=== PATIENT | female | born 1955 | race Two or more races ===

== ENCOUNTER → 2020-05-19 11:13 | Outpatient (BNVA) | payer MEDICARE, OTHER, SELFPAY | PROVIDERS: Visit Provider Physician Assistant | DX: S52.602D Unspecified fracture of lower end of left ulna, subsequent encounter for closed fracture with routine healing (principal); S52.502D Unspecified fracture of the lower end of left radius, subsequent encounter for closed fracture with routine healing | CPT/HCPCS: 29075; 29085; 99212 ==

== ENCOUNTER 2020-05-28 08:56 | Outpatient (REF) | payer MEDICARE, OTHER, SELFPAY ==
--- NOTE | 2020-05-28 08:59 | XR_ITS ---
EXAMINATION: XR WRIST, LEFT CLINICAL INFORMATION: Status post operative reduction internal fixation distal radial fracture. COMPARISON: Portable left wrist 05/05/2020, radiographs wrist 04/22/2020. TECHNIQUE: PA, lateral, and oblique views of the left wrist. FINDINGS: The distal radial fracture has been reduced with volar side plate and screws. The hardware is intact. There is near-anatomic alignment. There is no acute fracture or dislocation or destructive process. Again, there is fracture at base ulnar styloid with mild distraction/rotation of the fracture fragment, similar to prior portable study 05/05/2020. XR/XR wrist LT min 3V IMPRESSION: 1. Status post open reduction internal fixation distal radial fracture. Near-anatomic alignment. Hardware intact. 2. Styloid process fracture similar to recent study 05/05/2020.
== END 2020-05-28 08:57 | disposition home or self-care (01) ==
LOC: HO.XRAY 08:56
PROVIDERS: PCP Nurse Practitioner Family; Referring Provider Nurse Practitioner Family; Visit Provider Physician Assistant
DX: Z98.890 Other specified postprocedural states (principal); S52.502D Unspecified fracture of the lower end of left radius, subsequent encounter for closed fracture with routine healing; Z87.81 Personal history of (healed) traumatic fracture
CPT/HCPCS: 29125; 73110; 99212

== ENCOUNTER 2020-06-24 11:32 | Outpatient (REF) | payer MEDICARE, SELFPAY ==
--- NOTE | 2020-06-24 11:33 | XR_ITS ---
EXAMINATION: XR WRIST, LEFT CLINICAL INFORMATION: Fracture of the lower end of the left radius. Subsequent encounter closed fracture with routine healing COMPARISON: 05/28/2020 TECHNIQUE: PA, lateral, and oblique views of the left wrist. FINDINGS: Volar plate and screw fixation hardware is present at the distal radius. Hardware is intact. Alignment at the distal radial fracture is anatomic. Mild callus formation noted. Displaced ulnar styloid fracture again noted. Mild soft tissue swelling. Carpal rows are well aligned. XR/XR wrist LT min 3V IMPRESSION: Intact distal radial fixation hardware with appropriate alignment.
== END 2020-06-24 11:33 | disposition home or self-care (01) ==
LOC: HO.HOSX 11:32
PROVIDERS: Visit Provider Physician Assistant
DX: S52.502D Unspecified fracture of the lower end of left radius, subsequent encounter for closed fracture with routine healing (principal); X58.XXXD Exposure to other specified factors, subsequent encounter
CPT/HCPCS: 73110

== ENCOUNTER 2020-08-09 11:48 | Outpatient (REF) | payer MEDICARE, OTHER, SELFPAY ==
--- NOTE | 2020-08-09 13:22 | XR_ITS ---
EXAMINATION: XR WRIST, LEFT CLINICAL INFORMATION: Fracture COMPARISON: Previous x-ray most recent June 2020 TECHNIQUE: PA, lateral, and oblique views of the left wrist. FINDINGS: There is ORIF of left distal radius fracture with volar plate and screws. Orthopedic hardware appears unchanged. Fracture lines in the distal radius are no longer seen. There is an ununited fracture of the ulnar styloid that appears unchanged. Soft tissues are unremarkable. Carpal bones are unremarkable. XR/XR wrist LT 2V IMPRESSION: ORIF of left distal radius fracture. Ununited ulnar styloid fracture.
== END 2020-08-09 11:49 | disposition home or self-care (01) ==
LOC: HO.HOSX 11:48
PROVIDERS: Visit Provider Orthopaedic Surgery
DX: S52.502D Unspecified fracture of the lower end of left radius, subsequent encounter for closed fracture with routine healing (principal)
CPT/HCPCS: 73100; 99212

== ENCOUNTER 2020-09-08 13:00 | Outpatient (RCR) | payer MEDICARE, OTHER, SELFPAY ==
--- NOTE | 2020-06-24 15:12 | MHC.OT.OEV ---
[address] [phone] F: [phone] Occupational Therapy Evaluation Diagnosis: L DISTAL RADIUS FRACTURE S/P ORIF Date of Onset: 04/22/20 Date of Surgery: 05/05/20 Attending Provider: Deana Mora Prescribed Treatment: EVAL AND ROMAN HERNANDES Follow Up Appointment: 07/09/20 History of Current Condition: REPORTS FALLING ON R HAND WHILE REACHING O/H TO MEASURE CURTAIN REN WHILE STANDING ON A CHAIR. PLACED IN A CAST AFTER ORIF, TRANSITIONED TO REMOVABLE PREFAB SPLINT. SPLINT DISCONTINUED AT ORTHO VISIT 06/24/20. XRAY 06/24/20... Volar plate and screw fixation hardware is present at the distal radius. Hardware is intact. Alignment at the distal radial fracture is anatomic. Mild callus formation noted. Displaced ulnar styloid fracture again noted. Mild soft tissue swelling. Carpal rows are well aligned. Significant Medical History: ASTHMA, COPD Precautions/Contraindications: POST-OP PROTOCOL Patient Goals: TO GET HER STRENGTH BACK AND USE HAND SHE PREVIOUSLY DID Hand Dominance: Right QuickDASH Score: 43 Prior Level of Function and Occupation Self Care, Employment, Leisure: RETIRED. HOBBIES INCLUDE SWIMMING, CLEANING HOME. Living Situation, Family and/or Social Support: LIVES ALONE. HAS A DAUGHTER CLOSE BY. Current Level of Function and Occupation Self Care, Employment, Leisure: DIFFICULTIES WITH WASHING DISHES, TOILETING PERICARE, WASHING BACK. Sleep: HAVING DIFFICULTIES SLEEPING, UNABLE TO SPECIFY Driving: REPORTS SOME DIFFICULTIES IN LEFT HAND Vision: EYE GLASSES Pain Assessment Pain Score: 0-4 Pain Scale Used: Numeric (0 - 10) Pain Location and Description: L RADIAL WRIST PAINFREE AT REST, 4/10 WITH USE Aggravating Factors: MOVEMENT Alleviating Factors: WEARING SPLINT; HAS NOT TRIED HEAT OR ICE OR HAS NOT TAKEN PAIN MEDICATION Skin and Soft Tissue Assessment Skin and Soft Tissue: Swelling Scar Tissue Comments: VOLAR SCAR AT DISTAL WRIST; DRY SKIN, EDEMA NOTED BELOW Sensory Assessment Light Touch: WFL Edema Assessment Upper Extremity: Left Impaired Lower Extremity: Comments: CIRCUMFRENCE OF WRIST, DISTAL TO [place].S. LEFT: 17.0 CM; RIGHT: 15.7 CM Dexterity Assessment Dexterity: Left Impaired Comments: FUNCTIONAL DEXTERITY TEST: MOD FUNCTIONAL AT 35 SECONDS LEFT HAND AROM(PROM) Strength Shoulder Flexion: Extension: Abduction: Internal Rotation: External Rotation: Comments: WFL Flexion: Extension: Abduction: Internal Rotation: External Rotation: Comments: Elbow Flexion: Extension: Pronation: L 82, R 85 Supination: L 45, R 75 Comments: Flexion: Extension: Pronation: Supination: Comments: Wrist Flexion: L 28, R 48 Extension: L 45, R 60 Ulnar Deviation: L 42 Radial Deviation: L 15 Comments: Flexion: Extension: Ulnar Deviation: Radial Deviation: Comments: Digits Index MCP: PIP: DIP: Long MCP: PIP: DIP: Ring MCP: PIP: DIP: Small MCP: PIP: DIP: Comments: Gross Grasp: L 12, R 45 Lateral Pinch: L 5, R 12 Two-Point Pinch: Three-Jaw Lisandro: Comments: SUBMAX L GRASP Patient Education 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 Patient demonstrates Patient verbalizes Needs reinforcement Barriers to Learning: None Readiness for Learning: Accepting Who was educated? Patient Plan of Care Assessment: 64 Y/O F S/P ORIF 7 WEEKS AGO FOR DISTAL RADIUS FRACTURE SHE SUSTAINED AFTER FALLING OFF A CHAIR FROM THE STANDING POSITION. SHE REPORTS PAINFREE AT REST AND MODERATE PAIN WITH FUNCTIONAL USE. HER SPLINT WAS DISCONTINUED BY ORTHO TODAY. SHE REPORTS A 43% LIMITATION PER THE QUICK DASH ASSESSMENT. ONGOING OT WARRANTED TO ADDRESS THE AREAS MENTIONED BELOW AND MAXIMIZE HER FUNCTIONAL LEVEL. STG Duration: 3 WEEKS Short Term Goals: IND HEP IND USE OF HEAT/ICE IND SCAR MANAGEMENT AND EDEMA CONTROL WRIST FLEX 35 DEGREES, EXT 50 L SUPINATION 55 COORDINATION TO FUNCTIONAL LEVEL PER FUNCTIONAL DEXTERITY TEST LTG Duration: 6 WEEKS Sales And Business Development Manager Goals: WRIST FLEX/EXT >60 DEGREES L SUPINATION >70 DEGREES R FORM SETTER >30 POUNDS QUICK DASH <28 REPORT <2/10 PAIN WITH ADLs AND IADLs Frequency and Duration: The patient will be seen 2x/WEEK FOR 6 WEEKS Treatment Plan: Therapeutic Exercise Therapeutic Activity Home Exercise Program Splinting Neuro Re-ed Patient Education Desensitization/Sensory Re-ed Edema Control ADL Training NMES MHP Cold Packs Joint Mobilization Soft Tissue Mobilization Kinesiotaping Electronically Signed By: LEANNE RHOADES OTR/L Please sign and return to therapist, Thank you for your referral.
--- NOTE | 2020-09-30 15:28 | MHC.OT.DC ---
[address] [phone] F: [phone] Occupational Therapy Discharge Note Provider: Deana Mora PA-C Diagnosis: L DISTAL RADIUS FRACTURE S/P ORIF Date of Surgery: 05/05/20 Date of Evaluation: 06/24/20 Treatments to Date: 15 Discharge Status: Independent with HEP Discharge Summary: Progressing w/ range of motion, good inc after treatment. Pt demonstrates potential for con't improvement however reports she has little motivation to exercise at home or come to therapy. She is pain free at rest and has very low pain w/ activities, no significant functional limitations. Reporting new left thumb trigger, IPj flexion block fabricated for pt comfort. Electronically Signed By: Dana Bustos OTR/Toma Please Sign and return to therapist, thank you for your referral.
== END 2020-11-16 07:35 | disposition other institution (70) ==
LOC: HO.OT 13:00
PROVIDERS: Visit Provider Physician Assistant
DX: Z98.890 Other specified postprocedural states (principal); Z87.81 Personal history of (healed) traumatic fracture; S52.502D Unspecified fracture of the lower end of left radius, subsequent encounter for closed fracture with routine healing
CPT/HCPCS: 29125; 97035; 97110; 97140; 97166; 97760; 99212

== ENCOUNTER → 2020-09-09 09:44 | Outpatient (BNVA) | payer MEDICARE, OTHER, SELFPAY | PROVIDERS: PCP Internal Medicine Sports Medicine; Visit Provider Orthopaedic Surgery | DX: M65.312 Trigger thumb, left thumb (principal); S52.502D Unspecified fracture of the lower end of left radius, subsequent encounter for closed fracture with routine healing | CPT/HCPCS: 99202 ==

== ENCOUNTER 2020-09-27 13:38 | Emergency (ER) | payer MEDICARE, OTHER, SELFPAY ==
--- NOTE | ~2020-09-27 | CT_ITS ---
EXAMINATION: CT ABDOMEN AND PELVIS WITHOUT CONTRAST CLINICAL INFORMATION: Lower abdominal pain with guarding. Concern for diverticulitis COMPARISON: None. TECHNIQUE: Multidetector volumetric imaging was performed from the lung bases through the pubic symphysis. Sagittal and coronal reformatted images were obtained on the technologist workstation. This CT examination was performed using dose optimization techniques as appropriate, variously including the following: *Automated exposure control *Adjustment of mA and/or kV according to patient size (this includes techniques or standardized protocols for targeted exams where dose is matched to indication/reason for exam; i.e. extremities or head) *Use of iterative reconstruction technique Total exam DLP 954 FINDINGS: The lack of intravenous contrast limits evaluation of the solid visceral organs including the liver, spleen, pancreas, and kidneys. LUNG BASES: Mild bibasilar atelectasis. LIVER, GALLBLADDER, AND BILIARY TREE: Limited non-contrast evaluation is normal. No gross focal hepatic lesion. Normal liver size and contour. No gross biliary ductal dilation. Dependent gallstone. No gallbladder wall thickening or pericholecystic fluid. PANCREAS: Limited non-contrast evaluation is normal. No romaine-pancreatic fluid. SPLEEN: Limited non-contrast evaluation is normal. ADRENAL GLANDS: Normal; no adrenal mass. KIDNEYS AND URETERS: 2 mm left mid renal calculus, image [id number]. Punctate 1 mm left lower pole calculus. No hydronephrosis or hydroureter. GASTROINTESTINAL TRACT: Small bowel and colon are non-dilated. No bowel wall thickening. No pericolonic inflammatory changes to suggest colitis or diverticulitis. Appendix not seen but there are no right lower quadrant inflammatory changes to suggest appendicitis. ABDOMINAL WALL: Small fat-containing umbilical hernia. LYMPH NODES: No lymphadenopathy. VASCULAR: Normal caliber abdominal aorta. Moderate calcified atherosclerotic change. BLADDER: Unremarkable. PELVIC VISCERA: Normal noncontrast appearance of the uterus and ovaries. OSSEOUS STRUCTURES: No acute or suspicious osseous abnormalities. CT/CT abdomen pelvis wo con IMPRESSION: No acute CT findings. No evidence of colitis or diverticulitis. Tiny nonobstructing left renal calculi. Gallstones.
[2020-09-27 13:47] VITALS: BP 127/101; BP 127/56; PULSE 60; PULSE 66; RESP 22; TEMP 36.3; O2SAT 97; O2SAT 99; BMI 41.3
--- NOTE | 2020-09-27 13:49 | ED_ITS ---
HPI - Abdominal Pain General Chief Complaint: Abdominal Pain <Vikram Sexton MD - Last Filed: 09/27/20 16:58> Stated Complaint: ABDOMINAL PAIN / SOB <Vikram Sexton MD - Last Filed: 09/27/20 16:58> Time Seen by Provider: 09/27/20 13:49 <Vikram Sexton MD - Last Filed: 09/27/20 16:58> Source: patient <Vikram Sexton MD - Last Filed: 09/27/20 16:58> Mode of arrival: ambulatory <Vikram Sexton MD - Last Filed: 09/27/20 16:58> History of Present Illness HPI narrative: 45 minutes of sudden lower pain with chills, no dysuria, no NVD <Vikram Sexton MD - Last Filed: 09/27/20 16:58> MD elicited complaint: abdominal pain <Vikram Sexton MD - Last Filed: 09/27/20 16:58> Onset (ago): minute(s) (45) <Vikram Sexton MD - Last Filed: 09/27/20 16:58> Pain Consistency: constant <Vikram Sexton MD - Last Filed: 09/27/20 16:58> Location: other (lower) <Vikram Sexton MD - Last Filed: 09/27/20 16:58> Severity: moderate <Vikram Sexton MD - Last Filed: 09/27/20 16:58> Quality: cramping <Vikram Sexton MD - Last Filed: 09/27/20 16:58> Radiation: none <Vikram Sexton MD - Last Filed: 09/27/20 16:58> Exacerbating factors: nothing <Vikram Sexton MD - Last Filed: 09/27/20 16:58> Relieving factors: nothing <Vkiram Sexton MD - Last Filed: 09/27/20 16:58> Associated symptoms: chills <Vikram Sexton MD - Last Filed: 09/27/20 16:58> Related Data Home Medications: Home Medications Medication Instructions Recorded Confirmed acetaminophen 160 mg/5 mL oral 640 mg PO QID 05/19/20 elixir albuterol sulfate 2.5 mg INHALATION Q4-6H PRN 05/19/20 aspirin 81 mg tablet,delayed 81 mg PO DAILY 05/19/20 release atorvastatin 20 mg tablet 20 mg PO BEDTIME 05/19/20 calcium carbonate 500 mg-vitamin tab PO 05/19/20 D3 200 unit-vitamin K2 90 mcg tablet cholecalciferol (vitamin D3) 50 50 mcg PO DAILY 05/19/20 mcg (2,000 unit) capsule citalopram 20 mg tablet 20 mg PO DAILY 05/19/20 cyclosporine 0.05 % eye drops in a 1 drp OPHTHALMIC (EYE) Q12H 05/19/20 dropperette ferrous sulfate 325 mg (65 mg 325 mg PO DAILY 05/19/20 iron) tablet fluticasone propionate 50 1 spray INTRANASAL DAILY 05/19/20 mcg/actuation nasal spray,suspension hydroxyurea 500 mg capsule 500 mg PO DAILY 05/19/20 levothyroxine 75 mcg tablet 75 mcg PO DAILY 05/19/20 loratadine 10 mg capsule 10 mg PO DAILY 05/19/20 metoclopramide HCl 10 mg tablet 10 mg PO QIDACHS 05/19/20 multivitamin,[id number] 1 tab PO DAILY 05/19/20 omeprazole 20 mg capsule,delayed 20 mg PO DAILY 05/19/20 release ondansetron 4 mg disintegrating 4 mg PO Q8H 05/19/20 tablet polyethylene glycol 3350 17 gram 17 g PO DAILY 05/19/20 oral powder packet Previous Rx's Medication Instructions Recorded arm brace #1 ea 05/28/20 <Vikram Sexton MD - Last Filed: 09/27/20 16:58> Allergies/Adverse Reactions: Allergies Allergy/AdvReac Type Severity Reaction Status Date / Time acetaminophen [From VICODIN] Allergy Intermediate DIZZY Verified 08/09/20 13:29 hydrocodone [From VICODIN] Allergy Intermediate DIZZY Verified 08/09/20 13:29 zoster vaccine live Allergy Mild HIVES Verified 08/09/20 13:29 [SHINGLES VACCINE] BARIUM CONTRAST Allergy Unknown DIFFICULTY Uncoded 04/22/20 19:34 BREATHING/FLUSHING Vicodin Allergy Unknown anaphylaxis Uncoded 12/03/19 00:00 <Vikram Sexton MD - Last Filed: 09/27/20 16:58> Review of Systems Constitutional: Reports no additional constitutional complaints <Vikram Sexton MD - Last Filed: 09/27/20 16:58> Eyes: Reports no additional eye complaints <Vikram Sexton MD - Last Filed: 09/27/20 16:58> Denies dizziness <Vikram Sexton MD - Last Filed: 09/27/20 16:58> Cardiovascular: Reports no additional cardiovascular complaints <Vikram Sexton MD - Last Filed: 09/27/20 16:58> Respiratory: Reports as per HPI <Vikram Sexton MD - Last Filed: 09/27/20 16:58> Gastrointestinal: Reports no additional gastrointestinal complaints <Vikram Sexton MD - Last Filed: 09/27/20 16:58> Genitourinary: Reports no additional female genitourinary complaints <Vikram Sexton MD - Last Filed: 09/27/20 16:58> Musculoskeletal: Reports no additional musculoskeletal complaints <Vikram Sexton MD - Last Filed: 09/27/20 16:58> Skin/Breast: Denies rash <Vikram Sexton MD - Last Filed: 09/27/20 16:58> Reports system reviewed and no additional complaints, except as documented, Denies dizziness and Denies Sensory deficit (Neuro) <Vikram Sexton MD - Last Filed: 09/27/20 16:58> Psychiatric: Denies anxiety <Vikram Sexton MD - Last Filed: 09/27/20 16:58> Physical Exam Vital Signs: Vital Signs: Last Vital Signs Temp 97.4 F 09/27/20 13:47 Pulse 76 09/27/20 14:44 Resp 18 09/27/20 14:44 BP 153/78 H 09/27/20 14:44 Pulse Ox 95 09/27/20 14:44 Body Mass Index 41.3 <Vikram Sexton MD - Last Filed: 09/27/20 16:58> Vital Signs: Last Vital Signs Temp 97.4 F 09/27/20 13:47 Pulse 76 09/27/20 14:44 Resp 18 09/27/20 14:44 BP 153/78 H 09/27/20 14:44 Pulse Ox 95 09/27/20 14:44 Body Mass Index 41.3 <Chidi Vitale MD - Last Filed: 09/27/20 17:49> Const: Other: obese female in pain <Vikram Sexton MD - Last Filed: 09/27/20 16:58> Nutritional Appearance: obese <Vikram Sexton MD - Last Filed: 09/27/20 16:58> Orientation/consciousness: oriented to person and patient oriented x3 <Vikram Sexton MD - Last Filed: 09/27/20 16:58> Limitations: no limitations <Vikram Sexton MD - Last Filed: 09/27/20 16:58> HENMT: Head: Yes normal to inspection <Vikram Sexton MD - Last Filed: 09/27/20 16:58> Ears: external ears normal <Vikram Sexton MD - Last Filed: 09/27/20 16:58> General nose exam: Normal external nose present <Vikram Sexton MD - Last Filed: 09/27/20 16:58> Mouth: Normal oral and palatal mucosa present and oropharynx normal <Vikram Sexton MD - Last Filed: 09/27/20 16:58> Throat: Yes posterior oropharynx normal <Vikram Sexton MD - Last Filed: 09/27/20 16:58> Eyes: General: appearance normal, both eyes and all related structures <Vikram Sexton MD - Last Filed: 09/27/20 16:58> Neck: Other: supple <Vikram Sexton MD - Last Filed: 09/27/20 16:58> Neck: Yes normal visual inspection <Vikram Sexton MD - Last Filed: 09/27/20 16:58> Chest: Chest palpation & inspection: normal inspection of the chest <Vikram Sexton MD - Last Filed: 09/27/20 16:58> Resp: Auscultation: clear to auscultation bilaterally <Vikram Sexton MD - Last Filed: 09/27/20 16:58> Cardio: Jugular venous distension: no JVD <Vikram Sexton MD - Last Filed: 09/27/20 16:58> Rate: regular rate <Vikram Sexton MD - Last Filed: 09/27/20 16:58> Rhythm: regular rhythm <Vikram Sexton MD - Last Filed: 09/27/20 16:58> Heart sounds: S1 normal heart sound present and S2 normal heart sound present <Vikram Sexton MD - Last Filed: 09/27/20 16:58> GI: Other: obese abdomen, healed surgical wounds, diffuse guarding but more severe midline low with guarding and rebound <Vikram Sexton MD - Last Filed: 09/27/20 16:58> Auscultation: normal bowel sounds <Vikram Sexton MD - Last Filed: 09/27/20 16:58> : General: Yes no CVA tenderness <Vikram Sexton MD - Last Filed: 09/27/20 16:58> Back/Spine/Pelvis: Back: no CVA tenderness <Vikram Sexton MD - Last Filed: 09/27/20 16:58> Skin: General skin exam: no rashes or lesions noted <Vikram Sexton MD - Last Filed: 09/27/20 16:58> Neuro: General: oriented to person and patient oriented x3 <Vikram Sexton MD - Last Filed: 09/27/20 16:58> Cranial nerves: Yes CN's II-XII intact bilaterally <Vikram Sexton MD - Last Filed: 09/27/20 16:58> Motor exam (neuro): 5/5 motor strength present throughout <Vikram Sexton MD - Last Filed: 09/27/20 16:58> Sensory Exam: No Sensory deficit (Neuro) <Vikram Sexton MD - Last Filed: 09/27/20 16:58> Extrem: General: Yes normal to inspection <Vikram Sexton MD - Last Filed: 09/27/20 16:58> Psych: Appearance: grossly normal <Vikram Sexton MD - Last Filed: 09/07 09/26 16:58> Course Course Course Narrative: patient feeling much better no evidence of diverticulitis, appendicitis, awaiting UA will sign out to Dr. Vitale <Vikram Sexton MD - Last Filed: 09/27/20 16:58> Reevaluation(s) Reevaluation #1: Patient feeling much better came here for pain started in right upper quadrant with diffuse radiation of pain with bloatng and the nausea patient does state that she was told that she had gallstones in the past CT scan showed nonobstructive gallstones without cholecystitis otherwise workup is negative. Patient feeling much better now advised to follow up with surgeon for cholecystectomy <Chidi Vitale MD - Last Filed: 09/27/20 17:49> Time: 17:48 <Chidi Vitale MD - Last Filed: 09/27/20 17:49> MDM - Abdominal Pain Differential Diagnosis Differential diagnosis: Likely abdominal pain, diverticulitis and small bowel obstruction <Vikram Sexton MD - Last Filed: 09/27/20 16:58> Lab Data Result diagrams: : 09/27/20 14:51 09/27/20 14:51 <Vikram Sexton MD - Last Filed: 09/27/20 16:58> Labs: Lab Results 09/27/20 09/27/20 09/27/20 Range/Units 14:51 14:51 14:51 WBC 11.1 H (4.8-10.8) X10*3/uL RBC 4.30 (4.20-5.50) X10*6/uL Hgb 13.6 (12.0-16.0) g/dl Hct 41.6 (37-47) % MCV 96.7 (80-98) fL MCH 31.6 (27.0-33.0) pg MCHC 32.7 (31.0-35.0) g/dl RDW 14.2 (11.0-16.0) % Plt Count 260 (160-400) X10*3/uL MPV 9.1 L (9.4-12.3) fL Immature Gran % (Auto) 0.5 H (0.0-0.4) % Neut % (Auto) 85.1 H (45-73) % Lymph % (Auto) 8.5 L (20-40) % [place] % (Auto) 4.8 (2-11) % Eos % (Auto) 0.9 (0-4) % Baso % (Auto) 0.2 (0-2) % Lymph # (Auto) 0.9 L (1.2-4.9) X10*3/uL [place] # (Auto) 0.5 (0.1-1.2) X10*3/uL Eos # (Auto) 0.1 (0.0-0.4) X10*3/uL Baso # (Auto) 0.0 (0.0-0.2) X10*3/uL Abs Immat Gran (auto) 0.05 H (0.00-0.03) X10*3/uL Absolute Neuts (auto) 9.4 H (2.0-8.3) X10*3/uL Absolute Nucleated RBC 0.000 (0.0-0.012) X10*3/uL Nucleated RBC % (auto) 0.0 (0.0-0.2) /100WBC Sodium 142 (135-145) mmol/L Potassium 5.1 (3.3-5.1) mmol/L Chloride 103 (96-108) mmol/L Carbon Dioxide 30 H (22-29) mmol/L Anion Gap 14 (12-20) BUN 14 (9-16) mg/dL Creatinine 0.93 (0.5-1.4) mg/dL Estim Creat Clear Calc 63.3 Estimated GFR > 60 Random Glucose 118 H (60-115) mg/dL Calcium 9.8 (8.4-10.2) mg/dL Total Bilirubin 0.4 (0.0-1.0) mg/dL Direct Bilirubin 0.2 (0.0-0.5) mg/dL AST 39 H (5-31) U/L ALT 29 (0-31) U/L Alkaline Phosphatase 138 H (39-117) U/L Total Protein 7.2 (6.5-8.0) g/dL Albumin 4.3 (3.5-5.0) g/dL Lipase 21 (8-78) U/L Urine Color Urine Appearance Urine pH (5.0-8.0) Ur Specific [place] (1.005-1.025) Urine Protein (NEG-TRACE) MG/DL Urine Glucose (UA) (NEG) MG/DL Urine Ketones (NEG) MG/DL Urine Blood (NEG) Urine Nitrite (NEG) Ur Leukocyte Esterase (NEG) Urine RBC (0) /HPF Urine WBC (0-4) /HPF Ur Squamous Epith Cells /LPF Amorphous Sediment /LPF Urine Bacteria /LPF Urine Mucus /LPF 09/27/20 Range/Units 17:16 WBC (4.8-10.8) X10*3/uL RBC (4.20-5.50) X10*6/uL Hgb (12.0-16.0) g/dl Hct (37-47) % MCV (80-98) fL MCH (27.0-33.0) pg MCHC (31.0-35.0) g/dl RDW (11.0-16.0) % Plt Count (160-400) X10*3/uL MPV (9.4-12.3) fL Immature Gran % (Auto) (0.0-0.4) % Neut % (Auto) (45-73) % Lymph % (Auto) (20-40) % [place] % (Auto) (2-11) % Eos % (Auto) (0-4) % Baso % (Auto) (0-2) % Lymph # (Auto) (1.2-4.9) X10*3/uL [place] # (Auto) (0.1-1.2) X10*3/uL Eos # (Auto) (0.0-0.4) X10*3/uL Baso # (Auto) (0.0-0.2) X10*3/uL Abs Immat Gran (auto) (0.00-0.03) X10*3/uL Absolute Neuts (auto) (2.0-8.3) X10*3/uL Absolute Nucleated RBC (0.0-0.012) X10*3/uL Nucleated RBC % (auto) (0.0-0.2) /100WBC Sodium (135-145) mmol/L Potassium (3.3-5.1) mmol/L Chloride (96-108) mmol/L Carbon Dioxide (22-29) mmol/L Anion Gap (12-20) BUN (9-16) mg/dL Creatinine (0.5-1.4) mg/dL Estim Creat Clear Calc Estimated GFR Random Glucose (60-115) mg/dL Calcium (8.4-10.2) mg/dL Total Bilirubin (0.0-1.0) mg/dL Direct Bilirubin (0.0-0.5) mg/dL AST (5-31) U/L ALT (0-31) U/L Alkaline Phosphatase (39-117) U/L Total Protein (6.5-8.0) g/dL Albumin (3.5-5.0) g/dL Lipase (8-78) U/L Urine Color YELLOW Urine Appearance CLOUDY Urine pH 7.0 (5.0-8.0) Ur Specific [place] 1.015 (1.005-1.025) Urine Protein NEG (NEG-TRACE) MG/DL Urine Glucose (UA) NEG (NEG) MG/DL Urine Ketones NEG (NEG) MG/DL Urine Blood TRACE (NEG) Urine Nitrite NEG (NEG) Ur Leukocyte Esterase NEG (NEG) Urine RBC 0-2 (0) /HPF Urine WBC 0-2 (0-4) /HPF Ur Squamous Epith Cells TRACE /LPF Amorphous Sediment 2+ /LPF Urine Bacteria NONE /LPF Urine Mucus TRACE /LPF <Vikram Sexton MD - Last Filed: 09/27/20 16:58> Lab Results 09/27/20 09/27/20 09/27/20 Range/Units 14:51 14:51 14:51 WBC 11.1 H (4.8-10.8) X10*3/uL RBC 4.30 (4.20-5.50) X10*6/uL Hgb 13.6 (12.0-16.0) g/dl Hct 41.6 (37-47) % MCV 96.7 (80-98) fL MCH 31.6 (27.0-33.0) pg MCHC 32.7 (31.0-35.0) g/dl RDW 14.2 (11.0-16.0) % Plt Count 260 (160-400) X10*3/uL MPV 9.1 L (9.4-12.3) fL Immature Gran % (Auto) 0.5 H (0.0-0.4) % Neut % (Auto) 85.1 H (45-73) % Lymph % (Auto) 8.5 L (20-40) % [place] % (Auto) 4.8 (2-11) % Eos % (Auto) 0.9 (0-4) % Baso % (Auto) 0.2 (0-2) % Lymph # (Auto) 0.9 L (1.2-4.9) X10*3/uL [place] # (Auto) 0.5 (0.1-1.2) X10*3/uL Eos # (Auto) 0.1 (0.0-0.4) X10*3/uL Baso # (Auto) 0.0 (0.0-0.2) X10*3/uL Abs Immat Gran (auto) 0.05 H (0.00-0.03) X10*3/uL Absolute Neuts (auto) 9.4 H (2.0-8.3) X10*3/uL Absolute Nucleated RBC 0.000 (0.0-0.012) X10*3/uL Nucleated RBC % (auto) 0.0 (0.0-0.2) /100WBC Sodium 142 (135-145) mmol/L Potassium 5.1 (3.3-5.1) mmol/L Chloride 103 (96-108) mmol/L Carbon Dioxide 30 H (22-29) mmol/L Anion Gap 14 (12-20) BUN 14 (9-16) mg/dL Creatinine 0.93 (0.5-1.4) mg/dL Estim Creat Clear Calc 63.3 Estimated GFR > 60 Random Glucose 118 H (60-115) mg/dL Calcium 9.8 (8.4-10.2) mg/dL Total Bilirubin 0.4 (0.0-1.0) mg/dL Direct Bilirubin 0.2 (0.0-0.5) mg/dL AST 39 H (5-31) U/L ALT 29 (0-31) U/L Alkaline Phosphatase 138 H (39-117) U/L Total Protein 7.2 (6.5-8.0) g/dL Albumin 4.3 (3.5-5.0) g/dL Lipase 21 (8-78) U/L Urine Color Urine Appearance Urine pH (5.0-8.0) Ur Specific [place] (1.005-1.025) Urine Protein (NEG-TRACE) MG/DL Urine Glucose (UA) (NEG) MG/DL Urine Ketones (NEG) MG/DL Urine Blood (NEG) Urine Nitrite (NEG) Ur Leukocyte Esterase (NEG) Urine RBC (0) /HPF Urine WBC (0-4) /HPF Ur Squamous Epith Cells /LPF Amorphous Sediment /LPF Urine Bacteria /LPF Urine Mucus /LPF 09/27/20 Range/Units 17:16 WBC (4.8-10.8) X10*3/uL RBC (4.20-5.50) X10*6/uL Hgb (12.0-16.0) g/dl Hct (37-47) % MCV (80-98) fL MCH (27.0-33.0) pg MCHC (31.0-35.0) g/dl RDW (11.0-16.0) % Plt Count (160-400) X10*3/uL MPV (9.4-12.3) fL Immature Gran % (Auto) (0.0-0.4) % Neut % (Auto) (45-73) % Lymph % (Auto) (20-40) % [place] % (Auto) (2-11) % Eos % (Auto) (0-4) % Baso % (Auto) (0-2) % Lymph # (Auto) (1.2-4.9) X10*3/uL [place] # (Auto) (0.1-1.2) X10*3/uL Eos # (Auto) (0.0-0.4) X10*3/uL Baso # (Auto) (0.0-0.2) X10*3/uL Abs Immat Gran (auto) (0.00-0.03) X10*3/uL Absolute Neuts (auto) (2.0-8.3) X10*3/uL Absolute Nucleated RBC (0.0-0.012) X10*3/uL Nucleated RBC % (auto) (0.0-0.2) /100WBC Sodium (135-145) mmol/L Potassium (3.3-5.1) mmol/L Chloride (96-108) mmol/L Carbon Dioxide (22-29) mmol/L Anion Gap (12-20) BUN (9-16) mg/dL Creatinine (0.5-1.4) mg/dL Estim Creat Clear Calc Estimated GFR Random Glucose (60-115) mg/dL Calcium (8.4-10.2) mg/dL Total Bilirubin (0.0-1.0) mg/dL Direct Bilirubin (0.0-0.5) mg/dL AST (5-31) U/L ALT (0-31) U/L Alkaline Phosphatase (39-117) U/L Total Protein (6.5-8.0) g/dL Albumin (3.5-5.0) g/dL Lipase (8-78) U/L Urine Color YELLOW Urine Appearance CLOUDY Urine pH 7.0 (5.0-8.0) Ur Specific [place] 1.015 (1.005-1.025) Urine Protein NEG (NEG-TRACE) MG/DL Urine Glucose (UA) NEG (NEG) MG/DL Urine Ketones NEG (NEG) MG/DL Urine Blood TRACE (NEG) Urine Nitrite NEG (NEG) Ur Leukocyte Esterase NEG (NEG) Urine RBC 0-2 (0) /HPF Urine WBC 0-2 (0-4) /HPF Ur Squamous Epith Cells TRACE /LPF Amorphous Sediment 2+ /LPF Urine Bacteria NONE /LPF Urine Mucus TRACE /LPF <Chidi Vitale MD - Last Filed: 09/27/20 17:49> Imaging Data CT scan - abdomen: Radiologist's impression: No evidence of diverticulitis or SBO. <Vikram Sexton MD - Last Filed: 09/27/20 16:58> Discharge Plan Discharge Clinical Impression: Biliary colic Gallstones without obstruction of gallbladder Qualifiers: Cholelithiasis location: gallbladder Cholecystitis presence: without cholecystitis Qualified Code(s): K80.20 - Calculus of gallbladder without cholecystitis without obstruction <Vikram Sexton MD - Last Filed: 09/27/20 16:58> Patient Disposition: Home, Self-Care <Vikram Sexton MD - Last Filed: 09/27/20 16:58> Instructions: Gallstones (ED) <Vikram Sexton MD - Last Filed: 09/27/20 16:58> Additional Instructions: Avoid fried food. Drink plenty of fluids. Follow-up with surgeon for further care. Report to the ER if increased pain in right upper quadrant/nausea/vomiting/fever <Vikram Sexton MD - Last Filed: 09/27/20 16:58> Prescriptions: No Action (DME) Wrist Brace Misc See Rx Instructions .MEDSUPPLY Qty: 1 RF: 0 <Vikram Sexton MD - Last Filed: 09/27/20 16:58> Referrals: Cole Spears MD [Physician] - 1 week <Vikram Sexton MD - Last Filed: 09/27/20 16:58> [facility] Past Medical History Medical History: Medical History Hiatal hernia <Vikram Sexton MD - Last Filed: 09/27/20 16:58> Surgical History: Surgical History History of repair of hiatal hernia S/P wrist surgery <Vikram Sexton MD - Last Filed: 09/27/20 16:58> Family History Family History: Family History Father No problems noted. Mother No problems noted. <Vikram Sexton MD - Last Filed: 09/27/20 16:58> Social History Social History: Social History Alcohol intake: never Smoking Status: Never smoker Advance Directives: No Advance Directives Information Provided: No Current occupational status: retired Current occupation: right handed <Vikram Sexton MD - Last Filed: 09/27/20 16:58>
[2020-09-27] MEDS: Ketorolac Tromethamine 30 MG/ML VIAL IVPUSH (14:43)
[2020-09-27 14:44] VITALS: BP 153/78; PULSE 76; RESP 18; O2SAT 95
[2020-09-27 14:58] LABS: MANUAL DIFF FLAG NO
[2020-09-27 14:59] LABS: Basophils Percent Auto 0.2 % (0-2); Eosinophils Absolute Auto 0.1 X10*3/uL (0.0-0.4); Eosinophils Percent Auto 0.9 % (0-4); Hematocrit 41.6 % (37-47); Hemoglobin 13.6 g/dl (12.0-16.0); Imm Gran Abs Auto 0.05 X10*3/uL (0.00-0.03); Imm Gran Pct Auto 0.5 % (0.0-0.4); Lymphocytes Absolute Auto 0.9 X10*3/uL (1.2-4.9); Lymphocytes Percent Auto 8.5 % (20-40); Mean Corpuscular HGB Conc 32.7 g/dl (31.0-35.0); Mean Corpuscular Hemoglobin 31.6 pg (27.0-33.0); Mean Corpuscular Volume 96.7 fL (80-98); Mean Platelet Volume 9.1 fL (9.4-12.3); Monocytes Absolute Auto 0.5 X10*3/uL (0.1-1.2); Monocytes Percent Auto 4.8 % (2-11); Neutrophils Absolute Auto 9.4 X10*3/uL (2.0-8.3); Neutrophils Percent Auto 85.1 % (45-73); Platelet Count 260 X10*3/uL (160-400); Red Cell Distribution Width 14.2 % (11.0-16.0); White Blood Count 11.1 X10*3/uL (4.8-10.8)
[2020-09-27 15:35] LABS: Alanine Aminotransferase 29 U/L (0-31); Albumin Level 4.3 g/dL (3.5-5.0); Alkaline Phosphatase 138 U/L (39-117); Anion Gap 14 (12-20); Aspartate Amino Transferase 39 U/L (5-31); Bilirubin Direct 0.2 mg/dL (0.0-0.5); Bilirubin Total 0.4 mg/dL (0.0-1.0); Blood Urea Nitrogen 14 mg/dL (9-16); Calcium 9.8 mg/dL (8.4-10.2); Carbon Dioxide 30 mmol/L (22-29); Chloride 103 mmol/L (96-108); Creatinine Clr Calc Pharmacy 63.3; Estimated Glomerular Filt Rate > 60; Glucose Random 118 mg/dL (60-115); Lipase 21 U/L (8-78); Potassium 5.1 mmol/L (3.3-5.1); Sodium 142 mmol/L (135-145); Total Protein 7.2 g/dL (6.5-8.0)
[2020-09-27 17:27] LABS: Glucose Urine UA NEG (NEG); Leukocyte Esterase Urine NEG (NEG); Nitrite Urine NEG (NEG); Specific Gravity - Urine 1.015 (1.005-1.025); Urine Blood TRACE (NEG); Urine Ketones NEG (NEG); Urine Protein NEG (NEG-TRACE)
[2020-09-27 17:34] LABS: Appearance Urine CLOUDY; Color Urine YELLOW
[2020-09-27 17:38] LABS: Amorphous Sediment Urine 2+ /LPF; Mucus Urine TRACE /LPF; RBC Urine 0-2 /HPF (0); Squamous Epithelial Cell Urine TRACE /LPF; WBC Urine 0-2 /HPF (0-4)
== END 2020-09-27 17:50 | disposition home or self-care (01) ==
PROVIDERS: Emergency Provider Emergency Medicine
DX: K80.20 Calculus of gallbladder without cholecystitis without obstruction (principal)
CPT/HCPCS: 36415; 74176; 80048; 80076; 81001; 83690; 85025; 96374; 99283; 99284; J1885

== ENCOUNTER 2020-09-30 12:33 | Day surgery (SDC) | payer MEDICARE, OTHER, SELFPAY ==
[2020-09-30 13:17] VITALS: BMI 41.1
[2020-09-30] MEDS: Lidocaine HCl 2%/Epi 1:100,000 20 ML VIAL INFILTRATI (14:18)
[2020-09-30 14:55] VITALS: BP 126/65; PULSE 72; RESP 18; TEMP 36.4; O2SAT 98
--- NOTE | 2020-09-30 15:09 | W.PM.OPN ---
Operative Note Operative Note Date of Service: 09/30/20 Narrative: Operative Note Preop diagnosis: 1. Left thumb Trigger finger Postop diagnosis: 1. Left thumb Trigger finger Procedure: 1. Left thumb A1 juanito release Surgeon: Dasha Pimentel MD Anesthesia: local block using 1% lidocaine with epinephrine Findings: No locking or catching after A1 juanito release EBL: Less than 5 mL Tourniquet time: None Specimens: None Complications: None Disposition: Brought to recovery room in stable condition Plan: Follow-up for 7-10 days for wound check and suture removal Indications: The patient is 65 years old, with a left thumb trigger finger that has been unresponsive to nonoperative management. The risks and benefits of operative treatment including but not limited to risk of damage to blood vessels, nerves, tendons, infection, persistent pain, persistent symptoms, recurrence or possible need for additional surgery were discussed with the patient and the patient wishes to proceed with surgery. Procedure: Once consent was obtained a local block was performed in the preop area using a combination of 1% lidocaine with epinephrine. The patient was then brought back to the operating suite and placed on the operative table in supine position. A tourniquet was applied to the proximal aspect of the left upper extremity and the limb was prepped and draped in a standard surgical fashion. Once assured that we had a good block, a 1.5 cm oblique incision was made centered over the A1 juanito of the the left thumb . The incision was made through the skin to the subcutaneous tissues using a #15 blade. Careful dissection was made down to the level of the A1 juanito using tenotomy scissors, with care being taken to protect the nearby neurovascular structures. A longitudinal incision was made in the A1 juanito 1st using a #15 blade, then using tenotomy scissors under direct visualization. The A1 juanito was noted to be thickened. Following our A1 juanito release, we no longer saw any locking or catching of the digit with flexion and extension. Once satisfied with our A1 juanito release the wound was copiously irrigated with normal saline and hemostasis was obtained with a brief period of local pressure. The skin edges were reapproximated with some 5.0 nylon suture material and a sterile dressing was applied. The patient appears to have tolerated the procedure well and with no complications. All digits were well vascularized at the conclusion of the case.
--- NOTE | 2020-09-30 15:10 | MHC.SHP ---
Pre-Procedural Eval Section B Chief Complaint: trigger thumb Allergies: Allergies Allergy/AdvReac Type Severity Reaction Status Date / Time acetaminophen [From VICODIN] Allergy Intermediate DIZZY Verified 09/30/20 13:33 hydrocodone [From VICODIN] Allergy Intermediate DIZZY Verified 09/30/20 13:33 zoster vaccine live Allergy Mild HIVES Verified 09/30/20 13:33 [SHINGLES VACCINE] BARIUM CONTRAST Allergy Unknown DIFFICULTY Uncoded 09/30/20 13:33 BREATHING/FLUSHING Vicodin Allergy Unknown anaphylaxis Uncoded 09/30/20 13:33 Plan I have reviewed the history and physical and performed a pertinent physical examination on my patient. No changes have occurred unless specified.
== END 2020-09-30 15:08 | disposition home or self-care (01) ==
PROVIDERS: PCP Internal Medicine Sports Medicine; Visit Provider Orthopaedic Surgery
PROC: (CPT 26055; principal; 2020-09-30 13:50)
DX: M65.312 Trigger thumb, left thumb (principal); Z87.81 Personal history of (healed) traumatic fracture; Z79.82 Long term (current) use of aspirin; Z79.899 Other long term (current) drug therapy; Z91.041 Radiographic dye allergy status; Z88.7 Allergy status to serum and vaccine; Z88.8 Allergy status to other drugs, medicaments and biological substances
CPT/HCPCS: 26055

== ENCOUNTER → 2020-10-11 09:10 | Outpatient (BNVA) | payer MEDICARE, SELFPAY | PROVIDERS: PCP Internal Medicine Sports Medicine; Visit Provider Orthopaedic Surgery | DX: M65.312 Trigger thumb, left thumb (principal) | CPT/HCPCS: 99212 ==

== ENCOUNTER 2020-11-14 11:19 | Emergency (ER) | payer MEDICARE, SELFPAY ==
[2020-11-14 12:10] VITALS: BP 116/58; PULSE 79; RESP 17; TEMP 36.7; O2SAT 96; BMI 41.1
[2020-11-14] MEDS: Diphth,Pertus(ACell),Tet Adult 0.5 ML SYRINGE IM (14:40)
--- NOTE | 2020-11-14 15:00 | ED_ITS ---
HPI - Wound/Laceration General Chief Complaint: Wound/Laceration Stated Complaint: lac Time Seen by Provider: 11/14/20 14:13 Source: patient Mode of arrival: ambulatory Limitations: no limitations History of Present Illness HPI narrative: 65-year-old female who presents emergency department for evaluation of a laceration/skin avulsion to her left 5th finger. Patient states that she was holding a dog leash yesterday when the dog took off after another dog causing her to lose the skin over the palmar PIP crease. She states that she did clean the wound and applied a bandage however the wound continues to bleed therefore she came to the emergency department for evaluation. She denies any pain in the finger. She does not know in her last tetanus shot was given but believes it was greater than 5 years prior. Related Data Home Medications Medication Instructions Recorded Confirmed acetaminophen 160 mg/5 mL oral 640 mg PO QID 05/19/20 elixir albuterol sulfate 2.5 mg INHALATION Q4-6H PRN 05/19/20 aspirin 81 mg tablet,delayed 81 mg PO DAILY 05/19/20 release atorvastatin 20 mg tablet 20 mg PO BEDTIME 05/19/20 calcium carbonate 500 mg-vitamin tab PO 05/19/20 D3 200 unit-vitamin K2 90 mcg tablet cholecalciferol (vitamin D3) 50 50 mcg PO DAILY 05/19/20 mcg (2,000 unit) capsule citalopram 20 mg tablet 20 mg PO DAILY 05/19/20 cyclosporine 0.05 % eye drops in a 1 drp OPHTHALMIC (EYE) Q12H 05/19/20 dropperette ferrous sulfate 325 mg (65 mg 325 mg PO DAILY 05/19/20 iron) tablet fluticasone propionate 50 1 spray INTRANASAL DAILY 05/19/20 mcg/actuation nasal spray,suspension hydroxyurea 500 mg capsule 500 mg PO DAILY 05/19/20 levothyroxine 75 mcg tablet 75 mcg PO DAILY 05/19/20 loratadine 10 mg capsule 10 mg PO DAILY 05/19/20 metoclopramide HCl 10 mg tablet 10 mg PO QIDACHS 05/19/20 multivitamin,[id number] 1 tab PO DAILY 05/19/20 omeprazole 20 mg capsule,delayed 20 mg PO DAILY 05/19/20 release ondansetron 4 mg disintegrating 4 mg PO Q8H 10/14/20 tablet polyethylene glycol 3350 17 gram 17 g PO DAILY 05/19/20 oral powder packet Previous Rx's Medication Instructions Recorded arm brace #1 ea 05/28/20 Allergies Allergy/AdvReac Type Severity Reaction Status Date / Time acetaminophen [From VICODIN] Allergy Intermediate DIZZY Verified 10/11/20 09:17 hydrocodone [From VICODIN] Allergy Intermediate DIZZY Verified 10/11/20 09:17 zoster vaccine live Allergy Mild HIVES Verified 10/11/20 09:17 [SHINGLES VACCINE] BARIUM CONTRAST Allergy Unknown DIFFICULTY Uncoded 09/30/20 13:33 BREATHING/FLUSHING Vicodin Allergy Unknown anaphylaxis Uncoded 09/30/20 13:33 Review of Systems Review of Systems: Yes all other systems are reviewed and are negative PMFSH Past Medical History Medical History Anxiety Anxiety Asthma COPD (chronic obstructive pulmonary disease) Hiatal hernia JONATHAN on CPAP Surgical History History of repair of hiatal hernia S/P wrist surgery Family History Family History Father No problems noted. Mother No problems noted. Social History Social History Alcohol intake: never Smoking Status: Former smoker Smoked in Last 30 Days: No Use of substances other than those prescribed or required for medical reasons: No Advance Directives: No Current occupational status: retired Current occupation: right handed Physical Exam Vital Signs: Vital Signs: Last Vital Signs Temp 98.0 F 11/14/20 12:10 Pulse 79 11/14/20 12:10 Resp 17 11/14/20 12:10 BP 116/58 L 11/14/20 12:10 Pulse Ox 96 11/14/20 12:10 Body Mass Index 41.1 Const: General: cooperative and healthy appearing Orientation/consciousness: oriented to person and oriented to place Limitations: no limitations HENMT: Head: Yes normal to inspection Neuro: General: oriented to person and oriented to place Extrem: Other: The patient has a full skin thickness skin avulsion over the palmar PIP crease of the left 5th finger, there appeared to be some very small bleeding vessels exposed, they are not actively bleeding at this time she has full range of motion of her finger with no limitations and a normal sensory exam. Course Course Course Narrative: 65-year-old female who presents emergency department for evaluation of a full skin thickness avulsion of over the palmar PIP crease of the left 5th finger. The wound continues to bleed since there appears to be some very small vessels that are exposed secondary to the skin avulsion. The wound was cleaned by me. I then applied Dermabond over the wound. After the w ound was dried, the patient's 4th and 5th fingers were brennon-taped and the fingers were wrapped with a Kerlix gauze dressing. The patient was given a Tdap as well. She was given verbal and printed instructions and discharged home. Discharge Plan Discharge Clinical Impression: Finger laceration Qualifiers: Encounter type: initial encounter Finger: little finger Damage to nail status: without damage Foreign body presence: without foreign body Laterality: left Qualified Code(s): S61.217A - Laceration without foreign body of left little finger without damage to nail, initial encounter Patient Disposition: Home, Self-Care Instructions: Skin Adhesive Care (ED) Additional Instructions: Your wound was repaired with skin glue. Do not apply any ointments to the skin glue since this will cause the skin with a dissolved. Brennon-tape your pinky finger to the ring finger and to keep your finger is wrapped with gauze for 2-3 days. You can change the gauze and tape as needed. Prescriptions: No Action (DME) Wrist Brace Misc See Rx Instructions .MEDSUPPLY Qty: 1 RF: 0
== END 2020-11-14 15:16 | disposition home or self-care (01) ==
PROVIDERS: Emergency Provider Emergency Medicine Emergency Medical Services; PCP Internal Medicine
DX: S61.217A Laceration without foreign body of left little finger without damage to nail, initial encounter (principal); W45.8XXA Other foreign body or object entering through skin, initial encounter; Y93.K1 Activity, walking an animal; Y92.480 Sidewalk as the place of occurrence of the external cause; Y99.9 Unspecified external cause status
CPT/HCPCS: 12001; 90471; 90715; 99283; 99284

== ENCOUNTER 2021-03-15 09:03 | Emergency (ER) | payer MEDICARE, SELFPAY ==
--- NOTE | ~2021-03-15 | CT_ITS ---
EXAMINATION: CT ABDOMEN AND PELVIS WITH CONTRAST CLINICAL INFORMATION: Abdominal pain COMPARISON: Ultrasound of same day and CT scan of September 27, 2020 TECHNIQUE: Multidetector volumetric images were obtained from the superior aspect of the liver through the pubic symphysis following administration 85 mL of Omnipaque 350 intravenous contrast. Sagittal and coronal reformatted images were obtained on the technologist's workstation. Oral contrast: No This CT examination was performed using dose optimization techniques as appropriate, variously including the following: *Automated exposure control *Adjustment of mA and/or kV according to patient size (this includes techniques or standardized protocols for targeted exams where dose is matched to indication/reason for exam; i.e. extremities or head) *Use of iterative reconstruction technique DLP: 1150 mGy-cm FINDINGS: There is motion artifact present somewhat degrading study. LUNG BASES: There is some basilar atelectasis present as well as right lower lobe mild bronchiectasis. Heart normal size. No evidence of pleural or pericardial effusion. LIVER, GALLBLADDER, AND BILIARY TREE: The liver is normal in size, shape, and attenuation. No focal hepatic lesion or biliary ductal dilatation is present. There is cholelithiasis without evidence of acute cholecystitis. No gallbladder wall thickening is seen. No pericholecystic fluid or stranding. PANCREAS: Unremarkable. SPLEEN: Unremarkable. ADRENAL GLANDS: Unremarkable. KIDNEYS AND URETERS: The kidneys are normal in size, shape, and attenuation. No hydronephrosis, hydroureter, or calculi seen. No perinephric stranding. There are a few 1 mm left renal calculi present which are nonobstructive. BLADDER: Unremarkable. GASTROINTESTINAL TRACT: No dilated loops of large or small bowel are evident. No free air or free fluid. No pericolonic inflammatory change. The appendix appears unremarkable. ABDOMINAL WALL: There is a small fat-containing periumbilical hernia present. LYMPH NODES: No lymphadenopathy is appreciated. There are some prominent mesenteric lymph nodes seen however none are pathologically enlarged. VASCULAR: There are some prominent pelvic veins present. PELVIC VISCERA: No abnormal pelvic mass appreciated. No free fluid. OSSEOUS STRUCTURES: No suspicious destructive bony lesions identified. There is degenerative disc disease seen within the lower thoracic spine. CT/CT abdomen pelvis w con IMPRESSION: Cholelithiasis without evidence of acute cholecystitis. Left nephrolithiasis without evidence of obstructive uropathy. No evidence of ileus or obstruction.
--- NOTE | ~2021-03-15 | US_ITS ---
EXAMINATION: US ABDOMEN LIMITED CLINICAL INFORMATION: Right upper quadrant pain. COMPARISON: CT scan of September 27, 2020 TECHNIQUE: Real-time imaging of the right upper quadrant abdominal viscera. FINDINGS: PANCREAS: Normal. No peripancreatic inflammatory change. LIVER: Diffusely increased echogenicity consistent with fatty infiltration. The liver is normal in size. The liver contour is normal. No focal hepatic lesion. There is no intrahepatic biliary duct dilatation seen. GALLBLADDER: Cholelithiasis is present without evidence of acute cholecystitis. The gallbladder wall measures up to 3 mm in diameter. No fluid within the wall is identified. There is tenderness to palpation over the gallbladder. COMMON BILE DUCT: Normal in caliber measuring 0.7 cm in diameter. RIGHT KIDNEY: Normal. No hydronephrosis. No renal calculi or focal parenchymal lesions. The kidney measures 9.5 cm in maximum dimension. FREE FLUID: None. US/US abdomen limited IMPRESSION: Cholelithiasis with borderline thickened wall without fluid within the wall or pericholecystic fluid. Tenderness to palpation overlying the gallbladder suggestive of possible acute cholecystitis. Fatty infiltration of the liver.
[2021-03-15 10:32] VITALS: BP 104/57; PULSE 88; RESP 16; TEMP 37.4; O2SAT 98; BMI 41.1
[2021-03-15 10:52] LABS: MANUAL DIFF FLAG NO
[2021-03-15 10:54] LABS: Basophils Percent Auto 0.2 % (0-2); Eosinophils Percent Auto 0.2 % (0-4); Hematocrit 40.2 % (37-47); Hemoglobin 13.3 g/dl (12.0-16.0); Imm Gran Abs Auto 0.02 X10*3/uL (0.00-0.03); Imm Gran Pct Auto 0.4 % (0.0-0.4); Lymphocytes Absolute Auto 0.6 X10*3/uL (1.2-4.9); Lymphocytes Percent Auto 12.4 % (20-40); Mean Corpuscular HGB Conc 33.1 g/dl (31.0-35.0); Mean Corpuscular Hemoglobin 32.5 pg (27.0-33.0); Mean Corpuscular Volume 98.3 fL (80-98); Mean Platelet Volume 9.7 fL (9.4-12.3); Monocytes Absolute Auto 0.2 X10*3/uL (0.1-1.2); Monocytes Percent Auto 4.6 % (2-11); Neutrophils Absolute Auto 4.1 X10*3/uL (2.0-8.3); Neutrophils Percent Auto 82.2 % (45-73); Platelet Count 240 X10*3/uL (160-400); Red Blood Count 4.09 X10*6/uL (4.20-5.50); Red Cell Distribution Width 12.9 % (11.0-16.0)
[2021-03-15 11:18] LABS: Alanine Aminotransferase 20 U/L (0-31); Albumin Level 4.3 g/dL (3.5-5.0); Alkaline Phosphatase 135 U/L (39-117); Aspartate Amino Transferase 25 U/L (5-31); Bilirubin Direct 0.3 mg/dL (0.0-0.5); Bilirubin Total 0.7 mg/dL (0.0-1.0); Total Protein 7.3 g/dL (6.5-8.0)
[2021-03-15 11:21] LABS: Alanine Aminotransferase 19 U/L (0-31); Albumin Level 4.2 g/dL (3.5-5.0); Alkaline Phosphatase 135 U/L (39-117); Anion Gap 14 (12-20); Aspartate Amino Transferase 26 U/L (5-31); Bilirubin Total 0.7 mg/dL (0.0-1.0); Blood Urea Nitrogen 13 mg/dL (9-16); Calcium 9.2 mg/dL (8.4-10.2); Carbon Dioxide 22 mmol/L (22-29); Chloride 106 mmol/L (96-108); Creatinine Clr Calc Pharmacy 59.9; Estimated Glomerular Filt Rate 57; Glucose Random 103 mg/dL (60-115); Lipase 11 U/L (8-78); Sodium 138 mmol/L (135-145); Total Protein 7.3 g/dL (6.5-8.0)
[2021-03-15 11:27] VITALS: BP 110/53; PULSE 77; RESP 17; TEMP 36.8; O2SAT 98
[2021-03-15 11:50] LABS: Glucose Urine UA NEG (NEG); Leukocyte Esterase Urine TRACE (NEG); Nitrite Urine NEG (NEG); UACC Culture Trigger YES; Urine Blood TRACE (NEG); Urine Ketones 5 MG/DL (NEG); Urine Protein TRACE MG/DL (NEG-TRACE)
--- NOTE | 2021-03-15 11:52 | ED_ITS ---
HPI - Abdominal Pain General Chief Complaint: Abdominal Pain Stated Complaint: gall bladder issues Time Seen by Provider: 03/15/21 11:45 History of Present Illness HPI narrative: Patient is 65 years old ate some mashed potato about 24 hours ago presented today with having abdominal pain in the right upper quadrant. Patient has a history of having gallstone is planning to get gallbladder removal on March 24. She did know what caused the pain. Patient denies any fever chills. Had nausea. This symptom has subsequently subsided. Presented to the emergency department because the pain was excruciating last night. Patient from home. No coughing or congestion or upper respiratory symptoms. No diaphoresis. No chest pain. No change in color stool Related Data Home Medications Medication Instructions Recorded Confirmed acetaminophen 160 mg/5 mL oral 640 mg PO QID 05/19/20 elixir albuterol sulfate 2.5 mg INHALATION Q4-6H PRN 05/19/20 aspirin 81 mg tablet,delayed 81 mg PO DAILY 05/19/20 release atorvastatin 20 mg tablet 20 mg PO BEDTIME 05/19/20 calcium carbonate 500 mg-vitamin tab PO 05/19/20 D3 200 unit-vitamin K2 90 mcg tablet cholecalciferol (vitamin D3) 50 50 mcg PO DAILY 05/19/20 mcg (2,000 unit) capsule citalopram 20 mg tablet 20 mg PO DAILY 05/19/20 cyclosporine 0.05 % eye drops in a 1 drp OPHTHALMIC (EYE) Q12H 05/19/20 dropperette ferrous sulfate 325 mg (65 mg 325 mg PO DAILY 05/19/20 iron) tablet fluticasone propionate 50 1 spray INTRANASAL DAILY 05/19/20 mcg/actuation nasal spray,suspension hydroxyurea 500 mg capsule 500 mg PO DAILY 05/19/20 levothyroxine 75 mcg tablet 75 mcg PO DAILY 05/19/20 loratadine 10 mg capsule 10 mg PO DAILY 05/19/20 metoclopramide HCl 10 mg tablet 10 mg PO QIDACHS 05/19/20 multivitamin,[id number]-pulcnioq 1 tab PO DAILY 05/19/20 (Complete Multivitamin) omeprazole 20 mg capsule,delayed 20 mg PO DAILY 05/19/20 release ondansetron 4 mg disintegrating 4 mg PO Q8H 05/19/20 tablet polyethylene glycol 3350 17 gram 17 g PO DAILY 05/19/20 oral powder packet Previous Rx's Medication Instructions Recorded arm brace (Wrist Brace) #1 ea 05/28/20 Allergies Allergy/AdvReac Type Severity Reaction Status Date / Time acetaminophen [From VICODIN] Allergy Intermediate DIZZY Verified 10/11/20 09:17 hydrocodone [From VICODIN] Allergy Intermediate DIZZY Verified 10/11/20 09:17 zoster vaccine live Allergy Mild HIVES Verified 10/11/20 09:17 [SHINGLES VACCINE] BARIUM CONTRAST Allergy Unknown DIFFICULTY Uncoded 09/30/20 13:33 BREATHING/FLUSHING Vicodin Allergy Unknown anaphylaxis Uncoded 09/30/20 13:33 Review of Systems Review of Systems Positive nausea positive abdominal pain No coughing or congestion or upper respiratory symptoms All systems reviewed otherwise negative Yes all other systems are reviewed and are negative Physical Exam Vital Signs: Vital Signs: Last Vital Signs Temp 98.3 F 03/15/21 11:27 Pulse 90 03/15/21 15:05 Resp 18 03/15/21 15:05 BP 122/59 L 03/15/21 15:05 Pulse Ox 96 03/15/21 15:05 Body Mass Index 41.1 Appearance: Alert. Oriented X3. No acute distress. Eyes: Pupils equal, round and reactive to light. ENT: Pharynx normal. Neck: Normal inspection. Neck supple. No lymph nodes noted. No crepitus CVS: Normal heart rate and rhythm. Pulses normal. Normal S1 and S2 Respiratory: No respiratory distress. Breath sounds normal. No Wheezing. No rales Abdomen: Soft and nontender. No rigidity. No distention. good BS x4 Skin: Skin warm and dry. Normal skin color. Normal skin turgor. Extremities: No lower extremity edema. Neurovascular intact to all extremities. No Lacerations. No Rash Neuro: Oriented X 3. No motor deficit. No sensory deficit. Moving all extermities. No slurred speech MDM - Abdominal Pain MDM Narrative Medical decision making narrative: Patient's white count is 5. Had mashed potato then had abdominal pain worse in the right side. Patient's LFT is baseline. CT scan of the abdomen did not find any evidence for appendicitis. No evidence for acute cholecystitis. An ultrasound was done. It shows gallstones with very borderline gallbladder wall thickening. There is no pericholecystic fluid. Patient's pain has subsided. Case discussed with surgery. Patient will need follow-up on an outpatient basis. Surgery on an outpatient basis as pain is controlled. Currently in stable condition. Lab Data Result diagrams: 03/15/21 10:44 03/15/21 10:44 Labs: Lab Results 03/15/21 03/15/21 03/15/21 Range/Units 10:44 10:44 10:44 WBC 5.0 (4.8-10.8) X10*3/uL RBC 4.09 L (4.20-5.50) X10*6/uL Hgb 13.3 (12.0-16.0) g/dl Hct 40.2 (37-47) % MCV 98.3 H (80-98) fL MCH 32.5 (27.0-33.0) pg MCHC 33.1 (31.0-35.0) g/dl RDW 12.9 (11.0-16.0) % Plt Count 240 (160-400) X10*3/uL MPV 9.7 (9.4-12.3) fL Immature Gran % (Auto) 0.4 (0.0-0.4) % Neut % (Auto) 82.2 H (45-73) % Lymph % (Auto) 12.4 L (20-40) % [place] % (Auto) 4.6 (2-11) % Eos % (Auto) 0.2 (0-4) % Baso % (Auto) 0.2 (0-2) % Lymph # (Auto) 0.6 L (1.2-4.9) X10*3/uL [place] # (Auto) 0.2 (0.1-1.2) X10*3/uL Eos # (Auto) 0.0 (0.0-0.4) X10*3/uL Baso # (Auto) 0.0 (0.0-0.2) X10*3/uL Abs Immat Gran (auto) 0.02 (0.00-0.03) X10*3/uL Absolute Neuts (auto) 4.1 (2.0-8.3) X10*3/uL Absolute Nucleated RBC 0.000 (0.0-0.012) X10*3/uL Nucleated RBC % (auto) 0.0 (0.0-0.2) /100WBC Sodium 138 (135-145) mmol/L Potassium 4.0 D (3.3-5.1) mmol/L Chloride 106 (96-108) mmol/L Carbon Dioxide 22 (22-29) mmol/L Anion Gap 14 (12-20) BUN 13 (9-16) mg/dL Creatinine 0.98 (0.5-1.4) mg/dL Estim Creat Clear Calc 59.9 Estimated GFR 57 Random Glucose 103 (60-115) mg/dL Calcium 9.2 D (8.4-10.2) mg/dL Total Bilirubin 0.7 0.7 (0.0-1.0) mg/dL Direct Bilirubin 0.3 (0.0-0.5) mg/dL AST 26 25 (5-31) U/L ALT 19 20 (0-31) U/L Alkaline Phosphatase 135 H 135 H (39-117) U/L Total Protein 7.3 7.3 (6.5-8.0) g/dL Albumin 4.2 4.3 (3.5-5.0) g/dL Lipase 11 (8-78) U/L Urine Color Urine Appearance Urine pH (5.0-8.0) Ur Specific [place] (1.005-1.025) Urine Protein (NEG-TRACE) MG/DL Urine Glucose (UA) (NEG) MG/DL Urine Ketones (NEG) MG/DL Urine Blood (NEG) Urine Nitrite (NEG) Ur Leukocyte Esterase (NEG) Urine RBC (0) /HPF Urine WBC (0-4) /HPF Ur Squamous Epith Cells /LPF Urine Bacteria /LPF Urine Mucus /LPF 03/15/21 Range/Units 11:24 WBC (4.8-10.8) X10*3/uL RBC (4.20-5.50) X10*6/uL Hgb (12.0-16.0) g/dl Hct (37-47) % MCV (80-98) fL MCH (27.0-33.0) pg MCHC (31.0-35.0) g/dl RDW (11.0-16.0) % Plt Count (160-400) X10*3/uL MPV (9.4-12.3) fL Immature Gran % (Auto) (0.0-0.4) % Neut % (Auto) (45-73) % Lymph % (Auto) (20-40) % [place] % (Auto) (2-11) % Eos % (Auto) (0-4) % Baso % (Auto) (0-2) % Lymph # (Auto) (1.2-4.9) X10*3/uL [place] # (Auto) (0.1-1.2) X10*3/uL Eos # (Auto) (0.0-0.4) X10*3/uL Baso # (Auto) (0.0-0.2) X10*3/uL Abs Immat Gran (auto) (0.00-0.03) X10*3/uL Absolute Neuts (auto) (2.0-8.3) X10*3/uL Absolute Nucleated RBC (0.0-0.012) X10*3/uL Nucleated RBC % (auto) (0.0-0.2) /100WBC Sodium (135-145) mmol/L Potassium (3.3-5.1) mmol/L Chloride (96-108) mmol/L Carbon Dioxide (22-29) mmol/L Anion Gap (12-20) BUN (9-16) mg/dL Creatinine (0.5-1.4) mg/dL Estim Creat Clear Calc Estimated GFR Random Glucose (60-115) mg/dL Calcium (8.4-10.2) mg/dL Total Bilirubin (0.0-1.0) mg/dL Direct Bilirubin (0.0-0.5) mg/dL AST (5-31) U/L ALT (0-31) U/L Alkaline Phosphatase (39-117) U/L Total Protein (6.5-8.0) g/dL Albumin (3.5-5.0) g/dL Lipase (8-78) U/L Urine Color YELLOW Urine Appearance HAZY Urine pH 6.0 (5.0-8.0) Ur Specific [place] 1.020 (1.005-1.025) Urine Protein TRACE (NEG-TRACE) MG/DL Urine Glucose (UA) NEG (NEG) MG/DL Urine Ketones 5 (NEG) MG/DL Urine Blood TRACE (NEG) Urine Nitrite NEG (NEG) Ur Leukocyte Esterase TRACE H (NEG) Urine RBC 1-4 (0) /HPF Urine WBC 1-4 (0-4) /HPF Ur Squamous Epith Cells 1+ /LPF Urine Bacteria NONE /LPF Urine Mucus 2+ /LPF Discharge Plan Discharge Clinical Impression: Biliary colic Patient Disposition: Home, Self-Care Instructions: Biliary Colic (ED) Additional Instructions: No fatty food. No mash potatoes. Prescriptions: No Action (DME) Wrist Brace Misc See Rx Instructions .MEDSUPPLY Qty: 1 RF: 0 Referrals: Cole Spears MD [Physician] - 2 days Physician,None [Physician] - 2 days (Please follow-up with your surgeon for possible cholecystectomy as soon as possible.) [facility] Past Medical History Attestation statement: The following information was validated with the patient. Medical History Acute cholecystitis Anxiety Anxiety Asthma COPD (chronic obstructive pulmonary disease) Hiatal hernia JONATHAN on CPAP Surgical History History of repair of hiatal hernia S/P wrist surgery Family History Family History Father No problems noted. Mother No problems noted. Social History Social History Alcohol intake: never Patient Tobacco Use Status: Never used Tobacco Use of substances other than those prescribed or required for medical reasons: No Advance Directives: Yes Advance Directives Information Provided: Yes Advance Directives on File: No Current occupational status: retired Current occupation: right handed
[2021-03-15 11:54] LABS: Appearance Urine HAZY; Color Urine YELLOW
[2021-03-15 12:17] LABS: Mucus Urine 2+ /LPF; Squamous Epithelial Cell Urine 1+ /LPF
[2021-03-15] MEDS: iohexoL 350 MG/ML 100 ML INFUS..BTL IV (13:07)
[2021-03-15 15:05] VITALS: BP 122/59; PULSE 90; RESP 18; O2SAT 96
--- NOTE | 2021-03-15 15:11 | PC.NURSE ---
Patient is up walking around the room and talking on the phone after going to ultrasound. Pt denies any pain currently.
== END 2021-03-15 16:13 | disposition home or self-care (01) ==
PROVIDERS: Emergency Provider Emergency Medicine Emergency Medical Services; PCP Internal Medicine
DX: K80.20 Calculus of gallbladder without cholecystitis without obstruction (principal); R10.11 Right upper quadrant pain
CPT/HCPCS: 36415; 74177; 76705; 80053; 80076; 81001; 82248; 83690; 85025; 87086; 99284; 99285; Q9967

== ENCOUNTER 2021-03-16 11:21 | Outpatient (REF) | payer MEDICARE, SELFPAY | END 2021-03-16 11:22 | disposition home or self-care (01) | LOC: HO.LAB 11:21 | PROVIDERS: PCP Internal Medicine; Visit Provider Internal Medicine | DX: Z20.822 Contact with and (suspected) exposure to COVID-19 (principal) | CPT/HCPCS: C9803; U0003; U0005 ==

== ENCOUNTER 2021-03-30 13:58 | Emergency (ER) | payer MEDICARE, SELFPAY ==
[2021-03-30 14:05] VITALS: BP 116/62; PULSE 80; RESP 16; TEMP 36.6; O2SAT 97; BMI 41.1
--- NOTE | 2021-03-30 14:28 | ED_ITS ---
HPI - General Adult General Chief complaint: General Medical Stated complaint: chest wall pain Time Seen by Provider: 03/30/21 14:17 Source: patient Mode of arrival: ambulatory Limitations: no limitations History of Present Illness HPI narrative: 65-year-old female who had cholecystectomy March 24, has had pain in her chest wall radiating to her right shoulder blade since the surgery. No shortness of breath, no sweating, no nausea, no vomiting, no abdominal pain, no fevers. No pleuritic pain. The pain is worse with movement. MD complaint: Diaphragmatic irritation Onset (ago): week(s) (1) Location: abdomen Radiation: back Severity: moderate Quality: stabbing Pain Consistency: constant Relieving factors: none Exacerbating factors: movement Associated symptoms: denies other symptoms Related Data Home Medications Medication Instructions Recorded Confirmed acetaminophen 160 mg/5 mL oral 640 mg PO QID 05/19/20 elixir albuterol sulfate 2.5 mg INHALATION Q4-6H PRN 05/19/20 aspirin 81 mg tablet,delayed 81 mg PO DAILY 05/19/20 release atorvastatin 20 mg tablet 20 mg PO BEDTIME 05/19/20 calcium carbonate 500 mg-vitamin tab PO 05/19/20 D3 200 unit-vitamin K2 90 mcg tablet cholecalciferol (vitamin D3) 50 50 mcg PO DAILY 05/19/20 mcg (2,000 unit) capsule citalopram 20 mg tablet 20 mg PO DAILY 05/19/20 cyclosporine 0.05 % eye drops in a 1 drp OPHTHALMIC (EYE) Q12H 05/19/20 dropperette ferrous sulfate 325 mg (65 mg 325 mg PO DAILY 05/19/20 iron) tablet fluticasone propionate 50 1 spray INTRANASAL DAILY 05/19/20 mcg/actuation nasal spray,suspension hydroxyurea 500 mg capsule 500 mg PO DAILY 05/19/20 levothyroxine 75 mcg tablet 75 mcg PO DAILY 05/19/20 loratadine 10 mg capsule 10 mg PO DAILY 05/19/20 metoclopramide HCl 10 mg tablet 10 mg PO QIDACHS 05/19/20 multivitamin,[id number] 1 tab PO DAILY 05/19/20 (Complete Multivitamin) omeprazole 20 mg capsule,delayed 20 mg PO DAILY 05/19/20 release ondansetron 4 mg disintegrating 4 mg PO Q8H 05/19/20 tablet polyethylene glycol 3350 17 gram 17 g PO DAILY 05/19/20 oral powder packet Previous Rx's Medication Instructions Recorded arm brace (Wrist Brace) #1 ea 05/28/20 oxycodone 5 mg tablet 5 mg PO Q6H PRN #14 tab 03/30/21 Allergies Allergy/AdvReac Type Severity Reaction Status Date / Time acetaminophen [From VICODIN] Allergy Intermediate DIZZY Verified 10/11/20 09:17 hydrocodone [From VICODIN] Allergy Intermediate DIZZY Verified 10/11/20 09:17 zoster vaccine live Allergy Mild HIVES Verified 10/11/20 09:17 [SHINGLES VACCINE] BARIUM CONTRAST Allergy Unknown DIFFICULTY Uncoded 09/30/20 13:33 BREATHING/FLUSHING Vicodin Allergy Unknown anaphylaxis Uncoded 09/30/20 13:33 Review of Systems 2 Review of Systems: Constitutional : No Weight loss, No Fever, No Chills, No Night Sweats,No Fatigue, No Malaise ENT/Mouth : No Hearing loss, No Ear Pain, No Nasal Congestion, NoSinus Pain, No Hoarseness, No sore throat, No Rhinorrhea, NoSwallowing Difficulty Eyes: No Eye Pain, No Swelling, No Redness, No Foreign Body, NoDischarge, No Vision Changes Cardiovascular : No Chest Pain, No SOB, No Dyspnea on Exertion, NoOrthopnea, No Edema, No Palpitations Respiratory : No Cough, No Sputum, No Wheezing, No Smoke Exposure, No Dyspnea Gastrointestinal : Abdominal pain, No Nausea, No Vomiting, No Diarrhea, NoConstipation, , No Hematochezia, No Melena Genitourinary : no irregular bleeding, No Dysuria, No UrinaryFrequency, No Hematuria, No Urinary Incontinence, No Urgency, No FlankPain, No Urinary Flow Changes, No Hesitancy Musculoskeletal : Back pain, right shoulder blade pain No joint pain, No Myalgias, No Joint Swelling Skin : Healing cholecystectomy site, bruising PMFSH Past Medical History Medical History Acute cholecystitis Anxiety Anxiety Asthma COPD (chronic obstructive pulmonary disease) Hiatal hernia JONATHAN on CPAP Surgical History History of repair of hiatal hernia S/P wrist surgery Family History Family History Father No problems noted. Mother No problems noted. Social History Social History Alcohol intake: never Patient Tobacco Use Status: Never used Tobacco Advance Directives: Yes Advance Directives Information Provided: Yes Advance Directives on File: No Current occupational status: retired Current occupation: right handed Physical Exam Vital Signs: Vital Signs: Last Vital Signs Temp 97.9 F 03/30/21 14:05 Pulse 80 03/30/21 14:05 Resp 16 03/30/21 14:05 BP 116/62 03/30/21 14:05 Pulse Ox 97 03/30/21 14:05 Body Mass Index 41.1 Const: General: well developed, alert and awake Nutritional Appearance: overweight Orientation/consciousness: patient oriented x3 Limitations: no limitations Chest: Other: Tender to palpation of right side of chest Chest palpation & inspection: normal inspection of the chest Resp: Effort & Inspection: normal respiratory effort Auscultation: clear to auscultation bilaterally, no crackles, no rales, no rhonchi and no wheezes Cardio: Rate: regular rate Rhythm: regular rhythm Heart sounds: S1 normal heart sound present and S2 normal heart sound present GI: Inspection: Yes distended, Yes incision, Yes Abdominal panniculus present and Yes obesity Palpation (GI): Soft to palpation, nontender and no guarding Percussion: Yes normal to percussion Auscultation: normal bowel sounds : General: Yes no CVA tenderness Back/Spine/Pelvis: Back: no CVA tenderness Cervical Spine: normal cervical lordosis and cervical ROM normal Thoracic/Lumbar Spine: No thoracic spinal tenderness and No lumbar spinal tenderness Skin: Other: Ecchymosis over healing incisions site for laparoscopic cholecystectomy Neuro: General: patient oriented x3 Extrem: General: Yes normal to inspection, Yes full ROM and Yes capillary refill normal Course Course Course Narrative: 65-year-old female presents with chest wall pain radiating to her right shoulder blade after cholecystectomy 1 week ago. EKG is unremarkable, troponin is negative. I went to discuss how toradol worked with patient, she became agitated and yelled at me that I was not treating her pain and that I was treating her like an addict seeking pain medication. I reassured her I did not think she was drug-seeking, and that I was trying to determine if Toradol was working. Patient was abusive and called me an asshole and that I was lying when I told her I did not think she was seeking drugs. I reassured patient we could treat her pain, sent oxycodone as outpatient prescription Patient stated ?you are the worst provider?. Medical Decision Making Lab Data Labs: Lab Results 03/30/21 Range/Units 14:54 Troponin I High Sens < 3.5 (<3.5-17.0) ng/L ECG Data Interpretation: EKG shows sinus rhythm at a rate of 66, DC interval 136, QRS 76, QTC 419, no ST elevations or depressions, no T-wave changes. Discharge Plan Discharge Clinical Impression: Chest wall pain Patient Disposition: Home, Self-Care Instructions: Chest Wall Pain (ED) Additional Instructions: Please follow-up with your appointment April 06 4 year follow-up from your cholecystectomy. Please return to the emergency room if you have worsening chest pain or shortness of breath. Take oxycodone for pain Please alternate Tylenol and ibuprofen for pain. Take 1 or the other every 4 hours. For example, at midnight take 1000 mg of Tylenol, then at 4:00 a.m. take 800 mg ibuprofen, at 8:00 a.m. take 1000 mg of Tylenol, at noon take 800 mg of ibuprofen, at 4:00 p.m. take 1000 mg of Tylenol, at 8:00 p.m. take 800 mg of ibuprofen. Do not exceed 3000 mg of Tylenol in 24 hours. This method is proven to be as effective as an opioid for pain control. Prescriptions: New oxycodone 5 mg tablet 5 mg PO Q6H PRN (Reason: pain) Qty: 14 RF: 0 No Action (DME) Wrist Brace Misc See Rx Instructions .MEDSUPPLY Qty: 1 RF: 0
--- NOTE | 2021-03-30 14:41 | ECG_ITS ---
Test Reason : CHEST WALL PAIN Blood Pressure : / mmHG Vent. Rate : 066 BPM Atrial Rate : 066 BPM P-R Int : 136 ms QRS Dur : 076 ms QT Int : 400 ms P-R-T Axes : 059 028 053 degrees QTc Int : 419 ms Normal sinus rhythm Normal ECG When compared with ECG of 22-DEC-2019 09:41, No significant change was found Referred By: Lilly Parnell Electronically Signed By:MARYELLEN MORTON
[2021-03-30] MEDS: Ketorolac Tromethamine 15 MG/ML VIAL IM (14:49)
[2021-03-30 15:27] LABS: Troponin-I High Sensitivity < 3.5 ng/L (<3.5-17.0)
== END 2021-03-30 16:00 | disposition home or self-care (01) ==
PROVIDERS: Physician Assistant; Emergency Provider Internal Medicine; PCP Internal Medicine
DX: R07.89 Other chest pain (principal); M25.511 Pain in right shoulder; Z79.899 Other long term (current) drug therapy
CPT/HCPCS: 36415; 84484; 93005; 96372; 99284; J1885

== ENCOUNTER 2021-09-09 15:14 | Emergency (ER) | payer MEDICARE, SELFPAY ==
--- NOTE | ~2021-09-09 | XR_ITS ---
EXAMINATION: XR CHEST CLINICAL INFORMATION: Chest pain COMPARISON: None TECHNIQUE: Frontal portable view of the chest was obtained. 9:49 PM FINDINGS: No significant abnormality is noted involving the heart, lungs, mediastinum, bony thorax or soft tissues. XR/XR chest 1V IMPRESSION: Unremarkable examination.
--- NOTE | 2021-09-09 15:18 | ECG_ITS ---
Test Reason : chest pain Blood Pressure : / mmHG Vent. Rate : 082 BPM Atrial Rate : 082 BPM P-R Int : 126 ms QRS Dur : 076 ms QT Int : 392 ms P-R-T Axes : 040 016 075 degrees QTc Int : 457 ms Normal sinus rhythm Normal ECG When compared with ECG of 30-MAR-2021 14:49, No significant change was found Referred By: Generic ED Physician Electronically Signed By:TIFFANY SHEEHAN
[2021-09-09 15:20] VITALS: BP 131/69; PULSE 88; RESP 20; TEMP 36.6; O2SAT 97; BMI 38.3
[2021-09-09 18:08] LABS: MANUAL DIFF FLAG NO
[2021-09-09 18:10] LABS: Basophils Percent Auto 0.3 % (0-2); Eosinophils Absolute Auto 0.3 X10*3/uL (0.0-0.4); Eosinophils Percent Auto 4.9 % (0-4); Hematocrit 37.8 % (37.0-47.0); Hemoglobin 12.3 g/dl (12.0-16.0); Imm Gran Abs Auto 0.01 X10*3/uL (0.00-0.03); Imm Gran Pct Auto 0.2 % (0.0-0.4); Lymphocytes Absolute Auto 2.2 X10*3/uL (1.2-4.9); Lymphocytes Percent Auto 34.6 % (20-40); Mean Corpuscular HGB Conc 32.5 g/dl (31.0-35.0); Mean Corpuscular Hemoglobin 31.5 pg (27.0-33.0); Mean Corpuscular Volume 96.7 fL (80.0-98.0); Mean Platelet Volume 9.4 fL (9.4-12.3); Monocytes Absolute Auto 0.5 X10*3/uL (0.1-1.2); Monocytes Percent Auto 7.9 % (2-11); Neutrophils Absolute Auto 3.3 x10*3/uL (2.0-8.3); Neutrophils Percent Auto 52.1 % (45-73); Platelet Count 280 X10*3/uL (160-400); Red Blood Count 3.91 X10*6/uL (4.20-5.50); White Blood Count 6.4 X10*3/uL (4.8-10.8)
[2021-09-09 18:25] LABS: COVID-19 Test Negative (Negative); IDNOW Serial# 9DD0AD1C
[2021-09-09 18:26] LABS: Alanine Aminotransferase 16 U/L (0-31); Alkaline Phosphatase 143 U/L (39-117); Anion Gap 10 (12-20); Aspartate Amino Transferase 23 U/L (5-31); Bilirubin Direct < 0.2 mg/dL (0.0-0.5); Bilirubin Total 0.4 mg/dL (0.0-1.0); Blood Urea Nitrogen 14 mg/dL (9-16); Calcium 9.6 mg/dL (8.4-10.2); Carbon Dioxide 29 mmol/L (22-29); Chloride 108 mmol/L (96-108); Creatinine Clr Calc Pharmacy 64.7; Estimated Glomerular Filt Rate > 60; Glucose Random 85 mg/dL (60-115); Lipase 17 U/L (8-78); Potassium 4.1 mmol/L (3.3-5.1); Sodium 143 mmol/L (135-145); Total Protein 7.1 g/dL (6.5-8.0)
[2021-09-09 18:30] LABS: Troponin-I High Sensitivity < 3.5 ng/L (<3.5-17.0)
--- NOTE | 2021-09-09 19:02 | ED_ITS ---
HPI - Chest Pain General Chief Complaint: Chest Pain Stated Complaint: chest pain Time Seen by Provider: 09/09/21 18:52 History of Present Illness HPI narrative: 66-year-old female with a history high cholesterol no history of CO in the past. Presents today with having chest pain that is left-sided sharp lasts for about a minute. Question shortness of breath. Since about 11:00. No specific trigger. No fever no chills no cough no congestion or upper respiratory symptoms. Had a stress test 2 years ago was grossly negative. No leg swelling. No history of blood clot. Never had a DVT. No coughing no congestion or upper respiratory symptoms. Related Data Home Medications Medication Instructions Recorded Confirmed acetaminophen 160 mg/5 mL 640 mg PO QID 05/19/20 oral elixir albuterol sulfate 2.5 mg INHALATION Q4-6H PRN 05/19/20 aspirin 81 mg tablet,delayed 81 mg PO DAILY 05/19/20 release atorvastatin 20 mg tablet 20 mg PO BEDTIME 05/19/20 calcium carbonate 500 tab PO 05/19/20 mg-vitamin D3 200 unit-vitamin K2 90 mcg tablet cholecalciferol (vitamin D3) 50 mcg PO DAILY 05/19/20 50 mcg (2,000 unit) capsule citalopram 20 mg tablet 20 mg PO DAILY 05/19/20 cyclosporine 0.05 % eye 1 drp OPHTHALMIC (EYE) Q12H 05/19/20 drops in a dropperette ferrous sulfate 325 mg (65 325 mg PO DAILY 05/19/20 mg iron) tablet fluticasone propionate 50 1 spray INTRANASAL DAILY 05/19/20 mcg/actuation nasal spray,suspension hydroxyurea 500 mg capsule 500 mg PO DAILY 05/19/20 levothyroxine 75 mcg tablet 75 mcg PO DAILY 05/19/20 loratadine 10 mg capsule 10 mg PO DAILY 05/19/20 metoclopramide HCl 10 mg 10 mg PO QIDACHS 05/19/20 tablet multivitamin,[id number] 1 tab PO DAILY 05/19/20 s (Complete Multivitamin) omeprazole 20 mg 20 mg PO DAILY 05/19/20 capsule,delayed release ondansetron 4 mg 4 mg PO Q8H 05/19/20 disintegrating tablet polyethylene glycol 3350 17 17 g PO DAILY 05/19/20 gram oral powder packet Previous Rx's Medication Instructions Recorded arm brace (Wrist Brace) #1 ea 05/28/20 oxycodone 5 mg tablet 5 mg PO Q6H PRN #14 tab 03/30/21 Allergies Allergy/AdvReac Type Severity Reaction Status Date / Time acetaminophen Allergy Intermediate DIZZY Verified 10/11/20 09:17 [From VICODIN] hydrocodone Allergy Intermediate DIZZY Verified 10/11/20 09:17 [From VICODIN] zoster vaccine Allergy Mild HIVES Verified 10/11/20 09:17 live [SHINGLES VACCINE] BARIUM CONTRAST Allergy Unknown DIFFICULTY Uncoded 09/30/20 13:33 BREATHING/FLUS DAMIAN Vicodin Allergy Unknown anaphylaxis Uncoded 09/30/20 13:33 [facility] Past Medical History Medical History Acute cholecystitis Anxiety Anxiety Asthma COPD (chronic obstructive pulmonary disease) Hiatal hernia JONATHAN on CPAP Surgical History History of repair of hiatal hernia S/P wrist surgery Family History Family History Father No problems noted. Mother No problems noted. Social History Social History Alcohol intake: never Patient Tobacco Use Status: Never used Tobacco Advance Directives: No Advance Directives Information Provided: No Current occupational status: retired Current occupation: right handed Physical Exam Verdana 4l Vital Signs: Verdana 4d Verdana 4d Vital Signs: Verdana 4d Verdana 4Bd Last Vital Signs Verdana 4d [employer] Work[employer] New 4d [employer] Worker New 4d Temp 98.4 F 09/09/21 21:37 [employer] Work[employer] New 4d Pulse 62 09/09/21 21:37 [employer] Work[employer] New 4d Resp 16 09/09/21 21:37 BP 141/63 H 09/09/21 21:37 Pulse Ox 96 09/09/21 21:37 BMI result Body Mass Index 38.3 MDM - Chest Pain MDM Narrative Medical decision making narrative: Patient's chest pain was atypical in nature. Cardiac enzymes x3 set was negative. Chest x-ray showed no evidence of pneumonia pneumothorax. Patient's D-dimer is negative. In the setting of low risk for PE patient unlikely to have pulmonary emboli. Patient's chest pain atypical negative troponin she is 66 ye ars old she does have 1 risk factor. Her heart score is 3. Will discharge patient home close follow-up on an outpatient basis. In stable condition. Medical Records Data Attestation: I reviewed the patient's medical records. Lab Data Attestation: I reviewed the patient's lab results. Result diagrams: 09/09/21 18:01 09/09/21 18:01 Labs: Lab Results 09/09/21 09/09/21 09/09/21 Range/Units 18:01 18:01 18:01 WBC 6.4 (4.8-10.8) X10*3/uL RBC 3.91 L (4.20-5.50) X10*6/uL Hgb 12.3 (12.0-16.0) g/dl Hct 37.8 (37.0-47.0) % MCV 96.7 (80.0-98.0) fL MCH 31.5 (27.0-33.0) pg MCHC 32.5 (31.0-35.0) g/dl RDW 14.0 (11.0-16.0) % Plt Count 280 (160-400) X10*3/uL MPV 9.4 (9.4-12.3) fL Immature Gran % (Auto) 0.2 (0.0-0.4) % Neut % (Auto) 52.1 (45-73) % Lymph % (Auto) 34.6 (20-40) % Elbert % (Auto) 7.9 (2-11) % Eos % (Auto) 4.9 H (0-4) % Baso % (Auto) 0.3 (0-2) % Lymph # (Auto) 2.2 (1.2-4.9) X10*3/uL Elbert # (Auto) 0.5 (0.1-1.2) X10*3/uL Eos # (Auto) 0.3 (0.0-0.4) X10*3/uL Baso # (Auto) 0.0 (0.0-0.2) X10*3/uL Abs Immat Gran (auto) 0.01 (0.00-0.03) X10*3/uL Absolute Neuts (auto) 3.3 (2.0-8.3) x10*3/uL Absolute Nucleated RBC 0.000 (0.0-0.012) X10*3/uL Nucleated RBC % (auto) 0.0 (0.0-0.2) /100WBC D-Dimer High Sensitivty NG/ML Sodium 143 (135-145) mmol/L Potassium 4.1 (3.3-5.1) mmol/L Chloride 108 (96-108) mmol/L Carbon Dioxide 29 (22-29) mmol/L Anion Gap 10 L (12-20) BUN 14 (9-16) mg/dL Creatinine 0.86 (0.5-1.4) mg/dL Estim Creat Clear Calc 64.7 Estimated GFR > 60 Random Glucose 85 (60-115) mg/dL Calcium 9.6 (8.4-10.2) mg/dL Total Bilirubin 0.4 (0.0-1.0) mg/dL Direct Bilirubin < 0.2 (0.0-0.5) mg/dL AST 23 (5-31) U/L ALT 16 (0-31) U/L Alkaline Phosphatase 143 H (39-117) U/L Troponin I High Sens < 3.5 (<3.5-17.0) ng/L Total Protein 7.1 (6.5-8.0) g/dL Albumin 4.0 (3.5-5.0) g/dL Lipase 17 (8-78) U/L COVID-19 (BRETT) (Negative) COVID-19 Clin Com 09/09/21 09/09/21 09/09/21 Range/Units 18:01 19:08 19:20 WBC (4.8-10.8) X10*3/uL RBC (4.20-5.50) X10*6/uL Hgb (12.0-16.0) g/dl Hct (37.0-47.0) % MCV (80.0-98.0) fL MCH (27.0-33.0) pg MCHC (31.0-35.0) g/dl RDW (11.0-16.0) % Plt Count (160-400) X10*3/uL MPV (9.4-12.3) fL Immature Gran % (Auto) (0.0-0.4) % Neut % (Auto) (45-73) % Lymph % (Auto) (20-40) % Elbert % (Auto) (2-11) % Eos % (Auto) (0-4) % Baso % (Auto) (0-2) % Lymph # (Auto) (1.2-4.9) X10*3/uL Elbert # (Auto) (0.1-1.2) X10*3/uL Eos # (Auto) (0.0-0.4) X10*3/uL Baso # (Auto) (0.0-0.2) X10*3/uL Abs Immat Gran (auto) (0.00-0.03) X10*3/uL Absolute Neuts (auto) (2.0-8.3) x10*3/uL Absolute Nucleated RBC (0.0-0.012) X10*3/uL Nucleated RBC % (auto) (0.0-0.2) /100WBC D-Dimer High Sensitivty < 150 NG/ML Sodium (135-145) mmol/L Potassium (3.3-5.1) mmol/L Chloride (96-108) mmol/L Carbon Dioxide (22-29) mmol/L Anion Gap (12-20) BUN (9-16) mg/dL Creatinine (0.5-1.4) mg/dL Estim Creat Clear Calc Estimated GFR Random Glucose (60-115) mg/dL Calcium (8.4-10.2) mg/dL Total Bilirubin (0.0-1.0) mg/dL Direct Bilirubin (0.0-0.5) mg/dL AST (5-31) U/L ALT (0-31) U/L Alkaline Phosphatase (39-117) U/L Troponin I High Sens < 3.5 (<3.5-17.0) ng/L Total Protein (6.5-8.0) g/dL Albumin (3.5-5.0) g/dL Lipase (8-78) U/L COVID-19 (BRETT) Negative (Negative) COVID-19 Clin Com See Note 09/09/21 Range/Units 21:40 WBC (4.8-10.8) X10*3/uL RBC (4.20-5.50) X10*6/uL Hgb (12.0-16.0) g/dl Hct (37.0-47.0) % MCV (80.0-98.0) fL MCH (27.0-33.0) pg MCHC (31.0-35.0) g/dl RDW (11.0-16.0) % Plt Count (160-400) X10*3/uL MPV (9.4-12.3) fL Immature Gran % (Auto) (0.0-0.4) % Neut % (Auto) (45-73) % Lymph % (Auto) (20-40) % Elbert % (Auto) (2-11) % Eos % (Auto) (0-4) % Baso % (Auto) (0-2) % Lymph # (Auto) (1.2-4.9) X10*3/uL Elbert # (Auto) (0.1-1.2) X10*3/uL Eos # (Auto) (0.0-0.4) X10*3/uL Baso # (Auto) (0.0-0.2) X10*3/uL Abs Immat Gran (auto) (0.00-0.03) X10*3/uL Absolute Neuts (auto) (2.0-8.3) x10*3/uL Absolute Nucleated RBC (0.0-0.012) X10*3/uL Nucleated RBC % (auto) (0.0-0.2) /100WBC D-Dimer High Sensitivty NG/ML Sodium (135-145) mmol/L Potassium (3.3-5.1) mmol/L Chloride (96-108) mmol/L Carbon Dioxide (22-29) mmol/L Anion Gap (12-20) BUN (9-16) mg/dL Creatinine (0.5-1.4) mg/dL Estim Creat Clear Calc Estimated GFR Random Glucose (60-115) mg/dL Calcium (8.4-10.2) mg/dL Total Bilirubin (0.0-1.0) mg/dL Direct Bilirubin (0.0-0.5) mg/dL AST (5-31) U/L ALT (0-31) U/L Alkaline Phosphatase (39-117) U/L Troponin I High Sens < 3.5 (<3.5-17.0) ng/L Total Protein (6.5-8.0) g/dL Albumin (3.5-5.0) g/dL Lipase (8-78) U/L COVID-19 (BRETT) (Negative) COVID-19 Clin Com Discharge Plan Discharge Clinical Impression: Chest pain Patient Disposition: Home, Self-Care Instructions: Chest Pain (ED) Prescriptions: No Action oxycodone 5 mg tablet 5 mg PO Q6H PRN (Reason: pain) Qty: 14 0RF (DME) Wrist Brace Misc See Rx Instructions .MEDSUPPLY Qty: 1 0RF Rx Instructions: comfort form wrist, LT, M Referrals: Rick Centeno MD [Primary Care Provider] - 2 days
[2021-09-09 19:36] LABS: D Dimer High Sensitivity < 150 NG/ML
[2021-09-09 19:48] LABS: Troponin-I High Sensitivity < 3.5 ng/L (<3.5-17.0)
[2021-09-09 20:00] VITALS: BP 95/60; PULSE 75; RESP 18; TEMP 37; O2SAT 96
[2021-09-09 21:37] VITALS: BP 141/63; PULSE 62; RESP 16; TEMP 36.9; O2SAT 96
[2021-09-09 22:05] LABS: Troponin-I High Sensitivity < 3.5 ng/L (<3.5-17.0)
== END 2021-09-09 23:04 | disposition home or self-care (01) ==
PROVIDERS: Emergency Provider Emergency Medicine Emergency Medical Services; PCP Internal Medicine
DX: R07.9 Chest pain, unspecified (principal); Z20.822 Contact with and (suspected) exposure to COVID-19
CPT/HCPCS: 36415; 71045; 80048; 80076; 83690; 84484; 85025; 85379; 87635; 93005; 99283; 99284

== ENCOUNTER → 2021-12-23 11:23 | Outpatient (BNVA) | payer MEDICARE, SELFPAY | PROVIDERS: PCP Internal Medicine; Visit Provider Internal Medicine Gastroenterology | DX: R19.4 Change in bowel habit (principal); R13.10 Dysphagia, unspecified | CPT/HCPCS: 99202 ==

== ENCOUNTER → 2021-12-29 14:55 | Outpatient (BNVA) | payer MEDICARE, SELFPAY | PROVIDERS: PCP Internal Medicine; Visit Provider Internal Medicine | DX: J44.9 Chronic obstructive pulmonary disease, unspecified (principal); G47.33 Obstructive sleep apnea (adult) (pediatric); E66.9 Obesity, unspecified; Z68.38 Body mass index [BMI] 38.0-38.9, adult; F41.9 Anxiety disorder, unspecified; D47.3 Essential (hemorrhagic) thrombocythemia; K52.9 Noninfective gastroenteritis and colitis, unspecified; Z79.899 Other long term (current) drug therapy; Z99.89 Dependence on other enabling machines and devices | CPT/HCPCS: 99202 ==

== ENCOUNTER 2022-01-11 06:30 | Day surgery (SDC) | payer MEDICARE, SELFPAY ==
[2022-01-05 19:14] VITALS: BMI 37.8
--- NOTE | 2022-01-10 13:39 | P.CONAN_ITS ---
Documented by User: Ambika Schwarz NP 01/10/22 13:42 HPI - Anesthesia Eval Consult details Narrative: 66yo F for Upper Endoscopy Laryngeal CA s/p radiation PMFSH Active Problems Active Problems: All Active Problems (Updated 01/05/22 @ 19:16 by Amelia Vazquez, RN) Pain of back and lower extremity (Acute) Altered bowel habits (Acute) Dysphagia (Acute) Chronic diarrhea (Acute) JONATHAN on CPAP (Acute) BMI 38.0-38.9,adult (Acute) Essential thrombocytosis (Chronic) Hypovitaminosis D (Acute) Eczema (Acute) Dyslipidemia (Acute) Hypothyroidism (Acute) Anxiety (Acute) COPD (chronic obstructive pulmonary disease) (Acute) Past Medical History Medical History (Updated 01/05/22 @ 19:16 by Amelia Vazquez RN) Acute cholecystitis Anxiety Asthma BMI 38.0-38.9,adult Chronic diarrhea COPD (chronic obstructive pulmonary disease) Depression Dyslipidemia Dysphagia Eczema Essential thrombocytosis Fracture of distal end of left radius with routine healing Hiatal hernia Hyperlipidemia Hypothyroidism Hypovitaminosis D Laryngeal cancer JONATHAN on CPAP Renal stones Trigger finger of left thumb Family History Family History Father Mental health disorder Mother No problems noted. Brother Substance use disorder Father Diabetes Maternal Grandmother Breast cancer Surgical History Surgical History (Updated 01/05/22 @ 19:01 by Amelia Vazquez RN) History of repair of hiatal hernia Hx of colonoscopy S/P ORIF (open reduction internal fixation) fracture S/P wrist surgery Social History Social History Household Members: None Housing: Apartment Are you a primary primary care pediatrician to a significant other at home: No Do you presently have visiting nurse or other home services: No Alcohol intake: never Patient Tobacco Use Status: Former Tobacco user Tobacco use type: Cigarette e-Cigarette/Vaping Use: Never Used Second Hand Smoke Exposure: No Use of substances other than those prescribed or required for medical reasons: No Are you DNR?: No Advance Directives: No Advance Directives Information Provided: Yes Advance Directives on File: No Recently lost weight without trying: No Nutrition Risks: No Nutritional Risk Patient : No service: No Current occupational status: retired Current occupation: right handed Meds Allergies Allergy/AdvReac Type Severity Reaction Status Date / Time grass pollen Allergy Mild unknown Verified 12/29/21 15:25 zoster vaccine live Allergy Mild HIVES Verified 12/29/21 15:25 [SHINGLES VACCINE] tree pollen Allergy Mild unknown Uncoded 12/29/21 15:25 BARIUM CONTRAST Allergy Unknown DIFFICULTY Uncoded 12/29/21 15:25 BREATHING/FLUSHING Home Medications Medication Instructions Recorded Confirmed Last Taken Type aspirin 81 mg tablet,delayed 81 mg PO DAILY 05/19/20 01/05/22 09/30/20 History release cholecalciferol (vitamin D3) 50 50 mcg PO DAILY 05/19/20 01/05/22 09/30/20 History mcg (2,000 unit) capsule cyclosporine 0.05 % eye drops in a 1 drp ophthalmic (eye) Q12H 05/19/20 01/05/22 Unknown History dropperette (Restasis) hydroxyurea 500 mg capsule 500 mg PO DAILY 05/19/20 01/05/22 09/30/20 History azelastine 137 mcg (0.1 %) nasal 1 spray intranasal BID 09/28/21 01/05/22 Unknown History spray aerosol buspirone 5 mg tablet 5 mg PO BID 09/28/21 01/05/22 Unknown History escitalopram oxalate 20 mg tablet 20 mg PO DAILY 09/28/21 01/05/22 Unknown History hydrocortisone 2.5 % topical 1 appl topical BID-TID PRN Dry Skin 09/28/21 01/05/22 Unknown History ointment levothyroxine 100 mcg tablet 100 mcg PO DAILY 09/28/21 01/05/22 Unknown History sodium chloride 0.65 % nasal spray 2 spray intranasal BID 10/05/21 01/05/22 Unknown History aerosol ([place] Saline) budesonide 160 mcg-glycopyr 9 1 inh inhalation DAILY 12/23/21 01/05/22 Unknown History mcg-formot 4.8 mcg/actuation HFA inhaler (Breztri Aerosphere) cholestyramine (with sugar) 4 gram 4 g PO BID PRN Electrolyte 12/29/21 01/05/22 Unknown History oral powder Replenishment albuterol sulfate 90 mcg/actuation 2 puff inhalation Q4-6H PRN 01/05/22 01/05/22 Unknown History aerosol inhaler Wheezing atorvastatin 20 mg tablet 1 tab PO QPM 01/05/22 01/05/22 Unknown History Exam Exam Date and Time: January 10, 2022 1339 Height,Weight and Vital Signs: Height 5 ft 1 in Weight 90.718 kg Pertinent Lab Results Pertinent Lab Results: Laboratory Tests 09/09/21 09/09/21 18:01 18:01 WBC 6.4 Hgb 12.3 Hct 37.8 Plt Count 280 Sodium 143 Potassium 4.1 Chloride 108 Carbon Dioxide 29 BUN 14 Creatinine 0.86 Narrative Narrative: EKG 11/2021 Vent. Rate : 082 BPM ? ? Atrial Rate : 082 BPM ?? P-R Int : 126 ms? QRS Dur : 076 ms ? ? QT Int : 392 ms ? ? ? P-R-T Axes : 040 016 075 degrees ?? QTc Int : 457 ms ? Normal sinus rhythm Normal ECG When compared with ECG of 30-MAR-2021 14:49, No significant change was found Assessment and Plan Assessment Anesthesia Assessment: Chart Reviewed Documented by User: Kalyn Hawthorne MD 01/11/22 08:35 [facility] Past Medical History Medical History (Updated 01/05/22 @ 19:16 by Amelia Vazquez, RN) Acute cholecystitis Anxiety Asthma BMI 38.0-38.9,adult Chronic diarrhea COPD (chronic obstructive pulmonary disease) Depression Dyslipidemia Dysphagia Eczema Essential thrombocytosis Fracture of distal end of left radius with routine healing Hiatal hernia Hyperlipidemia Hypothyroidism Hypovitaminosis D Laryngeal cancer JONATHAN on CPAP Renal stones Trigger finger of left thumb Family History Family History Father Mental health disorder Mother No problems noted. Brother Substance use disorder Father Diabetes Maternal Grandmother Breast cancer Family history of problems with anesthesia: No Surgical History Surgical History (Updated 01/05/22 @ 19:01 by Amelia Vazquez, RN) History of repair of hiatal hernia Hx of colonoscopy S/P ORIF (open reduction internal fixation) fracture S/P wrist surgery History of Problems with Anesthesia: No Social History Social History Household Members: None Housing: Apartment Are you a primary primary care pediatrician to a significant other at home: No Do you presently have visiting nurse or other home services: No Alcohol intake: never Patient Tobacco Use Status: Former Tobacco user Tobacco use type: Cigarette e-Cigarette/Vaping Use: Never Used Second Hand Smoke Exposure: No Use of substances other than those prescribed or required for medical reasons: No Are you DNR?: No Advance Directives: No Advance Directives Information Provided: Yes Advance Directives on File: No Recently lost weight without trying: No Nutrition Risks: No Nutritional Risk Patient : No service: No Current occupational status: retired Current occupation: right handed Meds Allergies Allergy/AdvReac Type Severity Reaction Status Date / Time grass pollen Allergy Mild unknown Verified 12/29/21 15:25 zoster vaccine live Allergy Mild HIVES Verified 12/29/21 15:25 [SHINGLES VACCINE] tree pollen Allergy Mild unknown Uncoded 12/29/21 15:25 BARIUM CONTRAST Allergy Unknown DIFFICULTY Uncoded 12/29/21 15:25 BREATHING/FLUSHING Home Medications Medication Instructions Recorded Confirmed Last Taken Type aspirin 81 mg tablet,delayed 81 mg PO DAILY 05/19/20 01/05/22 09/30/20 History release cholecalciferol (vitamin D3) 50 50 mcg PO DAILY 05/19/20 01/05/22 09/30/20 History mcg (2,000 unit) capsule cyclosporine 0.05 % eye drops in a 1 drp ophthalmic (eye) Q12H 05/19/20 01/05/22 Unknown History dropperette (Restasis) hydroxyurea 500 mg capsule 500 mg PO DAILY 05/19/20 01/05/22 09/30/20 History azelastine 137 mcg (0.1 %) nasal 1 spray intranasal BID 09/28/21 01/05/22 Unknown History spray aerosol buspirone 5 mg tablet 5 mg PO BID 09/28/21 01/05/22 Unknown History escitalopram oxalate 20 mg tablet 20 mg PO DAILY 09/28/21 01/05/22 Unknown History hydrocortisone 2.5 % topical 1 appl topical BID-TID PRN Dry Skin 09/28/21 01/05/22 Unknown History ointment levothyroxine 100 mcg tablet 100 mcg PO DAILY 09/28/21 01/05/22 Unknown History sodium chloride 0.65 % nasal spray 2 spray intranasal BID 10/05/21 01/05/22 Unknown History aerosol ([place] Saline) budesonide 160 mcg-glycopyr 9 1 inh inhalation DAILY 12/23/21 01/05/22 Unknown History mcg-formot 4.8 mcg/actuation HFA inhaler (Breztri Aerosphere) cholestyramine (with sugar) 4 gram 4 g PO BID PRN Electrolyte 12/29/21 01/05/22 Unknown History oral powder Replenishment albuterol sulfate 90 mcg/actuation 2 puff inhalation Q4-6H PRN 01/05/22 01/05/22 Unknown History aerosol inhaler Wheezing atorvastatin 20 mg tablet 1 tab PO QPM 01/05/22 01/05/22 Unknown History Exam Airway Mallampati Class: II TM Dist: >3cm Neck ROM: Full Denture: Upper and Lower Heart: rrr Lungs: cta Assessment and Plan Assessment Anesthesia Assessment: Anesthesia Plan Discussed and Chart Reviewed Final Anesthetic Review Family History of Problems with Anesthesia: No History of Problems with Anesthesia: No NPO: Yes ASA Class: III Final Preanesthetic Review: No Changes in Pt Med Stat, Meds/Allgs Chart Reviewed and Consent Obtained/Reviewed Patient Risk: Intermediate Procedure Risk: Intermediate Anesthetic Plan Anesthetic Plan: MAC: Disposition: Standard PACU
[2022-01-11 07:00] VITALS: BP 139/76; PULSE 64; RESP 19; TEMP 36.6; O2SAT 96
[2022-01-11] MEDS: Lactated Ringers 1,000 ML 100 ML IVCONT (07:16)
--- NOTE | 2022-01-11 08:38 | MHC.SHP ---
Pre-Procedural Eval Section A Date of Service: 01/11/22 The patient is an INPATIENT: No The History & Physical has been completed within 30 days and I have reviewed it.: Yes Section B Chief Complaint: Dysphagia, Allergies: Allergies Allergy/AdvReac Type Severity Reaction Status Date / Time grass pollen Allergy Mild unknown Verified 12/29/21 15:25 zoster vaccine live Allergy Mild HIVES Verified 12/29/21 15:25 [SHINGLES VACCINE] tree pollen Allergy Mild unknown Uncoded 12/29/21 15:25 BARIUM CONTRAST Allergy Unknown DIFFICULTY Uncoded 12/29/21 15:25 BREATHING/FLUSHING Plan Diagnosis/Plan: Unchanged I have reviewed the history and physical and performed a pertinent physical examination on my patient. No changes have occurred unless specified.
--- NOTE | 2022-01-11 08:54 | P.BOP_ITS ---
Brief Operative Note Date of Service: 01/11/22 Pre-op diagnosis: dysphagia Post-op diagnosis: same Procedure: see op note Surgeon: Daryl Chiang MD Anesthesia: MAC Was an [employer] used for this Procedure?: No Estimated blood loss (mL): 0 Condition: stable Disposition: PACU
--- NOTE | 2022-01-11 08:55 | P.OP_ITS ---
Operative Note Operative Note Date of Service: 01/11/22 Narrative: Procedure Description: EGD Indication: [] Anesthesia: MAC FLEXIBLE TRANSORAL UPPER GASTROINTESTINAL ENDOSCOPY UPPER ENDOSCOPY Consent: Indications for the procedure and potential complications of bleeding, perforation, reaction to medications and missed diagnosis were discussed with the patient and informed consent was obtained. Instrument: Olympus GIF H 190 J mid size upper endoscope Monitoring: Vital signs and clinical assessment, continuous EKG monitoring, Pulse oximetry, Carbon Dioxide monitoring and blood pressure monitoring were done throughout the procedure. Procedure: The patient was placed in the left lateral decubitis position and pre-procedure medications were administered and a bite block was placed. The endoscope was inserted into the mouth and advanced under direct vision to the third part of duodenum. A careful inspection was made as the upper endoscope was withdrawn including a retroflexed examination of the proximal stomach; Findings and interventions are described below. Findings: Larynx:normal Esophagus: GE junction at 35 cm, diaphragm hiatus at 37 cm, consistent with 2 cm sliding hiatal hernia. bogginess and edema at GEJ consistent with esophagitis LA grade A. UEs stretched to 18 mm and LEs stretched to 19 mm. Small tear seen at upper esophagus. Stomach: Patchy gastric erythema with few erosions. Biopsies were obtained. Grade 2 flap valve on retroflexed examination of the cardia. Duodenum: bulbar duodenitis, normal descending duodenum, bx taken Intervention: Biopsies as noted above, balloon dilation Impression/Findings: esophageal stricture, hiatal hernia esophagitis duodenitis gastritis PLAN: await bx if h pylori pos then treat check if taking PPI, if not then would place her on it as may help sx \
[2022-01-11 09:00] VITALS: BP 82/39; PULSE 65; RESP 16; TEMP 36.2; O2SAT 95
[2022-01-11 09:05] VITALS: BP 91/46; PULSE 61; RESP 16; O2SAT 95
[2022-01-11 09:15] VITALS: BP 96/44; PULSE 53; RESP 16; O2SAT 95
[2022-01-11 09:29] VITALS: BP 109/63; PULSE 63; RESP 16; TEMP 36.2; O2SAT 97
== END 2022-01-11 10:24 | disposition home or self-care (01) ==
PROVIDERS: PCP Internal Medicine; Visit Provider Internal Medicine Gastroenterology
PROC: 0DJ08ZZ Inspection of Upper Intestinal Tract, Via Natural or Artificial Opening Endoscopic (ICD-10-PCS; CPT 43235; principal; 2022-01-11 08:30)
DX: R13.10 Dysphagia, unspecified (principal); K22.2 Esophageal obstruction; K20.80 Other esophagitis without bleeding; K29.80 Duodenitis without bleeding; K29.70 Gastritis, unspecified, without bleeding; K44.9 Diaphragmatic hernia without obstruction or gangrene; J44.9 Chronic obstructive pulmonary disease, unspecified; G47.33 Obstructive sleep apnea (adult) (pediatric); E03.9 Hypothyroidism, unspecified; E78.5 Hyperlipidemia, unspecified; Z79.82 Long term (current) use of aspirin; Z79.899 Other long term (current) drug therapy; Z87.891 Personal history of nicotine dependence
CPT/HCPCS: 43249; 43239; 88305; 88342; C1726

== ENCOUNTER → 2022-03-02 15:25 | Outpatient (BNVA) | payer MEDICARE, SELFPAY | PROVIDERS: PCP Internal Medicine; Visit Provider Internal Medicine | DX: J44.9 Chronic obstructive pulmonary disease, unspecified (principal); G47.33 Obstructive sleep apnea (adult) (pediatric); K52.9 Noninfective gastroenteritis and colitis, unspecified; F41.9 Anxiety disorder, unspecified; Z99.89 Dependence on other enabling machines and devices | CPT/HCPCS: 99212 ==

== ENCOUNTER 2022-04-28 15:46 | Outpatient (REF) | payer MEDICARE, SELFPAY ==
--- NOTE | ~2022-04-28 | CT_ITS ---
EXAMINATION: CT CHEST SCREENING CLINICAL INFORMATION: Smoking history. Current smoker. 1.5 pack per day. COMPARISON: Previous chest x-ray September 2021 TECHNIQUE: Multidetector volumetric CT imaging of the chest is performed without contrast using low dose technique. Additional 2D coronal and sagittal reformatted images and axial 3D maximum intensity projection (MIP) images are generated on the CT workstation. This CT examination was performed using dose optimization techniques as appropriate, variously including the following: *Automated exposure control *Adjustment of mA and/or kV according to patient size (this includes techniques or standardized protocols for targeted exams where dose is matched to indication/reason for exam; i.e. extremities or head) *Use of iterative reconstruction technique DLP: 323 mGy-cm FINDINGS: LUNGS: There is evidence of mild paraseptal emphysema. There is mild biapical pleural and parenchymal scarring. Evaluation of the lungs is somewhat limited due to respiratory motion artifact. There is question of a small 2 mm peripheral or subpleural right upper lobe nodule adjacent to the minor fissure axial image 209 series 5. There is question of a 2 mm right lower lobe peripheral nodule axial image 244 series 5. There is a 3 mm right lower lobe nodule axial image 236 series 5. No endobronchial or endotracheal lesion. MEDIASTINUM: There may be a small esophageal hernia. Mediastinum is otherwise unremarkable. CORONARY ARTERY CALCIFICATION: Mild PLEURA: There is no pleural effusion. No pleural mass or thickening. AXILLA: No lymphadenopathy or chest wall mass.. UPPER ABDOMEN: The gallbladder has been removed. OSSEOUS STRUCTURES: Degenerative changes of the spine. CT/CT lung screening IMPRESSION: Limited exam due to respiratory motion artifact. Mild paraseptal emphysema. Mild biapical pleural parenchymal scarring and small pulmonary nodules or micronodules. Mild coronary artery calcification. Small esophageal hernia. ASSESSMENT: Lung-RADS category 2: Benign RECOMMENDATION: Annual low-dose chest CT follow-up recommended.
== END 2022-04-28 15:47 | disposition home or self-care (01) ==
LOC: HO.CT 15:46
PROVIDERS: PCP Internal Medicine; Visit Provider Physician Assistant Medical
DX: Z12.2 Encounter for screening for malignant neoplasm of respiratory organs (principal); Z87.891 Personal history of nicotine dependence
CPT/HCPCS: 71271; G0296

== ENCOUNTER → 2022-05-02 15:11 | Outpatient (BNVA) | payer MEDICARE, SELFPAY | PROVIDERS: PCP Internal Medicine; Visit Provider Internal Medicine | DX: J44.9 Chronic obstructive pulmonary disease, unspecified (principal); G47.33 Obstructive sleep apnea (adult) (pediatric); Z99.89 Dependence on other enabling machines and devices; E66.9 Obesity, unspecified; Z68.41 Body mass index [BMI] 40.0-44.9, adult | CPT/HCPCS: 99212 ==

== ENCOUNTER 2022-05-04 15:33 | Outpatient (REF) | payer MEDICARE, SELFPAY ==
--- NOTE | ~2022-05-04 | XR_ITS ---
EXAMINATION: XR HIP, RIGHT CLINICAL INFORMATION: Pain COMPARISON: None TECHNIQUE: Two views of the right hip. FINDINGS: Bones and soft tissues are normal. No fracture. Alignment is anatomic. Hip joint space is maintained. XR/XR hip RT min 2V IMPRESSION: Unremarkable right hip.
== END 2022-05-04 15:34 | disposition home or self-care (01) ==
LOC: HO.XRAY 15:33
PROVIDERS: Visit Provider Internal Medicine
DX: M25.551 Pain in right hip (principal)
CPT/HCPCS: 73502

== ENCOUNTER 2022-05-05 06:47 | Outpatient (REF) | payer MEDICARE, SELFPAY ==
[2022-05-05 08:17] LABS: Alanine Aminotransferase 19 U/L (0-31); Albumin Level 4.1 g/dL (3.5-5.0); Alkaline Phosphatase 135 U/L (39-117); Anion Gap 14 (12-20); Aspartate Amino Transferase 19 U/L (5-31); Bilirubin Total 0.2 mg/dL (0.0-1.0); Blood Urea Nitrogen 21 mg/dL (9-16); Calcium 9.2 mg/dL (8.4-10.2); Carbon Dioxide 26 mmol/L (22-29); Chloride 107 mmol/L (96-108); Cholesterol 190 mg/dL; Estimated Glomerular Filt Rate > 60; Glucose Fasting 100 mg/dL (60-99); HDL Cholesterol 54 mg/dL; LDL Cholesterol Calculated 122 mg/dl; Potassium 4.9 mmol/L (3.3-5.1); Sodium 142 mmol/L (135-145); Total Protein 6.7 g/dL (6.5-8.0); Triglycerides 73 mg/dL
[2022-05-05 08:21] LABS: Free T4 (Free Thyroxine) 0.93 ng/dL (0.71-1.85); Thyroid Stimulating Hormone 0.92 uIU/mL (0.32-4.0); Vitamin D 25-OH Total 47.2 ng/mL (>30)
[2022-05-08 23:12] LABS: Thyroglobulin Antibodies <1 IU/mL (< or = 1); Thyroid Peroxidase Antibodies 1 IU/mL (<9)
== END 2022-05-05 06:48 | disposition home or self-care (01) ==
LOC: HO.LAB 06:47
PROVIDERS: PCP Internal Medicine; Visit Provider Internal Medicine
DX: E78.5 Hyperlipidemia, unspecified (principal); E03.9 Hypothyroidism, unspecified; E55.9 Vitamin D deficiency, unspecified
CPT/HCPCS: 36415; 80053; 80061; 82306; 84439; 84443; 86376; 86800

== ENCOUNTER → 2022-05-11 13:56 | Outpatient (BNVA) | payer MEDICARE, SELFPAY | PROVIDERS: PCP Internal Medicine; Visit Provider Orthopaedic Surgery | DX: M16.11 Unilateral primary osteoarthritis, right hip (principal) | CPT/HCPCS: 99212 ==

== ENCOUNTER 2022-07-27 14:00 | Outpatient (RCR) | payer MEDICARE, SELFPAY ==
--- NOTE | 2022-07-10 15:14 | MHC.PT.EP ---
[facility] [place] Office [place] Office [place] Office [address] Demar Brown [address] [phone] F: [phone] F: [phone] F: [phone] F: [phone] Physical Therapy Plan of Care Date of Evaluation: Date of Surgery: Diagnosis: bilateral osteoarthritis of hips Assessment: Patient is referred to PT by Dr. Sana Randall MD with Dx of bilateral hip osteoarthritis. Her PT Dx includes acute hip pain from muscle imbalances of hips with pain and weakness in glutes and tightness in piriformis. Her impairments also include limited hip extension, antalgic gait, and limited AROM. Her functional limitations involve prolonged walking and standing, stair use, squatting, and performing housework such as cleaning tub, mopping and sweeping. She will benefit from course of skilled PT to improve aforementioned impairments and functional limitations and meet goals. Frequency and Duration: The patient will be seen 1x/week for 4 weeks Short Term Goals: 2 weeks Patient demonstrates independence and consistency with HEP to self manage symptoms. Patient presents with increased bilateral hip extension 10 degrees to restore gait pattern. Prison Goals: 4 weeks Patient presents with increased R hip glute med 4+/5 to be able to ambulate long distances without pain. Patient presents with increased bilateral hip flexion 110 degrees to be able to squat. Treatment Plan: Modalities to reduce pain, spasms and effusion. Manual therapy to restore motion and function. Therapeutic exercise to improve strength and flexibility. Neuromuscular re-education for posture and balance. Therapeutic activities to return to functional activities of daily living. Electronically signed by: Shawnee Wilhelm, PT, DPT Please sign and return to therapist. Thank you for your referral.
--- NOTE | 2022-09-28 10:26 | MHC.PT.DC ---
[facility] [place] Office [place] Office [place] Office [address] Demar Brown [address] [phone] F: [phone] F: [phone] F: [phone] F: [phone] Physical Therapy Discharge Report Diagnosis: bilateral osteoarthritis of hips Date of Surgery: Date of Evaluation: 07/10/22 Date of Discharge: 09/28/22 Treatments to Date: 3 Cancellations to Date: No Shows to Date: Discharge Status: Discharge Summary: Patient ceased attending PT because she had a change in insurance, plans to continue with PT in 10/2022 when she is able. Her chart is discharged at this time since it has been more than 1 month since her last visit, will do a new evaluation as appropriate from MD referral. Electronically signed by: Shawnee Wilhelm, PT, DPT Please sign and return to therapist. Thank you for your referral.
== END 2022-09-28 10:29 | disposition home or self-care (01) ==
LOC: HO.PT 14:00
PROVIDERS: PCP Internal Medicine; Visit Provider Internal Medicine
DX: M16.0 Bilateral primary osteoarthritis of hip (principal)
CPT/HCPCS: 97110; 97140; 97161

== ENCOUNTER → 2022-08-29 15:13 | Outpatient (BNVA) | payer OTHER, SELFPAY | PROVIDERS: PCP Internal Medicine; Visit Provider Internal Medicine | DX: J44.9 Chronic obstructive pulmonary disease, unspecified (principal); G47.33 Obstructive sleep apnea (adult) (pediatric); E66.9 Obesity, unspecified; Z99.89 Dependence on other enabling machines and devices; Z68.32 Body mass index [BMI] 32.0-32.9, adult | CPT/HCPCS: 99212 ==

== ENCOUNTER 2022-09-20 15:20 | Outpatient (REF) | payer OTHER, MEDICAID, SELFPAY ==
[2022-09-20 15:32] LABS: MANUAL DIFF FLAG NO
[2022-09-20 15:50] LABS: Basophils Percent Auto 0.5 % (0-2); Eosinophils Absolute Auto 0.2 X10*3/uL (0.0-0.4); Eosinophils Percent Auto 2.6 % (0-4); Hematocrit 39.6 % (37.0-47.0); Hemoglobin 12.7 g/dl (12.0-16.0); Imm Gran Abs Auto 0.01 X10*3/uL (0.00-0.03); Imm Gran Pct Auto 0.2 % (0.0-0.4); Lymphocytes Absolute Auto 1.4 X10*3/uL (1.2-4.9); Lymphocytes Percent Auto 23.8 % (20-40); Mean Corpuscular HGB Conc 32.1 g/dl (31.0-35.0); Mean Corpuscular Hemoglobin 30.2 pg (27.0-33.0); Mean Corpuscular Volume 94.1 fL (80.0-98.0); Mean Platelet Volume 9.4 fL (9.4-12.3); Monocytes Absolute Auto 0.4 X10*3/uL (0.1-1.2); Monocytes Percent Auto 6.6 % (2-11); Neutrophils Percent Auto 66.3 % (45-73); Platelet Count 294 X10*3/uL (160-400); Red Blood Count 4.21 X10*6/uL (4.20-5.50); Red Cell Distribution Width 13.8 % (11.0-16.0); White Blood Count 6.1 X10*3/uL (4.8-10.8)
[2022-09-20 16:23] LABS: Alanine Aminotransferase 22 U/L (0-31); Alkaline Phosphatase 125 U/L (39-117); Anion Gap 12 (12-20); Aspartate Amino Transferase 26 U/L (5-31); Bilirubin Total 0.4 mg/dL (0.0-1.0); Blood Urea Nitrogen 12 mg/dL (9-16); Calcium 9.1 mg/dL (8.4-10.2); Carbon Dioxide 25 mmol/L (22-29); Chloride 110 mmol/L (96-108); Cholesterol 180 mg/dL; Estimated Glomerular Filt Rate > 60; Glucose Random 86 mg/dL (60-115); HDL Cholesterol 61 mg/dL; LDL Cholesterol Calculated 102 mg/dl; Potassium 4.3 mmol/L (3.3-5.1); Sodium 143 mmol/L (135-145); Total Protein 6.5 g/dL (6.5-8.0); Triglycerides 86 mg/dL
[2022-09-20 16:54] LABS: Folate 6.9 ng/mL (> or = 4.0); Thyroid Stimulating Hormone 0.18 uIU/mL (0.32-4.0); Vitamin B12 918 pg/mL (200-900)
[2022-09-26 15:33] LABS: Vitamin D 25-OH, D2 <4 ng/mL; Vitamin D 25-OH, D3 47 ng/mL; Vitamin D 25-OH, Total 47 ng/mL (30-100)
== END 2022-09-20 15:21 | disposition home or self-care (01) ==
LOC: HO.LAB 15:20
PROVIDERS: PCP Internal Medicine; Visit Provider Internal Medicine
DX: E53.8 Deficiency of other specified B group vitamins (principal); E55.9 Vitamin D deficiency, unspecified; E03.9 Hypothyroidism, unspecified; D64.9 Anemia, unspecified; E78.5 Hyperlipidemia, unspecified
CPT/HCPCS: 36415; 80053; 80061; 82306; 82607; 82746; 84443; 85025

== ENCOUNTER → 2022-09-29 14:40 | Outpatient (BNVA) | payer OTHER, MEDICAID, SELFPAY | PROVIDERS: PCP Internal Medicine; Visit Provider Physician Assistant Surgical | DX: Z13.89 Encounter for screening for other disorder (principal) ==

== ENCOUNTER 2022-10-02 14:39 | Outpatient (REF) | payer OTHER, MEDICAID, SELFPAY ==
[2022-10-02 15:30] LABS: Influenza A PCR NEGATIVE (Negative); Influenza B PCR NEGATIVE (Negative); Resp Syncy Virus RNA Qual PCR NEGATIVE (Negative); SARS COV2 PCR INHOUSE POSITIVE (Negative)
== END 2022-10-02 14:40 | disposition home or self-care (01) ==
LOC: HO.LNP 14:39
PROVIDERS: Visit Provider Nurse Practitioner Family
DX: Z20.822 Contact with and (suspected) exposure to COVID-19 (principal); R09.89 Other specified symptoms and signs involving the circulatory and respiratory systems
CPT/HCPCS: 0241U

== ENCOUNTER → 2022-10-11 15:23 | Outpatient (BNVA) | payer OTHER, SELFPAY | PROVIDERS: PCP Internal Medicine; Visit Provider Physician Assistant Surgical | DX: E66.9 Obesity, unspecified (principal); E03.9 Hypothyroidism, unspecified; Z68.38 Body mass index [BMI] 38.0-38.9, adult | CPT/HCPCS: 99202 ==

== ENCOUNTER 2022-10-13 08:23 | Outpatient (REF) | payer OTHER, SELFPAY ==
--- NOTE | ~2022-10-13 | XR_ITS ---
EXAMINATION: XR CHEST CLINICAL INFORMATION: Bariatric service evaluation. E66.9. COMPARISON: Chest radiographs 09/09/2021, 12/22/2019 TECHNIQUE: 2 views of the chest were obtained. FINDINGS: There is no airspace consolidation or groundglass opacity or effusion. The costophrenic sulci are clear. Heart size normal. The hilar and mediastinal contours are unremarkable. No acute bony abnormality. XR/XR chest 2V IMPRESSION: Unremarkable examination.
--- NOTE | 2022-10-13 08:28 | ECG_ITS ---
Test Reason : e66.01 Blood Pressure : / mmHG Vent. Rate : 071 BPM Atrial Rate : 071 BPM P-R Int : 142 ms QRS Dur : 076 ms QT Int : 418 ms P-R-T Axes : 059 046 070 degrees QTc Int : 454 ms Normal sinus rhythm Normal ECG When compared with ECG of 09-SEP-2021 15:17, No significant change was found Referred By: Dao Montgomery Electronically Signed By:TIFFANY SHEEHAN
[2022-10-13 12:17] LABS: Iron 83 mcg/dL (30-160); Percent Iron Saturation 22 % (15-50); Total Iron Binding Capacity 371 mcg/dL (228-428); Unsaturated Iron Binding 288 ug/dL
[2022-10-13 12:56] LABS: Vitamin D 25-OH Total 51.8 ng/mL (>30)
[2022-10-18 00:19] LABS: Zinc 64 mcg/dL (60-130)
[2022-10-19 05:09] LABS: Vitamin A 52 mcg/dL (38-98)
[2022-10-19 16:03] LABS: Vitamin B1 12 nmol/L (8-30)
== END 2022-10-13 08:24 | disposition home or self-care (01) ==
LOC: HO.XRAY 08:23
PROVIDERS: PCP Internal Medicine; Visit Provider Physician Assistant Surgical
DX: E55.9 Vitamin D deficiency, unspecified (principal); E66.9 Obesity, unspecified; Z86.2 Personal history of diseases of the blood and blood-forming organs and certain disorders involving the immune mechanism
CPT/HCPCS: 36415; 71046; 82306; 83540; 84425; 84590; 84630; 93005

== ENCOUNTER → 2022-11-02 14:57 | Outpatient (BNVA) | payer OTHER, MEDICAID, SELFPAY | PROVIDERS: PCP Internal Medicine; Visit Provider Physician Assistant | DX: E66.9 Obesity, unspecified (principal); G47.33 Obstructive sleep apnea (adult) (pediatric); J44.9 Chronic obstructive pulmonary disease, unspecified; E03.9 Hypothyroidism, unspecified; E78.5 Hyperlipidemia, unspecified; F41.9 Anxiety disorder, unspecified; Z68.37 Body mass index [BMI] 37.0-37.9, adult; Z99.89 Dependence on other enabling machines and devices | CPT/HCPCS: 99212 ==

== ENCOUNTER 2022-11-14 12:55 | Outpatient (REF) | payer OTHER, MEDICAID, SELFPAY ==
[2022-11-14 14:11] LABS: Thyroid Stimulating Hormone 0.09 uIU/mL (0.32-4.0)
== END 2022-11-14 12:56 | disposition home or self-care (01) ==
LOC: HO.LAB 12:55
PROVIDERS: PCP Internal Medicine; Visit Provider Internal Medicine
DX: E03.9 Hypothyroidism, unspecified (principal)
CPT/HCPCS: 36415; 84443

== ENCOUNTER → 2022-11-15 15:31 | Outpatient (BNVA) | payer OTHER, MEDICAID, SELFPAY | PROVIDERS: PCP Internal Medicine; Referring Provider Physician Assistant Surgical; Visit Provider Dietitian, Registered | DX: E66.9 Obesity, unspecified (principal) | CPT/HCPCS: 97802 ==

== ENCOUNTER 2022-11-23 13:48 | Outpatient (REF) | payer OTHER, MEDICAID, SELFPAY ==
[2022-11-25 12:25] LABS: H Pylori Breath Test Negative (Negative)
== END 2022-11-23 13:49 | disposition home or self-care (01) ==
LOC: HO.LNP 13:48
PROVIDERS: PCP Internal Medicine; Visit Provider Physician Assistant Surgical
DX: E66.9 Obesity, unspecified (principal); J44.9 Chronic obstructive pulmonary disease, unspecified; G47.33 Obstructive sleep apnea (adult) (pediatric); E78.5 Hyperlipidemia, unspecified; D47.3 Essential (hemorrhagic) thrombocythemia; Z71.3 Dietary counseling and surveillance; Z79.899 Other long term (current) drug therapy; Z99.89 Dependence on other enabling machines and devices
CPT/HCPCS: 83013; 99211; 99212

== ENCOUNTER → 2022-11-24 13:25 | Outpatient (BNVA) | payer OTHER, MEDICAID, SELFPAY | PROVIDERS: PCP Internal Medicine; Visit Provider Counselor Mental Health ==

== ENCOUNTER 2022-11-28 09:03 | Outpatient (REF) | payer OTHER, SELFPAY ==
--- NOTE | ~2022-11-28 | FL_ITS ---
EXAMINATION: RF fluoroscopy upper GI with Gastrografin CLINICAL INFORMATION: Obesity. Patient is allergic to barium. COMPARISON: None. TECHNIQUE: Upper GI was performed using full strength Gastrografin. Fluoroscopy time 0.5 minutes. Total images 20. DAP 8 [place] per centimeter squared FINDINGS: Esophageal motility is normal. There is a small hiatal hernia. There is mild gastroesophageal reflux. The stomach and duodenum are normal-appearing. No fold thickening, mass, ulcer or stricture. FL/FL upper GI w gastrografin IMPRESSION: Small hiatal hernia and mild gastroesophageal reflux..
--- NOTE | ~2022-11-28 | US_ITS ---
EXAMINATION: US COMPLETE ABDOMEN WITH LIVER ELASTOGRAPHY CLINICAL INFORMATION: Obesity. COMPARISON: None available. TECHNIQUE: Real-time imaging of the abdominal viscera. Noninvasive ultrasound liver fibrosis assessment is performed using Edith ElastPQ point quantification shear wave elastography (2D-SWE) with a C5-2 MHz transducer. Multiple elastography samples are obtained. FINDINGS: PANCREAS: Normal. The visualized pancreatic head and body are normal in appearance. The remainder of the pancreas is obscured from visualization by the overlying bowel gas. ABDOMINAL AORTA: The proximal, middle, and distal aortic segments are normal in caliber. INFERIOR VENA CAVA: Visualized portions are normal. LIVER: The liver demonstrates normal size, contour and increased echogenicity. No focal lesion or intrahepatic biliary duct dilatation. The right lobe measures 14.5 cm in length. The left lobe measures 12.2 cm in length. Portal flow is hepatopedal Shear wave liver elastography median stiffness is 1.58 m/s (reference: normal median stiffness is 1.3 m/s or less). IQR/median stiffness to assess sampling precision is 0.22 (reference: good quality data set is IQR/median stiffness of 0.15 or less). GALLBLADDER: Normal. The gallbladder is physiologically distended without evidence of stones, sludge, polyps, wall thickening or pericholecystic fluid. COMMON BILE DUCT: Normal in caliber measuring 0.7 cm in diameter. RIGHT KIDNEY: Normal. No hydronephrosis. No renal calculi or focal parenchymal lesions. The kidney measures 10.4 cm in maximum dimension. LEFT KIDNEY: Normal. No hydronephrosis. No renal calculi or focal parenchymal lesions. The kidney measures 10.5 cm in maximum dimension. SPLEEN: Normal. The spleen measures 8.4 cm in maximum dimension. FREE FLUID: None. US/US abdomen comp w elastography IMPRESSION: 1. Slightly increased liver echogenicity. No focal lesion seen. Rest of the abdominal ultrasound is unremarkable. 2. Liver elastography: Median liver stiffness 1.58 m/s corresponds to cACLD (ruled out). REFERENCE: Society of Radiologists in Ultrasound Liver Stiffness Thresholds (2019): LIVER STIFFNESS THRESHOLDS: *Liver Stiffness equal or less than 1.3 m/s: High probability of being normal. *Liver Stiffness less than 1.7 m/s: In the absence of other known clinical signs, rules out compensated advanced chronic liver disease. *Liver Stiffness 1.7-2.1 m/s: Suggestive of compensated advanced chronic liver disease but need further test for confirmation. *Liver Stiffness over 2.1 m/s: Rules in compensated advanced chronic liver disease. *Liver Stiffness over 2.4 m/s: Suggestive of clinically significant portal hypertension. QUALITY OF DATA SET: *IQR/Median value equal or less than 0.15 implies a quality data set. *IQR/Median value over 0.15 implies a poor quality data set. SIGNIFICANT CHANGE FROM PRIOR EXAM: Significant change if liver stiffness measurement is 10% or greater from prior exam. OTHER CONSIDERATIONS: The stage of liver fibrosis may be overestimated in the setting of acute hepatitis, liver inflammation, elevated liver function tests, hepatic vascular congestion, obstructive cholestasis, non-fasting state, and infiltrative diseases such as amyloidosis and lymphoma. In some patients with NAFLD, the liver stiffness thresholds for compensated advanced chronic liver disease may be lower. In causes other than viral hepatitis and NAFLD, liver stiffness thresholds are not well established.
== END 2022-11-28 09:04 | disposition home or self-care (01) ==
LOC: HO.US 09:03
PROVIDERS: PCP Internal Medicine; Visit Provider Physician Assistant Surgical
DX: Z01.818 Encounter for other preprocedural examination (principal); E66.9 Obesity, unspecified; K21.9 Gastro-esophageal reflux disease without esophagitis
CPT/HCPCS: 74240; 76705; 76981

== ENCOUNTER 2022-12-08 12:46 | Outpatient (REF) | payer OTHER, MEDICAID, SELFPAY ==
[2022-12-08 15:52] LABS: Thyroid Stimulating Hormone 0.55 uIU/mL (0.32-4.0)
== END 2022-12-08 12:47 | disposition home or self-care (01) ==
LOC: HO.LAB 12:46
PROVIDERS: PCP Internal Medicine; Visit Provider Internal Medicine
DX: E03.9 Hypothyroidism, unspecified (principal)
CPT/HCPCS: 36415; 84443

== ENCOUNTER → 2022-12-13 13:55 | Outpatient (BNVA) | payer OTHER, MEDICAID, SELFPAY | PROVIDERS: PCP Internal Medicine; Visit Provider Physician Assistant | DX: E66.9 Obesity, unspecified (principal); E03.9 Hypothyroidism, unspecified; E78.5 Hyperlipidemia, unspecified; G47.33 Obstructive sleep apnea (adult) (pediatric); Z99.89 Dependence on other enabling machines and devices; Z68.35 Body mass index [BMI] 35.0-35.9, adult | CPT/HCPCS: 99212 ==

== ENCOUNTER → 2022-12-29 14:54 | Outpatient (BNVA) | payer OTHER, MEDICAID, SELFPAY | PROVIDERS: PCP Internal Medicine; Referring Provider Internal Medicine; Visit Provider Counselor Mental Health ==

== ENCOUNTER → 2023-01-10 15:00 | Outpatient (BNVA) | payer OTHER, MEDICAID, SELFPAY | PROVIDERS: PCP Internal Medicine; Visit Provider Physician Assistant | DX: E66.9 Obesity, unspecified (principal); E03.9 Hypothyroidism, unspecified; G47.33 Obstructive sleep apnea (adult) (pediatric); J44.9 Chronic obstructive pulmonary disease, unspecified; Z99.89 Dependence on other enabling machines and devices; Z68.34 Body mass index [BMI] 34.0-34.9, adult | CPT/HCPCS: 99212 ==

== ENCOUNTER → 2023-01-18 13:55 | Outpatient (BNVA) | payer OTHER, MEDICAID, SELFPAY | PROVIDERS: PCP Internal Medicine; Visit Provider Dietitian, Registered | DX: E66.9 Obesity, unspecified (principal) | CPT/HCPCS: 97803 ==

== ENCOUNTER 2023-01-24 10:28 | Outpatient (REF) | payer OTHER, MEDICAID, SELFPAY ==
--- NOTE | ~2023-01-24 | XR_ITS ---
EXAMINATION: XR LUMBOSACRAL SPINE WITH OBLIQUES CLINICAL INFORMATION: Lower back pain. COMPARISON: None available. TECHNIQUE: AP, both oblique, and lateral views of the lumbar spine. Lateral view of the lumbosacral junction. FINDINGS: There is bony demineralization. Vertebral body heights and alignment are normal. At T10-T11 and T11-T12, there is moderately severe disc space narrowing, with vacuum disc phenomenon and anterior spondylosis. The lumbar disc spaces are well-maintained. No acute fracture or spondylolisthesis is seen. There is multi-level mild lumbar spondylosis. The posterior elements are intact. There are aortoiliac atherosclerotic calcifications. A right pelvic phlebolith is noted. XR/XR lumbar spine 4V min IMPRESSION: 1. There is moderately severe degenerative disc disease at T10-T11 and T11-T12. 2. There is multi-level thoracolumbar spondylosis. 3. No acute fracture or spondylolisthesis is seen.
== END 2023-01-24 10:29 | disposition home or self-care (01) ==
LOC: HO.XRAY 10:28
PROVIDERS: PCP Internal Medicine; Visit Provider Nurse Practitioner Family
DX: M54.50 Low back pain, unspecified (principal)
CPT/HCPCS: 72110

== ENCOUNTER → 2023-02-07 12:39 | Outpatient (BNVA) | payer OTHER, MEDICAID, SELFPAY | PROVIDERS: PCP Internal Medicine; Visit Provider Physician Assistant | DX: E66.9 Obesity, unspecified (principal); G47.22 Circadian rhythm sleep disorder, advanced sleep phase type; J44.9 Chronic obstructive pulmonary disease, unspecified; Z99.89 Dependence on other enabling machines and devices | CPT/HCPCS: 99212 ==

== ENCOUNTER → 2023-02-16 13:30 | Outpatient (BNVA) | payer OTHER, MEDICAID, SELFPAY | PROVIDERS: PCP Internal Medicine; Visit Provider Dietitian, Registered | DX: E66.9 Obesity, unspecified (principal) | CPT/HCPCS: 97803 ==

== ENCOUNTER → 2023-02-19 12:04 | Outpatient (BNVA) | payer OTHER, MEDICAID, SELFPAY | PROVIDERS: PCP Internal Medicine; Visit Provider Counselor Mental Health ==

== ENCOUNTER → 2023-02-19 12:04 | Outpatient (AMB) | payer OTHER, MEDICAID, SELFPAY ==
--- NOTE | 2023-02-19 12:19 | MHC.WMTHER ---
Intake Intake Visit Reasons: VIDEO F/U Allergies grass pollen Allergy (Mild, Verified 03/12/23 17:44) unknown zoster vaccine live [SHINGLES VACCINE] Allergy (Mild, Verified 03/12/23 17:44) HIVES BARIUM CONTRAST Allergy (Unknown, Uncoded 03/12/23 17:44) DIFFICULTY BREATHING/FLUSHING [facility] Medical History Anxiety Asthma BMI 38.0-38.9,adult Chronic diarrhea COPD (chronic obstructive pulmonary disease) Depression Dyslipidemia Dysphagia Eczema Essential thrombocytosis Hiatal hernia History of laryngeal cancer Hyperlipidemia Hypothyroidism Hypovitaminosis D Obesity (BMI 30-39.9) JONATHAN on CPAP Personal history of nicotine dependence Renal stones Surgical History History of colonoscopy History of endoscopy History of hand surgery History of repair of hiatal hernia History of surgery on left wrist Family History Father Mental health disorder CAD (coronary artery disease) Mother S/P CABG x 3 Asthma Brother Substance use disorder Father Diabetes Maternal Grandmother Breast cancer Social History Household Members: None Housing: Apartment Are you a primary customer care consultant to a significant other at home: No Do you presently have visiting nurse or other home services: No Alcohol intake: never Patient Tobacco Use Status: Former Tobacco user Quit Date: 5 yrs ago Tobacco use type: Cigarette Years Smoked: 45 e-Cigarette/Vaping Use: Never Used Second Hand Smoke Exposure: No service: No Current occupational status: retired Current occupation: right handed Sexual orientation: Straight/Heterosexual Cognitive needs: No Hearing needs: No Vision needs: No Behavioral Health Assessment Weight Management Therapy Therapy Notes Details PT presents upset and overwhelmed about the amount of appointments she has. She reports not feeling ready for surgery due to her caffeine intake. INTERVENTIONS: Active listening, validated feelings, processed sources of stress. Cognitive processing therapy. Proposed a plan to support her with caffeine cessation. RESPONSE: PT was able to have the session and reported feeling better by end of session. However, she was not clear about starting caffeine cessation plan for her. She was also uncertain about her surgical weight-loss journey since she's very stressed and is dealing with other medical issues. Presenting Concerns Referral Source Indira DECKER Reason for referral Completion of behavioral health assessment as part of process for weight-loss surgery. Precipitating Event Health issues: obesity. Assessment & Plan Assessment & Plan (1) Anxiety: Code(s): F41.9 - Anxiety disorder, unspecified Plan Continue working on habit building, stress management and caffeine cessation plan. Medications: Discontinued aspirin 81 mg PO DAILY 90 days 90 tabs 1RF melatonin 20 mg (2 x 10 mg) PO BEDTIME 90 days PRN 180 tabs 1RF sleep Telehealth Telehealth Location of provider rendering services: other (Home office. [place], [place]) Location of patient: address on file Patient Identification confirmed using: Name, : Yes Telehealth method: voice only Patient verbally consented to treatment: Yes Patient verbally consented to billing insurance company: Yes Patient informed of any privacy concerns related to visit: Yes Minutes spent on Phone/Video with Pt.: 45 Coding Level of Care Code Established Pt Tele Psytx 45 mins (49963) Patient Type Established Diagnoses Anxiety F41.9 Time Spent (min) 45 Comment 12:00-12:45pm
== END ==
PROVIDERS: PCP Internal Medicine; Visit Provider Counselor Mental Health
DX: F41.9 Anxiety disorder, unspecified (principal)
CPT/HCPCS: 90834

== ENCOUNTER 2023-02-22 07:51 | Outpatient (REF) | payer OTHER, MEDICAID, SELFPAY | END 2023-02-22 07:52 | disposition home or self-care (01) | LOC: HO.LAB 07:51 | PROVIDERS: PCP Internal Medicine; Visit Provider Internal Medicine | DX: Z13.89 Encounter for screening for other disorder (principal) ==

== ENCOUNTER 2023-02-23 09:34 | Outpatient (REF) | payer OTHER, MEDICAID, SELFPAY ==
[2023-02-23 10:44] LABS: Leukocytes Stool Qualitative NEGATIVE (NEGATIVE)
[2023-02-23 11:02] LABS: CDiff Gene PCR NEGATIVE (Negative)
== END 2023-02-23 09:35 | disposition home or self-care (01) ==
LOC: HO.LNP 09:34
PROVIDERS: Visit Provider Internal Medicine
DX: R19.7 Diarrhea, unspecified (principal)
CPT/HCPCS: 87338; 87493; 89055

== ENCOUNTER 2023-02-26 14:53 | Outpatient (REF) | payer OTHER, MEDICAID, SELFPAY ==
--- NOTE | ~2023-02-26 | XR_ITS ---
EXAMINATION: XR HIP, LEFT CLINICAL INFORMATION: Left hip pain COMPARISON: Right hip 05/04/2022 TECHNIQUE: AP view of the pelvis and 2 views of the left hip. FINDINGS: Bones are diffusely demineralized. Moderate degenerative changes left hip with joint space narrowing and hypertrophic change. Left hip joint alignment preserved. Moderate degenerative changes on limited images of the left sacroiliac joint. Mild degenerative changes on single AP view of the right. Degenerative changes in the imaged lower lumbar spine. XR/XR hip LT w PEL1V IMPRESSION: Moderate degenerative changes left hip. Bones are diffusely demineralized. Additional imaging with CT scan or MRI should be considered for better visualization as these modalities are much more sensitive for detection of fracture or other underlying pathology.
== END 2023-02-26 14:54 | disposition home or self-care (01) ==
LOC: HO.XRAY 14:53
PROVIDERS: PCP Internal Medicine; Visit Provider Nurse Practitioner Family
DX: M25.552 Pain in left hip (principal); M25.551 Pain in right hip; M47.26 Other spondylosis with radiculopathy, lumbar region; M53.3 Sacrococcygeal disorders, not elsewhere classified; M62.838 Other muscle spasm
CPT/HCPCS: 73502; 99202

== ENCOUNTER 2023-02-26 14:53 | Outpatient (AMB) | payer OTHER, MEDICAID, SELFPAY ==
--- NOTE | 2023-02-26 14:54 | MHC.OFFVIS ---
Intake Vital Signs 02/26/23 15:01 Height 5 ft 1 in Weight 175 lb 6 oz BMI 33.1 BP 104/59 L Blood Pressure Location Rt brachial Position Sitting Pulse 76 Pulse Source Pulse Oximeter Pulse Oximetry (%) 99 Oxygen Delivery Method Room Air Intake Visit Reasons: Low Back Pain, Unspecified Plastic Machine Operator Required: No Accompanied by: Self / Same As Patient Allergies grass pollen Allergy (Mild, Verified 02/26/23 15:00) unknown zoster vaccine live [SHINGLES VACCINE] Allergy (Mild, Verified 02/26/23 15:00) HIVES BARIUM CONTRAST Allergy (Unknown, Uncoded 01/24/23 10:03) DIFFICULTY BREATHING/FLUSHING HPI Low Back Pain, Unspecified HPI Details Patient is pleasant 67 years old female presents today with chronic low back pain, bilateral hip pain with radicular symptoms. Denies any past or a recent trauma, injury, or falls. Patient attributes her pain generator worse to arthritis and recent history of moving heavy furniture in 2021. Her back pain is mostly axial but also radiates into lateral and posterial thighs and hips, worse in the left hip with intermittent groin pain. Pain is easily reproduced with bending, turning in bed and prolonged walking and partially relieved with sleep, sitting or resting. Pain affects her daily activities, functioning, sleep, social activities, mood and quality of life. Reports severe muscle spasms and painful cramping sensations in upper anterior and posterior thigh with bending or seated SLR testing on the left. Given significant pain, she is no longer can enjoy going for a walks and has been more sedentary. Patient denies previous spine or hip surgery or injections. She is starting formal physical [place] on 03/07/[address] [facility] She is also interested in obtaining her own TENS unit to alleviate pain and muscle spasms. Denies any fever, weight changes, abdominal pain, mid back pain, bladder or bowel incontinence, or saddle anesthesia. Location Low back pain radiates into left posterior thigh Duration Chronic pain progressively getting worse over one year Characteristics of symptom or complaint Tugging, radiating, jumping, shooting, pinching, sickening Aggravating or associated factors Prolonged walking, movements, bending, changing positions Relieving factors Rest, sitting, cyclobenzaprine, meloxicam, diclofenac gel Treatment PT starts on 03/07/23, aqua therapy [facility] Medical History Anxiety Asthma BMI 38.0-38.9,adult Chronic diarrhea COPD (chronic obstructive pulmonary disease) Depression Dyslipidemia Dysphagia Eczema Essential thrombocytosis Hiatal hernia History of laryngeal cancer Hyperlipidemia Hypothyroidism Hypovitaminosis D Obesity (BMI 30-39.9) JONATHAN on CPAP Personal history of nicotine dependence Renal stones Surgical History History of colonoscopy History of endoscopy History of hand surgery History of repair of hiatal hernia History of surgery on left wrist Family History Father Mental health disorder Mother No problems noted. Brother Substance use disorder Father Diabetes Maternal Grandmother Breast cancer Social History Household Members: None Housing: Apartment Are you a primary care companion to a significant other at home: No Do you presently have visiting nurse or other home services: No Alcohol intake: never Patient Tobacco Use Status: Former Tobacco user Quit Date: 2017 Tobacco use type: Cigarette Years Smoked: former smoker - onset 11yo, 1ppd x 51yrs, 50pyh - quit 2017 e-Cigarette/Vaping Use: Never Used Second Hand Smoke Exposure: No service: No Current occupational status: retired Current occupation: right handed Cognitive needs: No Hearing needs: No Vision needs: No Review of Systems Const All systems reviewed & are unremarkable except as noted in HPI and below Physical Exam Vital Signs: Last Vital Signs Pulse 76 02/26/23 15:01 BP 104/59 L 02/26/23 15:01 Pulse Ox 99 02/26/23 15:01 Oxygen Delivery Method Room Air 02/26/23 15:01 BMI result Body Mass Index 33.1 General: Appears afebrile. Alert and oriented. Mood and affect appropriate. Follows and participates in conversation appropriately. Respiratory effort is unlabored. No cough. Able to transition from sit to stand unassisted. Ambulates with bilaterally normal heel strike and toe off. Back/Spine/Pelvis Other: Patient is able to walk and stand on heels and tip toes with no difficulties demonstrating good motor tone. Slightly antalgic gait but no limping. Can flex forward to 65-75 degrees and extend to 5-10 degrees before experiencing lumbar pain, worse pain with bending down. Demonstrates 5/5 strength of quadriceps bilaterally as well as flexion/dorsiflexion of bilateral feet against resistance. 2+ pedal pulses bilaterally. Seated straight leg rise with dorsiflexion positive on the left. +1 patellar and achilles reflexes bilaterally. Facet loading test positive bilaterally. Tyree sign, Jose?s, Pelvic compression and Stinchfield tests are positive on the left. Jose's test reproduces left posterior and lateral hip pain. No groin pain with I/E hip rotations. Valsalva maneuver negative. Back: back tenderness Cervical Spine: cervical ROM normal and No Cervical spine tenderness Thoracic/Lumbar Spine: thoracic and lumbar spine normal to inspection, No Thoracic/lumbar spine scar(s), Lasegue's sign positive on the left and localized, pain with thoraco-lumbar ROM, paraspinal muscle tenderness, No thoracic spinal tenderness and lumbar spinal tenderness (L5-S1) Pelvis: buttock tenderness on the left Sacroiliac joints: on the right nontender and on the left tender to palpation Results Reviewed Results Reviewed: XR LUMBOSACRAL SPINE WITH OBLIQUES 01/24/23 CLINICAL INFORMATION: Lower back pain. FINDINGS: There is bony demineralization. Vertebral body heights and alignment are normal. At T10-T11 and T11-T12, there is moderately severe disc space narrowing, with vacuum disc phenomenon and anterior spondylosis. The lumbar disc spaces are well-maintained. No acute fracture or spondylolisthesis is seen. There is multi-level mild lumbar spondylosis. The posterior elements are intact. There are aortoiliac atherosclerotic calcifications. A right pelvic phlebolith is noted. IMPRESSION: 1. There is moderately severe degenerative disc disease at T10-T11 and T11-T12. 2. There is multi-level thoracolumbar spondylosis. 3. No acute fracture or spondylolisthesis is seen. Assessment & Plan Assessment & Plan (1) Bilateral hip pain: Code(s): M25.551 - Pain in right hip; M25.552 - Pain in left hip (2) Lumbosacral radiculitis: Code(s): M54.17 - Radiculopathy, lumbosacral region (3) Sacroiliac joint pain: Code(s): M53.3 - Sacrococcygeal disorders, not elsewhere classified (4) Muscle spasm: Code(s): M62.838 - Other muscle spasm (5) Lumbar spondylosis: Code(s): M47.816 - Spondylosis without myelopathy or radiculopathy, lumbar region Plan MRI of the lumbar spine to assess for neural integrity and compression to rule out hip vs lumbar radiculopathy pathology. Will also obtain left hip with pelvic view imaging to assess degree of arthritis. Will consider interventions targeted towards these pain generators based on the LS MRI and hip xray results. Script provided for TENS unit via [employer]. Patient is aware TENS unit device will be shipped directly to her home. Start formal PT and establish HEP as scheduled. All questions and concerns have been answered and patient agreed with the plan. Patient will return to the clinic to discuss results of the MRI/xray findings when it is done and consider interventional therapy as indicated. Orders: Orders XR hip LT w PEL1V Today M25.551 - Pain in right hip, M25.552 - Pain in left hip MR lumbar spine wo con Today M25.551 - Pain in right hip, M25.552 - Pain in left hip, M53.3 - Sacrococcygeal disorders, not elsewhere classified, M54.17 - Radiculopathy, lumbosacral region Coding Level of Care Code New Pt Level 4 (70101) Diagnoses Bilateral hip pain M25.551; M25.552 Lumbosacral radiculitis M54.17 Sacroiliac joint pain M53.3 Muscle spasm M62.838 Lumbar spondylosis M47.816
[2023-02-26 15:01] VITALS: BP 104/59; PULSE 76; O2SAT 99; BMI 33.1
== END 2023-02-26 15:31 | disposition home or self-care (01) ==
PROVIDERS: PCP Internal Medicine; Visit Provider Nurse Practitioner Family
DX: M25.551 Pain in right hip (principal); M25.552 Pain in left hip; M54.17 Radiculopathy, lumbosacral region; M53.3 Sacrococcygeal disorders, not elsewhere classified; M62.838 Other muscle spasm; M47.816 Spondylosis without myelopathy or radiculopathy, lumbar region
CPT/HCPCS: 99204; 99214

== ENCOUNTER 2023-02-27 07:22 | Outpatient (AMB) | payer OTHER, MEDICAID, SELFPAY ==
--- NOTE | 2023-02-27 07:34 | MHC.PC.OV ---
Vital Signs 02/27/23 07:35 Height 5 ft 1 in Weight 175 lb BMI 33.1 BP 126/80 Blood Pressure Location Lt brachial Position Sitting Intake Visit Reasons: pe Intake Note: Patient here for a physical exam Seismic Survey Assistant Required: No Accompanied by: Self / Same As Patient Allergies grass pollen Allergy (Mild, Verified 02/27/23 07:46) unknown zoster vaccine live [SHINGLES VACCINE] Allergy (Mild, Verified 02/27/23 07:46) HIVES BARIUM CONTRAST Allergy (Unknown, Uncoded 02/27/23 07:46) DIFFICULTY BREATHING/FLUSHING Medication List - Last Reconciled 02/27/23 by Sana Randall MD albuterol sulfate 90 mcg/actuation 2 puffs inhalation Q4-6H PRN aspirin 81 mg PO DAILY 90 days atorvastatin 20 mg PO QPM 90 days Breztri Aerosphere 160-9-4.8 mcg/actuation (kttzmbywue-yewbfxew-xtiqkvdthr) 2 inhalations inhalation BID 90 days NS buspirone 5 mg PO BID 90 days cholecalciferol (vitamin D3) 50 mcg PO DAILY 90 days cholestyramine (with sugar) 4 gram 4 grams PO TID PRN 90 days cyanocobalamin (vitamin B-12) 1,000 mcg PO DAILY cyclosporine 0.05% (Restasis) 1 drp ophthalmic (eye) Q12H diclofenac sodium 1% (Arthritis Pain (diclofenac)) 2 grams topical QID PRN diphenhydramine HCl (Benadryl) 25 mg PO BID escitalopram oxalate 20 mg PO DAILY 90 days hydrocortisone 2.5% 1 appl topical BID-TID PRN hydroxyurea 500 mg PO DAILY 90 days hydroxyzine HCl 20 mg (2 x 10 mg) PO BID PRN 90 days lactulose 10 grams PO BEDTIME PRN levothyroxine (Synthroid) 88 mcg PO DAILY lidocaine 4% (Aspercreme (lidocaine)) 1 patch topical BEDTIME PRN melatonin 20 mg (2 x 10 mg) PO BEDTIME PRN 90 days omeprazole 40 mg PO DAILY 90 days polyethylene glycol 3350 (Miralax) 17 grams PO DAILY propylene glycol 0.6% (Systane Balance) 1 drp ophthalmic (eye) DAILY PRN psyllium husk (Metamucil) 1 tbsp PO DAILY Tobacco use date assessed: 01/24/23 Fall risk assessment: No Falls in past year Last assessed Fall Risk: 02/27/23 Dental Screening Dental Screen Date: 02/27/23 Did you have a dental visit in the last 12 months?: Yes Did you have a dental problem in the last 6 months where you did not have access to dental care?: No Was dental information given to patient?: Patient has dentist HPI HPI Comments History of Present Illness Details This is a 67-year-old female with COPD and mild major depression that comes for her physical exam. Last mammogram was done July 2022 and was normal. Last colonoscopy was 2021 and she said he will be repeated in April 2023. Bone density was ordered. Depression stable with medications. COPD also stable with longstanding inhaler and use rescue inhaler once or twice a month. COPD is follow by pulmonology. [facility] Medical History (Updated 02/27/23 @ 08:00 by Sana Randall MD) Anxiety Asthma BMI 38.0-38.9,adult Chronic diarrhea COPD (chronic obstructive pulmonary disease) Depression Dyslipidemia Dysphagia Eczema Essential thrombocytosis Hiatal hernia History of laryngeal cancer Hyperlipidemia Hypothyroidism Hypovitaminosis D Obesity (BMI 30-39.9) JONATHAN on CPAP Personal history of nicotine dependence Renal stones Surgical History History of colonoscopy History of endoscopy History of hand surgery History of repair of hiatal hernia History of surgery on left wrist Family History Father Mental health disorder CAD (coronary artery disease) Mother S/P CABG x 3 Asthma Brother Substance use disorder Father Diabetes Maternal Grandmother Breast cancer Social History Household Members: None Housing: Apartment Are you a primary healthcare representative to a significant other at home: No Do you presently have visiting nurse or other home services: No Alcohol intake: never Patient Tobacco Use Status: Former Tobacco user Quit Date: 2017 Tobacco use type: Cigarette Years Smoked: former smoker - onset 11yo, 1ppd x 51yrs, 50pyh - quit 2018 e-Cigarette/Vaping Use: Never Used Second Hand Smoke Exposure: No service: No Current occupational status: retired Current occupation: right handed Cognitive needs: No Hearing needs: No Vision needs: No Questionnaire Thrive Questionnaire Date Thrive assessed: 08/10/22 HENRY-7 AMB Questionnaire HENRY-7 Date HENYR - 7 assessed: 08/10/22 Source: Developed by Drs. Christopher Bryan, Alondra Torres, Janusz Orozco and colleagues, with an educational sara from [employer]. Review of Systems Const All systems reviewed & are unremarkable except as noted in HPI and below Eyes Reports no additional complaints, Denies change in vision and Denies other visual disturbances Card Denies chest pain at rest, Denies chest pain with activity, Denies edema, Denies irregular heart rhythm, Denies claudication, Denies dyspnea, Denies dyspnea on exertion, Denies orthopnea, Denies paroxysmal nocturnal dyspnea and Denies slow heart rate Resp Denies cough, Denies dyspnea and Denies dyspnea on exertion GI Denies abdominal pain, Denies change in bowel habits, Denies excessive flatus, Denies nausea and Denies vomiting Denies urinary incontinence, Denies urinary hesitancy and Denies urinary urgency Musc Denies abnormal gait, Denies atrophy, Denies deformity and Denies limited range of motion Skin/Breast Denies bleeding lesions, Denies changing lesions and Denies rash Neuro Denies abnormal gait and Denies lack of coordination Physical exam (Primary Care) Vital Signs: Last Vital Signs BP 126/80 02/27/23 07:35 BMI result Body Mass Index 33.1 Tobacco/Smoking Status: Tobacco use Status Tobacco use date assessed 01/24/23 02/27/23 07:40 Patient Tobacco Use Status Former Tobacco user 02/27/23 07:40 Tobacco use type Cigarette 02/27/23 07:40 e-Cigarette/Vaping Use Never Used 02/27/23 07:40 Thrive Assessment: Date of Thrive Assessment Date Thrive assessed 08/10/22 02/27/23 07:40 Const Orientation/consciousness: patient oriented x3 HENMT Head: Yes normal to inspection, Yes normocephalic and Yes atraumatic Ears: external ears normal Eyes General: appearance normal, both eyes and all related structures Eyelids: Yes eyelids normal Conjunctivae: conjunctivae normal Neck Neck: Yes normal visual inspection and Yes supple Resp Effort & Inspection: normal respiratory effort Auscultation: clear to auscultation bilaterally Cardio Jugular venous distension: no JVD Rate: regular rate Rhythm: regular rhythm Heart sounds: S1 normal heart sound present and S2 normal heart sound present GI Inspection: Yes normal to inspection Palpation (GI): Soft to palpation and nontender Auscultation: normal bowel sounds Skin General skin exam: no rashes or lesions noted Neuro General: patient oriented x3 and no focal motor deficits Extrem General: Yes full ROM Psych Appearance: grossly normal Assessment and Plan Assessment & Plan (1) Physical exam: Code(s): Z00.00 - Encounter for general adult medical examination without abnormal findings Plan: Repeat in a year (2) Mild major depression: Code(s): F32.0 - Major depressive disorder, single episode, mild Plan: Continue escitalopram (3) COPD (chronic obstructive pulmonary disease): Code(s): J44.9 - Chronic obstructive pulmonary disease, unspecified Plan: Continue budesonide. Use rescue inhaler as needed. Follow-up with pulmonology. Orders: Orders Vitamin B12 and Folate Today E53.8 - Deficiency of other specified B group vitamins Comprehensive [place]. Panel Fast Today E78.5 - Hyperlipidemia, unspecified Lipid Panel Today E78.5 - Hyperlipidemia, unspecified Thyroid Stimulating Hormone Today E03.9 - Hypothyroidism, unspecified Vitamin D 25-OH Total Today E55.9 - Vitamin D deficiency, unspecified XR DEXA axial skeleton Today N95.9 - Unspecified menopausal and perimenopausal disorder US renal BI Today N20.0 - Calculus of kidney Coding Level of Care Code Est Pt Prev Care >65y(43053) Diagnoses Physical exam Z00.00 Mild major depression F32.0 COPD (chronic obstructive pulmonary disease) J44.9 Time Spent (min) 33
[2023-02-27 07:35] VITALS: BP 126/80; BMI 33.1
== END 2023-02-27 10:48 | disposition home or self-care (01) ==
PROVIDERS: PCP Internal Medicine; Visit Provider Internal Medicine
DX: Z00.00 Encounter for general adult medical examination without abnormal findings (principal); F32.0 Major depressive disorder, single episode, mild; J44.9 Chronic obstructive pulmonary disease, unspecified
CPT/HCPCS: 99397

== ENCOUNTER 2023-03-09 13:00 | Outpatient (AMB) | payer OTHER, MEDICAID, SELFPAY ==
--- NOTE | 2023-03-09 16:50 | MHC.WMTHER ---
Intake Intake Visit Reasons: VIDEO F/U Allergies grass pollen Allergy (Mild, Verified 03/12/23 17:44) unknown zoster vaccine live [SHINGLES VACCINE] Allergy (Mild, Verified 03/12/23 17:44) HIVES BARIUM CONTRAST Allergy (Unknown, Uncoded 03/12/23 17:44) DIFFICULTY BREATHING/FLUSHING [facility] Medical History Anxiety Asthma BMI 38.0-38.9,adult Chronic diarrhea COPD (chronic obstructive pulmonary disease) Depression Dyslipidemia Dysphagia Eczema Essential thrombocytosis Hiatal hernia History of laryngeal cancer Hyperlipidemia Hypothyroidism Hypovitaminosis D Obesity (BMI 30-39.9) JONATHAN on CPAP Personal history of nicotine dependence Renal stones Surgical History History of colonoscopy History of endoscopy History of hand surgery History of repair of hiatal hernia History of surgery on left wrist Family History Father Mental health disorder CAD (coronary artery disease) Mother S/P CABG x 3 Asthma Brother Substance use disorder Father Diabetes Maternal Grandmother Breast cancer Social History Household Members: None Housing: Apartment Are you a primary primary care sales representative to a significant other at home: No Do you presently have visiting nurse or other home services: No Alcohol intake: never Patient Tobacco Use Status: Former Tobacco user Quit Date: 5 yrs ago Tobacco use type: Cigarette Years Smoked: 45 e-Cigarette/Vaping Use: Never Used Second Hand Smoke Exposure: No service: No Current occupational status: retired Current occupation: right handed Sexual orientation: Straight/Heterosexual Cognitive needs: No Hearing needs: No Vision needs: No Behavioral Health Assessment Weight Management Therapy Therapy Notes Details PT presents for a follow up. Reports feeling in a better place today and very happy with progress made. However Pt states that since she's struggling with health issues and pain she's not sure if will move forward with bariatric surgery. INTERVENTIONS: Active listening, validated feelings, processed sources of stress. Cognitive processing therapy. Problem solving exercise. Provided with guidelines to continue with efforts to decrease cafeine intake. Encourage PT to discuss with provider her doubts about bariatric surgery. RESPONSE: PT was cooperative and agreed to suggestions about taling with provider. PLAN: Continue meeting for support. Presenting Concerns Referral Source P Provider Indira DECKER Reason for referral Behavioral health assessment as part of process for weight-loss surgery. Precipitating Event Health issues: obesity. Assessment & Plan Assessment & Plan (1) Anxiety: Code(s): F41.9 - Anxiety disorder, unspecified Plan Continue working on habit building, stress/anxiety management and caffeine cessation plan. Medications: Discontinued aspirin 81 mg PO DAILY 90 days 90 tabs 1RF melatonin 20 mg (2 x 10 mg) PO BEDTIME 90 days PRN 180 tabs 1RF sleep Telehealth Telehealth Location of provider rendering services: practice address Location of patient: address on file Patient Identification confirmed using: Name, : Yes Telehealth method: video Patient verbally consented to treatment: Yes Patient verbally consented to billing insurance company: Yes Patient informed of any privacy concerns related to visit: Yes Minutes spent on Phone/Video with Pt.: 60 Coding Level of Care Code Established Pt Tele Psytx >53 mins (27813) Patient Type Established Diagnoses Anxiety F41.9 Time Spent (min) 60
== END 2023-03-09 16:56 | disposition home or self-care (01) ==
LOC: HO.HBST 13:46
PROVIDERS: PCP Internal Medicine; Visit Provider Counselor Mental Health
DX: F41.9 Anxiety disorder, unspecified (principal)
CPT/HCPCS: 90837

== ENCOUNTER → 2023-03-09 13:00 | Outpatient (BNVA) | payer OTHER, MEDICAID, SELFPAY | PROVIDERS: PCP Internal Medicine; Visit Provider Counselor Mental Health ==

== ENCOUNTER 2023-03-12 17:32 | Inpatient (IN) | payer OTHER, SELFPAY ==
--- NOTE | ~2023-03-12 | CT_ITS ---
EXAMINATION: CT HEAD WITHOUT CONTRAST CLINICAL INFORMATION: Change in mental status. Recent onset of mood lability. COMPARISON: None. TECHNIQUE: Contiguous axial imaging was performed from the skull base to vertex without intravenous administration of contrast. This CT examination was performed using dose optimization techniques as appropriate, variously including the following: *Automated exposure control *Adjustment of mA and/or kV according to patient size (this includes techniques or standardized protocols for targeted exams where dose is matched to indication/reason for exam; i.e. extremities or head) *Use of iterative reconstruction technique DLP: 651 mGy-cm. FINDINGS: There is no intracranial hemorrhage, large infarction, or mass lesion. There is no extra-axial collection. The ventricles are normal in size and configuration without evidence of hydrocephalus. There is mild degree of brain parenchymal volume loss. Hypoattenuation is seen within the cerebral white matter, typical of chronic microangiopathy. The visualized paranasal sinuses and mastoid air cells are clear. CT/CT head/brain wo IV con IMPRESSION: No acute intracranial abnormality. Background changes of chronic microangiopathy.
--- NOTE | 2023-03-12 17:38 | ED.GENADULT ---
HPI - General Adult General Chief complaint: Overdose Stated complaint: personal reason Time Seen by Provider: 03/12/23 17:44 Source: patient Mode of arrival: ambulatory Limitations: no limitations History of Present Illness HPI narrative: Patient comes in the emergency room complaining of a suicidal attempt. Patient drove herself to the emergency room. Patient states that she took oxycodone and Tylenol, unclear how much she took off each, states she took approximately 24 tablets, in. Patient states that she is done with life. Patient states she does not want to talk about the details. Patient complains of lightheaded. Related Data Home Medications Medication Instructions Recorded Confirmed atorvastatin 20 mg tablet 20 mg PO DAILY 03/12/23 03/13/23 buspirone 5 mg tablet 5 mg PO BID 03/12/23 03/13/23 escitalopram oxalate 20 mg tablet 20 mg PO DAILY 03/12/23 03/13/23 hydroxyurea 500 mg capsule 500 mg PO DAILY 03/12/23 03/13/23 hydroxyzine HCl 10 mg tablet 10 mg PO BID 03/12/23 03/13/23 levothyroxine 75 mcg tablet 75 mcg PO DAILY@0600 03/12/23 03/13/23 omeprazole 40 mg capsule,delayed 40 mg PO DAILY@0630 03/12/23 03/13/23 release budesonide 160 mcg-glycopyr 9 2 inh inhalation BID 03/13/23 03/13/23 mcg-formot 4.8 mcg/actuation HFA inhaler (Breztri Aerosphere) cholecalciferol (vitamin D3) 50 50 mcg PO DAILY 03/13/23 03/13/23 mcg (2,000 unit) tablet (Vitamin D3) cyanocobalamin (vitamin B-12) 1,000 mcg PO DAILY 03/13/23 03/13/23 1,000 mcg tablet Previous Rx's Medication Instructions Recorded aspirin 81 mg tablet,delayed 81 mg PO DAILY 90 days #90 tabs 02/17/22 release melatonin 10 mg tablet 20 mg PO BEDTIME PRN sleep 90 days 08/07/22 #180 tabs albuterol sulfate 90 mcg/actuation 2 puff inhalation Q4-6H PRN for 12/25/22 aerosol inhaler wheezing #54 ea Allergies Allergy/AdvReac Type Severity Reaction Status Date / Time grass pollen Allergy Mild unknown Verified 03/12/23 17:44 zoster vaccine live Allergy Mild HIVES Verified 03/12/23 17:44 [SHINGLES VACCINE] BARIUM CONTRAST Allergy Unknown DIFFICULTY Uncoded 03/12/23 17:44 BREATHING/FLUSHING Review of Systems Review of Systems: Constitutional : No Weight loss, No Fever, No Chills, No Night Sweats, No Fatigue, No Malaise ENT/Mouth : No Hearing loss, No Ear Pain, No Nasal Congestion, No Sinus Pain, No Hoarseness, No sore throat, No Rhinorrhea, No Swallowing Difficulty Eyes: No Eye Pain, No Swelling, No Redness, No Foreign Body, No Discharge, No Vision Changes Cardiovascular : No Chest Pain, No SOB, No Dyspnea on Exertion, No Orthopnea, No Edema, No Palpitations Respiratory : No Cough, No Sputum, No Wheezing, No Smoke Exposure, No Dyspnea Gastrointestinal : No Nausea, No Vomiting, No Diarrhea, No Constipation, No abdominal Pain, No Hematochezia, No Melena Genitourinary : no irregular bleeding, No Dysuria, No Urinary Frequency, No Hematuria, No Urinary Incontinence, No Urgency, No Flank Pain, No Urinary Flow Changes, No Hesitancy Musculoskeletal : No joint pain, No Myalgias, No Joint Swelling Skin : No Skin Lesions, No rash Neuro : No Weakness, No Numbness, No Paresthesias, No Loss of Consciousness, No Dizziness, No Headache Psych : Complaining of suicidal ideation, suicide attempt, depression Heme/Lymph: No Bruising, No Bleeding,No Lymphadenopathy Endocrine : No Polyuria, No Polydipsia, No Temperature Intolerance PMFSH Past Medical History Medical History Anxiety Asthma BMI 38.0-38.9,adult Chronic diarrhea COPD (chronic obstructive pulmonary disease) Depression Dyslipidemia Dysphagia Eczema Essential thrombocytosis Hiatal hernia History of laryngeal cancer Hyperlipidemia Hypothyroidism Hypovitaminosis D Obesity (BMI 30-39.9) JONATHAN on CPAP Personal history of nicotine dependence Renal stones Surgical History History of colonoscopy History of endoscopy History of hand surgery History of repair of hiatal hernia History of surgery on left wrist Family History Family History Father Mental health disorder CAD (coronary artery disease) Mother S/P CABG x 3 Asthma Brother Substance use disorder Father Diabetes Maternal Grandmother Breast cancer Social History Social History Household Members: None Housing: Apartment Are you a primary patient care coordinator to a significant other at home: No Do you presently have visiting nurse or other home services: No Alcohol intake: never Patient Tobacco Use Status: Former Tobacco user Quit Date: 2017 Tobacco use type: Cigarette Years Smoked: former smoker - onset 11yo, 1ppd x 51yrs, 50pyh - quit 2018 Smoked in Last 30 Days: No e-Cigarette/Vaping Use: Never Used Second Hand Smoke Exposure: No Use of substances other than those prescribed or required for medical reasons: No Advance Directives: No Advance Directives Information Provided: No service: No Current occupational status: retired Current occupation: right handed Cognitive needs: No Hearing needs: No Vision needs: No Physical Exam ED Vital Signs: Vital Signs - 24 hr 03/12/23 17:39 03/12/23 18:20 03/12/23 18:25 Temperature 98 F 98.1 F Pulse Rate 88 62 61 Respiratory Rate 16 16 16 Blood Pressure 154/74 H 148/72 H 148/72 H Pulse Oximetry 96 93 98 Oxygen Delivery Method Room Air Room Air Room Air 03/12/23 20:53 03/13/23 01:03 03/13/23 08:17 Temperature 97.6 F 97.4 F 98.7 F Pulse Rate 64 78 78 Respiratory Rate 16 18 16 Blood Pressure 121/61 159/59 H 132/74 Pulse Oximetry 94 91 L 93 Oxygen Delivery Method Room Air Room Air Room Air BMI result Body Mass Index 32.5 Const Other: Appearance: Alert. Oriented X3. No acute distress. Eyes: Pupils equal, round and reactive to light. ENT: Pharynx normal. Neck: Normal inspection. Neck supple. No lymph nodes noted. No crepitus CVS: Normal heart rate and rhythm. Pulses normal. Normal S1 and S2 Respiratory: No respiratory distress. Breath sounds normal. No Wheezing. No rales Abdomen: Soft and nontender. No rigidity. No distention. Skin: Skin warm and dry. Normal skin color. Normal skin turgor. Extremities: No lower extremity edema. No Lacerations. No Rash Neuro: Oriented X 3. No motor deficit. No sensory deficit. Moving all extremities. No slurred speech. CN 2 through 12 grossly intact Psych: calm, cooperative, tearful Course Course Course Narrative: RME performed by Rochelle Da Silva PA-C. Patient is a 67 year old assigned female at presenting to the emergency department after an overdose on 5-325 oxycodone / acetaminophen. Patient states that she took approximately 24 tablets a little bit after 1700 . Patient states that she took them with the intent of killing herself. Labs ordered. Reevaluation(s) Reevaluation #1: 67-year-old female history of depression, bipolar, came in after attempt suicide by overdose on Percocet (25 pills), patient was evaluated by care team, patient's presentation granted inpatient psych admission, bed search is underway. Vital sign stable, no events reported by the nurse overnight, continue with physician observation. Time: 13:15 Medications Administered Generic Name Dose Route Start Last Admin Trade Name Freq PRN Reason Stop Dose Admin Albuterol Sulfate 2 puff 03/13/23 00:20 03/13/23 00:46 Albuterol Sulfate 90 Mcg 8 Gm Inhaler INHALE 2 puff Q4H PRN Administration for wheezing Aspirin 81 mg 03/13/23 09:00 03/13/23 08:20 Aspirin Enteric Coated 81 Mg Tablet. PO 81 mg DAILY SOLO Administration Atorvastatin Calcium 20 mg 03/13/23 09:00 03/13/23 08:20 Atorvastatin Calcium 20 Mg Tablet PO 20 mg DAILY SOLO Administration Buspirone HCl 5 mg 03/13/23 09:00 03/13/23 08:20 Buspirone Hcl 5 Mg Tablet PO 5 mg BID SOLO Administration Escitalopram Oxalate 20 mg 03/13/23 09:00 03/13/23 08:20 Escitalopram Oxalate 20 Mg Tablet PO 20 mg DAILY SOLO Administration Hydroxyurea 500 mg 03/13/23 09:00 03/13/23 09:32 Hydroxyurea 500 Mg Capsule PO Not Given DAILY SOLO Hydroxyzine HCl 10 mg 03/13/23 09:00 03/13/23 08:20 Hydroxyzine Hcl 10 Mg Tablet PO 10 mg BID SOLO Administration Levothyroxine Sodium 75 mcg 03/13/23 06:30 03/13/23 06:26 Levothyroxine Sodium 75 Mcg Tablet PO 75 mcg DAILY@0630 SOLO Administration Omeprazole 40 mg 03/13/23 06:30 03/13/23 06:26 Omeprazole 40 Mg Capsule. PO 40 mg DAILY@0630 SOLO Administration Discontinued Medications Generic Name Dose Route Start Last Admin Trade Name Osmani PRN Reason Stop Dose Admin Charcoal 50 gm 03/12/23 18:00 03/12/23 18:28 Activated Charcoal 50 Gm/240 Ml Oral.Susp PO 03/12/23 18:01 50 gm ONCE ONE Administration Ibuprofen 400 mg 03/13/23 08:05 03/13/23 08:20 Ibuprofen 400 Mg Tablet PO 03/13/23 08:06 400 mg ONCE ONE Administration Medical Decision Making Medical Decision Making [facility] Narrative: -all of patient's labs are pending -interpretation of EKG: Normal sinus rhythm, heart rate 83, no ST segment depression in relation, no T-wave inversion, QTC 448 -patient is on a Section 12 -care team consult pending - My interpretation of labs: White blood cell count is normal, PTT INR normal, LFTs normal, initial acetaminophen level 3, 4 hours abdomen in 24, well below the toxicity level, NAC not indicated Differential Diagnosis Differential Diagnoses: The differential diagnosis associated with the presentation includes (Suicidal ideation, depression, anxiety) Admission/Observation Consideration of admission/observation: Escalation of care including admission/observation considered (Patient overdose with Tylenol, labs pending, admission being considered.) Lab Data [facility] Lab Attestation statement: I reviewed the patient's lab results. 03/12/23 21:57 03/12/23 18:33 Labs: Lab Results 03/12/23 03/12/23 03/12/23 Range/Units 18:33 18:33 18:33 WBC (4.8-10.8) X10*3/uL RBC (4.20-5.50) X10*6/uL Hgb (12.0-16.0) g/dl Hct (37.0-47.0) % MCV (80.0-98.0) fL MCH (27.0-33.0) pg MCHC (31.0-35.0) g/dl RDW (11.0-16.0) % Plt Count (160-400) X10*3/uL MPV (9.4-12.3) fL Immature Gran % (Auto) (0.0-0.4) % Neut % (Auto) (45-73) % Lymph % (Auto) (20-40) % [place] % (Auto) (2-11) % Eos % (Auto) (0-4) % Baso % (Auto) (0-2) % Lymph # (Auto) (1.2-4.9) X10*3/uL [place] # (Auto) (0.1-1.2) X10*3/uL Eos # (Auto) (0.0-0.4) X10*3/uL Baso # (Auto) (0.0-0.2) X10*3/uL Abs Immat Gran (auto) (0.00-0.03) X10*3/uL Absolute Neuts (auto) (2.0-8.3) x10*3/uL Absolute Nucleated RBC (0.0-0.012) X10*3/uL Nucleated RBC % (auto) (0.0-0.2) /100WBC PT 11.9 (11.1-13.3) SEC INR 1.0 (0.9-1.1) Sodium 141 (135-145) mmol/L Potassium 4.4 (3.3-5.1) mmol/L Chloride 107 (96-108) mmol/L Carbon Dioxide 27 (22-29) mmol/L Anion Gap 11 L (12-20) BUN 14 (9-16) mg/dL Creatinine 0.83 (0.5-1.4) mg/dL Estim Creat Clear Calc 60.4 Estimated GFR > 60 Random Glucose 94 (60-115) mg/dL Calcium 9.1 (8.4-10.2) mg/dL Magnesium 2.4 (1.6-2.6) mg/dL Total Bilirubin 0.3 (0.0-1.0) mg/dL Direct Bilirubin (0.0-0.5) mg/dL AST 22 (5-31) U/L ALT 22 (0-31) U/L Alkaline Phosphatase 116 (39-117) U/L Ammonia (13-55) umol/L Total Protein 7.2 (6.5-8.0) g/dL Albumin 4.1 (3.5-5.0) g/dL Urine Color Urine Appearance Urine pH (5.0-9.0) Ur Specific [place] (1.005-1.025) Urine Protein (Neg-Trace) mg/dL Urine Glucose (UA) (Negative) mg/dL Urine Ketones (Negative) mg/dL Urine Blood (Negative) Urine Nitrite (Negative) Ur Leukocyte Esterase (Negative) Urine RBC (0-2) /HPF Urine WBC (0-5) /HPF Ur Squamous Epith Cells (0-2) /HPF Urine Bacteria (None Seen) Hyaline Casts (0-2) /LPF Salicylates < 5.0 L (15-30) mg/dL Urine Opiates Screen (Not Detect) Urine Fentanyl Screen (Not Detect) Acetaminophen 23 (<30) mcg/mL Ur Barbiturates Screen (Not Detect) Ur Phencyclidine Scrn (Not Detect) Ur Amphetamines Screen (Not Detect) U Benzodiazepines Scrn (Not Detect) Urine Cocaine Screen (Not Detect) U Marijuana (THC) Screen (Not Detect) Ethyl Alcohol < 10 mg/dL COVID-19 (BRETT) (Negative) COVID-19 Clin Com 03/12/23 03/12/23 03/12/23 Range/Units 18:33 18:33 18:34 WBC (4.8-10.8) X10*3/uL RBC (4.20-5.50) X10*6/uL Hgb (12.0-16.0) g/dl Hct (37.0-47.0) % MCV (80.0-98.0) fL MCH (27.0-33.0) pg MCHC (31.0-35.0) g/dl RDW (11.0-16.0) % Plt Count (160-400) X10*3/uL MPV (9.4-12.3) fL Immature Gran % (Auto) (0.0-0.4) % Neut % (Auto) (45-73) % Lymph % (Auto) (20-40) % [place] % (Auto) (2-11) % Eos % (Auto) (0-4) % Baso % (Auto) (0-2) % Lymph # (Auto) (1.2-4.9) X10*3/uL [place] # (Auto) (0.1-1.2) X10*3/uL Eos # (Auto) (0.0-0.4) X10*3/uL Baso # (Auto) (0.0-0.2) X10*3/uL Abs Immat Gran (auto) (0.00-0.03) X10*3/uL Absolute Neuts (auto) (2.0-8.3) x10*3/uL Absolute Nucleated RBC (0.0-0.012) X10*3/uL Nucleated RBC % (auto) (0.0-0.2) /100WBC PT (11.1-13.3) SEC INR (0.9-1.1) Sodium 141 (135-145) mmol/L Potassium 4.4 (3.3-5.1) mmol/L Chloride 107 (96-108) mmol/L Carbon Dioxide 28 (22-29) mmol/L Anion Gap 10 L (12-20) BUN 14 (9-16) mg/dL Creatinine 0.83 (0.5-1.4) mg/dL Estim Creat Clear Calc 60.4 Estimated GFR > 60 Random Glucose 94 (60-115) mg/dL Calcium 9.2 (8.4-10.2) mg/dL Magnesium (1.6-2.6) mg/dL Total Bilirubin 0.3 (0.0-1.0) mg/dL Direct Bilirubin 0.1 (0.0-0.5) mg/dL AST 22 (5-31) U/L ALT 23 (0-31) U/L Alkaline Phosphatase 116 (39-117) U/L Ammonia 26 (13-55) umol/L Total Protein 7.2 (6.5-8.0) g/dL Albumin 4.0 (3.5-5.0) g/dL Urine Color Urine Appearance Urine pH (5.0-9.0) Ur Specific [place] (1.005-1.025) Urine Protein (Neg-Trace) mg/dL Urine Glucose (UA) (Negative) mg/dL Urine Ketones (Negative) mg/dL Urine Blood (Negative) Urine Nitrite (Negative) Ur Leukocyte Esterase (Negative) Urine RBC (0-2) /HPF Urine WBC (0-5) /HPF Ur Squamous Epith Cells (0-2) /HPF Urine Bacteria (None Seen) Hyaline Casts (0-2) /LPF Salicylates (15-30) mg/dL Urine Opiates Screen (Not Detect) Urine Fentanyl Screen (Not Detect) Acetaminophen Cancelled (<30) mcg/mL Ur Barbiturates Screen (Not Detect) Ur Phencyclidine Scrn (Not Detect) Ur Amphetamines Screen (Not Detect) U Benzodiazepines Scrn (Not Detect) Urine Cocaine Screen (Not Detect) U Marijuana (THC) Screen (Not Detect) Ethyl Alcohol mg/dL COVID-19 (BRETT) (Negative) COVID-19 Clin Com 03/12/23 03/12/23 03/12/23 Range/Units 21:56 21:56 21:57 WBC 8.0 (4.8-10.8) X10*3/uL RBC 4.11 L (4.20-5.50) X10*6/uL Hgb 13.0 (12.0-16.0) g/dl Hct 40.6 (37.0-47.0) % MCV 98.8 H (80.0-98.0) fL MCH 31.6 (27.0-33.0) pg MCHC 32.0 (31.0-35.0) g/dl RDW 15.1 (11.0-16.0) % Plt Count 325 (160-400) X10*3/uL MPV 9.2 L (9.4-12.3) fL Immature Gran % (Auto) 0.5 H (0.0-0.4) % Neut % (Auto) 59.2 (45-73) % Lymph % (Auto) 29.6 (20-40) % [place] % (Auto) 6.8 (2-11) % Eos % (Auto) 3.5 (0-4) % Baso % (Auto) 0.4 (0-2) % Lymph # (Auto) 2.4 (1.2-4.9) X10*3/uL [place] # (Auto) 0.5 (0.1-1.2) X10*3/uL Eos # (Auto) 0.3 (0.0-0.4) X10*3/uL Baso # (Auto) 0.0 (0.0-0.2) X10*3/uL Abs Immat Gran (auto) 0.04 H (0.00-0.03) X10*3/uL Absolute Neuts (auto) 4.7 (2.0-8.3) x10*3/uL Absolute Nucleated RBC 0.000 (0.0-0.012) X10*3/uL Nucleated RBC % (auto) 0.0 (0.0-0.2) /100WBC PT (11.1-13.3) SEC INR (0.9-1.1) Sodium (135-145) mmol/L Potassium (3.3-5.1) mmol/L Chloride (96-108) mmol/L Carbon Dioxide (22-29) mmol/L Anion Gap (12-20) BUN (9-16) mg/dL Creatinine (0.5-1.4) mg/dL Estim Creat Clear Calc Estimated GFR Random Glucose (60-115) mg/dL Calcium (8.4-10.2) mg/dL Magnesium (1.6-2.6) mg/dL Total Bilirubin (0.0-1.0) mg/dL Direct Bilirubin (0.0-0.5) mg/dL AST (5-31) U/L ALT (0-31) U/L Alkaline Phosphatase (39-117) U/L Ammonia (13-55) umol/L Total Protein (6.5-8.0) g/dL Albumin (3.5-5.0) g/dL Urine Color Yellow Urine Appearance Clear Urine pH 5.5 (5.0-9.0) Ur Specific [place] 1.015 (1.005-1.025) Urine Protein Negative (Neg-Trace) mg/dL Urine Glucose (UA) Negative (Negative) mg/dL Urine Ketones Negative (Negative) mg/dL Urine Blood Trace H (Negative) Urine Nitrite Negative (Negative) Ur Leukocyte Esterase Small (1+) H (Negative) Urine RBC 0-2 (0-2) /HPF Urine WBC 6-10 H (0-5) /HPF Ur Squamous Epith Cells 0-2 (0-2) /HPF Urine Bacteria None Seen (None Seen) Hyaline Casts 0-2 (0-2) /LPF Salicylates (15-30) mg/dL Urine Opiates Screen POSITIVE H (Not Detect) Urine Fentanyl Screen Not Detected (Not Detect) Acetaminophen (<30) mcg/mL Ur Barbiturates Screen Not Detected (Not Detect) Ur Phencyclidine Scrn Not Detected (Not Detect) Ur Amphetamines Screen Not Detected (Not Detect) U Benzodiazepines Scrn Not Detected (Not Detect) Urine Cocaine Screen Not Detected (Not Detect) U Marijuana (THC) Screen Not Detected (Not Detect) Ethyl Alcohol mg/dL COVID-19 (BRETT) (Negative) COVID-19 Clin Com 03/12/23 03/13/23 Range/Units 21:57 01:10 WBC (4.8-10.8) X10*3/uL RBC (4.20-5.50) X10*6/uL Hgb (12.0-16.0) g/dl Hct (37.0-47.0) % MCV (80.0-98.0) fL MCH (27.0-33.0) pg MCHC (31.0-35.0) g/dl RDW (11.0-16.0) % Plt Count (160-400) X10*3/uL MPV (9.4-12.3) fL Immature Gran % (Auto) (0.0-0.4) % Neut % (Auto) (45-73) % Lymph % (Auto) (20-40) % [place] % (Auto) (2-11) % Eos % (Auto) (0-4) % Baso % (Auto) (0-2) % Lymph # (Auto) (1.2-4.9) X10*3/uL [place] # (Auto) (0.1-1.2) X10*3/uL Eos # (Auto) (0.0-0.4) X10*3/uL Baso # (Auto) (0.0-0.2) X10*3/uL Abs Immat Gran (auto) (0.00-0.03) X10*3/uL Absolute Neuts (auto) (2.0-8.3) x10*3/uL Absolute Nucleated RBC (0.0-0.012) X10*3/uL Nucleated RBC % (auto) (0.0-0.2) /100WBC PT (11.1-13.3) SEC INR (0.9-1.1) Sodium (135-145) mmol/L Potassium (3.3-5.1) mmol/L Chloride (96-108) mmol/L Carbon Dioxide (22-29) mmol/L Anion Gap (12-20) BUN (9-16) mg/dL Creatinine (0.5-1.4) mg/dL Estim Creat Clear Calc Estimated GFR Random Glucose (60-115) mg/dL Calcium (8.4-10.2) mg/dL Magnesium (1.6-2.6) mg/dL Total Bilirubin (0.0-1.0) mg/dL Direct Bilirubin (0.0-0.5) mg/dL AST (5-31) U/L ALT (0-31) U/L Alkaline Phosphatase (39-117) U/L Ammonia (13-55) umol/L Total Protein (6.5-8.0) g/dL Albumin (3.5-5.0) g/dL Urine Color Urine Appearance Urine pH (5.0-9.0) Ur Specific [place] (1.005-1.025) Urine Protein (Neg-Trace) mg/dL Urine Glucose (UA) (Negative) mg/dL Urine Ketones (Negative) mg/dL Urine Blood (Negative) Urine Nitrite (Negative) Ur Leukocyte Esterase (Negative) Urine RBC (0-2) /HPF Urine WBC (0-5) /HPF Ur Squamous Epith Cells (0-2) /HPF Urine Bacteria (None Seen) Hyaline Casts (0-2) /LPF Salicylates (15-30) mg/dL Urine Opiates Screen (Not Detect) Urine Fentanyl Screen (Not Detect) Acetaminophen 24 (<30) mcg/mL Ur Barbiturates Screen (Not Detect) Ur Phencyclidine Scrn (Not Detect) Ur Amphetamines Screen (Not Detect) U Benzodiazepines Scrn (Not Detect) Urine Cocaine Screen (Not Detect) U Marijuana (THC) Screen (Not Detect) Ethyl Alcohol mg/dL COVID-19 (BRETT) Negative (Negative) COVID-19 Clin Com See Note Independent Interpretation I performed an independent interpretation of an: EKG Critical Care Time Critical Care Time Critical Care Time: Yes Total Critical Care Time: 75 Attestation: I have personally provided critical care time. Time includes review of lab data, radiology results, discussion with consultants, and monitoring for potential decompensation. Intervention performed as documented. Discharge Plan Discharge Clinical Impression: Suicide attempt Patient Disposition: Still a Patient Prescriptions: No Action aspirin 81 mg tablet,delayed release (DR/EC) 81 mg PO DAILY 90 Days Qty: 90 1RF melatonin 10 mg tablet 20 mg PO BEDTIME PRN (Reason: sleep) 90 Days Qty: 180 1RF albuterol sulfate 90 mcg/actuation HFA aerosol inhaler 2 puff inhalation Q4-6H PRN (Reason: for wheezing) Qty: 54 1RF buspirone 5 mg tablet 5 mg PO BID hydroxyurea 500 mg capsule 500 mg PO DAILY atorvastatin 20 mg tablet 20 mg PO DAILY omeprazole 40 mg capsule,delayed release(DR/EC) 40 mg PO DAILY@0630 levothyroxine 75 mcg tablet 75 mcg PO DAILY@0600 hydroxyzine HCl 10 mg tablet 10 mg PO BID escitalopram oxalate 20 mg tablet 20 mg PO DAILY Breztri Aerosphere 160-9-4.8 mcg/actuation HFA aerosol inhaler 2 inh inhalation BID cyanocobalamin (vitamin B-12) 1,000 mcg Tablet 1,000 mcg PO DAILY cholecalciferol (vitamin D3) [Vitamin D3] 50 mcg (2,000 unit) Tablet 50 mcg PO DAILY
[2023-03-12 17:39] VITALS: BP 154/74; PULSE 88; RESP 16; TEMP 36.6; O2SAT 96; BMI 32.5
--- NOTE | 2023-03-12 17:41 | ECG_ITS ---
Test Reason : CRISIS Blood Pressure : / mmHG Vent. Rate : 083 BPM Atrial Rate : 083 BPM P-R Int : 132 ms QRS Dur : 078 ms QT Int : 382 ms P-R-T Axes : 026 046 000 degrees QTc Int : 448 ms Normal sinus rhythm Inferior Q waves and T wave changes - consider ischemia Normal ECG When compared with ECG of 13-OCT-2022 08:37, T wave inversion now evident in Inferior leads Referred By: Rochelle Da Silva Electronically Signed By:Shaquille Cardozo
--- NOTE | 2023-03-12 17:44 | PC.NURSE ---
States do not contact my contacts, only the home where I've made my arrangements . Doesn't recall name of home at this time.
--- NOTE | 2023-03-12 17:55 | PC.NURSE ---
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
--- NOTE | 2023-03-12 17:57 | MHC.EDTECH ---
EKG completed and signed by
[2023-03-12 18:20] VITALS: BP 148/72; PULSE 62; RESP 16; O2SAT 93
[2023-03-12 18:25] VITALS: BP 148/72; PULSE 61; RESP 16; TEMP 36.7; O2SAT 98
--- NOTE | 2023-03-12 18:26 | MHC.EDTECH ---
this pct just assumed care of patient ,patient was change into (green gown ) ,patient belongings are secured and locked up in locker # 12 in pod ,patient was hooked up to site monitor ,vitals sign taken ,patient observer at bedside .
[2023-03-12] MEDS: Activated charcoaL 50 GM/240 ML ORAL.SUSP PO (18:28)
--- NOTE | 2023-03-12 18:30 | PC.NURSE ---
pt axox4, respirations even and unlabored, nsr on monitor 62 bpm, sats 93% RA, skin wpd, vss. pt reports taking multiple doses of oxycontin and tylenol u/k amount. pt states this was an intention OD; reports d/t feeling tired and done. pt reports having called her home she had arrangement with. pt denies HI. pt denies n/v. md to bedside. pt medicated per oct. changeover with security to bedside. sitter at bedside. all needs met at this time; call connor within reach.
[2023-03-12 18:46] LABS: Prothrombin Time 11.9 SEC (11.1-13.3)
[2023-03-12 18:59] LABS: Ammonia 26 umol/L (13-55)
[2023-03-12 19:05] LABS: Alanine Aminotransferase 23 U/L (0-31); Alkaline Phosphatase 116 U/L (39-117); Anion Gap 10 (12-20); Aspartate Amino Transferase 22 U/L (5-31); Bilirubin Direct 0.1 mg/dL (0.0-0.5); Bilirubin Total 0.3 mg/dL (0.0-1.0); Blood Urea Nitrogen 14 mg/dL (9-16); Calcium 9.2 mg/dL (8.4-10.2); Carbon Dioxide 28 mmol/L (22-29); Chloride 107 mmol/L (96-108); Creatinine Clr Calc Pharmacy 60.4; Estimated Glomerular Filt Rate > 60; Glucose Random 94 mg/dL (60-115); Potassium 4.4 mmol/L (3.3-5.1); Sodium 141 mmol/L (135-145); Total Protein 7.2 g/dL (6.5-8.0)
[2023-03-12 19:12] LABS: Alanine Aminotransferase 22 U/L (0-31); Albumin Level 4.1 g/dL (3.5-5.0); Alkaline Phosphatase 116 U/L (39-117); Anion Gap 11 (12-20); Aspartate Amino Transferase 22 U/L (5-31); Bilirubin Total 0.3 mg/dL (0.0-1.0); Blood Urea Nitrogen 14 mg/dL (9-16); Calcium 9.1 mg/dL (8.4-10.2); Carbon Dioxide 27 mmol/L (22-29); Chloride 107 mmol/L (96-108); Creatinine Clr Calc Pharmacy 60.4; Estimated Glomerular Filt Rate > 60; Ethanol < 10 mg/dL; Glucose Random 94 mg/dL (60-115); Magnesium 2.4 mg/dL (1.6-2.6); Potassium 4.4 mmol/L (3.3-5.1); Salicylate < 5.0 mg/dL (15-30); Sodium 141 mmol/L (135-145); Total Protein 7.2 g/dL (6.5-8.0)
[2023-03-12 19:18] LABS: Acetaminophen LAB 23 mcg/mL (<30)
--- NOTE | 2023-03-12 20:41 | PC.NURSE ---
Patient reports itching. Also requesting a coffee & crackers. Sitter remains at bedside. Dr. Sagastume aware.
[2023-03-12 20:53] VITALS: BP 121/61; PULSE 64; RESP 16; TEMP 36.4; O2SAT 94
[2023-03-12 22:10] LABS: MANUAL DIFF FLAG NO
--- NOTE | 2023-03-12 22:11 | PC.NURSE ---
Update given to Poison control
[2023-03-12 22:12] LABS: Basophils Percent Auto 0.4 % (0-2); Eosinophils Absolute Auto 0.3 X10*3/uL (0.0-0.4); Eosinophils Percent Auto 3.5 % (0-4); Hematocrit 40.6 % (37.0-47.0); Imm Gran Abs Auto 0.04 X10*3/uL (0.00-0.03); Imm Gran Pct Auto 0.5 % (0.0-0.4); Lymphocytes Absolute Auto 2.4 X10*3/uL (1.2-4.9); Lymphocytes Percent Auto 29.6 % (20-40); Mean Corpuscular Hemoglobin 31.6 pg (27.0-33.0); Mean Corpuscular Volume 98.8 fL (80.0-98.0); Mean Platelet Volume 9.2 fL (9.4-12.3); Monocytes Absolute Auto 0.5 X10*3/uL (0.1-1.2); Monocytes Percent Auto 6.8 % (2-11); Neutrophils Absolute Auto 4.7 x10*3/uL (2.0-8.3); Neutrophils Percent Auto 59.2 % (45-73); Platelet Count 325 X10*3/uL (160-400); Red Blood Count 4.11 X10*6/uL (4.20-5.50); Red Cell Distribution Width 15.1 % (11.0-16.0)
[2023-03-12 22:13] LABS: Appearance Urine Clear; Color Urine Yellow; Glucose Urine UA Negative (Negative); Leukocyte Esterase Urine Small (1+) (Negative); Nitrite Urine Negative (Negative); PH 5.5 (5.0-9.0); Specific Gravity - Urine 1.015 (1.005-1.025); UMIC TRIGGER UACC YES; Urine Blood Trace (Negative); Urine Ketones Negative (Negative); Urine Protein Negative (Neg-Trace)
[2023-03-12 22:18] LABS: Bacteria Urine None Seen (None Seen); Hyaline Casts Urine 0-2 /LPF (0-2); RBC Urine 0-2 /HPF (0-2); Squamous Epithelial Cell Urine 0-2 /HPF (0-2); UACC Culture Trigger YES
[2023-03-12 22:21] LABS: Amphetamine Screen Urine Not Detected (Not Detect); Barbiturates, Urine Not Detected (Not Detect); Benzodiazepines Screen Urine Not Detected (Not Detect); Cannabinoid Screen Urine Not Detected (Not Detect); Cocaine Screen Urine Not Detected (Not Detect); Fentanyl, urine Not Detected (Not Detect); Opiate Screen Urine POSITIVE (Not Detect); Phencyclidine Screen Urine Not Detected (Not Detect)
[2023-03-12 22:27] LABS: Acetaminophen LAB 24 mcg/mL (<30)
[2023-03-13] MEDS: Albuterol Sulfate 90 MCG 8 GM INHALER 2 PUFF INHALE (00:46)
[2023-03-13 01:03] VITALS: BP 159/59; PULSE 78; RESP 18; TEMP 36.3; O2SAT 91
[2023-03-13 01:28] LABS: COVID-19 Test Negative (Negative); IDNOW Serial# 6674DD1D
--- NOTE | 2023-03-13 05:26 | PC.NURSE ---
Patient currently in bed appears sleeping, patient slept intermittently, no distress observed/reported, medication compliant, PRN Ventolin administered at 0046 for wheezing with + effect, patient had three episodes of vomiting due to charcoal treatment patient had in the main ED, gait independence, labs completed/resulted, care consult ordered for suicidal attempt, pending evaluation, VSS. will continue to monitor.
[2023-03-13] MEDS: Omeprazole 40 MG CAPSULE.DR PO (06:26)
[2023-03-13] MEDS: Levothyroxine Sodium 75 MCG TABLET PO (06:26)
[2023-03-13 08:17] VITALS: BP 132/74; PULSE 78; RESP 16; TEMP 37.1; O2SAT 93
[2023-03-13] MEDS: Escitalopram Oxalate 20 MG TABLET PO (08:20)
[2023-03-13] MEDS: Atorvastatin Calcium 20 MG TABLET PO (08:20)
[2023-03-13] MEDS: busPIRone HCl 5 MG TABLET PO ×2 (08:20→20:55)
[2023-03-13] MEDS: Ibuprofen 400 MG TABLET PO (08:20)
[2023-03-13] MEDS: hydrOXYzine HCL 10 MG TABLET PO ×2 (08:20→20:54)
[2023-03-13] MEDS: Aspirin Enteric Coated 81 MG TABLET.DR PO (08:20)
--- NOTE | 2023-03-13 11:02 | PHA.MEDREC ---
Pharmacy Consult ? Medication Reconciliation Pharmacy has completed the medication reconciliation. Spoke to patient to confirm meds.
[2023-03-13 19:59] VITALS: BP 143/69; PULSE 86; RESP 20; TEMP 36.8; O2SAT 97
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
[2023-03-14] MEDS: Omeprazole 40 MG CAPSULE.DR PO (06:17)
[2023-03-14] MEDS: Levothyroxine Sodium 75 MCG TABLET PO (06:17)
--- NOTE | 2023-03-14 08:00 | ECG_ITS ---
Test Reason : S/P OD Blood Pressure : / mmHG Vent. Rate : 066 BPM Atrial Rate : 066 BPM P-R Int : 132 ms QRS Dur : 076 ms QT Int : 402 ms P-R-T Axes : 046 023 053 degrees QTc Int : 421 ms Normal sinus rhythm Normal ECG When compared with ECG of 12-MAR-2023 17:49, T wave inversion no longer evident in Inferior leads Referred By: Cesar Garcia Electronically Signed By:Shaquille Cardozo
[2023-03-14] MEDS: busPIRone HCl 5 MG TABLET PO ×2 (08:10→21:26)
[2023-03-14] MEDS: Escitalopram Oxalate 20 MG TABLET PO (08:10)
[2023-03-14] MEDS: Cyanocobalamin (Vitamin B-12) 1,000 MCG TABLET 1000 MCG PO (08:10)
[2023-03-14] MEDS: Aspirin Enteric Coated 81 MG TABLET.DR PO (08:10)
[2023-03-14] MEDS: Atorvastatin Calcium 20 MG TABLET PO (08:10)
[2023-03-14] MEDS: Hydroxyurea 500 MG CAPSULE PO (08:11)
[2023-03-14] MEDS: Acetaminophen 325 MG TABLET 650 MG PO (08:14)
[2023-03-14] MEDS: Milk of Magnesia 30 ML ORAL.SUSP PO (08:14)
[2023-03-14 09:00] LABS: Alanine Aminotransferase 20 U/L (0-31); Albumin Level 4.1 g/dL (3.5-5.0); Alkaline Phosphatase 114 U/L (39-117); Anion Gap 13 (12-20); Aspartate Amino Transferase 19 U/L (5-31); Bilirubin Total 0.4 mg/dL (0.0-1.0); Blood Urea Nitrogen 14 mg/dL (9-16); Carbon Dioxide 25 mmol/L (22-29); Chloride 109 mmol/L (96-108); Cholesterol 178 mg/dL; Creatinine Clr Calc Pharmacy 49.1; Estimated Glomerular Filt Rate 54; Glucose Fasting 96 mg/dL (60-99); HDL Cholesterol 62 mg/dL; LDL Cholesterol Calculated 101 mg/dl; Potassium 4.3 mmol/L (3.3-5.1); Sodium 143 mmol/L (135-145); Total Protein 7.5 g/dL (6.5-8.0); Triglycerides 76 mg/dL
[2023-03-14 09:16] LABS: Free T4 (Free Thyroxine) 0.82 ng/dL (0.71-1.85); Thyroid Stimulating Hormone 4.51 uIU/mL (0.32-4.0)
[2023-03-14 09:31] LABS: Vitamin B12 831 pg/mL (200-900)
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
[2023-03-14] MEDS: hydrOXYzine HCL 10 MG TABLET PO (13:58)
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
[2023-03-14] MEDS: OLANZapine 10 MG VIAL 5 MG IM (17:48)
[2023-03-14] MEDS: LORazepam 2 MG/ML VIAL IM (17:48)
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
[2023-03-14 21:25] VITALS: BP 120/50; PULSE 64; RESP 16; TEMP 36.3; O2SAT 94
[2023-03-14] MEDS: Topiramate 25 MG TABLET PO (21:26)
[2023-03-15] MEDS: Levothyroxine Sodium 75 MCG TABLET PO (06:17)
[2023-03-15] MEDS: Omeprazole 40 MG CAPSULE.DR PO (06:17)
[2023-03-15 08:15] VITALS: BP 155/73; PULSE 92; RESP 16; TEMP 36.5; O2SAT 97
[2023-03-15] MEDS: Escitalopram Oxalate 20 MG TABLET PO (08:18)
[2023-03-15] MEDS: Cyanocobalamin (Vitamin B-12) 1,000 MCG TABLET 1000 MCG PO (08:18)
[2023-03-15] MEDS: Aspirin Enteric Coated 81 MG TABLET.DR PO (08:18)
[2023-03-15] MEDS: busPIRone HCl 5 MG TABLET PO ×2 (08:18→20:52)
[2023-03-15] MEDS: Atorvastatin Calcium 20 MG TABLET PO (08:18)
[2023-03-15] MEDS: Topiramate 25 MG TABLET PO ×2 (08:19→20:52)
[2023-03-15] MEDS: Hydroxyurea 500 MG CAPSULE PO (08:20)
[2023-03-15] MEDS: Escitalopram Oxalate 10 MG TABLET PO (09:12)
--- NOTE | 2023-03-15 12:59 | PC.NURSE ---
PT RECEIVED AN IM ON 03/14/23 DUE TO BEHAVIOR THAT WAS THREATENING AND VIOLENT TOWARDS STAFF. SHE IS CURRENTLY UNWILLING TO PARTICIPATE IN AN UPDATE TO HER TREATMENT PLAN. SPOKE WITH TREATMENT TEAM TODAY. WILL CONTINUE TO MONITOR FOR TRIGGERING BEHAVIORS.
--- NOTE | 2023-03-15 13:03 | P.PNPSI_ITS ---
Subjective Subjective Date of Service: 03/15/23 Reason For Visit: suicide attempt Subjective Notes: Conditional Voluntary Interim History: The nursing staff reported the patient had to be chemically restrain yesterday at 19:00 with Zyprexa 5 and Ativan 2 since she was threatening the nurse very labile and angry. On interview, we discussed her changes in her mental status. She agreed to start Topamax as a mood stabilizer but since she had been very paranoid we decided to add Haldol 1 mg p.o. t.i.d. to target paranoia and restlessness. Mental Status Exam Mental Status Exam Patient Appearance: Well Grooomed and Appropriate Patient Orientation: Person and Situation Level of Consciousness: Awake and Appropriate Patient Behavior: Guarded, Suspicious and Belligerent Mood Description: Calm Affect Description: Withdrawn Patient Cognition Impaired: Yes Ability to Follow Directions: Good Speech Pattern: Clear Hallucinations: None Delusions: Paranoid Ideation Thought Process: Racing and Distracted Thought Content: positive for [place] and positive for Perseveration Judgement: Fair Diagnostics Vital Signs (24Hr): Vital Signs - 24 hr 03/14/23 21:25 03/15/23 08:15 Temperature 97.4 F 97.7 F Pulse Rate 64 92 Respiratory Rate 16 16 Blood Pressure 120/50 L 155/73 H Pulse Oximetry 94 97 Oxygen Delivery Method Room Air Room Air BMI result Body Mass Index 32.5 Labs 03/12/23 21:57 03/14/23 07:57 Labs: Laboratory Results - last 48 hr 03/14/23 03/14/23 07:57 07:57 Sodium 143 Potassium 4.3 Chloride 109 H Carbon Dioxide 25 Anion Gap 13 BUN 14 Creatinine 1.02 Estim Creat Clear Calc 49.1 Estimated GFR 54 Fasting Glucose 96 Calcium 10.0 D Total Bilirubin 0.4 AST 19 ALT 20 Alkaline Phosphatase 114 Total Protein 7.5 Albumin 4.1 Triglycerides 76 Cholesterol 178 LDL Cholesterol, Calc 101 HDL Cholesterol 62 Vitamin B12 831 Folate 4.0 TSH 4.51 H Free T4 0.82 Medications Medications Current Medications Acetaminophen (Acetaminophen 325 Mg Tablet) 650 mg PO Q6H PRN PRN Reason: Headache/Pain Mild Scale (1-3) Last Admin: 03/14/23 08:14 Dose: 650 mg Al Hydroxide/Mg Hydroxide (Magnesium Hydrox/Alum Hydrox 30 Ml Oral.Susp) 30 ml PO Q6H PRN PRN Reason: Heartburn/Nausea Albuterol Sulfate (Albuterol Sulfate 90 Mcg 8 Gm Inhaler) 2 puff INHALE Q4H PRN PRN Reason: for wheezing Last Admin: 03/13/23 00:46 Dose: 2 puff Aspirin (Aspirin Enteric Coated 81 Mg Tablet.) 81 mg PO DAILY [facility] Last Admin: 03/15/23 08:18 Dose: 81 mg Atorvastatin Calcium (Atorvastatin Calcium 20 Mg Tablet) 20 mg PO DAILY [facility] Last Admin: 03/15/23 08:18 Dose: 20 mg Buspirone HCl (Buspirone Hcl 5 Mg Tablet) 5 mg PO BID [facility] Last Admin: 03/15/23 08:18 Dose: 5 mg Cyanocobalamin (Cyanocobalamin (Vitamin B-12) 1,000 Mcg Tablet) 1,000 mcg PO DAILY [facility] Last Admin: 03/15/23 08:18 Dose: 1,000 mcg Escitalopram Oxalate (Escitalopram Oxalate 10 Mg Tablet) 10 mg PO DAILY [facility] Last Admin: 03/15/23 09:12 Dose: 10 mg Haloperidol (Haloperidol 1 Mg Tablet) 1 mg PO TID [facility] Hydroxyurea (Hydroxyurea 500 Mg Capsule) 500 mg PO DAILY [facility] Last Admin: 03/15/23 08:20 Dose: 500 mg Hydroxyzine HCl (Hydroxyzine Hcl 10 Mg Tablet) 10 mg PO Q6H PRN PRN Reason: Anxiety Last Admin: 03/14/23 13:58 Dose: 10 mg Levothyroxine Sodium (Levothyroxine Sodium 75 Mcg Tablet) 75 mcg PO DAILY@0630 [facility] Last Admin: 03/15/23 06:17 Dose: 75 mcg Magnesium Hydroxide (Milk Of Magnesia 30 Ml Oral.Susp) 30 ml PO DAILY PRN PRN Reason: Constipation Last Admin: 03/14/23 08:14 Dose: 30 ml Melatonin (Melatonin 3 Mg Tablet) 18 mg PO BEDTIME PRN PRN Reason: sleep Omeprazole (Omeprazole 40 Mg Capsule.) 40 mg PO DAILY@30 [facility] Last Admin: 03/15/23 06:17 Dose: 40 mg Pharmacy Consult (Consult Rx Perform Med Rec) 1 each MISCELLANE ONCE PRN PRN Reason: Consult order Topiramate (Topiramate 25 Mg Tablet) 25 mg PO BID [facility] Last Admin: 03/15/23 08:19 Dose: 25 mg Allergies Allergies Allergy/AdvReac Type Severity Reaction Status Date / Time grass pollen Allergy Mild unknown Verified 03/12/23 17:44 zoster vaccine live Allergy Mild HIVES Verified 03/12/23 17:44 [SHINGLES VACCINE] BARIUM CONTRAST Allergy Unknown DIFFICULTY Uncoded 03/12/23 17:44 BREATHING/FLUSHING Assessment & Plan Assessment & Plan (1) Suicide attempt: Status: Acute Code(s): T14.91XA - Suicide attempt, initial encounter (2) Mood disorder: Status: Acute Code(s): F39 - Unspecified mood [affective] disorder Plan The patient is an elderly black [place] female with a prior history of anxiety depression and irritability who drove herself to the emergency room after she took an intentional overdose of Tylenol and opioids in a suicidal attempt. The patient had been struggling with mood symptoms elicited mostly by depressive symptoms with neurovegetative and irritability. The patient was medically cleared and transferring to this facility for psychiatric stabilization. Plan 1. Gather collateral information. 2. The patient sinus CV and she is fully aware of Li warning. 3. We will continue with her antidepressants and anxyolitics. 4. Since the patient has mild paranoia, irritability and flight of ideas we will start a mood stabilizer. The patient has strong family history of mental illness, her father was bipolar. Topamax 25 mg po bid 5. Reassessment with results.. 6. Start Haldol 1 mg p.o. t.i.d. to target paranoia Reason for continued inpatient stay Substantial Risk for: harm to others, inability to function, rapid decompensation and med/psych decompensation Time Spent With Patient Time: Total time managing care of this patient today __20__ minutes.
[2023-03-15] MEDS: Albuterol Sulfate 90 MCG 8 GM INHALER 2 PUFF INHALE (14:47)
[2023-03-15 14:56] VITALS: BMI 33.2
[2023-03-15] MEDS: HaloperidoL 1 MG TABLET PO ×2 (15:37→20:52)
[2023-03-15 18:00] VITALS: BP 130/67; PULSE 83; RESP 18; TEMP 36.2; O2SAT 96
[2023-03-16] MEDS: Omeprazole 40 MG CAPSULE.DR PO (06:37)
[2023-03-16] MEDS: Levothyroxine Sodium 75 MCG TABLET PO (06:37)
[2023-03-16 08:15] VITALS: BP 146/64; PULSE 91; RESP 20; TEMP 36.4; O2SAT 95
[2023-03-16] MEDS: HaloperidoL 1 MG TABLET PO ×3 (08:18→20:45)
[2023-03-16] MEDS: busPIRone HCl 5 MG TABLET PO ×2 (08:19→20:45)
[2023-03-16] MEDS: Escitalopram Oxalate 10 MG TABLET PO (08:19)
[2023-03-16] MEDS: Cyanocobalamin (Vitamin B-12) 1,000 MCG TABLET 1000 MCG PO (08:19)
[2023-03-16] MEDS: Topiramate 25 MG TABLET PO (08:19)
[2023-03-16] MEDS: Aspirin Enteric Coated 81 MG TABLET.DR PO (08:19)
[2023-03-16] MEDS: Atorvastatin Calcium 20 MG TABLET PO (08:20)
[2023-03-16] MEDS: Hydroxyurea 500 MG CAPSULE PO (08:21)
[2023-03-16] MEDS: guaiFENesin 100 MG/5 ML LIQUID PO (08:35)
[2023-03-16] MEDS: Albuterol Sulfate 90 MCG 8 GM INHALER 2 PUFF INHALE (08:35)
[2023-03-16] MEDS: hydrOXYzine HCL 10 MG TABLET 20 MG PO ×2 (09:38→20:45)
[2023-03-16] MEDS: Topiramate 25 MG TABLET 50 MG PO ×2 (09:38→20:45)
--- NOTE | 2023-03-16 12:59 | P.PNPSI_ITS ---
Subjective Subjective Date of Service: 03/16/23 Reason For Visit: suicide attempt Subjective Notes: Conditional Voluntary Interim History: The nursing staff reported the patient has been irritable at times but most of the time pleasant and cooperative. She was sad and tearful in the evening yesterday. She had been socializing and she slept well last night. On interview the patient denies side effects with increase of Topamax up to 50 mg p.o. b.i.d. to target mood lability. She requested in hydroxyzine 10 mg p.o. b.i.d. standing and not p.r.n.. Mental Status Exam Mental Status Exam Patient Appearance: Well Grooomed Patient Orientation: Person and Situation Level of Consciousness: Awake and Appropriate Patient Behavior: Guarded and Passive Mood Description: Withdrawn Affect Description: Constricted Patient Cognition Impaired: Yes Ability to Follow Directions: Good Speech Pattern: Clear Hallucinations: None Delusions: Not Present Thought Process: Distracted and Linear Thought Content: positive for [place] and positive for Circumstantial Judgement: Fair Diagnostics Vital Signs (24Hr): Vital Signs - 24 hr 03/15/23 18:00 03/16/23 08:15 Temperature 97.2 F 97.5 F Pulse Rate 83 91 Respiratory Rate 18 20 Blood Pressure 130/67 146/64 H Pulse Oximetry 96 95 Oxygen Delivery Method Room Air Room Air BMI result Body Mass Index 33.2 Labs 03/12/23 21:57 03/14/23 07:57 Medications Medications Current Medications Acetaminophen (Acetaminophen 325 Mg Tablet) 650 mg PO Q6H PRN PRN Reason: Headache/Pain Mild Scale (1-3) Last Admin: 03/14/23 08:14 Dose: 650 mg Al Hydroxide/Mg Hydroxide (Magnesium Hydrox/Alum Hydrox 30 Ml Oral.Susp) 30 ml PO Q6H PRN PRN Reason: Heartburn/Nausea Albuterol Sulfate (Albuterol Sulfate 90 Mcg 8 Gm Inhaler) 2 puff INHALE Q4H PRN PRN Reason: for wheezing Last Admin: 03/16/23 08:35 Dose: 2 puff Aspirin (Aspirin Enteric Coated 81 Mg Tablet.) 81 mg PO DAILY [facility] Last Admin: 03/16/23 08:19 Dose: 81 mg Atorvastatin Calcium (Atorvastatin Calcium 20 Mg Tablet) 20 mg PO DAILY [facility] Last Admin: 03/16/23 08:20 Dose: 20 mg Buspirone HCl (Buspirone Hcl 5 Mg Tablet) 5 mg PO BID [facility] Last Admin: 03/16/23 08:19 Dose: 5 mg Cyanocobalamin (Cyanocobalamin (Vitamin B-12) 1,000 Mcg Tablet) 1,000 mcg PO DAILY [facility] Last Admin: 03/16/23 08:19 Dose: 1,000 mcg Escitalopram Oxalate (Escitalopram Oxalate 10 Mg Tablet) 10 mg PO DAILY [facility] Last Admin: 03/16/23 08:19 Dose: 10 mg Guaifenesin (Guaifenesin 100 Mg/5 Ml Liquid) 5 ml PO Q4H PRN PRN Reason: Cough Last Admin: 03/16/23 08:35 Dose: 5 ml Haloperidol (Haloperidol 1 Mg Tablet) 1 mg PO TID [facility] Last Admin: 03/16/23 08:18 Dose: 1 mg Hydroxyurea (Hydroxyurea 500 Mg Capsule) 500 mg PO DAILY [facility] Last Admin: 03/16/23 08:21 Dose: 500 mg Hydroxyzine HCl (Hydroxyzine Hcl 10 Mg Tablet) 20 mg PO BID [facility] Last Admin: 03/16/23 09:38 Dose: 20 mg Levothyroxine Sodium (Levothyroxine Sodium 75 Mcg Tablet) 75 mcg PO DAILY@0630 [facility] Last Admin: 03/16/23 06:37 Dose: 75 mcg Magnesium Hydroxide (Milk Of Magnesia 30 Ml Oral.Susp) 30 ml PO DAILY PRN PRN Reason: Constipation Last Admin: 03/14/23 08:14 Dose: 30 ml Melatonin (Melatonin 3 Mg Tablet) 18 mg PO BEDTIME PRN PRN Reason: sleep Omeprazole (Omeprazole 40 Mg Capsule.) 40 mg PO DAILY@0630 [facility] Last Admin: 03/16/23 06:37 Dose: 40 mg Pharmacy Consult (Consult Rx Perform Med Rec) 1 each MISCELLANE ONCE PRN PRN Reason: Consult order Topiramate (Topiramate 25 Mg Tablet) 50 mg PO BID [facility] Last Admin: 03/16/23 09:38 Dose: 50 mg Allergies Allergies Allergy/AdvReac Type Severity Reaction Status Date / Time grass pollen Allergy Mild unknown Verified 03/12/23 17:44 zoster vaccine live Allergy Mild HIVES Verified 03/12/23 17:44 [SHINGLES VACCINE] BARIUM CONTRAST Allergy Unknown DIFFICULTY Uncoded 03/12/23 17:44 BREATHING/FLUSHING Assessment & Plan Assessment & Plan (1) Suicide attempt: Status: Acute Code(s): T14.91XA - Suicide attempt, initial encounter (2) Mood disorder: Status: Acute Code(s): F39 - Unspecified mood [affective] disorder Plan The patient is an elderly black Syriac female with a prior history of anxiety depression and irritability who drove herself to the emergency room after she took an intentional overdose of Tylenol and opioids in a suicidal attempt. The patient had been struggling with mood symptoms elicited mostly by depressive symptoms with neurovegetative and irritability. The patient was medically cleared and transferring to this facility for psychiatric stabilization. Plan 1. Gather collateral information. 2. The patient sinus CV and she is fully aware of Li warning. 3. We will continue with her antidepressants and anxyolitics. 4. Since the patient has mild paranoia, irritability and flight of ideas we will start a mood stabilizer. The patient has strong family history of mental illness, her father was bipolar. Topamax 25 mg po bid. Almost we are increasing up to 50 mg p.o. b.i.d. to target mood lability. 5. Reassessment with results.. 6. Start Haldol 1 mg p.o. t.i.d. to target paranoia on March 15. Reason for continued inpatient stay Substantial Risk for: inability to function, rapid decompensation and med/psych decompensation Time Spent With Patient Time: Total time managing care of this patient today __20__ minutes.
[2023-03-16] MEDS: Acetaminophen 325 MG TABLET 650 MG PO (15:31)
[2023-03-16 20:05] VITALS: BP 172/76; PULSE 71; RESP 18; TEMP 36.2; O2SAT 94
[2023-03-17] MEDS: Omeprazole 40 MG CAPSULE.DR PO (06:22)
[2023-03-17] MEDS: Levothyroxine Sodium 75 MCG TABLET PO (06:22)
[2023-03-17 08:00] VITALS: BP 117/60; PULSE 84; RESP 18; TEMP 36; O2SAT 97
--- NOTE | 2023-03-17 08:05 | P.PNPSI_ITS ---
Subjective Subjective Date of Service: 03/17/23 Reason For Visit: suicide attempt Subjective Notes: Conditional Voluntary Interim History: The nursing staff reported the patient had been visible in the unit, social with peers intrusive at times. She accepted the feedback about focusing on her treatment. She complained of depression anxiety 01/13 but denies suicidal ideation. On interview the patient denies new symptoms denies over-sedation with increased of Topamax. Mental Status Exam Mental Status Exam Patient Appearance: Well Grooomed and Appropriate Patient Orientation: Person, Place and Situation Level of Consciousness: Awake and Appropriate Patient Behavior: Appropriate Mood Description: Calm and Appropriate Affect Description: Constricted Patient Cognition Impaired: No Ability to Follow Directions: Good Speech Pattern: Clear Hallucinations: None Delusions: Paranoid Ideation Thought Process: Distracted and Linear Thought Content: positive for [place] and positive for Circumstantial Judgement: Fair Diagnostics Vital Signs (24Hr): Vital Signs - 24 hr 03/16/23 08:15 03/16/23 20:05 Temperature 97.5 F 97.1 F Pulse Rate 91 71 Respiratory Rate 20 18 Blood Pressure 146/64 H 172/76 H Pulse Oximetry 95 94 Oxygen Delivery Method Room Air Room Air BMI result Body Mass Index 33.2 Labs 03/12/23 21:57 03/14/23 07:57 Medications Medications Current Medications Acetaminophen (Acetaminophen 325 Mg Tablet) 650 mg PO Q6H PRN PRN Reason: Headache/Pain Mild Scale (1-3) Last Admin: 03/16/23 15:31 Dose: 650 mg Al Hydroxide/Mg Hydroxide (Magnesium Hydrox/Alum Hydrox 30 Ml Oral.Susp) 30 ml PO Q6H PRN PRN Reason: Heartburn/Nausea Albuterol Sulfate (Albuterol Sulfate 90 Mcg 8 Gm Inhaler) 2 puff INHALE Q4H PRN PRN Reason: for wheezing Last Admin: 03/16/23 08:35 Dose: 2 puff Aspirin (Aspirin Enteric Coated 81 Mg Tablet.Dr) 81 mg PO DAILY [facility] Last Admin: 03/16/23 08:19 Dose: 81 mg Atorvastatin Calcium (Atorvastatin Calcium 20 Mg Tablet) 20 mg PO DAILY [facility] Last Admin: 03/16/23 08:20 Dose: 20 mg Buspirone HCl (Buspirone Hcl 5 Mg Tablet) 5 mg PO BID [facility] Last Admin: 03/16/23 20:45 Dose: 5 mg Cyanocobalamin (Cyanocobalamin (Vitamin B-12) 1,000 Mcg Tablet) 1,000 mcg PO DAILY [facility] Last Admin: 03/16/23 08:19 Dose: 1,000 mcg Escitalopram Oxalate (Escitalopram Oxalate 10 Mg Tablet) 10 mg PO DAILY [facility] Last Admin: 03/16/23 08:19 Dose: 10 mg Guaifenesin (Guaifenesin 100 Mg/5 Ml Liquid) 5 ml PO Q4H PRN PRN Reason: Cough Last Admin: 03/16/23 08:35 Dose: 5 ml Haloperidol (Haloperidol 1 Mg Tablet) 1 mg PO TID [facility] Last Admin: 03/16/23 20:45 Dose: 1 mg Hydroxyurea (Hydroxyurea 500 Mg Capsule) 500 mg PO DAILY [facility] Last Admin: 03/16/23 08:21 Dose: 500 mg Hydroxyzine HCl (Hydroxyzine Hcl 10 Mg Tablet) 20 mg PO BID [facility] Last Admin: 03/16/23 20:45 Dose: 20 mg Levothyroxine Sodium (Levothyroxine Sodium 75 Mcg Tablet) 75 mcg PO DAILY@0630 [facility] Last Admin: 03/17/23 06:22 Dose: 75 mcg Magnesium Hydroxide (Milk Of Magnesia 30 Ml Oral.Susp) 30 ml PO DAILY PRN PRN Reason: Constipation Last Admin: 03/14/23 08:14 Dose: 30 ml Melatonin (Melatonin 3 Mg Tablet) 18 mg PO BEDTIME PRN PRN Reason: sleep Omeprazole (Omeprazole 40 Mg Capsule.Dr) 40 mg PO DAILY@0630 [facility] Last Admin: 03/17/23 06:22 Dose: 40 mg Pharmacy Consult (Consult Rx Perform Med Rec) 1 each MISCELLANE ONCE PRN PRN Reason: Consult order Topiramate (Topiramate 25 Mg Tablet) 50 mg PO BID [facility] Last Admin: 03/16/23 20:45 Dose: 50 mg Allergies Allergies Allergy/AdvReac Type Severity Reaction Status Date / Time grass pollen Allergy Mild unknown Verified 03/12/23 17:44 zoster vaccine live Allergy Mild HIVES Verified 03/12/23 17:44 [SHINGLES VACCINE] BARIUM CONTRAST Allergy Unknown DIFFICULTY Uncoded 03/12/23 17:44 BREATHING/FLUSHING Assessment & Plan Assessment & Plan (1) Suicide attempt: Status: Acute Code(s): T14.91XA - Suicide attempt, initial encounter (2) Mood disorder: Status: Acute Code(s): F39 - Unspecified mood [affective] disorder Plan The patient is an elderly black German female with a prior history of anxiety depression and irritability who drove herself to the emergency room after she took an intentional overdose of Tylenol and opioids in a suicidal attempt. The patient had been struggling with mood symptoms elicited mostly by depressive symptoms with neurovegetative and irritability. The patient was medically yesica red and transferring to this facility for psychiatric stabilization. Plan 1. Gather collateral information. 2. The patient sinus CV and she is fully aware of Li warning. 3. We will continue with her antidepressants and anxyolitics. 4. Since the patient has mild paranoia, irritability and flight of ideas we will start a mood stabilizer. The patient has strong family history of mental il lness, her father was bipolar. Topamax 25 mg po bid. Almost we are increasing up to 50 mg p.o. b.i.d. to target mood lability. 5. Reassessment with results.. 6. Start Haldol 1 mg p.o. t.i.d. to target paranoia on March 15. Reason for continued inpatient stay Substantial Risk for: inability to function, rapid decompensation and med/psych decompensation Time Spent With Patient Time: Total time managing care of this patient today __20__ minutes.
[2023-03-17] MEDS: hydrOXYzine HCL 10 MG TABLET 20 MG PO ×2 (08:36→20:18)
[2023-03-17] MEDS: Escitalopram Oxalate 10 MG TABLET PO (08:45)
[2023-03-17] MEDS: Aspirin Enteric Coated 81 MG TABLET.DR PO (08:45)
[2023-03-17] MEDS: HaloperidoL 1 MG TABLET PO ×3 (08:45→20:18)
[2023-03-17] MEDS: Atorvastatin Calcium 20 MG TABLET PO (08:46)
[2023-03-17] MEDS: Cyanocobalamin (Vitamin B-12) 1,000 MCG TABLET 1000 MCG PO (08:46)
[2023-03-17] MEDS: Topiramate 25 MG TABLET 50 MG PO ×2 (08:46→20:18)
[2023-03-17] MEDS: busPIRone HCl 5 MG TABLET PO ×2 (08:46→20:18)
[2023-03-17] MEDS: Hydroxyurea 500 MG CAPSULE PO (08:47)
[2023-03-17 18:00] VITALS: BP 116/63; PULSE 78; RESP 18; TEMP 36.4; O2SAT 97
[2023-03-18] MEDS: Levothyroxine Sodium 75 MCG TABLET PO (06:48)
[2023-03-18] MEDS: Omeprazole 40 MG CAPSULE.DR PO (06:48)
[2023-03-18 08:00] VITALS: BP 146/75; PULSE 80; RESP 18; TEMP 36.2; O2SAT 98
[2023-03-18] MEDS: hydrOXYzine HCL 10 MG TABLET 20 MG PO ×2 (08:18→22:16)
[2023-03-18] MEDS: Atorvastatin Calcium 20 MG TABLET PO (08:18)
[2023-03-18] MEDS: Aspirin Enteric Coated 81 MG TABLET.DR PO (08:18)
[2023-03-18] MEDS: Hydroxyurea 500 MG CAPSULE PO (08:18)
[2023-03-18] MEDS: HaloperidoL 1 MG TABLET PO ×3 (08:18→22:16)
[2023-03-18] MEDS: Escitalopram Oxalate 10 MG TABLET PO (08:19)
[2023-03-18] MEDS: Cyanocobalamin (Vitamin B-12) 1,000 MCG TABLET 1000 MCG PO (08:19)
[2023-03-18] MEDS: busPIRone HCl 5 MG TABLET PO ×2 (08:19→20:52)
[2023-03-18] MEDS: Topiramate 25 MG TABLET 50 MG PO (08:19)
--- NOTE | 2023-03-18 09:47 | P.PNPSI_ITS ---
Subjective Subjective Date of Service: 03/18/23 Reason For Visit: suicide attempt Subjective Notes: Conditional Voluntary Interim History: The nursing staff reported the patient was pleasant and engaged with labile mood but social. He had been anxious and paranoid and she had a 1 out worse in the afternoon even though, she slept well last night. On interview the patient reported that she had a conflict today in the morning with 1 of the staff members and she was very emotional. I put a p.r.n. order of Zyprexa yes as needed but later she refused to take it. It is clear that the patient still has mood lability so we are going to increase the Topamax up to 100 mg p.o. b.i.d.. Mental Status Exam Mental Status Exam Patient Appearance: Well Grooomed and Appropriate Patient Orientation: Person, Place and Situation Level of Consciousness: Awake and Appropriate Patient Behavior: Guarded and Passive Mood Description: Constricted Affect Description: Labile Patient Cognition Impaired: No Ability to Follow Directions: Good Speech Pattern: Clear Hallucinations: None Delusions: Paranoid Ideation and Grandiose Thought Process: Racing and Distracted Thought Content: positive for [place] and positive for [place] of Content Judgement: Fair Diagnostics Vital Signs (24Hr): Vital Signs - 24 hr 03/17/23 18:00 03/18/23 08:00 Temperature 97.5 F 97.1 F Pulse Rate 78 80 Respiratory Rate 18 18 Blood Pressure 116/63 146/75 H Pulse Oximetry 97 98 Oxygen Delivery Method Room Air Room Air BMI result Body Mass Index 33.2 Labs 03/12/23 21:57 03/14/23 07:57 Medications Medications Current Medications Acetaminophen (Acetaminophen 325 Mg Tablet) 650 mg PO Q6H PRN PRN Reason: Headache/Pain Mild Scale (1-3) Last Admin: 03/16/23 15:31 Dose: 650 mg Al Hydroxide/Mg Hydroxide (Magnesium Hydrox/Alum Hydrox 30 Ml Oral.Susp) 30 ml PO Q6H PRN PRN Reason: Heartburn/Nausea Albuterol Sulfate (Albuterol Sulfate 90 Mcg 8 Gm Inhaler) 2 puff INHALE Q4H PRN PRN Reason: for wheezing Last Admin: 03/16/23 08:35 Dose: 2 puff Aspirin (Aspirin Enteric Coated 81 Mg Tablet.) 81 mg PO DAILY [facility] Last Admin: 03/18/23 08:18 Dose: 81 mg Atorvastatin Calcium (Atorvastatin Calcium 20 Mg Tablet) 20 mg PO DAILY [facility] Last Admin: 03/18/23 08:18 Dose: 20 mg Buspirone HCl (Buspirone Hcl 5 Mg Tablet) 5 mg PO BID [facility] Last Admin: 03/18/23 08:19 Dose: 5 mg Cyanocobalamin (Cyanocobalamin (Vitamin B-12) 1,000 Mcg Tablet) 1,000 mcg PO DAILY [facility] Last Admin: 03/18/23 08:19 Dose: 1,000 mcg Escitalopram Oxalate (Escitalopram Oxalate 10 Mg Tablet) 10 mg PO DAILY [facility] Last Admin: 03/18/23 08:19 Dose: 10 mg Guaifenesin (Guaifenesin 100 Mg/5 Ml Liquid) 5 ml PO Q4H PRN PRN Reason: Cough Last Admin: 03/16/23 08:35 Dose: 5 ml Haloperidol (Haloperidol 1 Mg Tablet) 1 mg PO TID [facility] Last Admin: 03/18/23 08:18 Dose: 1 mg Hydroxyurea (Hydroxyurea 500 Mg Capsule) 500 mg PO DAILY [facility] Last Admin: 03/18/23 08:18 Dose: 500 mg Hydroxyzine HCl (Hydroxyzine Hcl 10 Mg Tablet) 20 mg PO BID [facility] Last Admin: 03/18/23 08:18 Dose: 20 mg Levothyroxine Sodium (Levothyroxine Sodium 75 Mcg Tablet) 75 mcg PO DAILY@0630 [facility] Last Admin: 03/18/23 06:48 Dose: 75 mcg Magnesium Hydroxide (Milk Of Magnesia 30 Ml Oral.Susp) 30 ml PO DAILY PRN PRN Reason: Constipation Last Admin: 03/14/23 08:14 Dose: 30 ml Melatonin (Melatonin 3 Mg Tablet) 18 mg PO BEDTIME PRN PRN Reason: sleep Olanzapine (Olanzapine 5 Mg Tablet) 5 mg PO Q4H PRN PRN Reason: agitation Omeprazole (Omeprazole 40 Mg Capsule.Dr) 40 mg PO DAILY@0630 [facility] Last Admin: 03/18/23 06:48 Dose: 40 mg Pharmacy Consult (Consult Rx Perform Med Rec) 1 each MISCELLANE ONCE PRN PRN Reason: Consult order Topiramate (Topiramate 25 Mg Tablet) 50 mg PO BID [facility] Last Admin: 03/18/23 08:19 Dose: 50 mg Allergies Allergies Allergy/AdvReac Type Severity Reaction Status Date / Time grass pollen Allergy Mild unknown Verified 03/12/23 17:44 zoster vaccine live Allergy Mild HIVES Verified 03/12/23 17:44 [SHINGLES VACCINE] BARIUM CONTRAST Allergy Unknown DIFFICULTY Uncoded 03/12/23 17:44 BREATHING/FLUSHING Assessment & Plan Assessment & Plan (1) Suicide attempt: Status: Acute Code(s): T14.91XA - Suicide attempt, initial encounter (2) Mood disorder: Status: Acute Code(s): F39 - Unspecified mood [affective] disorder Plan The patient is an elderly black [place] African female with a prior history of anxiety depression and irritability who drove herself to the emergency room after she took an intentional overdose of Tylenol and opioids in a suicidal attempt. The patient had been struggling with mood symptoms elicited mostly by depressive symptoms with neurovegetative and irritability. The patient was medically cleared and transferring to this facility for psychiatric stabilization. Plan 1. Gather collateral information. 2. The patient sinus CV and she is fully aware of Li warning. 3. We will continue with her antidepressants and anxyolitics. 4. Since the patient has mild paranoia, irritability and flight of ideas we will start a mood stabilizer. The patient has strong family history of mental illness, her father was bipolar. Topamax 25 mg po bid. March 16 we are increasing up to 50 mg p.o. b.i.d. to target mood lability. On we increase it up to 100 p.o. b.i.d. 5. Reassessment with results.. 6. Start Haldol 1 mg p.o. t.i.d. to target paranoia on March 15. 7. Zyprexa 5 mg p.o. b.i.d. p.r.n. psychotic agitation. Reason for continued inpatient stay Substantial Risk for: inability to function, rapid decompensation and med/psych decompensation Time Spent With Patient Time: Total time managing care of this patient today __20__ minutes.
--- NOTE | 2023-03-18 17:56 | PC.NURSE ---
Patient with labile mood this shift. At AM pleasant, cheerful, cooperative, compliant with meds. About 9:00 patient's mood noted to be elevated. Pt didn't like the answer given to her by the staff member. Pt became impulsive, verbally abusive, aggressive, spitting and threatening staff members. notified. New order for Zyprexa 5mg every 4 hrs PRN ordered [address] Saini. Pt calmed down shorlty after, walked down with the nurse to her room. Refused to take the PRN med. notified. No further increased behaviors noted. Pt appears to be pleasant, relaxed and cooperative. Socializing with peers in a common area playing cards and dominos. Good po intake, consumed 100% for each meal. Pt showered today. Ambulates with steady gait. Denies pain. Will continue to monitor.
[2023-03-18 18:30] VITALS: BP 123/66; PULSE 74; RESP 18; TEMP 36.6; O2SAT 98
[2023-03-18] MEDS: Topiramate 25 MG TABLET 100 MG PO (20:49)
[2023-03-18] MEDS: Melatonin 3 MG TABLET 18 MG PO (20:52)
[2023-03-18] MEDS: Acetaminophen 325 MG TABLET 650 MG PO (20:58)
[2023-03-18] MEDS: Albuterol Sulfate 90 MCG 8 GM INHALER 2 PUFF INHALE (21:00)
[2023-03-18] MEDS: guaiFENesin 100 MG/5 ML LIQUID PO (21:01)
[2023-03-19] MEDS: Omeprazole 40 MG CAPSULE.DR PO (06:27)
[2023-03-19] MEDS: Levothyroxine Sodium 75 MCG TABLET PO (06:27)
[2023-03-19 09:00] VITALS: BP 123/61; PULSE 77; RESP 20; TEMP 36.4; O2SAT 93
[2023-03-19] MEDS: Aspirin Enteric Coated 81 MG TABLET.DR PO (09:00)
[2023-03-19] MEDS: HaloperidoL 1 MG TABLET PO (09:00)
[2023-03-19] MEDS: Escitalopram Oxalate 10 MG TABLET PO (09:00)
[2023-03-19] MEDS: hydrOXYzine HCL 10 MG TABLET 20 MG PO ×2 (09:01→19:57)
[2023-03-19] MEDS: Atorvastatin Calcium 20 MG TABLET PO (09:01)
[2023-03-19] MEDS: Topiramate 25 MG TABLET 100 MG PO ×2 (09:02→19:55)
[2023-03-19] MEDS: busPIRone HCl 5 MG TABLET PO ×2 (09:02→19:55)
[2023-03-19] MEDS: Cyanocobalamin (Vitamin B-12) 1,000 MCG TABLET 1000 MCG PO (09:02)
[2023-03-19] MEDS: Hydroxyurea 500 MG CAPSULE PO (09:04)
[2023-03-19] MEDS: Albuterol Sulfate 90 MCG 8 GM INHALER 2 PUFF INHALE (09:15)
[2023-03-19] MEDS: Ibuprofen 400 MG TABLET PO (10:49)
--- NOTE | 2023-03-19 13:01 | HO.PSYCHPN ---
Subjective Subjective Date of Service: 03/19/23 Reason For Visit: suicide attempt Subjective Notes: Conditional Voluntary Interim History: The nursing staff reported the patient had been cooperative and pleasant but later she was agitated. Apparently her daughter called last Sunday and she does not have a good relation with the patient. The social media specialist will contact the family for a family meeting. On interview the patient denies over-sedation with increase of Topamax. Still labile at times. It was noticeable that the patient had EPS with a very low dose of Haldol. Mental Status Exam Mental Status Exam Patient Appearance: Well Grooomed and Appropriate Patient Orientation: Person and Situation Level of Consciousness: Awake and Appropriate Patient Behavior: Guarded and Passive Mood Description: Withdrawn Affect Description: Constricted Patient Cognition Impaired: Yes Ability to Follow Directions: Good Speech Pattern: Clear Hallucinations: None Delusions: Not Present Thought Process: Linear Thought Content: positive for Circumstantial Judgement: Fair Diagnostics Vital Signs (24Hr): Vital Signs - 24 hr 03/18/23 18:30 03/19/23 09:00 Temperature 97.8 F 97.6 F Pulse Rate 74 77 Respiratory Rate 18 20 Blood Pressure 123/66 123/61 Pulse Oximetry 98 93 Oxygen Delivery Method Room Air Room Air BMI result Body Mass Index 33.2 Labs 03/12/23 21:57 03/14/23 07:57 Medications Medications Current Medications Al Hydroxide/Mg Hydroxide (Magnesium Hydrox/Alum Hydrox 30 Ml Oral.Susp) 30 ml PO Q6H PRN PRN Reason: Heartburn/Nausea Albuterol Sulfate (Albuterol Sulfate 90 Mcg 8 Gm Inhaler) 2 puff INHALE Q4H PRN PRN Reason: for wheezing Last Admin: 03/19/23 09:15 Dose: 2 puff Albuterol Sulfate (Albuterol Sulfate 90 Mcg 8 Gm Inhaler) 2 puff INHALE RQ4H PRN PRN Reason: Bronchospasm Aspirin (Aspirin Enteric Coated 81 Mg Tablet.Dr) 81 mg PO DAILY [facility] Last Admin: 03/19/23 09:00 Dose: 81 mg Atorvastatin Calcium (Atorvastatin Calcium 20 Mg Tablet) 20 mg PO DAILY [facility] Last Admin: 03/19/23 09:01 Dose: 20 mg Buspirone HCl (Buspirone Hcl 5 Mg Tablet) 5 mg PO BID [facility] Last Admin: 03/19/23 09:02 Dose: 5 mg Cyanocobalamin (Cyanocobalamin (Vitamin B-12) 1,000 Mcg Tablet) 1,000 mcg PO DAILY [facility] Last Admin: 03/19/23 09:02 Dose: 1,000 mcg Escitalopram Oxalate (Escitalopram Oxalate 10 Mg Tablet) 10 mg PO DAILY [facility] Last Admin: 03/19/23 09:00 Dose: 10 mg Guaifenesin (Guaifenesin 100 Mg/5 Ml Liquid) 5 ml PO Q4H PRN PRN Reason: Cough Last Admin: 03/18/23 21:01 Dose: 5 ml Haloperidol (Haloperidol 1 Mg Tablet) 1 mg PO TID [facility] Last Admin: 03/19/23 09:00 Dose: 1 mg Hydroxyurea (Hydroxyurea 500 Mg Capsule) 500 mg PO DAILY [facility] Last Admin: 03/19/23 09:04 Dose: 500 mg Hydroxyzine HCl (Hydroxyzine Hcl 10 Mg Tablet) 20 mg PO BID [facility] Last Admin: 03/19/23 09:01 Dose: 20 mg Ibuprofen (Ibuprofen 400 Mg Tablet) 400 mg PO Q6H PRN PRN Reason: Pain, Moderate(Pain Scale 4-6) Last Admin: 03/19/23 10:49 Dose: 400 mg Levothyroxine Sodium (Levothyroxine Sodium 75 Mcg Tablet) 75 mcg PO DAILY@0630 [facility] Last Admin: 03/19/23 06:27 Dose: 75 mcg Magnesium Hydroxide (Milk Of Magnesia 30 Ml Oral.Susp) 30 ml PO DAILY PRN PRN Reason: Constipation Last Admin: 03/14/23 08:14 Dose: 30 ml Melatonin (Melatonin 3 Mg Tablet) 18 mg PO BEDTIME PRN PRN Reason: sleep Last Admin: 03/18/23 20:52 Dose: 18 mg Olanzapine (Olanzapine 5 Mg Tablet) 5 mg PO Q4H PRN PRN Reason: agitation Omeprazole (Omeprazole 40 Mg Capsule.Dr) 40 mg PO DAILY@0630 [facility] Last Admin: 03/19/23 06:27 Dose: 40 mg Pharmacy Consult (Consult Rx Perform Med Rec) 1 each MISCELLANE ONCE PRN PRN Reason: Consult order Topiramate (Topiramate 25 Mg Tablet) 100 mg PO BID [facility] Last Admin: 03/19/23 09:02 Dose: 100 mg Allergies Allergies Allergy/AdvReac Type Severity Reaction Status Date / Time grass pollen Allergy Mild unknown Verified 03/12/23 17:44 zoster vaccine live Allergy Mild HIVES Verified 03/12/23 17:44 [SHINGLES VACCINE] BARIUM CONTRAST Allergy Unknown DIFFICULTY Uncoded 03/12/23 17:44 BREATHING/FLUSHING Assessment & Plan Assessment & Plan (1) Suicide attempt: Status: Acute Code(s): T14.91XA - Suicide attempt, initial encounter (2) Mood disorder: Status: Acute Code(s): F39 - Unspecified mood [affective] disorder Plan The patient is an elderly black [place] female with a prior history of anxiety depression and irritability who drove herself to the emergency room after she took an intentional overdose of Tylenol and opioids in a suicidal attempt. The patient had been struggling with mood symptoms elicited mostly by depressive symptoms with neurovegetative and irritability. The patient was medically cleared and transferring to this facility for psychiatric stabilization. Plan 1. Gather collateral information. 2. The patient sinus CV and she is fully aware of Li warning. 3. We will continue with her antidepressants and anxyolitics. 4. Since the patient has mild paranoia, irritability and flight of ideas we will start a mood stabilizer. The patient has strong family history of mental illness, her father was bipolar. Topamax 25 mg po bid. March 16 we are increasing up to 50 mg p.o. b.i.d. to target mood lability. On we increase it up to 100 p.o. b.i.d. 5. Reassessment with results.. 6. Start Haldol 1 mg p.o. t.i.d. to target paranoia on March 15. 7. Zyprexa 5 mg p.o. b.i.d. p.r.n. psychotic agitation. Reason for continued inpatient stay Substantial Risk for: inability to function, rapid decompensation and med/psych decompensation Time Spent With Patient Time: Total time managing care of this patient today ___20_ minutes.
[2023-03-19 18:00] VITALS: BP 118/56; PULSE 86; RESP 17; TEMP 36.7; O2SAT 97
[2023-03-19] MEDS: Melatonin 3 MG TABLET 18 MG PO (19:56)
[2023-03-20] MEDS: Levothyroxine Sodium 75 MCG TABLET PO (06:30)
[2023-03-20] MEDS: Omeprazole 40 MG CAPSULE.DR PO (06:30)
[2023-03-20] MEDS: busPIRone HCl 5 MG TABLET PO ×2 (08:14→20:47)
[2023-03-20] MEDS: Hydroxyurea 500 MG CAPSULE PO (08:14)
[2023-03-20] MEDS: Atorvastatin Calcium 20 MG TABLET PO (08:14)
[2023-03-20] MEDS: Cyanocobalamin (Vitamin B-12) 1,000 MCG TABLET 1000 MCG PO (08:14)
[2023-03-20] MEDS: hydrOXYzine HCL 10 MG TABLET 20 MG PO ×2 (08:15→20:47)
[2023-03-20] MEDS: Aspirin Enteric Coated 81 MG TABLET.DR PO (08:15)
[2023-03-20] MEDS: Topiramate 25 MG TABLET 100 MG PO ×2 (08:15→20:45)
[2023-03-20] MEDS: Escitalopram Oxalate 10 MG TABLET PO (08:15)
[2023-03-20 08:19] VITALS: BP 121/59; PULSE 75; RESP 14; TEMP 36.8; O2SAT 96
[2023-03-20] MEDS: Albuterol Sulfate 90 MCG 8 GM INHALER 2 PUFF INHALE ×2 (08:27→22:53)
--- NOTE | 2023-03-20 12:32 | P.PNPSI_ITS ---
Subjective Subjective Date of Service: 03/20/23 Reason For Visit: suicide attempt Subjective Notes: Conditional Voluntary Interim History: The nursing staff reported that the patient was more engagable yesterday, she attended to some groups but she was labile with 1 episode of agitation with staff. The social media coordinator reported that she is going to call financial to help her with her copayments. On interview, she reported mild sedation but no more tremors since we stopped Haldol. Mental Status Exam Mental Status Exam Patient Appearance: Well Grooomed and Appropriate Patient Orientation: Person, Place, Time and Situation Level of Consciousness: Awake and Appropriate Patient Behavior: Cooperative Mood Description: Calm Affect Description: Labile Ability to Follow Directions: Good Speech Pattern: Clear Hallucinations: None Delusions: Not Present Thought Process: Linear Thought Content: positive for Circumstantial Judgement: Fair Diagnostics Vital Signs (24Hr): Vital Signs - 24 hr 03/19/23 18:00 03/20/23 08:19 Temperature 98.0 F 98.2 F Pulse Rate 86 75 Respiratory Rate 17 14 Blood Pressure 118/56 L 121/59 L Pulse Oximetry 97 96 Oxygen Delivery Method Room Air Room Air BMI result Body Mass Index 33.2 Labs 03/12/23 21:57 03/14/23 07:57 Medications Medications Current Medications Al Hydroxide/Mg Hydroxide (Magnesium Hydrox/Alum Hydrox 30 Ml Oral.Susp) 30 ml PO Q6H PRN PRN Reason: Heartburn/Nausea Albuterol Sulfate (Albuterol Sulfate 90 Mcg 8 Gm Inhaler) 2 puff INHALE Q4H PRN PRN Reason: for wheezing Last Admin: 03/20/23 08:27 Dose: 2 puff Albuterol Sulfate (Albuterol Sulfate 90 Mcg 8 Gm Inhaler) 2 puff INHALE RQ4H PRN PRN Reason: Bronchospasm Aspirin (Aspirin Enteric Coated 81 Mg Tablet.) 81 mg PO DAILY [facility] Last Admin: 03/20/23 08:15 Dose: 81 mg Atorvastatin Calcium (Atorvastatin Calcium 20 Mg Tablet) 20 mg PO DAILY [facility] Last Admin: 03/20/23 08:14 Dose: 20 mg Buspirone HCl (Buspirone Hcl 5 Mg Tablet) 5 mg PO BID [facility] Last Admin: 03/20/23 08:14 Dose: 5 mg Cyanocobalamin (Cyanocobalamin (Vitamin B-12) 1,000 Mcg Tablet) 1,000 mcg PO DAILY [facility] Last Admin: 03/20/23 08:14 Dose: 1,000 mcg Escitalopram Oxalate (Escitalopram Oxalate 10 Mg Tablet) 10 mg PO DAILY [facility] Last Admin: 03/20/23 08:15 Dose: 10 mg Guaifenesin (Guaifenesin 100 Mg/5 Ml Liquid) 5 ml PO Q4H PRN PRN Reason: Cough Last Admin: 03/18/23 21:01 Dose: 5 ml Hydroxyurea (Hydroxyurea 500 Mg Capsule) 500 mg PO DAILY [facility] Last Admin: 03/20/23 08:14 Dose: 500 mg Hydroxyzine HCl (Hydroxyzine Hcl 10 Mg Tablet) 20 mg PO BID [facility] Last Admin: 03/20/23 08:15 Dose: 20 mg Ibuprofen (Ibuprofen 400 Mg Tablet) 400 mg PO Q6H PRN PRN Reason: Pain, Moderate(Pain Scale 4-6) Last Admin: 03/19/23 10:49 Dose: 400 mg Levothyroxine Sodium (Levothyroxine Sodium 75 Mcg Tablet) 75 mcg PO DAILY@0630 [facility] Last Admin: 03/20/23 06:30 Dose: 75 mcg Magnesium Hydroxide (Milk Of Magnesia 30 Ml Oral.Susp) 30 ml PO DAILY PRN PRN Reason: Constipation Last Admin: 03/14/23 08:14 Dose: 30 ml Melatonin (Melatonin 3 Mg Tablet) 18 mg PO BEDTIME PRN PRN Reason: sleep Last Admin: 03/19/23 19:56 Dose: 18 mg Olanzapine (Olanzapine 5 Mg Tablet) 5 mg PO Q4H PRN PRN Reason: agitation Omeprazole (Omeprazole 40 Mg Capsule.) 40 mg PO DAILY@0630 [facility] Last Admin: 03/20/23 06:30 Dose: 40 mg Pharmacy Consult (Consult Rx Perform Med Rec) 1 each MISCELLANE ONCE PRN PRN Reason: Consult order Topiramate (Topiramate 25 Mg Tablet) 100 mg PO BID [facility] Last Admin: 03/20/23 08:15 Dose: 100 mg Allergies Allergies Allergy/AdvReac Type Severity Reaction Status Date / Time grass pollen Allergy Mild unknown Verified 03/12/23 17:44 zoster vaccine live Allergy Mild HIVES Verified 03/12/23 17:44 [SHINGLES VACCINE] BARIUM CONTRAST Allergy Unknown DIFFICULTY Uncoded 03/12/23 17:44 BREATHING/FLUSHING Assessment & Plan Assessment & Plan (1) Suicide attempt: Status: Acute Code(s): T14.91XA - Suicide attempt, initial encounter (2) Mood disorder: Status: Acute Code(s): F39 - Unspecified mood [affective] disorder Plan The patient is an elderly black Polish female with a prior history of anxiety depression and irritability who drove herself to the emergency room after she took an intentional overdose of Tylenol and opioids in a suicidal attempt. The patient had been struggling with mood symptoms elicited mostly by depressive symptoms with neurovegetative and irritability. The patient was medically cleared and transferring to this facility for psychiatric stabilization. Plan 1. Gather collateral information. 2. The patient sinus CV and she is fully aware of Li warning. 3. We will continue with her antidepressants and anxyolitics. 4. Since the patient has mild paranoia, irritability and flight of ideas we will start a mood stabilizer. The patient has strong family history of mental illness, her father was bipolar. Topamax 25 mg po bid. March 16 we are in creasing up to 50 mg p.o. b.i.d. to target mood lability. On we increase it up to 100 p.o. b.i.d. 5. Reassessment with results.. 6. Start Haldol 1 mg p.o. t.i.d. to target paranoia on March 15. Stopped due to EPS 7. Zyprexa 5 mg p.o. b.i.d. p.r.n. psychotic agitation. 8. CT scan without contrast head Reason for continued inpatient stay Substantial Risk for: inability to function, rapid decompensation and med/psych decompensation Time Spent With Patient Time: Total time managing care of this patient today __20__ minutes.
[2023-03-20 18:00] VITALS: BP 134/67; PULSE 83; RESP 17; TEMP 36.6; O2SAT 98
[2023-03-20] MEDS: Melatonin 3 MG TABLET 18 MG PO (20:46)
[2023-03-20] MEDS: Ibuprofen 400 MG TABLET PO (20:47)
[2023-03-20] MEDS: guaiFENesin 100 MG/5 ML LIQUID PO (22:53)
[2023-03-21] MEDS: Omeprazole 40 MG CAPSULE.DR PO (06:19)
[2023-03-21] MEDS: Levothyroxine Sodium 75 MCG TABLET PO (06:19)
[2023-03-21 08:12] VITALS: BP 121/66; PULSE 84; RESP 19; TEMP 36.2; O2SAT 96
[2023-03-21] MEDS: Cyanocobalamin (Vitamin B-12) 1,000 MCG TABLET 1000 MCG PO (08:13)
[2023-03-21] MEDS: hydrOXYzine HCL 10 MG TABLET 20 MG PO ×2 (08:13→20:14)
[2023-03-21] MEDS: Topiramate 25 MG TABLET 100 MG PO ×2 (08:14→20:13)
[2023-03-21] MEDS: Escitalopram Oxalate 10 MG TABLET PO (08:14)
[2023-03-21] MEDS: Aspirin Enteric Coated 81 MG TABLET.DR PO (08:14)
[2023-03-21] MEDS: busPIRone HCl 5 MG TABLET PO ×2 (08:14→20:14)
[2023-03-21] MEDS: Atorvastatin Calcium 20 MG TABLET PO (08:14)
[2023-03-21] MEDS: Hydroxyurea 500 MG CAPSULE PO (08:15)
[2023-03-21] MEDS: Albuterol Sulfate 90 MCG 8 GM INHALER 2 PUFF INHALE ×2 (08:18→20:15)
[2023-03-21] MEDS: Milk of Magnesia 30 ML ORAL.SUSP PO (08:27)
--- NOTE | 2023-03-21 12:28 | P.PNPSI_ITS ---
Subjective Subjective Date of Service: 03/21/23 Reason For Visit: suicide attempt Subjective Notes: Conditional Voluntary Interim History: The nursing staff reported the patient has been alert oriented x3, she has been less labile but still with fast speech. No evidence of new tremors. The social science research assistant met with her daughter yesterday and apparently the patient had always been very aggressive but the level of aggressivity that he was shown in the last months had being more than usual. On interview, the patient denies new symptoms, we discussed the possibility of adding a 2nd mood stabilizer such as olanzapine 2.5 p.o. q.h.s. to target mood lability insomnia. She agreed to do a [place] test with me later the week. Mental Status Exam Mental Status Exam Patient Appearance: Well Grooomed and Appropriate Patient Orientation: Person and Situation Level of Consciousness: Awake and Appropriate Patient Behavior: Guarded and Passive Mood Description: Withdrawn Affect Description: Constricted Patient Cognition Impaired: Yes Ability to Follow Directions: Good Speech Pattern: Clear Hallucinations: None Delusions: Paranoid Ideation Thought Process: Distracted and Slowed Thinking Thought Content: positive for [place] and positive for Circumstantial Judgement: Fair Diagnostics Vital Signs (24Hr): Vital Signs - 24 hr 03/20/23 18:00 03/21/23 08:12 Temperature 97.8 F 97.1 F Pulse Rate 83 84 Respiratory Rate 17 19 Blood Pressure 134/67 121/66 Pulse Oximetry 98 96 Oxygen Delivery Method Room Air Room Air BMI result Body Mass Index 33.2 Labs 03/12/23 21:57 03/14/23 07:57 Imaging Radiology Impressions: ITS Impressions Head CT 03/20/23 14:30 IMPRESSION: No acute intracranial abnormality. Background changes of chronic microangiopathy. Medications Medications Current Medications Al Hydroxide/Mg Hydroxide (Magnesium Hydrox/Alum Hydrox 30 Ml Oral.Susp) 30 ml PO Q6H PRN PRN Reason: Heartburn/Nausea Albuterol Sulfate (Albuterol Sulfate 90 Mcg 8 Gm Inhaler) 2 puff INHALE Q4H PRN PRN Reason: for wheezing Last Admin: 03/21/23 08:18 Dose: 2 puff Albuterol Sulfate (Albuterol Sulfate 90 Mcg 8 Gm Inhaler) 2 puff INHALE RQ4H PRN PRN Reason: Bronchospasm Aspirin (Aspirin Enteric Coated 81 Mg Tablet.) 81 mg PO DAILY [facility] Last Admin: 03/21/23 08:14 Dose: 81 mg Atorvastatin Calcium (Atorvastatin Calcium 20 Mg Tablet) 20 mg PO DAILY [facility] Last Admin: 03/21/23 08:14 Dose: 20 mg Buspirone HCl (Buspirone Hcl 5 Mg Tablet) 5 mg PO BID [facility] Last Admin: 03/21/23 08:14 Dose: 5 mg Cyanocobalamin (Cyanocobalamin (Vitamin B-12) 1,000 Mcg Tablet) 1,000 mcg PO DAILY [facility] Last Admin: 03/21/23 08:13 Dose: 1,000 mcg Escitalopram Oxalate (Escitalopram Oxalate 10 Mg Tablet) 10 mg PO DAILY [facility] Last Admin: 03/21/23 08:14 Dose: 10 mg Guaifenesin (Guaifenesin 100 Mg/5 Ml Liquid) 5 ml PO Q4H PRN PRN Reason: Cough Last Admin: 03/20/23 22:53 Dose: 5 ml Hydroxyurea (Hydroxyurea 500 Mg Capsule) 500 mg PO DAILY [facility] Last Admin: 03/21/23 08:15 Dose: 500 mg Hydroxyzine HCl (Hydroxyzine Hcl 10 Mg Tablet) 20 mg PO BID [facility] Last Admin: 03/21/23 08:13 Dose: 20 mg Ibuprofen (Ibuprofen 400 Mg Tablet) 400 mg PO Q6H PRN PRN Reason: Pain, Moderate(Pain Scale 4-6) Last Admin: 03/20/23 20:47 Dose: 400 mg Levothyroxine Sodium (Levothyroxine Sodium 75 Mcg Tablet) 75 mcg PO DAILY@0630 [facility] Last Admin: 03/21/23 06:19 Dose: 75 mcg Magnesium Hydroxide (Milk Of Magnesia 30 Ml Oral.Susp) 30 ml PO DAILY PRN PRN Reason: Constipation Last Admin: 03/21/23 08:27 Dose: 30 ml Melatonin (Melatonin 3 Mg Tablet) 18 mg PO BEDTIME PRN PRN Reason: sleep Last Admin: 03/20/23 20:46 Dose: 18 mg Olanzapine (Olanzapine 5 Mg Tablet) 5 mg PO Q4H PRN PRN Reason: agitation Olanzapine (Olanzapine 2.5 Mg Tablet) 2.5 mg PO BEDTIME [facility] Omeprazole (Omeprazole 40 Mg Capsule.Dr) 40 mg PO DAILY@0630 [facility] Last Admin: 03/21/23 06:19 Dose: 40 mg Pharmacy Consult (Consult Rx Perform Med Rec) 1 each MISCELLANE ONCE PRN PRN Reason: Consult order Topiramate (Topiramate 25 Mg Tablet) 100 mg PO BID [facility] Last Admin: 03/21/23 08:14 Dose: 100 mg Allergies Allergies Allergy/AdvReac Type Severity Reaction Status Date / Time grass pollen Allergy Mild unknown Verified 03/12/23 17:44 zoster vaccine live Allergy Mild HIVES Verified 03/12/23 17:44 [SHINGLES VACCINE] BARIUM CONTRAST Allergy Unknown DIFFICULTY Uncoded 03/12/23 17:44 BREATHING/FLUSHING Assessment & Plan Assessment & Plan (1) Suicide attempt: Status: Acute Code(s): T14.91XA - Suicide attempt, initial encounter (2) Mood disorder: Status: Acute Code(s): F39 - Unspecified mood [affective] disorder Plan The patient is an elderly black [place] female with a prior history of anxiety depression and irritability who drove herself to the emergency room after she took an intentional overdose of Tylenol and opioids in a suicidal attempt. The patient had been struggling with mood symptoms elicited mostly by depressive symptoms with neurovegetative and irritability. The patient was medically cleared and transferring to this facility for psychiatric stabilization. Plan 1. Gather collateral information. 2. The patient sinus CV and she is fully aware of Li warning. 3. We will continue with her antidepressants and anxyolitics. 4. Since the patient has mild paranoia, irritability and flight of ideas we will start a mood stabilizer. The patient has strong family history of mental illness, her father was bipolar. Topamax 25 mg po bid. March 16 we are increasing up to 50 mg p.o. b.i.d. to target mood lability. On we increase it up to 100 p.o. b.i.d. 5. Reassessment with results.. 6. Start Haldol 1 mg p.o. t.i.d. to target paranoia on March 15. Stopped due to EPS 7. Zyprexa 5 mg p.o. b.i.d. p.r.n. psychotic agitation. 8. CT scan without contrast head came back without new findings. 9. Start Zyprexa 2.5 mg p.o. q.h.s. on March 21. Reason for continued inpatient stay Substantial Risk for: inability to function, rapid decompensation and med/psych decompensation Time Spent With Patient Time: Total time managing care of this patient today __20__ minutes.
--- NOTE | 2023-03-21 13:36 | PC.NURSE ---
Patient was giving the Srinath Cognitive Assessment (MOCA) and the ACL (a standardized screening assessment of functional cognition). Pt scored an 18/30 on the MOCA indicating mild cognitive impairment. Pt scored a 4.8 on the ACL indicating that cognition is moderately impaired, but may live alone with safety checks.
[2023-03-21 18:00] VITALS: BP 131/64; PULSE 74; RESP 18; O2SAT 97
[2023-03-21] MEDS: Ibuprofen 400 MG TABLET PO (19:15)
[2023-03-21] MEDS: OLANZapine 2.5 MG TABLET PO (20:14)
[2023-03-21] MEDS: guaiFENesin 100 MG/5 ML LIQUID PO (20:15)
[2023-03-22] MEDS: Levothyroxine Sodium 75 MCG TABLET PO (06:44)
[2023-03-22] MEDS: Omeprazole 40 MG CAPSULE.DR PO (06:44)
[2023-03-22 07:00] VITALS: BMI 33.4
[2023-03-22 08:05] VITALS: BP 138/63; PULSE 78; RESP 18; TEMP 36; O2SAT 98
[2023-03-22] MEDS: Topiramate 25 MG TABLET 100 MG PO ×2 (08:47→21:01)
[2023-03-22] MEDS: Atorvastatin Calcium 20 MG TABLET PO (08:47)
[2023-03-22] MEDS: Aspirin Enteric Coated 81 MG TABLET.DR PO (08:47)
[2023-03-22] MEDS: busPIRone HCl 5 MG TABLET PO ×2 (08:48→21:01)
[2023-03-22] MEDS: Escitalopram Oxalate 10 MG TABLET PO (08:48)
[2023-03-22] MEDS: Hydroxyurea 500 MG CAPSULE PO (08:48)
[2023-03-22] MEDS: hydrOXYzine HCL 10 MG TABLET 20 MG PO ×2 (08:48→21:00)
[2023-03-22] MEDS: Cyanocobalamin (Vitamin B-12) 1,000 MCG TABLET 1000 MCG PO (08:48)
--- NOTE | 2023-03-22 12:41 | HO.PSYCHPN ---
Subjective Subjective Date of Service: 03/22/23 Reason For Visit: suicide attempt Subjective Notes: Conditional Voluntary Interim History: Pt presents as pleasant. She reports she feels very well, calmer, less anxious. She also states I feel safe here. She reports medication is helping especially topamax attributes described improvements to this medications. She reports sleeping well- which is verified by nursing. VS stable 138/63 HR 78. No behavioral concerns. Pt denies physical concerns. Pt presents as less hyperverbal, not pressured. No overt delusional content noted or reported. Review of Systems Review of Systems Constitutional : No Weight loss, No Fever, No Chills, No Night Sweats, No Fatigue, No Malaise ENT/Mouth : No Hearing loss, No Ear Pain, No Nasal Congestion, No Sinus Pain, No Hoarseness, No sore throat, No Rhinorrhea, No Swallowing Difficulty Eyes: No Eye Pain, No Swelling, No Redness, No Foreign Body, No Discharge, No Vision Changes Cardiovascular : No Chest Pain, No SOB, No Dyspnea on Exertion, No Orthopnea, No Edema, No Palpitations Respiratory : No Cough, No Sputum, No Wheezing, No Smoke Exposure, No Dyspnea Gastrointestinal : No Nausea, No Vomiting, No Diarrhea, No Constipation, No abdominal Pain, No Hematochezia, No Melena Genitourinary : no irregular bleeding, No Dysuria, No Urinary Frequency, No Hematuria, No Urinary Incontinence, No Urgency, No Flank Pain, No Urinary Flow Changes, No Hesitancy Musculoskeletal : No joint pain, No Myalgias, No Joint Swelling Skin : No Skin Lesions, No rash Neuro : No Weakness, No Numbness, No Paresthesias, No Loss of Consciousness, No Dizziness, No Headache Psych : Complaining of suicidal ideation, suicide attempt, depression Heme/Lymph: No Bruising, No Bleeding,No Lymphadenopathy Endocrine : No Polyuria, No Polydipsia, No Temperature Intolerance Yes all other systems are reviewed and are negative Mental Status Exam Mental Status Exam Patient Appearance: Well Grooomed and Appropriate Patient Orientation: Person and Situation Level of Consciousness: Awake and Appropriate Patient Behavior: Guarded and Passive Mood Description: Withdrawn Affect Description: Constricted Patient Cognition Impaired: Yes Ability to Follow Directions: Good Speech Pattern: Clear Diagnostics Vital Signs (24Hr): Vital Signs - 24 hr 03/21/23 18:00 03/22/23 08:05 Temperature 96.8 F Pulse Rate 74 78 Respiratory Rate 18 18 Blood Pressure 131/64 138/63 Pulse Oximetry 97 98 Oxygen Delivery Method Room Air Room Air BMI result Body Mass Index 33.4 Labs 03/12/23 21:57 03/14/23 07:57 Imaging Radiology Impressions: ITS Impressions Head CT 03/20/23 14:30 IMPRESSION: No acute intracranial abnormality. Background changes of chronic microangiopathy. Medications Medications Current Medications Al Hydroxide/Mg Hydroxide (Magnesium Hydrox/Alum Hydrox 30 Ml Oral.Susp) 30 ml PO Q6H PRN PRN Reason: Heartburn/Nausea Albuterol Sulfate (Albuterol Sulfate 90 Mcg 8 Gm Inhaler) 2 puff INHALE Q4H PRN PRN Reason: for wheezing Last Admin: 03/21/23 20:15 Dose: 2 puff Albuterol Sulfate (Albuterol Sulfate 90 Mcg 8 Gm Inhaler) 2 puff INHALE RQ4H PRN PRN Reason: Bronchospasm Aspirin (Aspirin Enteric Coated 81 Mg Tablet.) 81 mg PO DAILY [facility] Last Admin: 03/22/23 08:47 Dose: 81 mg Atorvastatin Calcium (Atorvastatin Calcium 20 Mg Tablet) 20 mg PO DAILY [facility] Last Admin: 03/22/23 08:47 Dose: 20 mg Buspirone HCl (Buspirone Hcl 5 Mg Tablet) 5 mg PO BID [facility] Last Admin: 03/22/23 08:48 Dose: 5 mg Cyanocobalamin (Cyanocobalamin (Vitamin B-12) 1,000 Mcg Tablet) 1,000 mcg PO DAILY [facility] Last Admin: 03/22/23 08:48 Dose: 1,000 mcg Escitalopram Oxalate (Escitalopram Oxalate 10 Mg Tablet) 10 mg PO DAILY [facility] Last Admin: 03/22/23 08:48 Dose: 10 mg Guaifenesin (Guaifenesin 100 Mg/5 Ml Liquid) 5 ml PO Q4H PRN PRN Reason: Cough Last Admin: 03/21/23 20:15 Dose: 5 ml Hydroxyurea (Hydroxyurea 500 Mg Capsule) 500 mg PO DAILY [facility] Last Admin: 03/22/23 08:48 Dose: 500 mg Hydroxyzine HCl (Hydroxyzine Hcl 10 Mg Tablet) 20 mg PO BID [facility] Last Admin: 03/22/23 08:48 Dose: 20 mg Ibuprofen (Ibuprofen 400 Mg Tablet) 400 mg PO Q6H PRN PRN Reason: Pain, Moderate(Pain Scale 4-6) Last Admin: 03/21/23 19:15 Dose: 400 mg Levothyroxine Sodium (Levothyroxine Sodium 75 Mcg Tablet) 75 mcg PO DAILY@0630 [facility] Last Admin: 03/22/23 06:44 Dose: 75 mcg Magnesium Hydroxide (Milk Of Magnesia 30 Ml Oral.Susp) 30 ml PO DAILY PRN PRN Reason: Constipation Last Admin: 03/21/23 08:27 Dose: 30 ml Melatonin (Melatonin 3 Mg Tablet) 18 mg PO BEDTIME PRN PRN Reason: sleep Last Admin: 03/20/23 20:46 Dose: 18 mg Olanzapine (Olanzapine 5 Mg Tablet) 5 mg PO Q4H PRN PRN Reason: agitation Olanzapine (Olanzapine 2.5 Mg Tablet) 2.5 mg PO BEDTIME [facility] Last Admin: 03/21/23 20:14 Dose: 2.5 mg Omeprazole (Omeprazole 40 Mg Capsule.Dr) 40 mg PO DAILY@30 [facility] Last Admin: 03/22/23 06:44 Dose: 40 mg Pharmacy Consult (Consult Rx Perform Med Rec) 1 each MISCELLANE ONCE PRN PRN Reason: Consult order Topiramate (Topiramate 25 Mg Tablet) 100 mg PO BID [facility] Last Admin: 03/22/23 08:47 Dose: 100 mg Allergies Allergies Allergy/AdvReac Type Severity Reaction Status Date / Time grass pollen Allergy Mild unknown Verified 03/12/23 17:44 zoster vaccine live Allergy Mild HIVES Verified 03/12/23 17:44 [SHINGLES VACCINE] BARIUM CONTRAST Allergy Unknown DIFFICULTY Uncoded 03/12/23 17:44 BREATHING/FLUSHING Assessment & Plan Assessment & Plan (1) Mood disorder: Status: Acute Code(s): F39 - Unspecified mood [affective] disorder (2) Suicide attempt: Status: Acute Code(s): T14.91XA - Suicide attempt, initial encounter Plan The patient is an elderly black [place] female with a prior history of anxiety depression and irritability who drove herself to the emergency room after she took an intentional overdose of Tylenol and opioids in a suicidal attempt. The patient had been struggling with mood symptoms elicited mostly by depressive symptoms with neurovegetative and irritability. The patient was medically cleared and transferring to this facility for psychiatric stabilization. Plan 1. Gather collateral information. 2. The patient sinus CV and she is fully aware of Li warning. 3. We will continue with her antidepressants and anxyolitics. 4. Since the patient has mild paranoia, irritability and flight of ideas we will start a mood stabilizer. The patient has strong family history of mental illness, her father was bipolar. Topamax 25 mg po bid. March 16 we are increasing up to 50 mg p.o. b.i.d. to target mood lability. On we increase it up to 100 p.o. b.i.d. 5. Reassessment with results.. 6. Start Haldol 1 mg p.o. t.i.d. to target paranoia on March 15. Stopped due to EPS 7. Zyprexa 5 mg p.o. b.i.d. p.r.n. psychotic agitation. 8. CT scan without contrast head came back without new findings. 9. Start Zyprexa 2.5 mg p.o. q.h.s. on March 21. 03/22 pt less hyperverbal, no si/hi. continue tx. Reason for continued inpatient stay Substantial Risk for: inability to function Time Spent With Patient Time: Total time managing care of this patient today ____ minutes.
[2023-03-22] MEDS: guaiFENesin 100 MG/5 ML LIQUID PO ×2 (17:59→23:57)
[2023-03-22 18:00] VITALS: BP 161/71; PULSE 80; RESP 17; TEMP 35.5; O2SAT 98
[2023-03-22] MEDS: Albuterol Sulfate 90 MCG 8 GM INHALER 2 PUFF INHALE ×2 (18:00→23:57)
[2023-03-22] MEDS: OLANZapine 2.5 MG TABLET PO (21:00)
[2023-03-22] MEDS: Melatonin 3 MG TABLET 18 MG PO (23:55)
[2023-03-22] MEDS: Ibuprofen 400 MG TABLET PO (23:55)
[2023-03-23] MEDS: OLANZapine 5 MG TABLET PO (00:03)
[2023-03-23] MEDS: Omeprazole 40 MG CAPSULE.DR PO (06:37)
[2023-03-23] MEDS: Levothyroxine Sodium 75 MCG TABLET PO (06:37)
[2023-03-23 08:00] VITALS: BP 115/59; PULSE 74; RESP 18; TEMP 36.2; O2SAT 97
--- NOTE | 2023-03-23 08:07 | P.PNPSI_ITS ---
Subjective Subjective Date of Service: 03/23/23 Reason For Visit: suicide attempt Subjective Notes: Conditional Voluntary Interim History: The nursing staff reported the patient had been pleasant on approach, needing p.r.n. melatonin. On interview we discussed to change the melatonin as standing and Motrin as scheduled since she always has some chronic pain and aches. Her mood looks better and she denies side effects with olanzapine at night. We discussed options, I provided psycho education into her new diagnosis of dementia and she agreed to start Exelon 1.5 p.o. b.i.d. and increase Zyprexa up to 5 mg p.o. q.h.s. to target mood lability. Mental Status Exam Mental Status Exam Patient Appearance: Well Grooomed and Appropriate Patient Orientation: Person and Situation Level of Consciousness: Awake and Appropriate Patient Behavior: Guarded and Passive Mood Description: Calm Affect Description: Labile Patient Cognition Impaired: No Ability to Follow Directions: Good Speech Pattern: Clear Hallucinations: None Delusions: Not Present Thought Process: Linear Thought Content: positive for Circumstantial Judgement: Fair Diagnostics Vital Signs (24Hr): Vital Signs - 24 hr 03/22/23 18:00 Temperature 96 F L Pulse Rate 80 Respiratory Rate 17 Blood Pressure 161/71 H Pulse Oximetry 98 Oxygen Delivery Method Room Air BMI result Body Mass Index 33.4 Labs 03/12/23 21:57 03/14/23 07:57 Imaging Radiology Impressions: ITS Impressions Head CT 03/20/23 14:30 IMPRESSION: No acute intracranial abnormality. Background changes of chronic microangiopathy. Medications Medications Current Medications Al Hydroxide/Mg Hydroxide (Magnesium Hydrox/Alum Hydrox 30 Ml Oral.Susp) 30 ml PO Q6H PRN PRN Reason: Heartburn/Nausea Albuterol Sulfate (Albuterol Sulfate 90 Mcg 8 Gm Inhaler) 2 puff INHALE Q4H PRN PRN Reason: for wheezing Last Admin: 03/22/23 23:57 Dose: 2 puff Albuterol Sulfate (Albuterol Sulfate 90 Mcg 8 Gm Inhaler) 2 puff INHALE RQ4H PRN PRN Reason: Bronchospasm Aspirin (Aspirin Enteric Coated 81 Mg Tablet.) 81 mg PO DAILY [facility] Last Admin: 03/22/23 08:47 Dose: 81 mg Atorvastatin Calcium (Atorvastatin Calcium 20 Mg Tablet) 20 mg PO DAILY [facility] Last Admin: 03/22/23 08:47 Dose: 20 mg Buspirone HCl (Buspirone Hcl 5 Mg Tablet) 5 mg PO BID [facility] Last Admin: 03/22/23 21:01 Dose: 5 mg Cyanocobalamin (Cyanocobalamin (Vitamin B-12) 1,000 Mcg Tablet) 1,000 mcg PO DAILY [facility] Last Admin: 03/22/23 08:48 Dose: 1,000 mcg Escitalopram Oxalate (Escitalopram Oxalate 10 Mg Tablet) 10 mg PO DAILY [facility] Last Admin: 03/22/23 08:48 Dose: 10 mg Guaifenesin (Guaifenesin 100 Mg/5 Ml Liquid) 5 ml PO Q4H PRN PRN Reason: Cough Last Admin: 03/22/23 23:57 Dose: 5 ml Hydroxyurea (Hydroxyurea 500 Mg Capsule) 500 mg PO DAILY [facility] Last Admin: 03/22/23 08:48 Dose: 500 mg Hydroxyzine HCl (Hydroxyzine Hcl 10 Mg Tablet) 20 mg PO BID [facility] Last Admin: 03/22/23 21:00 Dose: 20 mg Ibuprofen (Ibuprofen 400 Mg Tablet) 400 mg PO Q6H PRN PRN Reason: Pain, Moderate(Pain Scale 4-6) Last Admin: 03/22/23 23:55 Dose: 400 mg Levothyroxine Sodium (Levothyroxine Sodium 75 Mcg Tablet) 75 mcg PO DAILY@0630 [facility] Last Admin: 03/23/23 06:37 Dose: 75 mcg Magnesium Hydroxide (Milk Of Magnesia 30 Ml Oral.Susp) 30 ml PO DAILY PRN PRN Reason: Constipation Last Admin: 03/21/23 08:27 Dose: 30 ml Melatonin (Melatonin 3 Mg Tablet) 18 mg PO BEDTIME PRN PRN Reason: sleep Last Admin: 03/22/23 23:55 Dose: 18 mg Olanzapine (Olanzapine 5 Mg Tablet) 5 mg PO Q4H PRN PRN Reason: agitation Last Admin: 03/23/23 00:03 Dose: 5 mg Olanzapine (Olanzapine 2.5 Mg Tablet) 2.5 mg PO BEDTIME [facility] Last Admin: 03/22/23 21:00 Dose: 2.5 mg Omeprazole (Omeprazole 40 Mg Capsule.Dr) 40 mg PO DAILY@0630 [facility] Last Admin: 03/23/23 06:37 Dose: 40 mg Pharmacy Consult (Consult Rx Perform Med Rec) 1 each MISCELLANE ONCE PRN PRN Reason: Consult order Topiramate (Topiramate 25 Mg Tablet) 100 mg PO BID [facility] Last Admin: 03/22/23 21:01 Dose: 100 mg Allergies Allergies Allergy/AdvReac Type Severity Reaction Status Date / Time grass pollen Allergy Mild unknown Verified 03/12/23 17:44 zoster vaccine live Allergy Mild HIVES Verified 03/12/23 17:44 [SHINGLES VACCINE] BARIUM CONTRAST Allergy Unknown DIFFICULTY Uncoded 03/12/23 17:44 BREATHING/FLUSHING Assessment & Plan Assessment & Plan (1) Mood disorder: Status: Acute Code(s): F39 - Unspecified mood [affective] disorder (2) Suicide attempt: Status: Acute Code(s): T14.91XA - Suicide attempt, initial encounter Plan The patient is an elderly black [place] female with a prior history of anxiety depression and irritability who drove herself to the emergency room after she took an intentional overdose of Tylenol and opioids in a suicidal attempt. The patient had been struggling with mood symptoms elicited mostly by depressive symptoms with neurovegetative and irritability. The patient was medically cleared and transferring to this facility for psychiatric stabilization. Plan 1. Gather collateral information. 2. The patient sinus CV and she is fully aware of Li warning. 3. We will continue with her antidepressants and anxyolitics. 4. Since the patient has mild paranoia, irritability and flight of ideas we will start a mood stabilizer. The patient has strong family history of mental illness, her father was bipolar. Topamax 25 mg po bid. March 16 we are increasing up to 50 mg p.o. b.i.d. to target mood lability. On we increase it up to 100 p.o. b.i.d. 5. Reassessment with results.. 6. Start Haldol 1 mg p.o. t.i.d. to target paranoia on March 15. Stopped due to EPS 7. Zyprexa 5 mg p.o. b.i.d. p.r.n. psychotic agitation. 8. CT scan without contrast head came back without new findings. 9. Start Zyprexa 2.5 mg p.o. q.h.s. on March 21. 10. Change melatonin and ibuprofen standing. 11. Start Exelon 1.5 mg p.o. b.i.d.. 12. Increased Zyprexa to 5 mg p.o. q.h.s. on March 23. Reason for continued inpatient stay Substantial Risk for: inability to function, rapid decompensation and med/psych decompensation Time Spent With Patient Time: Total time managing care of this patient today _20___ minutes.
[2023-03-23] MEDS: Aspirin Enteric Coated 81 MG TABLET.DR PO (08:38)
[2023-03-23] MEDS: Escitalopram Oxalate 10 MG TABLET PO (08:38)
[2023-03-23] MEDS: busPIRone HCl 5 MG TABLET PO ×2 (08:38→20:32)
[2023-03-23] MEDS: Cyanocobalamin (Vitamin B-12) 1,000 MCG TABLET 1000 MCG PO (08:38)
[2023-03-23] MEDS: hydrOXYzine HCL 10 MG TABLET 20 MG PO ×2 (08:38→20:32)
[2023-03-23] MEDS: Topiramate 25 MG TABLET 100 MG PO ×2 (08:38→20:32)
[2023-03-23] MEDS: Atorvastatin Calcium 20 MG TABLET PO (08:38)
[2023-03-23] MEDS: Hydroxyurea 500 MG CAPSULE PO (08:38)
[2023-03-23] MEDS: Rivastigmine Tartrate 1.5 MG CAPSULE PO ×2 (09:05→20:33)
[2023-03-23 12:01] VITALS: BP 103/59; PULSE 62; TEMP 36.2; O2SAT 99
[2023-03-23 18:00] VITALS: BP 145/66; PULSE 76; TEMP 36.1; O2SAT 97
[2023-03-23] MEDS: OLANZapine 2.5 MG TABLET PO (20:30)
[2023-03-23] MEDS: Melatonin 3 MG TABLET 18 MG PO (20:31)
[2023-03-23] MEDS: Ibuprofen 400 MG TABLET PO (20:32)
[2023-03-23] MEDS: guaiFENesin 100 MG/5 ML LIQUID PO (20:33)
[2023-03-23] MEDS: Albuterol Sulfate 90 MCG 8 GM INHALER 2 PUFF INHALE (20:33)
[2023-03-24] MEDS: Omeprazole 40 MG CAPSULE.DR PO (06:39)
[2023-03-24] MEDS: Levothyroxine Sodium 75 MCG TABLET PO (06:39)
[2023-03-24 08:08] VITALS: BP 121/58; PULSE 81; RESP 16; TEMP 36.6; O2SAT 96
[2023-03-24] MEDS: Rivastigmine Tartrate 1.5 MG CAPSULE PO ×2 (08:09→20:05)
[2023-03-24] MEDS: Hydroxyurea 500 MG CAPSULE PO (08:09)
[2023-03-24] MEDS: Aspirin Enteric Coated 81 MG TABLET.DR PO (08:09)
[2023-03-24] MEDS: Atorvastatin Calcium 20 MG TABLET PO (08:09)
[2023-03-24] MEDS: hydrOXYzine HCL 10 MG TABLET 20 MG PO ×2 (08:09→20:06)
[2023-03-24] MEDS: Escitalopram Oxalate 10 MG TABLET PO (08:09)
[2023-03-24] MEDS: Cyanocobalamin (Vitamin B-12) 1,000 MCG TABLET 1000 MCG PO (08:09)
[2023-03-24] MEDS: Topiramate 25 MG TABLET 100 MG PO ×2 (08:09→20:06)
[2023-03-24] MEDS: busPIRone HCl 5 MG TABLET PO ×2 (08:09→20:06)
[2023-03-24] MEDS: OLANZapine 5 MG TABLET PO ×2 (15:21→20:06)
[2023-03-24] MEDS: guaiFENesin 100 MG/5 ML LIQUID PO ×2 (15:23→20:20)
[2023-03-24] MEDS: Albuterol Sulfate 90 MCG 8 GM INHALER 2 PUFF INHALE ×2 (15:23→20:20)
--- NOTE | 2023-03-24 15:46 | P.PNPSI_ITS ---
Subjective Subjective Date of Service: 03/24/23 Reason For Visit: suicide attempt Interim History: reports SIBI x 2 today, conflict with RN, asking for new RN to be assigned to her today. digressive, over-inclusive. acknowledges she is having a behavioral health problem, agrees to increase HS zyprexa to 5 mg. per staff, s/p OD. reported to staff she still has lots of narcotics at her home she is planning to overdose on. demanding, entitled. sleeping, eating, taking meds. Mental Status Exam Mental Status Exam Patient Appearance: Well Grooomed and Appropriate Patient Orientation: Person and Situation Level of Consciousness: Awake and Appropriate Patient Behavior: Guarded and Passive Mood Description: Calm Affect Description: Labile Patient Cognition Impaired: No Ability to Follow Directions: Good Speech Pattern: Clear Hallucinations: None Delusions: Not Present Thought Process: Linear Thought Content: positive for Circumstantial Judgement: Fair Diagnostics Vital Signs (24Hr): Vital Signs - 24 hr 03/23/23 18:00 03/24/23 08:08 Temperature 97 F 97.8 F Pulse Rate 76 81 Respiratory Rate 16 Blood Pressure 145/66 H 121/58 L Pulse Oximetry 97 96 Oxygen Delivery Method Room Air Room Air BMI result Body Mass Index 33.4 Labs 03/12/23 21:57 03/14/23 07:57 Imaging Radiology Impressions: ITS Impressions Head CT 03/20/23 14:30 IMPRESSION: No acute intracranial abnormality. Background changes of chronic microangiopathy. Medications Medications Current Medications Al Hydroxide/Mg Hydroxide (Magnesium Hydrox/Alum Hydrox 30 Ml Oral.Susp) 30 ml PO Q6H PRN PRN Reason: Heartburn/Nausea Albuterol Sulfate (Albuterol Sulfate 90 Mcg 8 Gm Inhaler) 2 puff INHALE Q4H PRN PRN Reason: for wheezing Last Admin: 03/24/23 15:23 Dose: 2 puff Albuterol Sulfate (Albuterol Sulfate 90 Mcg 8 Gm Inhaler) 2 puff INHALE RQ4H PRN PRN Reason: Bronchospasm Artificial Tears (Artificial Tears 15 Ml Drops) 1 drop EYE-BOTH Q4H PRN PRN Reason: Dry Eyes Aspirin (Aspirin Enteric Coated 81 Mg Tablet.) 81 mg PO DAILY [facility] Last Admin: 03/24/23 08:09 Dose: 81 mg Atorvastatin Calcium (Atorvastatin Calcium 20 Mg Tablet) 20 mg PO DAILY [facility] Last Admin: 03/24/23 08:09 Dose: 20 mg Buspirone HCl (Buspirone Hcl 5 Mg Tablet) 5 mg PO BID [facility] Last Admin: 03/24/23 08:09 Dose: 5 mg Cyanocobalamin (Cyanocobalamin (Vitamin B-12) 1,000 Mcg Tablet) 1,000 mcg PO DAILY [facility] Last Admin: 03/24/23 08:09 Dose: 1,000 mcg Escitalopram Oxalate (Escitalopram Oxalate 10 Mg Tablet) 10 mg PO DAILY [facility] Last Admin: 03/24/23 08:09 Dose: 10 mg Guaifenesin (Guaifenesin 100 Mg/5 Ml Liquid) 5 ml PO Q4H PRN PRN Reason: Cough Last Admin: 03/24/23 15:23 Dose: 5 ml Hydroxyurea (Hydroxyurea 500 Mg Capsule) 500 mg PO DAILY [facility] Last Admin: 03/24/23 08:09 Dose: 500 mg Hydroxyzine HCl (Hydroxyzine Hcl 10 Mg Tablet) 20 mg PO BID [facility] Last Admin: 03/24/23 08:09 Dose: 20 mg Ibuprofen (Ibuprofen 400 Mg Tablet) 400 mg PO Q6H PRN PRN Reason: Pain, Moderate(Pain Scale 4-6) Last Admin: 03/23/23 20:32 Dose: 400 mg Levothyroxine Sodium (Levothyroxine Sodium 75 Mcg Tablet) 75 mcg PO DAILY@0630 [facility] Last Admin: 03/24/23 06:39 Dose: 75 mcg Magnesium Hydroxide (Milk Of Magnesia 30 Ml Oral.Susp) 30 ml PO DAILY PRN PRN Reason: Constipation Last Admin: 03/21/23 08:27 Dose: 30 ml Melatonin (Melatonin 3 Mg Tablet) 18 mg PO BEDTIME [facility] Last Admin: 03/23/23 20:31 Dose: 9 mg Olanzapine (Olanzapine 5 Mg Tablet) 5 mg PO Q4H PRN PRN Reason: agitation Last Admin: 03/24/23 15:21 Dose: 5 mg Olanzapine (Olanzapine 5 Mg Tablet) 5 mg PO BEDTIME [facility] Omeprazole (Omeprazole 40 Mg Capsule.) 40 mg PO DAILY@0630 [facility] Last Admin: 03/24/23 06:39 Dose: 40 mg Pharmacy Consult (Consult Rx Perform Med Rec) 1 each MISCELLANE ONCE PRN PRN Reason: Consult order Rivastigmine Tartrate (Rivastigmine Tartrate 1.5 Mg Capsule) 1.5 mg PO BID [facility] Last Admin: 03/24/23 08:09 Dose: 1.5 mg Topiramate (Topiramate 25 Mg Tablet) 100 mg PO BID [facility] Last Admin: 03/24/23 08:09 Dose: 100 mg Allergies Allergies Allergy/AdvReac Type Severity Reaction Status Date / Time grass pollen Allergy Mild unknown Verified 03/12/23 17:44 zoster vaccine live Allergy Mild HIVES Verified 03/12/23 17:44 [SHINGLES VACCINE] BARIUM CONTRAST Allergy Unknown DIFFICULTY Uncoded 03/12/23 17:44 BREATHING/FLUSHING Assessment & Plan Assessment & Plan (1) Mood disorder: Status: Acute Code(s): F39 - Unspecified mood [affective] disorder (2) Suicide attempt: Status: Acute Code(s): T14.91XA - Suicide attempt, initial encounter Plan The patient is an elderly black [place] female with a prior history of anxiety depression and irritability who drove herself to the emergency room after she took an intentional overdose of Tylenol and opioids in a suicidal attempt. The patient had been struggling with mood symptoms elicited mostly by depressive symptoms with neurovegetative and irritability. The patient was medically cleared and transferring to this facility for psychiatric stabilization. Plan 1. Gather collateral information. 2. The patient sinus CV and she is fully aware of Li warning. 3. We will continue with her antidepressants and anxyolitics. 4. Since the patient has mild paranoia, irritability and flight of ideas we will start a mood stabilizer. The patient has strong family history of mental illne ss, her father was bipolar. Topamax 25 mg po bid. March 16 we are increasing up to 50 mg p.o. b.i.d. to target mood lability. On we increase it up to 100 p.o. b.i.d. 5. Reassessment with results.. 6. Start Haldol 1 mg p.o. t.i.d. to target paranoia on March 15. Stopped due to EPS 7. Zyprexa 5 mg p.o. b.i.d. p.r.n. psychotic agitation. 8. CT scan without contrast head came back without new findings. 9. Start Zyprexa 2.5 mg p.o. q.h.s. on March 21. 10. Change melatonin and ibuprofen standing. 11. Start Exelon 1.5 mg p.o. b.i.d.. 12. Increased Zyprexa to 5 mg p.o. q.h.s. on March 23. 03/24: increase zyprexa to 5 mg QHS. otherwise continue prior mgmt. digressive, over-inclusive. Reason for continued inpatient stay Substantial Risk for: harm to self, inability to function and rapid decompensation Time Spent With Patient Time: Total time managing care of this patient today __25__ minutes.
--- NOTE | 2023-03-24 18:02 | PC.NURSE ---
PT RECEIVED A COOKIE ON HER TRAY FOR LUNCH. SHE APPROACHED ANOTHER STAFF AND ASKED FOR HIM TO CALL THE KITCH[employer] TO GET HER ANOTHER DESERT THAT COOKIE WAS OLD . ANOTHER STAFF REQUESTED THAT THE KITCHEN NOT BE CALLED THIS PT MAKES REGULAR REQUESTS TO THE KITCHEN, WHEN SHE HAS RECEIVED WHAT SHE ASKED FOR. PT THEN BECAME UPSET AND VERY QUICKLY STARTED YELLING. PT STATED SHE IS FIRED MY NURSE . SHE THEN REQUESTED THE IPAD A COPING SKILL, AND WENT TO HER ROOM TO CALM DOWN.
[2023-03-24 20:03] VITALS: BP 153/65; PULSE 72; RESP 16; TEMP 36.1; O2SAT 99
[2023-03-24] MEDS: Melatonin 3 MG TABLET 18 MG PO (20:06)
[2023-03-25] MEDS: Levothyroxine Sodium 75 MCG TABLET PO (06:05)
[2023-03-25] MEDS: Omeprazole 40 MG CAPSULE.DR PO (06:05)
[2023-03-25 08:05] VITALS: BP 133/70; PULSE 80; RESP 18; TEMP 36.2; O2SAT 96
[2023-03-25] MEDS: Escitalopram Oxalate 10 MG TABLET PO (08:16)
[2023-03-25] MEDS: Rivastigmine Tartrate 1.5 MG CAPSULE PO ×2 (08:16→21:20)
[2023-03-25] MEDS: Aspirin Enteric Coated 81 MG TABLET.DR PO (08:16)
[2023-03-25] MEDS: Atorvastatin Calcium 20 MG TABLET PO (08:16)
[2023-03-25] MEDS: busPIRone HCl 5 MG TABLET PO ×2 (08:16→21:20)
[2023-03-25] MEDS: Topiramate 25 MG TABLET 100 MG PO ×2 (08:17→21:20)
[2023-03-25] MEDS: hydrOXYzine HCL 10 MG TABLET 20 MG PO ×2 (08:17→21:20)
[2023-03-25] MEDS: Hydroxyurea 500 MG CAPSULE PO (08:17)
[2023-03-25] MEDS: Cyanocobalamin (Vitamin B-12) 1,000 MCG TABLET 1000 MCG PO (08:18)
[2023-03-25] MEDS: Albuterol Sulfate 90 MCG 8 GM INHALER 2 PUFF INHALE ×2 (08:37→21:35)
[2023-03-25] MEDS: guaiFENesin 100 MG/5 ML LIQUID PO ×2 (08:37→21:35)
--- NOTE | 2023-03-25 10:46 | P.PNPSI_ITS ---
Subjective Subjective Date of Service: 03/25/23 Reason For Visit: suicide attempt Interim History: verbose, pleasant, over-involved with peers' affairs. wanting to know when manohar will be in so she can discuss having manohar have her roommate's brother bring in some shoes for her roommate and not focus on the will so much. per staff, labile. no issues. eating, sleeping, taking meds. Mental Status Exam Mental Status Exam Patient Appearance: Well Grooomed and Appropriate Patient Orientation: Person and Situation Level of Consciousness: Awake and Appropriate Patient Behavior: Talkative Mood Description: Calm Affect Description: Labile Patient Cognition Impaired: No Ability to Follow Directions: Good Speech Pattern: Clear Hallucinations: None Delusions: Not Present Thought Process: Linear Thought Content: positive for Circumstantial Judgement: Fair Diagnostics Vital Signs (24Hr): Vital Signs - 24 hr 03/24/23 20:03 03/25/23 08:05 Temperature 97.0 F 97.1 F Pulse Rate 72 80 Respiratory Rate 16 18 Blood Pressure 153/65 H 133/70 Pulse Oximetry 99 96 Oxygen Delivery Method Room Air Room Air BMI result Body Mass Index 33.4 Labs 03/12/23 21:57 03/14/23 07:57 Imaging Radiology Impressions: ITS Impressions Head CT 03/20/23 14:30 IMPRESSION: No acute intracranial abnormality. Background changes of chronic microangiopathy. Medications Medications Current Medications Al Hydroxide/Mg Hydroxide (Magnesium Hydrox/Alum Hydrox 30 Ml Oral.Susp) 30 ml PO Q6H PRN PRN Reason: Heartburn/Nausea Albuterol Sulfate (Albuterol Sulfate 90 Mcg 8 Gm Inhaler) 2 puff INHALE Q4H PRN PRN Reason: for wheezing Last Admin: 03/25/23 08:37 Dose: 2 puff Albuterol Sulfate (Albuterol Sulfate 90 Mcg 8 Gm Inhaler) 2 puff INHALE RQ4H PRN PRN Reason: Bronchospasm Artificial Tears (Artificial Tears 15 Ml Drops) 1 drop EYE-BOTH Q4H PRN PRN Reason: Dry Eyes Aspirin (Aspirin Enteric Coated 81 Mg Tablet.) 81 mg PO DAILY [facility] Last Admin: 03/25/23 08:16 Dose: 81 mg Atorvastatin Calcium (Atorvastatin Calcium 20 Mg Tablet) 20 mg PO DAILY [facility] Last Admin: 03/25/23 08:16 Dose: 20 mg Buspirone HCl (Buspirone Hcl 5 Mg Tablet) 5 mg PO BID [facility] Last Admin: 03/25/23 08:16 Dose: 5 mg Cyanocobalamin (Cyanocobalamin (Vitamin B-12) 1,000 Mcg Tablet) 1,000 mcg PO DAILY [facility] Last Admin: 03/25/23 08:18 Dose: 1,000 mcg Escitalopram Oxalate (Escitalopram Oxalate 10 Mg Tablet) 10 mg PO DAILY [facility] Last Admin: 03/25/23 08:16 Dose: 10 mg Guaifenesin (Guaifenesin 100 Mg/5 Ml Liquid) 5 ml PO Q4H PRN PRN Reason: Cough Last Admin: 03/25/23 08:37 Dose: 5 ml Hydroxyurea (Hydroxyurea 500 Mg Capsule) 500 mg PO DAILY [facility] Last Admin: 03/25/23 08:17 Dose: 500 mg Hydroxyzine HCl (Hydroxyzine Hcl 10 Mg Tablet) 20 mg PO BID [facility] Last Admin: 03/25/23 08:17 Dose: 20 mg Ibuprofen (Ibuprofen 400 Mg Tablet) 400 mg PO Q6H PRN PRN Reason: Pain, Moderate(Pain Scale 4-6) Last Admin: 03/23/23 20:32 Dose: 400 mg Levothyroxine Sodium (Levothyroxine Sodium 75 Mcg Tablet) 75 mcg PO DAILY@0630 [facility] Last Admin: 03/25/23 06:05 Dose: 75 mcg Magnesium Hydroxide (Milk Of Magnesia 30 Ml Oral.Susp) 30 ml PO DAILY PRN PRN Reason: Constipation Last Admin: 03/21/23 08:27 Dose: 30 ml Melatonin (Melatonin 3 Mg Tablet) 18 mg PO BEDTIME [facility] Last Admin: 03/24/23 20:06 Dose: 18 mg Olanzapine (Olanzapine 5 Mg Tablet) 5 mg PO Q4H PRN PRN Reason: agitation Last Admin: 03/24/23 15:21 Dose: 5 mg Olanzapine (Olanzapine 5 Mg Tablet) 5 mg PO BEDTIME [facility] Last Admin: 03/24/23 20:06 Dose: 5 mg Omeprazole (Omeprazole 40 Mg Capsule.Dr) 40 mg PO DAILY@0630 [facility] Last Admin: 03/25/23 06:05 Dose: 40 mg Pharmacy Consult (Consult Rx Perform Med Rec) 1 each MISCELLANE ONCE PRN PRN Reason: Consult order Rivastigmine Tartrate (Rivastigmine Tartrate 1.5 Mg Capsule) 1.5 mg PO BID [facility] Last Admin: 03/25/23 08:16 Dose: 1.5 mg Topiramate (Topiramate 25 Mg Tablet) 100 mg PO BID [facility] Last Admin: 03/25/23 08:17 Dose: 100 mg Allergies Allergies Allergy/AdvReac Type Severity Reaction Status Date / Time grass pollen Allergy Mild unknown Verified 03/12/23 17:44 zoster vaccine live Allergy Mild HIVES Verified 03/12/23 17:44 [SHINGLES VACCINE] BARIUM CONTRAST Allergy Unknown DIFFICULTY Uncoded 03/12/23 17:44 BREATHING/FLUSHING Assessment & Plan Assessment & Plan (1) Mood disorder: Status: Acute Code(s): F39 - Unspecified mood [affective] disorder (2) Suicide attempt: Status: Acute Code(s): T14.91XA - Suicide attempt, initial encounter Plan The patient is an elderly black [place] female with a prior history of anxiety depression and irritability who drove herself to the emergency room after she took an intentional overdose of Tylenol and opioids in a suicidal attempt. The patient had been struggling with mood symptoms elicited mostly by depressive symptoms with neurovegetative and irritability. The patient was medically cleared and transferring to this facility for psychiatric stabilization. Plan 1. Gather collateral information. 2. The patient sinus CV and she is fully aware of Li warning. 3. We will continue with her antidepressants and anxyolitics. 4. Since the patient has mild paranoia, irritability and flight of ideas we will start a mood stabilizer. The patient has strong family history of mental illness, her father was bipolar. Topamax 25 mg po bid. March 16 we are increasing up to 50 mg p.o. b.i.d. to target mood lability. On we increase it up to 100 p.o. b.i.d. 5. Reassessment with results.. 6. Start Haldol 1 mg p.o. t.i.d. to target paranoia on March 15. Stopped due to EPS 7. Zyprexa 5 mg p.o. b.i.d. p.r.n. psychotic agitation. 8. CT scan without contrast head came back without new findings. 9. Start Zyprexa 2.5 mg p.o. q.h.s. on March 21. 10. Change melatonin and ibuprofen standing. 11. Start Exelon 1.5 mg p.o. b.i.d.. 12. Increased Zyprexa to 5 mg p.o. q.h.s. on March 23. 03/24: increase zyprexa to 5 mg QHS. otherwise continue prior mgmt. digressive, over-inclusive. 03/25: perhaps a tad more organized/linear and topical than yesterday. c/o some daytime tiredness. hyperverbal and over-involved in peers' affairs. continue current mgmt for now. Reason for continued inpatient stay Substantial Risk for: inability to function and rapid decompensation Time Spent With Patient Time: Total time managing care of this patient today ____ minutes.
[2023-03-25 18:00] VITALS: BP 143/65; PULSE 83; RESP 18; TEMP 36.4; O2SAT 97
[2023-03-25] MEDS: Melatonin 3 MG TABLET 18 MG PO (21:19)
[2023-03-25] MEDS: OLANZapine 5 MG TABLET PO ×2 (21:20→21:34)
[2023-03-25] MEDS: Ibuprofen 400 MG TABLET PO (21:32)
[2023-03-25] MEDS: Artificial Tears 15 ML DROPS 1 DROP EYE-BOTH (21:35)
[2023-03-26] MEDS: Albuterol Sulfate 90 MCG 8 GM INHALER 2 PUFF INHALE ×4 (02:56→20:38)
[2023-03-26] MEDS: guaiFENesin 100 MG/5 ML LIQUID PO ×3 (02:58→18:24)
[2023-03-26] MEDS: Levothyroxine Sodium 75 MCG TABLET PO (06:46)
[2023-03-26] MEDS: Omeprazole 40 MG CAPSULE.DR PO (06:46)
[2023-03-26 08:20] VITALS: BP 123/64; PULSE 78; RESP 18; TEMP 36.3; O2SAT 96
[2023-03-26] MEDS: Escitalopram Oxalate 10 MG TABLET PO (08:54)
[2023-03-26] MEDS: hydrOXYzine HCL 10 MG TABLET 20 MG PO ×2 (08:54→20:39)
[2023-03-26] MEDS: Cyanocobalamin (Vitamin B-12) 1,000 MCG TABLET 1000 MCG PO (08:54)
[2023-03-26] MEDS: Ibuprofen 400 MG TABLET PO ×2 (08:54→17:24)
[2023-03-26] MEDS: busPIRone HCl 5 MG TABLET PO ×2 (08:54→20:39)
[2023-03-26] MEDS: Hydroxyurea 500 MG CAPSULE PO (08:55)
[2023-03-26] MEDS: Atorvastatin Calcium 20 MG TABLET PO (08:55)
[2023-03-26] MEDS: Aspirin Enteric Coated 81 MG TABLET.DR PO (08:55)
[2023-03-26] MEDS: Topiramate 25 MG TABLET 100 MG PO ×2 (08:55→20:39)
[2023-03-26] MEDS: Rivastigmine Tartrate 1.5 MG CAPSULE 3 MG PO ×2 (09:07→20:38)
--- NOTE | 2023-03-26 11:14 | HO.PSYCHPN ---
Subjective Subjective Date of Service: 03/26/23 Reason For Visit: suicide attempt Subjective Notes: Conditional Voluntary Interim History: The nursing staff reported the patient had been intrusive at times but easily redirectable. She slept well last night. The long term care social worker reported that she spoke with her daughter she could be safely discharged tomorrow. On interview, the patient denies new symptoms denies side effects and she agreed to increase Exelon up to 3 mg p.o. b.i.d. to target dementia. Her mood is much better. Mental Status Exam Mental Status Exam Patient Appearance: Well Grooomed and Appropriate Patient Orientation: Person, Place and Situation Level of Consciousness: Awake and Appropriate Patient Behavior: Guarded and Passive Mood Description: Withdrawn Affect Description: Constricted Patient Cognition Impaired: Yes Ability to Follow Directions: Good Speech Pattern: Clear Hallucinations: None Delusions: Not Present Thought Process: Distracted and Linear Thought Content: positive for [place] and positive for Circumstantial Judgement: Fair Diagnostics Vital Signs (24Hr): Vital Signs - 24 hr 03/25/23 18:00 03/26/23 08:20 Temperature 97.5 F 97.3 F Pulse Rate 83 78 Respiratory Rate 18 18 Blood Pressure 143/65 H 123/64 Pulse Oximetry 97 96 Oxygen Delivery Method Room Air Room Air BMI result Body Mass Index 33.4 Labs 03/12/23 21:57 03/14/23 07:57 Imaging Radiology Impressions: ITS Impressions Head CT 03/20/23 14:30 IMPRESSION: No acute intracranial abnormality. Background changes of chronic microangiopathy. Medications Medications Current Medications Al Hydroxide/Mg Hydroxide (Magnesium Hydrox/Alum Hydrox 30 Ml Oral.Susp) 30 ml PO Q6H PRN PRN Reason: Heartburn/Nausea Albuterol Sulfate (Albuterol Sulfate 90 Mcg 8 Gm Inhaler) 2 puff INHALE Q4H PRN PRN Reason: for wheezing Last Admin: 03/26/23 08:53 Dose: 2 puff Albuterol Sulfate (Albuterol Sulfate 90 Mcg 8 Gm Inhaler) 2 puff INHALE RQ4H PRN PRN Reason: Bronchospasm Artificial Tears (Artificial Tears 15 Ml Drops) 1 drop EYE-BOTH Q4H PRN PRN Reason: Dry Eyes Last Admin: 03/25/23 21:35 Dose: 1 drop Aspirin (Aspirin Enteric Coated 81 Mg Tablet.) 81 mg PO DAILY SOLO Last Admin: 03/26/23 08:55 Dose: 81 mg Atorvastatin Calcium (Atorvastatin Calcium 20 Mg Tablet) 20 mg PO DAILY [facility] Last Admin: 03/26/23 08:55 Dose: 20 mg Buspirone HCl (Buspirone Hcl 5 Mg Tablet) 5 mg PO BID [facility] Last Admin: 03/26/23 08:54 Dose: 5 mg Cyanocobalamin (Cyanocobalamin (Vitamin B-12) 1,000 Mcg Tablet) 1,000 mcg PO DAILY [facility] Last Admin: 03/26/23 08:54 Dose: 1,000 mcg Escitalopram Oxalate (Escitalopram Oxalate 10 Mg Tablet) 10 mg PO DAILY [facility] Last Admin: 03/26/23 08:54 Dose: 10 mg Guaifenesin (Guaifenesin 100 Mg/5 Ml Liquid) 5 ml PO Q4H PRN PRN Reason: Cough Last Admin: 03/26/23 08:53 Dose: 5 ml Hydroxyurea (Hydroxyurea 500 Mg Capsule) 500 mg PO DAILY [facility] Last Admin: 03/26/23 08:55 Dose: 500 mg Hydroxyzine HCl (Hydroxyzine Hcl 10 Mg Tablet) 20 mg PO BID [facility] Last Admin: 03/26/23 08:54 Dose: 20 mg Ibuprofen (Ibuprofen 400 Mg Tablet) 400 mg PO Q6H PRN PRN Reason: Pain, Moderate(Pain Scale 4-6) Last Admin: 03/26/23 08:54 Dose: 400 mg Levothyroxine Sodium (Levothyroxine Sodium 75 Mcg Tablet) 75 mcg PO DAILY@0630 [facility] Last Admin: 03/26/23 06:46 Dose: 75 mcg Magnesium Hydroxide (Milk Of Magnesia 30 Ml Oral.Susp) 30 ml PO DAILY PRN PRN Reason: Constipation Last Admin: 03/21/23 08:27 Dose: 30 ml Melatonin (Melatonin 3 Mg Tablet) 18 mg PO BEDTIME [facility] Last Admin: 03/25/23 21:19 Dose: 18 mg Olanzapine (Olanzapine 5 Mg Tablet) 5 mg PO Q4H PRN PRN Reason: agitation Last Admin: 03/25/23 21:34 Dose: 5 mg Olanzapine (Olanzapine 5 Mg Tablet) 5 mg PO BEDTIME [facility] Last Admin: 03/25/23 21:20 Dose: 5 mg Omeprazole (Omeprazole 40 Mg Capsule.Dr) 40 mg PO DAILY@0630 [facility] Last Admin: 03/26/23 06:46 Dose: 40 mg Pharmacy Consult (Consult Rx Perform Med Rec) 1 each MISCELLANE ONCE PRN PRN Reason: Consult order Rivastigmine Tartrate (Rivastigmine Tartrate 1.5 Mg Capsule) 3 mg PO BID [facility] Last Admin: 03/26/23 09:07 Dose: 3 mg Topiramate (Topiramate 25 Mg Tablet) 100 mg PO BID [facility] Last Admin: 03/26/23 08:55 Dose: 100 mg Allergies Allergies Allergy/AdvReac Type Severity Reaction Status Date / Time grass pollen Allergy Mild unknown Verified 03/12/23 17:44 zoster vaccine live Allergy Mild HIVES Verified 03/12/23 17:44 [SHINGLES VACCINE] BARIUM CONTRAST Allergy Unknown DIFFICULTY Uncoded 03/12/23 17:44 BREATHING/FLUSHING Assessment & Plan Assessment & Plan (1) Mood disorder: Status: Acute Code(s): F39 - Unspecified mood [affective] disorder (2) Suicide attempt: Status: Acute Code(s): T14.91XA - Suicide attempt, initial encounter Plan The patient is an elderly black [place]yanese female with a prior history of anxiety depression and irritability who drove herself to the emergency room after she took an intentional overdose of Tylenol and opioids in a suicidal attempt. The patient had been struggling with mood symptoms elicited mostly by depressive symptoms with neurovegetative and irritability. The patient was medically cleared and transferring to this facility for psychiatric stabilization. Plan 1. Gather collateral information. 2. The patient sinus CV and she is fully aware of Li warning. 3. We will continue with her antidepressants and anxyolitics. 4. Since the patient has mild paranoia, irritability and flight of ideas we will start a mood stabilizer. The patient has strong family history of mental illness, her father was bipolar. Topamax 25 mg po bid. March 16 we are increasing up to 50 mg p.o. b.i.d. to target mood lability. On we increase it up to 100 p.o. b.i.d. 5. Reassessment with results.. 6. Start Haldol 1 mg p.o. t.i.d. to target paranoia on March 15. Stopped due to EPS 7. Zyprexa 5 mg p.o. b.i.d. p.r.n. psychotic agitation. 8. CT scan without contrast head came back without new findings. 9. Start Zyprexa 2.5 mg p.o. q.h.s. on March 21. 10. Change melatonin and ibuprofen standing. 11. Start Exelon 1.5 mg p.o. b.i.d.. 12. Increased Zyprexa to 5 mg p.o. q.h.s. on March 23. 13. Discharge for tomorrow March 27. Reason for continued inpatient stay Substantial Risk for: inability to function, rapid decompensation and med/psych decompensation Time Spent With Patient Time: Total time managing care of this patient today _20___ minutes.
[2023-03-26] MEDS: OLANZapine 5 MG TABLET PO ×2 (17:24→20:39)
[2023-03-26 18:00] VITALS: BP 128/59; PULSE 74; RESP 18; TEMP 36.2; O2SAT 97
[2023-03-26] MEDS: Melatonin 3 MG TABLET 18 MG PO (20:38)
[2023-03-26] MEDS: Artificial Tears 15 ML DROPS 1 DROP EYE-BOTH (20:38)
[2023-03-27] MEDS: Levothyroxine Sodium 75 MCG TABLET PO (06:42)
[2023-03-27] MEDS: Omeprazole 40 MG CAPSULE.DR PO (06:42)
[2023-03-27 08:20] VITALS: BP 137/66; PULSE 98; RESP 18; TEMP 36.1; O2SAT 98
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
[2023-03-27] MEDS: Albuterol Sulfate 90 MCG 8 GM INHALER 2 PUFF INHALE (08:39)
[2023-03-27] MEDS: guaiFENesin 100 MG/5 ML LIQUID PO (08:39)
[2023-03-27] MEDS: Ibuprofen 400 MG TABLET PO (08:39)
[2023-03-27] MEDS: Atorvastatin Calcium 20 MG TABLET PO (08:40)
[2023-03-27] MEDS: hydrOXYzine HCL 10 MG TABLET 20 MG PO (08:40)
[2023-03-27] MEDS: Escitalopram Oxalate 10 MG TABLET PO (08:40)
[2023-03-27] MEDS: Rivastigmine Tartrate 1.5 MG CAPSULE 3 MG PO (08:40)
[2023-03-27] MEDS: Topiramate 25 MG TABLET 100 MG PO (08:40)
[2023-03-27] MEDS: busPIRone HCl 5 MG TABLET PO (08:40)
[2023-03-27] MEDS: Hydroxyurea 500 MG CAPSULE PO (08:40)
[2023-03-27] MEDS: Cyanocobalamin (Vitamin B-12) 1,000 MCG TABLET 1000 MCG PO (08:41)
[2023-03-27] MEDS: Aspirin Enteric Coated 81 MG TABLET.DR PO (08:41)
== END 2023-03-27 11:05 | disposition home or self-care (01) | DRG 885 ==
LOC: HO.ED 03-13 18:05 → HO.PGERI 03-13 19:06
PROVIDERS: Physician Assistant Medical; Admitting Provider Psychiatry & Neurology Psychiatry; Emergency Provider Emergency Medicine; PCP Internal Medicine; Visit Provider Psychiatry & Neurology Psychiatry
DX: F39 Unspecified mood [affective] disorder (principal); J44.9 Chronic obstructive pulmonary disease, unspecified; E03.9 Hypothyroidism, unspecified; G47.33 Obstructive sleep apnea (adult) (pediatric); T39.1X2A Poisoning by 4-Aminophenol derivatives, intentional self-harm, initial encounter; T40.2X2A Poisoning by other opioids, intentional self-harm, initial encounter; Z20.822 Contact with and (suspected) exposure to COVID-19; Z87.891 Personal history of nicotine dependence; Z79.82 Long term (current) use of aspirin; Z79.890 Hormone replacement therapy; Z79.899 Other long term (current) drug therapy
CPT/HCPCS: 36415; 70450; 80048; 80053; 80061; 80076; 80143; 80179; 80307; 81001; 82140; 82607; 82746; 83735; 84439; 84443; 85025; 85610; 87086; 87635; 93005; 99285; J2060; S9485

== ENCOUNTER → 2023-03-12 17:41 | Outpatient (BNV) | payer OTHER, MEDICAID, SELFPAY | PROVIDERS: Emergency Provider Emergency Medicine; PCP Internal Medicine; Visit Provider Internal Medicine Cardiovascular Disease | DX: R41.82 Altered mental status, unspecified (principal) | CPT/HCPCS: 93010 ==

== ENCOUNTER 2023-03-13 19:00 | Outpatient (BNV) | payer OTHER, MEDICAID, SELFPAY | END 2023-03-14 08:00 | PROVIDERS: Admitting Provider Psychiatry & Neurology Psychiatry; Emergency Provider Emergency Medicine; PCP Internal Medicine; Visit Provider Internal Medicine Cardiovascular Disease | DX: R41.82 Altered mental status, unspecified (principal) | CPT/HCPCS: 93010 ==

== ENCOUNTER → 2023-03-13 19:00 | Outpatient (BNV) | payer OTHER, MEDICAID, SELFPAY | PROVIDERS: Admitting Provider Psychiatry & Neurology Psychiatry; Emergency Provider Emergency Medicine; PCP Internal Medicine; Visit Provider Psychiatry & Neurology Psychiatry | DX: F39 Unspecified mood [affective] disorder (principal); T14.91XA Suicide attempt, initial encounter | CPT/HCPCS: 99222; 99231; 99232; 99238; 99499 ==

== ENCOUNTER 2023-03-29 07:46 | Outpatient (REF) | payer OTHER, SELFPAY ==
[2023-03-29 08:07] LABS: MANUAL DIFF FLAG NO
[2023-03-29 09:05] LABS: Basophils Percent Auto 0.5 % (0-2); Eosinophils Absolute Auto 0.4 X10*3/uL (0.0-0.4); Eosinophils Percent Auto 6.6 % (0-4); Hematocrit 36.3 % (37.0-47.0); Hemoglobin 11.5 g/dl (12.0-16.0); Imm Gran Abs Auto 0.02 X10*3/uL (0.00-0.03); Imm Gran Pct Auto 0.3 % (0.0-0.4); Lymphocytes Absolute Auto 1.8 X10*3/uL (1.2-4.9); Lymphocytes Percent Auto 30.7 % (20-40); Mean Corpuscular HGB Conc 31.7 g/dl (31.0-35.0); Mean Corpuscular Hemoglobin 31.5 pg (27.0-33.0); Mean Corpuscular Volume 99.5 fL (80.0-98.0); Mean Platelet Volume 9.9 fL (9.4-12.3); Monocytes Absolute Auto 0.4 X10*3/uL (0.1-1.2); Monocytes Percent Auto 6.6 % (2-11); Neutrophils Absolute Auto 3.2 x10*3/uL (2.0-8.3); Neutrophils Percent Auto 55.3 % (45-73); Platelet Count 308 X10*3/uL (160-400); Red Blood Count 3.65 X10*6/uL (4.20-5.50); Red Cell Distribution Width 15.5 % (11.0-16.0); White Blood Count 5.8 X10*3/uL (4.8-10.8)
[2023-03-29 09:44] LABS: Alanine Aminotransferase 11 U/L (0-31); Albumin Level 3.7 g/dL (3.5-5.0); Alkaline Phosphatase 119 U/L (39-117); Anion Gap 11 (12-20); Aspartate Amino Transferase 17 U/L (5-31); Bilirubin Total 0.1 mg/dL (0.0-1.0); Blood Urea Nitrogen 17 mg/dL (9-16); Calcium 8.9 mg/dL (8.4-10.2); Carbon Dioxide 21 mmol/L (22-29); Chloride 117 mmol/L (96-108); Cholesterol 181 mg/dL (<200); Estimated Glomerular Filt Rate 60; Glucose Fasting 108 mg/dL (60-99); HDL Cholesterol 49 mg/dL (>40); LDL Cholesterol Calculated 112 mg/dL (<100); Potassium 3.7 mmol/L (3.3-5.1); Sodium 145 mmol/L (135-145); Total Protein 6.7 g/dL (6.5-8.0); Triglycerides 100 mg/dL (<150)
[2023-03-29 10:04] LABS: Folate 3.8 ng/mL (> or = 4.0); Vitamin B12 1174 pg/mL (200-900)
[2023-03-29 10:10] LABS: Thyroid Stimulating Hormone 1.79 uIU/mL (0.32-4.0); Vitamin D 25-OH Total 44.3 ng/mL (>30)
== END 2023-03-29 07:47 | disposition home or self-care (01) ==
LOC: HO.LAB 07:46
PROVIDERS: PCP Internal Medicine; Visit Provider Internal Medicine
DX: E53.8 Deficiency of other specified B group vitamins (principal); E03.9 Hypothyroidism, unspecified; M25.559 Pain in unspecified hip; E55.9 Vitamin D deficiency, unspecified; E78.5 Hyperlipidemia, unspecified
CPT/HCPCS: 36415; 80053; 80061; 82306; 82607; 82746; 84443; 85025

== ENCOUNTER 2023-04-04 11:50 | Outpatient (AMB) | payer OTHER, SELFPAY ==
[2023-04-04 11:51] VITALS: BP 130/62; PULSE 82; O2SAT 97; BMI 32.9
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
== END 2023-04-04 12:35 | disposition home or self-care (01) ==
PROVIDERS: PCP Internal Medicine; Visit Provider Nurse Practitioner Family
DX: Z09 Encounter for follow-up examination after completed treatment for conditions other than malignant neoplasm (principal); F39 Unspecified mood [affective] disorder; T14.91XA Suicide attempt, initial encounter
CPT/HCPCS: 99213

== ENCOUNTER 2023-04-11 13:52 | Outpatient (AMB) | payer OTHER, MEDICAID, SELFPAY ==
[2023-04-11 14:02] VITALS: BP 100/52; PULSE 74; O2SAT 97; BMI 33.6
--- NOTE | 2023-04-11 14:02 | MHC.OFFVIS ---
Intake Vital Signs 04/11/23 14:02 Height 5 ft 1 in Weight 178 lb BMI 33.6 BP 100/52 L Blood Pressure Location Lt brachial Position Sitting Pulse 74 Pulse Source Pulse Oximeter Pulse Oximetry (%) 97 Oxygen Delivery Method Room Air Intake Visit Reasons: COPD Intake Note: pt is here for follow up and states her breathing is doing well, continuing to loose weight, no c-pap. Service Engineer Required: No Allergies grass pollen Allergy (Mild, Verified 04/11/23 14:18) unknown zoster vaccine live [SHINGLES VACCINE] Allergy (Mild, Verified 04/11/23 14:18) HIVES BARIUM CONTRAST Allergy (Unknown, Uncoded 04/11/23 14:18) DIFFICULTY BREATHING/FLUSHING Medication List - Last Reconciled 04/11/23 by Earnest Chaparro MD albuterol sulfate 90 mcg/actuation 2 puffs inhalation Q4-6H PRN 30 days aspirin 81 mg PO DAILY 90 days atorvastatin 20 mg PO DAILY 30 days iqoympfjyl-zrjygbtp-lrtcqpyvgu 160-9-4.8 mcg/actuation (Breztri Aerosphere) 2 inhalations inhalation BID 30 days buspirone 5 mg PO BID 30 days cyanocobalamin (vitamin B-12) 1,000 mcg PO DAILY 30 days escitalopram oxalate 10 mg PO DAILY 30 days hydroxyurea 500 mg PO DAILY 30 days hydroxyzine HCl 20 mg (2 x 10 mg) PO BID 30 days ibuprofen 400 mg PO Q6H PRN 30 days levothyroxine 75 mcg PO DAILY@0600 30 days melatonin 20 mg (2 x 10 mg) PO BEDTIME PRN 90 days olanzapine 5 mg PO BEDTIME 30 days omeprazole 40 mg PO DAILY@0630 30 days peg [id number]-uapjfhmf 1-0.2-0.2 % (Artificial Tears ([id number])) 1 drp ophthalmic (eye) Q4H PRN 30 days rivastigmine tartrate 3 mg (2 x 1.5 mg) PO BID 30 days topiramate 100 mg (4 x 25 mg) PO BID 30 days Do you need a note to return to daycare/school/sports/work: No HPI COPD HPI Details 67 years old very pleasant female is here for follow-up after more than 6 months. She states that breathing love she has remained very stable and she is very happy with the use of breaths tree 2 inhalations b.i.d.. She uses Ventolin but only once in a while. She has had no acute exacerbation. She can do her day-to-day work without getting short of breath. . Cough is also minimal As far as sleep apnea is concerned she is not using CPAP, she sleeps on her side, and sleeps good for 6-7 hours every night without any problem. Altogether she has lost about 20 lb of weight which has helped. [facility] Medical History (Updated 04/11/23 @ 14:34 by Earnest Chaparro MD) Anxiety Asthma BMI 38.0-38.9,adult Chronic diarrhea COPD (chronic obstructive pulmonary disease) Depression Dyslipidemia Dysphagia Eczema Essential thrombocytosis Hiatal hernia History of laryngeal cancer Hyperlipidemia Hypothyroidism Hypovitaminosis D Obesity (BMI 30-39.9) JONATHAN (obstructive sleep apnea) JONATHAN on CPAP Personal history of nicotine dependence Renal stones Surgical History History of colonoscopy History of endoscopy History of hand surgery History of repair of hiatal hernia History of surgery on left wrist Family History Father Mental health disorder CAD (coronary artery disease) Mother S/P CABG x 3 Asthma Brother Substance use disorder Father Diabetes Maternal Grandmother Breast cancer Social History Household Members: None Housing: Apartment Are you a primary child care development specialist to a significant other at home: No Do you presently have visiting nurse or other home services: No Alcohol intake: never Patient Tobacco Use Status: Former Tobacco user Quit Date: 5 yrs ago Tobacco use type: Cigarette Years Smoked: 45 e-Cigarette/Vaping Use: Never Used Second Hand Smoke Exposure: No service: No Current occupational status: retired Current occupation: right handed Sexual orientation: Straight/Heterosexual Cognitive needs: No Hearing needs: No Vision needs: No Review of Systems Const All systems reviewed & are unremarkable except as noted in HPI and below Eyes Reports no additional complaints ENT Reports nasal congestion (Intermittent) Card Denies chest pain, Denies irregular heart rhythm, Denies leg edema and Reports dyspnea on exertion (Moderate) Resp Reports cough, Reports dyspnea on exertion (Moderate) and Denies wheezing (Mild intermittent) GI Reports no additional complaints Reports no additional complaints Musc Reports no additional complaints Skin/Breast Reports system reviewed and no additional complaints, except as documented Neuro Reports no additional complaints Psych Reports anxiety and Reports depression (Treated with med) Aller/Immun Denies wheezing (Mild intermittent) Physical Exam Vital Signs: Last Vital Signs Pulse 74 04/11/23 14:02 BP 100/52 L 04/11/23 14:02 Pulse Ox 97 04/11/23 14:02 Oxygen Delivery Method Room Air 04/11/23 14:02 BMI result Body Mass Index 33.6 Const General: comfortable, no acute distress, alert and awake Orientation/consciousness: patient oriented x3 HEENT Head: Yes normal to inspection General nose exam: No nasal polyps present and No nasal discharge present Face and sinus: Yes sinuses nontender Mouth: oropharynx abnormals (Narrow and crowded, Mallampati class 4) Throat: Yes posterior oropharynx normal Eyes General: appearance normal, both eyes and all related structures Neck Neck: Yes normal visual inspection, Yes no lymphadenopathy, Yes trachea midline, Yes no JVD and Yes other (Neck circumference 15 in) Thyroid: Thyroid normal Chest Chest palpation & inspection: normal inspection of the chest, normal palpation of entire chest wall and no tenderness Resp Other: Percussion note resonant, breath sounds are quite distant especially over the basilar areas. Expiratory phase prolonged. No wheezes rhonchi or crepitations are heard today. Cardio Palpation: normal PMI Rate: regular rate Rhythm: regular rhythm Heart sounds: no gallops and no murmurs GI Palpation (GI): Soft to palpation, nontender, No hepatosplenomegaly present, no masses and Other GI palpation findings present (Abdomen is obese and protuberant) Auscultation: normal bowel sounds Back/Spine/Pelvis Thoracic/Lumbar Spine: thoracic and lumbar spine normal to inspection Skin General skin exam: no rashes or lesions noted Neuro General: patient oriented x3 and no focal motor deficits Cranial nerves: Yes CN's II-XII intact bilaterally Extrem General: Yes normal to inspection, Yes no clubbing, cyanosis or edema and Yes no calf tenderness Psych Appearance: grossly normal and well kempt Speech and movement: Normal speech and movement present Assessment & Plan Assessment & Plan (1) Obesity (BMI 30-39.9): Comment: Patient remains moderately obese but she is losing weight gradually. Code(s): E66.9 - Obesity, unspecified (2) COPD (chronic obstructive pulmonary disease): Comment: Patient has moderately severe obstructive airway disorder. It is well controlled with the current regimen. Her last pulmonary function test was at [facility], quite a few years ago. SHE IS BEING SCHEDULED TO HAVE AN TO DATE PULMONARY FUNCTION TEST, TO SEE IF SHE NEEDS THE REAR ADJUSTMENT IN HER MEDICAL REGIMEN. Code(s): J44.9 - Chronic obstructive pulmonary disease, unspecified (3) JONATHAN (obstructive sleep apnea): Comment: PATIENT IS KNOWN CASE OF OBSTRUCTIVE SLEEP APNEA BUT SINCE SHE HAS LOST WEIGHT SYMPTOMS ARE MUCH IMPROVED AND SHE SLEEPS WELL WITHOUT THE CPAP. ENCOURAGED TO KEEP ON LOSING WEIGHT. Code(s): G47.33 - Obstructive sleep apnea (adult) (pediatric) Orders: Orders PFT pulmonary function test Today E66.9 - Obesity, unspecified, G47.33 - Obstructive sleep apnea (adult) (pediatric), J44.9 - Chronic obstructive pulmonary disease, unspecified Medications: Discontinued aspirin 81 mg PO DAILY 90 days 90 tabs 1RF melatonin 20 mg (2 x 10 mg) PO BEDTIME 90 days PRN 180 tabs 1RF sleep Coding Level of Care Code Est Pt Level 3 (61233) Diagnoses Obesity (BMI 30-39.9) E66.9 COPD (chronic obstructive pulmonary disease) J44.9 JONATHAN (obstructive sleep apnea) G47.33
== END 2023-04-11 14:29 | disposition home or self-care (01) ==
PROVIDERS: PCP Internal Medicine; Visit Provider Internal Medicine
DX: E66.9 Obesity, unspecified (principal); J44.9 Chronic obstructive pulmonary disease, unspecified; G47.33 Obstructive sleep apnea (adult) (pediatric)
CPT/HCPCS: 99213

== ENCOUNTER → 2023-04-11 13:52 | Outpatient (BNVA) | payer OTHER, MEDICAID, SELFPAY | PROVIDERS: PCP Internal Medicine; Visit Provider Internal Medicine | DX: J44.9 Chronic obstructive pulmonary disease, unspecified (principal); G47.33 Obstructive sleep apnea (adult) (pediatric); E66.9 Obesity, unspecified; Z68.33 Body mass index [BMI] 33.0-33.9, adult | CPT/HCPCS: 99212 ==

== ENCOUNTER 2023-04-16 13:19 | Outpatient (AMB) | payer OTHER, SELFPAY ==
--- NOTE | 2023-04-16 13:26 | MHC.OFFVIS ---
Intake Intake Visit Reasons: OV, Bilateral primary osteoarthritis of hip Intake Note: Hiral is a 67 year old female who presents today for a follow up of her Bilateral Hip OA. At her last visit there was no intervention warranted, however patient reports continued pain. She has not done the physical therapy. She states she had some issues walking 2 months ago. Allergies grass pollen Allergy (Mild, Verified 04/16/23 13:31) unknown zoster vaccine live [SHINGLES VACCINE] Allergy (Mild, Verified 04/16/23 13:31) HIVES BARIUM CONTRAST Allergy (Unknown, Uncoded 04/16/23 13:31) DIFFICULTY BREATHING/FLUSHING Medication List - Last Reconciled 04/16/23 by Sonia Amaya, NADEEM albuterol sulfate 90 mcg/actuation 2 puffs inhalation Q4-6H PRN 30 days aspirin 81 mg PO DAILY 90 days atorvastatin 20 mg PO DAILY 30 days kqsivnvfan-yvbeblgr-mlqlszwtwm 160-9-4.8 mcg/actuation (Breztri Aerosphere) 2 inhalations inhalation BID 30 days buspirone 5 mg PO BID 30 days cyanocobalamin (vitamin B-12) 1,000 mcg PO DAILY 30 days escitalopram oxalate 10 mg PO DAILY 30 days hydroxyurea 500 mg PO DAILY 30 days hydroxyzine HCl 20 mg (2 x 10 mg) PO BID 30 days ibuprofen 400 mg PO Q6H PRN 30 days levothyroxine 75 mcg PO DAILY@0600 30 days melatonin 20 mg (2 x 10 mg) PO BEDTIME PRN 90 days olanzapine 5 mg PO BEDTIME 30 days omeprazole 40 mg PO DAILY@0630 30 days peg [id number]-tuuojmzs 1-0.2-0.2 % (Artificial Tears ([id number])) 1 drp ophthalmic (eye) Q4H PRN 30 days rivastigmine tartrate 3 mg (2 x 1.5 mg) PO BID 30 days topiramate 100 mg (4 x 25 mg) PO BID 30 days HPI OV, Bilateral primary osteoarthritis of hip HPI Details Pt returns for follow up. SHe has no pain and is not sure why she is here today [facility] Medical History (Updated 04/11/23 @ 14:34 by Earnest Chaparro MD) JONATHAN (obstructive sleep apnea) Obesity (BMI 30-39.9) Personal history of nicotine dependence History of laryngeal cancer Dysphagia Renal stones Depression Hyperlipidemia Chronic diarrhea JONATHAN on CPAP BMI 38.0-38.9,adult Essential thrombocytosis Hypovitaminosis D Eczema Dyslipidemia Hypothyroidism Anxiety Asthma COPD (chronic obstructive pulmonary disease) Hiatal hernia Surgical History History of surgery on left wrist History of hand surgery History of colonoscopy History of endoscopy History of repair of hiatal hernia Family History Father Mental health disorder CAD (coronary artery disease) Mother S/P CABG x 3 Asthma Brother Substance use disorder Father Diabetes Maternal Grandmother Breast cancer Social History Household Members: None Housing: Apartment Are you a primary medicare insurance specialist to a significant other at home: No Do you presently have visiting nurse or other home services: No Alcohol intake: never Patient Tobacco Use Status: Former Tobacco user Quit Date: 5 yrs ago Tobacco use type: Cigarette Years Smoked: 45 e-Cigarette/Vaping Use: Never Used Second Hand Smoke Exposure: No service: No Current occupational status: retired Current occupation: right handed Sexual orientation: Straight/Heterosexual Cognitive needs: No Hearing needs: No Vision needs: No Physical Exam Extrem Other: no gait antalgia FUll ROM bilateral hips Assessment & Plan Assessment & Plan (1) Osteoarthritis of both hips: Code(s): M16.0 - Bilateral primary osteoarthritis of hip Plan: Mild OA with no pain. Here for follow up but not sure why. No intervention warranted. December f/u PRN Coding Level of Care Code Est Pt Level 3 (14287) Diagnoses Osteoarthritis of both hips M16.0
== END 2023-04-16 13:41 | disposition home or self-care (01) ==
PROVIDERS: PCP Internal Medicine; Visit Provider Orthopaedic Surgery
DX: M16.0 Bilateral primary osteoarthritis of hip (principal)
CPT/HCPCS: 99213

== ENCOUNTER → 2023-04-16 13:19 | Outpatient (BNVA) | payer OTHER, SELFPAY | PROVIDERS: PCP Internal Medicine; Visit Provider Orthopaedic Surgery | DX: M16.0 Bilateral primary osteoarthritis of hip (principal) | CPT/HCPCS: 99212 ==

== ENCOUNTER 2023-04-28 13:37 | Outpatient (REF) | payer OTHER, SELFPAY ==
--- NOTE | ~2023-04-28 | MR_ITS ---
EXAMINATION: MR LUMBAR SPINE WITHOUT CONTRAST CLINICAL INFORMATION: Radiculopathy, lumbosacral region. COMPARISON: Lumbar spine radiographs on 02/02/2023. TECHNIQUE: MRI of the lumbar spine was obtained using routine sequences without contrast. FINDINGS: Preservation of the normal lumbar lordosis. No listhesis. No abnormal bone marrow signal. The vertebral body heights are preserved. Multilevel disc desiccation without significant disc height loss. The visualized spinal cord is normal in caliber. No abnormal cord signal. The conus medullaris terminates at T12-L1. T11-T12: Small disc bulge. No significant spinal canal or neural foraminal narrowing. T12-L1: No significant spinal canal or neural foraminal narrowing. L1-L2: Disc bulge with superimposed annular fissure. No significant spinal canal or neural foraminal narrowing. L2-L3: Disc bulge with flattening of the ventral thecal sac. No significant spinal canal or neural foraminal narrowing. L3-L4: Disc bulge with superimposed right subarticular/foraminal disc protrusion. Annular fissure and ligamentum flavum hypertrophy. Severe spinal canal stenosis impinging the cauda equina nerve roots. Moderate to severe right greater than left neural foraminal narrowing with impingement of the left exiting L2 nerve roots. L4-L5: Disc bulge and ligamentum flavum hypertrophy. Mild to moderate spinal canal stenosis with mass effect on the cauda equina nerve roots. Moderate left greater than right neural foraminal narrowing with the disc abutting the exiting L4 nerve roots bilaterally. L5-S1: Disc bulge with superimposed left extraforaminal disc protrusion. Annular fissure. No significant spinal canal stenosis. Mild left greater than right neural foraminal narrowing with the disc abutting the left greater than right exiting L5 nerve roots. The paravertebral soft tissues are unremarkable. MR/MR lumbar spine wo con IMPRESSION: Multilevel lumbar spondylosis as described above, most notable at L3-L4 where there is severe spinal canal stenoses impinging on the cauda equina nerve roots. Moderate to severe neural foraminal narrowing is also identified at this level bilaterally with impingement of the left exiting L2 nerve roots. Additionally, mild to moderate spinal canal stenosis identified at L4-L5 with associated moderate neural foraminal narrowing bilaterally.
== END 2023-04-28 13:38 | disposition home or self-care (01) ==
LOC: HO.MRI 13:37
PROVIDERS: PCP Internal Medicine; Visit Provider Nurse Practitioner Family
DX: M54.17 Radiculopathy, lumbosacral region (principal); M25.551 Pain in right hip; M25.552 Pain in left hip; M53.3 Sacrococcygeal disorders, not elsewhere classified
CPT/HCPCS: 72148

== ENCOUNTER 2023-05-02 10:59 | Outpatient (AMB) | payer OTHER, SELFPAY ==
[2023-05-02 11:01] VITALS: BP 102/62; PULSE 72; O2SAT 99; BMI 34.4
--- NOTE | 2023-05-02 11:01 | MHC.PC.OV ---
Vital Signs 05/02/23 11:01 Height 5 ft 1 in Weight 182 lb 0.4 oz BMI 34.4 BP 102/62 Blood Pressure Location Lt brachial Position Sitting Pulse 72 Pulse Source Pulse Oximeter Temp Source Skin Pulse Oximetry (%) 99 Oxygen Delivery Method Room Air Intake Visit Reasons: Neurology Referral-Diagnosis Request Intake Note: pt states neurology referral needed and requesting MRI Lead Level Designer Required: No Allergies grass pollen Allergy (Mild, Verified 05/02/23 11:21) unknown zoster vaccine live [SHINGLES VACCINE] Allergy (Mild, Verified 05/02/23 11:21) HIVES BARIUM CONTRAST Allergy (Unknown, Uncoded 05/02/23 11:21) DIFFICULTY BREATHING/FLUSHING Medication List - Last Reconciled 05/02/23 by LATANYA Durán albuterol sulfate 90 mcg/actuation 2 puffs inhalation Q4-6H PRN 30 days aspirin 81 mg PO DAILY 90 days atorvastatin 20 mg PO DAILY 30 days vezzsycbuy-mixdrqlw-lhrgjqdgsm 160-9-4.8 mcg/actuation (Breztri Aerosphere) 2 inhalations inhalation BID 30 days buspirone 5 mg PO BID 30 days cyanocobalamin (vitamin B-12) 1,000 mcg PO DAILY 30 days escitalopram oxalate 10 mg PO DAILY 30 days hydroxyurea 500 mg PO DAILY 30 days hydroxyzine HCl 20 mg (2 x 10 mg) PO BID 30 days ibuprofen 400 mg PO Q6H PRN 30 days levothyroxine 75 mcg PO DAILY@0600 30 days melatonin 20 mg (2 x 10 mg) PO BEDTIME PRN 90 days olanzapine 5 mg PO BEDTIME 30 days omeprazole 40 mg PO DAILY@0630 30 days peg [id number]-ghpbfqhxuaip-ehhovqoi 1-0.2-0.2 % (Artificial Tears ([id number])) 1 drp ophthalmic (eye) Q4H PRN 30 days rivastigmine tartrate 3 mg (2 x 1.5 mg) PO BID 30 days topiramate 100 mg (4 x 25 mg) PO BID 30 days Tobacco use date assessed: 05/02/23 Fall risk assessment: No Falls in past year Last assessed Fall Risk: 05/02/23 Dental Screening Dental Screen Date: 05/02/23 Did you have a dental visit in the last 12 months?: Yes Did you have a dental problem in the last 6 months where you did not have access to dental care?: No Was dental information given to patient?: Patient has dentist HPI Neurology Referral-Diagnosis Request HPI Details Patient is a 67-year-old female presents today requesting neurology referral for ongoing headaches. Patient of Dr. Walker. Medical history significant for anxiety, dyslipidemia, hypothyroidism, COPD, depression, mood disorder, headache among others. Patient reports taking ibuprofen with no much improvement in headache, she reports occipital lobe headache for the past couple months now which is intermittent, denies headache in the office today. Reports that she feels better in a dark room. Patient has referral to see Neurology due to headache, will follow-up on this. In addition, patient reports intermittent forgetfulness for the past some time, wants to see Neurology for this as well. In addition, patient reports that she spoke with mental health prescriber yesterday and she reports that that person could not refill all of her mental health medications, will ask nurses to follow-up on this. According to previous note patient should be following with Psychiatry Dr. Painter, patient requesting new referrals to counseling and Psychiatry for mental health. Patient requested refills on mental health medications. Patient denies shortness of breath or chest pain. [facility] Medical History JONATHAN (obstructive sleep apnea) Obesity (BMI 30-39.9) Personal history of nicotine dependence History of laryngeal cancer Dysphagia Renal stones Depression Hyperlipidemia Chronic diarrhea JONATHAN on CPAP BMI 38.0-38.9,adult Essential thrombocytosis Hypovitaminosis D Eczema Dyslipidemia Hypothyroidism Anxiety Asthma COPD (chronic obstructive pulmonary disease) Hiatal hernia Surgical History History of surgery on left wrist History of hand surgery History of colonoscopy History of endoscopy History of repair of hiatal hernia Family History Father Mental health disorder CAD (coronary artery disease) Mother S/P CABG x 3 Asthma Brother Substance use disorder Father Diabetes Maternal Grandmother Breast cancer Social History Household Members: None Housing: Apartment Are you a primary career services officer to a significant other at home: No Do you presently have visiting nurse or other home services: No Alcohol intake: never Patient Tobacco Use Status: Former Tobacco user Quit Date: 5 yrs ago Tobacco use type: Cigarette Years Smoked: 45 e-Cigarette/Vaping Use: Never Used Second Hand Smoke Exposure: No service: No Current occupational status: retired Current occupation: right handed Sexual orientation: Straight/Heterosexual Cognitive needs: No Hearing needs: No Vision needs: No Questionnaire Thrive Questionnaire Date Thrive assessed: 03/14/23 AUDIT C Alcohol Use Questionnaire (AUDIT-C) 1. How often do you have a drink containing alcohol?: Never Total Score: 0 Score Reviewed/Action Taken: No HENRY-7 AMB Questionnaire HENRY-7 Date HENRY - 7 assessed: 08/10/22 Source: Developed by Drs. Christopher Bryan, Alondra Torres, Janusz Orozco and colleagues, with an educational sara from [employer]. Review of Systems Const Denies body aches, Denies chills, Denies fever(s) and Reports headache(s) ENT Denies dizziness, Denies otalgia, Reports headache(s), Denies nasal discharge, Denies sinus pain and Denies sore throat Card Denies chest pain, Denies edema, Denies lightheadedness and Denies dyspnea Resp Denies dyspnea and Denies wheezing GI Denies abdominal pain Denies dysuria Musc Denies myalgias Skin/Breast Denies rash Neuro Denies dizziness and Reports headache(s) Aller/Immun Denies wheezing Physical exam (Primary Care) Vital Signs: Last Vital Signs Pulse 72 05/02/23 11:01 BP 102/62 05/02/23 11:01 Pulse Ox 99 05/02/23 11:01 Oxygen Delivery Method Room Air 05/02/23 11:01 BMI result Body Mass Index 34.4 Tobacco/Smoking Status: Tobacco use Status Tobacco use date assessed 05/02/23 05/02/23 11:02 Patient Tobacco Use Status Former Tobacco user 05/02/23 11:02 Tobacco use type Cigarette 05/02/23 11:02 e-Cigarette/Vaping Use Never Used 05/02/23 11:02 Thrive Assessment: Date of Thrive Assessment Date Thrive assessed 03/14/23 05/02/23 11:02 Const General: cooperative and no acute distress Orientation/consciousness: patient oriented x3 HENMT Head: Yes normocephalic and Yes atraumatic Throat: Yes posterior oropharynx normal Eyes General: appearance normal, both eyes and all related structures Pupils: Equal, round and reactive pupils present EOM: EOMs intact bilaterally Neck Neck: Yes normal visual inspection, Yes full ROM and Yes no lymphadenopathy Resp Effort & Inspection: normal respiratory effort and able to speak in complete sentences Auscultation: clear to auscultation bilaterally, no crackles, no rales, no rhonchi and no wheezes Cardio Rate: regular rate Rhythm: regular rhythm Heart sounds: S1 normal heart sound present and S2 normal heart sound present GI Auscultation: normal bowel sounds Skin General skin exam: no rashes or lesions noted Neuro General: patient oriented x3 and CN's II-XI intact bilaterally Cranial nerves: Yes Equal, round and reactive pupils present Gait exam (Neuro): Normal gait present Extrem General: Yes full ROM and No edema Assessment and Plan Assessment & Plan (1) Mood disorder: Code(s): F39 - Unspecified mood [affective] disorder Plan: Psychiatry and counseling referrals Will ask nursing to follow-up patient established with Psychiatry Dr. Painter Patient is to continue escitalopram, olanzapine, rivastigmine, and topiramate (2) Forgetfulness: Code(s): R68.89 - Other general symptoms and signs Plan: Neurology referral (3) Headache: Code(s): R51.9 - Headache, unspecified Plan: Will follow-up on neurology referral Patient is to continue ibuprofen 400 mg every 6 hours p.r.n. Will provide patient with Tylenol 650 mg every 6 hours p.r.n. Signs and symptoms reviewed when to notify provider go to the emergency department (4) Mild major depression: Code(s): F32.0 - Major depressive disorder, single episode, mild Plan: Same as above Plan Keep appointment with PCP as scheduled or follow-up sooner as needed Orders: Referrals Counseling Referral F32.0 - Major depressive disorder, single episode, mild, F39 - Unspecified mood [affective] disorder Neurology Referral R51.9 - Headache, unspecified, R68.89 - Other general symptoms and signs Psychiatry Referral F32.0 - Major depressive disorder, single episode, mild, F39 - Unspecified mood [affective] disorder Medications: New acetaminophen 650 mg (2 x 325 mg) PO Q6H PRN 40 tabs 0RF pain R51.9 - Headache, unspecified Refilled buspirone 5 mg PO BID 30 days 60 tabs 0RF escitalopram oxalate 10 mg PO DAILY 30 days 30 tabs 0RF olanzapine 5 mg PO BEDTIME 30 days 30 tabs 0RF rivastigmine tartrate 3 mg (2 x 1.5 mg) PO BID 30 days 120 caps 0RF topiramate 100 mg (4 x 25 mg) PO BID 30 days 240 tabs 0RF Coding Level of Care Code Est Pt Level 4 (84305) Diagnoses Mood disorder F39 Forgetfulness R68.89 Headache R51.9 Mild major depression F32.0
== END 2023-05-02 12:15 | disposition home or self-care (01) ==
PROVIDERS: PCP Internal Medicine; Visit Provider Nurse Practitioner Family
DX: F39 Unspecified mood [affective] disorder (principal); R68.89 Other general symptoms and signs; R51.9 Headache, unspecified; F32.0 Major depressive disorder, single episode, mild
CPT/HCPCS: 99214

== ENCOUNTER 2023-06-11 12:28 | Outpatient (AMB) | payer OTHER, SELFPAY ==
[2023-06-11 14:51] VITALS: BP 122/60; PULSE 80; TEMP 36.6; O2SAT 98; BMI 33.3
--- NOTE | 2023-06-11 14:51 | AM.OFFWIN_ITS ---
Intake Vital Signs 06/11/23 14:51 Height 5 ft 1 in Weight 176 lb 4 oz BMI 33.3 BP 122/60 Blood Pressure Location Lt brachial Position Sitting Pulse 80 Pulse Source Pulse Oximeter Temp 97.9 F Temp Source Temporal Artery Scan Pulse Oximetry (%) 98 Oxygen Delivery Method Room Air Intake Visit Reasons: EST/eye irritation pelvic pain(lobby) req Intake Note: pt is here for c/o eye irritation and pelvic pain Patient Tobacco Use Status: Former Tobacco user Quit Date: 5 yrs ago Allergies grass pollen Allergy (Mild, Verified 06/11/23 15:28) unknown zoster vaccine live [SHINGLES VACCINE] Allergy (Mild, Verified 06/11/23 15:28) HIVES BARIUM CONTRAST Allergy (Unknown, Uncoded 06/11/23 15:28) DIFFICULTY BREATHING/FLUSHING Medication List - Last Reconciled 06/11/23 by Kareem Fraire MD acetaminophen 650 mg (2 x 325 mg) PO Q6H PRN albuterol sulfate 90 mcg/actuation 2 puffs inhalation Q4-6H PRN 30 days aspirin 81 mg PO DAILY 90 days atorvastatin 20 mg PO DAILY 30 days cebquzvlyj-zjbpdxxn-gvjgperqea 160-9-4.8 mcg/actuation (Breztri Aerosphere) 2 inhalations inhalation BID 30 days buspirone 5 mg PO BID 30 days cyanocobalamin (vitamin B-12) 1,000 mcg PO DAILY 30 days escitalopram oxalate 10 mg PO DAILY 30 days hydroxyurea 500 mg PO DAILY 30 days hydroxyzine HCl 20 mg (2 x 10 mg) PO BID 30 days ibuprofen 400 mg PO Q6H PRN 30 days levothyroxine 75 mcg PO DAILY@0600 30 days melatonin 20 mg (2 x 10 mg) PO BEDTIME PRN 90 days olanzapine 5 mg PO BEDTIME 30 days omeprazole 40 mg PO DAILY@0630 30 days peg [id number]-kdmeiivx 1-0.2-0.2 % (Artificial Tears ([id number]- glycerin)) 1 drp ophthalmic (eye) Q4H PRN 30 days rivastigmine tartrate 3 mg (2 x 1.5 mg) PO BID 30 days topiramate 100 mg (4 x 25 mg) PO BID 30 days Do you need a note to return to daycare/school/sports/work: Yes HPI EST/eye irritation pelvic pain(lobby) req HPI Details 67-year-old female presents to the [facility] for a sick visit. Patient has 2 complaints. She is complaining of mucoid discharge from both eyes since this morning. When she woke up her eyes were red. Frequent tearing. No visual changes. She is also complaining of pain in the right side of her hip. She has history of arthritis and is scheduled to see a neurosurgeon at the end of this week for evaluation of her back. [facility] Medical History JONATHAN (obstructive sleep apnea) Obesity (BMI 30-39.9) Personal history of nicotine dependence History of laryngeal cancer Dysphagia Renal stones Depression Hyperlipidemia Chronic diarrhea JONATHAN on CPAP BMI 38.0-38.9,adult Essential thrombocytosis Hypovitaminosis D Eczema Dyslipidemia Hypothyroidism Anxiety Asthma COPD (chronic obstructive pulmonary disease) Hiatal hernia Surgical History History of surgery on left wrist History of hand surgery History of colonoscopy History of endoscopy History of repair of hiatal hernia Family History Father Mental health disorder CAD (coronary artery disease) Mother S/P CABG x 3 Asthma Brother Substance use disorder Father Diabetes Maternal Grandmother Breast cancer Social History Household Members: None Housing: Apartment Are you a primary career technical supervisor to a significant other at home: No Do you presently have visiting nurse or other home services: No Alcohol intake: never Patient Tobacco Use Status: Former Tobacco user Quit Date: 5 yrs ago Tobacco use type: Cigarette Years Smoked: 45 e-Cigarette/Vaping Use: Never Used Second Hand Smoke Exposure: No service: No Current occupational status: retired Current occupation: right handed Sexual orientation: Straight/Heterosexual Cognitive needs: No Hearing needs: No Vision needs: No Physical Exam Vital Signs: Last Vital Signs Temp 97.9 F 06/11/23 14:51 Pulse 80 06/11/23 14:51 BP 122/60 06/11/23 14:51 Pulse Ox 98 06/11/23 14:51 Oxygen Delivery Method Room Air 06/11/23 14:51 BMI result Body Mass Index 33.3 Const General: cooperative and healthy appearing Nutritional Appearance: well nourished Orientation/consciousness: patient oriented x3 Limitations: no limitations HEENT Other: Eyes: Bulbar conjunctiva is congested. Corneas clear. Anterior chambers clear. Head: Yes normal to inspection Eyes General: appearance normal, both eyes and all related structures Neck Neck: Yes normal visual inspection Chest Chest palpation & inspection: normal palpation of entire chest wall Resp Effort & Inspection: normal respiratory effort Neuro General: patient oriented x3 Extrem Other: Right hip: Full range of motion, including flexion, extension internal and external rotation, adduction and abduction. Assessment & Plan Assessment & Plan (1) Right hip pain: Code(s): M25.551 - Pain in right hip Plan: Meloxicam added to the regimen. Patient was advised to follow-up with the neurosurgeon. (2) Conjunctivitis: Code(s): H10.9 - Unspecified conjunctivitis Plan: Erythromycin ointment prescribed. If symptoms do not improve to follow-up here. Coding Level of Care Code Est Pt Level 4 (53396) Diagnoses Right hip pain M25.551 Conjunctivitis H10.9
== END 2023-06-11 15:53 | disposition home or self-care (01) ==
PROVIDERS: PCP Internal Medicine; Visit Provider Internal Medicine
DX: M25.551 Pain in right hip (principal); H10.9 Unspecified conjunctivitis
CPT/HCPCS: 99214

== ENCOUNTER 2023-06-13 13:52 | Outpatient (AMB) | payer OTHER, SELFPAY ==
--- NOTE | 2023-06-13 14:26 | HO.SPINEOV ---
Intake Intake Visit Reasons: Low back pain Intake Note: Ms. Ignacio is here today c/o low back and Neck pain. MRI done @ [facility]/brought disc. Ms Access Database Developer Required: No Allergies grass pollen Allergy (Mild, Verified 06/11/23 15:28) unknown zoster vaccine live [SHINGLES VACCINE] Allergy (Mild, Verified 06/11/23 15:28) HIVES BARIUM CONTRAST Allergy (Unknown, Uncoded 06/11/23 15:28) DIFFICULTY BREATHING/FLUSHING Assessment & Plan Assessment & Plan (1) Lumbar disc herniation: Code(s): M51.26 - Other intervertebral disc displacement, lumbar region Plan Dear colleague, Thank you for referring Hiral to our office today. She is a kind 67 y/o female who comes in today with a CC of low back pain with radicular symptoms down her anterior & lateral thigh, into her medial groin. She reports some numbness/tingling without involvement of her genitalia. She reports that she 1st began experiencing low back pain roughly 1 year ago, but reports that became worse and started to involve her thighs roughly 3 months ago. She states that the inciting incident occurred 3 months ago when she was moving furniture around her house. She states that after rearranging her living room she felt like she was unable to walk and had significant pains shooting from her low back into her medial thigh. She reports that it took her a few days to be able to walk properly again. She reports that her symptoms have not significantly improved since this inciting incident. She states she is in constant pain in that this pain is affecting her activities of daily living. The pain does not wake her up from sleep, but is significant enough to where she has been utilizing ibuprofen and Tylenol around the clock. Her pain is worse with activity and with sitting, and is better with standing and lying down. She has tried aquatic physical therapy which has not been helpful for her and caused her increased pain. She is also being followed by physiatry who referred her to this office today after her MRI was completed. PMH: Alzheimer's dementia, thrombocytosis, hyperthyroidism, high cholesterol, COPD, asthma, tonsillectomy, surgery on left wrist, hiatal hernia repair, unspecified pancreatic surgery. Social hx: Patient does not smoke, reports no substance use. Medications: Tylenol, albuterol, aspirin, atorvastatin, Breztri, buspirone, vitamin B12, escitalopram, hydroxyurea, hydroxyzine, levothyroxine, melatonin, meloxicam, olanzapine, omeprazole, artificial tears, rivastigmine, topiramate. Allergies: NKDA Physical exam: The patient has 5/5 strength in her upper and lower extremities. Reflexes are 2+ and intact. Some nonspecific sensory changes of the lateral thigh. Rest of sensation is grossly intact. Patient is able to ambulate well, rises from a seated position without difficulty. (-) Parsons's, (-) Babinski, (-) clonus, (-) straight leg raise bilaterally. Imaging review: MRI completed in April of 2023 here at [facility] shows diffuse spondylosis of the lumbar spine. There is a notable moderate-severe posterior disc bulge at L3-4 compressing on the thecal sac and moderately impinging the L4 nerve roots bilaterally with eccentric disc herniation towards the right side. Impression: Hiral is a 67-year-old female who was referred to our service for evaluation of a surgical intervention due to her continued low back pain with radicular symptoms. Her symptoms are somewhat acute in onset, starting roughly 3 months ago. They have not improved with rest, physical therapy, gvoy-rtk-skrhsoa pain medications, or stretching/exercise. They continue to affect her daily life and her causing her to refrain from doing certain activities which she finds cause her increased pain. Her distribution of symptoms in a classic L4 distribution involving both the anterior & lateral thigh. Her symptoms do terminate above the knee and do not involve the patellar reflex. We discussed the possibility of surgery, which he states she is very much so agreeable to. She reports that she feels she cannot continue to live with this pain in that is affecting too much of her life to ignore. After reviewing her imaging with Dr. Estes he offered her a right-sided L3-4 microdiskectomy. She is tentatively placed on the surgical schedule for 09/20/2023. She understands that she will need to have medical clearance by her primary care physician before her surgery. This was also written on the business card that was provided to her with her surgical date. Hiral was given risk and benefits of surgery including but not limited to infection, hematoma, nerve injury, durotomy, weakness, bowel/bladder injury, persistent pain, as well as the option to continue with conservative treatment and patient wishes to proceed with surgery. She is aware they should stop her motrin / aspirin 7 days prior to surgery. All questions were answered to the best of our ability. If there is anything about this patients medical history that we have overlooked or concerns you have about us proceeding with surgery we would appreciate any input you can offer. Thank you for allowing us to care for your patient. The total time spent with this visit with this patient was 60 minutes reviewing history, physical exam, MRI imaging review, and implementation of treatment plan or further diagnostic testing Martin Estes MD,PhD [facility] Coding Level of Care Code New Pt Level 5 (42987) Diagnoses Lumbar disc herniation M51.26
== END 2023-06-13 14:55 | disposition home or self-care (01) ==
PROVIDERS: PCP Internal Medicine; Referring Provider Nurse Practitioner Family; Visit Provider Neurological Surgery
DX: M51.26 Other intervertebral disc displacement, lumbar region (principal)
CPT/HCPCS: 99205; 99215

== ENCOUNTER → 2023-06-13 13:52 | Outpatient (BNVA) | payer OTHER, SELFPAY | PROVIDERS: PCP Internal Medicine; Referring Provider Nurse Practitioner Family; Visit Provider Neurological Surgery | DX: M51.26 Other intervertebral disc displacement, lumbar region (principal) | CPT/HCPCS: 99202 ==

== ENCOUNTER 2023-07-02 12:34 | Outpatient (AMB) | payer OTHER, SELFPAY ==
[2023-07-02 12:41] VITALS: BP 110/80; BMI 32.7
--- NOTE | 2023-07-02 12:41 | MHC.PC.OV ---
Vital Signs 07/02/23 12:41 Height 5 ft 1 in Weight 173 lb BMI 32.7 BP 110/80 Blood Pressure Location Lt brachial Position Sitting Intake Visit Reasons: depression Intake Note: Patient here for a follow up depression Parachute Supervisor Required: No Accompanied by: Self / Same As Patient Allergies grass pollen Allergy (Mild, Verified 07/02/23 14:51) unknown zoster vaccine live [SHINGLES VACCINE] Allergy (Mild, Verified 07/02/23 14:51) HIVES BARIUM CONTRAST Allergy (Unknown, Uncoded 07/02/23 14:51) DIFFICULTY BREATHING/FLUSHING Medication List - Last Reconciled 07/02/23 by Sana Randall MD acetaminophen 650 mg (2 x 325 mg) PO Q6H PRN albuterol sulfate 90 mcg/actuation 2 puffs inhalation Q4-6H PRN 30 days aspirin 81 mg PO DAILY 90 days atorvastatin 20 mg PO DAILY 30 days igfurqmqki-hxlsavtu-okiicoyxdc 160-9-4.8 mcg/actuation (Breztri Aerosphere) 2 inhalations inhalation BID 30 days cyanocobalamin (vitamin B-12) 1,000 mcg PO DAILY 30 days erythromycin 0.5 inches ophthalmic (eye) TID hydroxyurea 500 mg PO DAILY 30 days hydroxyzine HCl 20 mg (2 x 10 mg) PO BID 30 days ibuprofen 400 mg PO Q6H PRN 30 days levothyroxine 75 mcg PO DAILY@0600 30 days melatonin 20 mg (2 x 10 mg) PO BEDTIME PRN 90 days meloxicam 15 mg PO DAILY olanzapine 10 mg PO BEDTIME omeprazole 40 mg PO DAILY@0630 30 days peg [id number]-hqlbrvgkijjm-qaqiavxf 1-0.2-0.2 % (Artificial Tears ([id number])) 1 drp ophthalmic (eye) Q4H PRN 30 days rivastigmine tartrate 3 mg (2 x 1.5 mg) PO BID 30 days topiramate 150 mg PO BID Tobacco use date assessed: 05/02/23 Fall risk assessment: No Falls in past year Last assessed Fall Risk: 07/02/23 Dental Screening Dental Screen Date: 07/02/23 Did you have a dental visit in the last 12 months?: Yes Did you have a dental problem in the last 6 months where you did not have access to dental care?: No Was dental information given to patient?: Patient has dentist HPI HPI Comments History of Present Illness Details This is a 67-year-old female with COPD, hypothyroidism, mood disorder and mild recurrent major depression that comes today complaining of having more depression. She does have a psychiatric nurse who sees her and prescribed medication. She said that her psychiatric medications are not working. She said she would like to change her mood disorder olanzapine to anything else that will not cause weight gain. Due to olanzapine she has been having more appetite. COPD has not significantly changed and her shortness of breath are stable with longstanding inhaler. On levothyroxine for hypothyroidism. She started to say that she needs help right now because she has been thinking of killing herself. I told her that I was going to call someone from Behavioral [facility] that was going to try to help her out. I called Judi Philippe which is the community health worker and talk to her. Patient told her that she was going to kill me, kill her and go to the hospital and kill everyone there. She said that she understands why they to mass murders. After that security was called and another clinician from psych crisis evaluate her and felt no need to section her. Patient was arranged to receive psychiatric help today. [facility] Medical History JONATHAN (obstructive sleep apnea) Obesity (BMI 30-39.9) Personal history of nicotine dependence History of laryngeal cancer Dysphagia Renal stones Depression Hyperlipidemia Chronic diarrhea BMI 38.0-38.9,adult Essential thrombocytosis Hypovitaminosis D Eczema Dyslipidemia Hypothyroidism Anxiety Asthma COPD (chronic obstructive pulmonary disease) Hiatal hernia Surgical History History of surgery on left wrist History of hand surgery History of colonoscopy History of endoscopy History of repair of hiatal hernia Family History Father Mental health disorder CAD (coronary artery disease) Mother S/P CABG x 3 Asthma Brother Substance use disorder Father Diabetes Maternal Grandmother Breast cancer Household Members: None Housing: Apartment Are you a primary urgent care nurse practitioner to a significant other at home: No Do you presently have visiting nurse or other home services: No Alcohol intake: never Patient Tobacco Use Status: Former Tobacco user Quit Date: 5 yrs ago Tobacco use type: Cigarette Years Smoked: 45 e-Cigarette/Vaping Use: Never Used Second Hand Smoke Exposure: No service: No Current occupational status: retired Current occupation: right handed Sexual orientation: Straight/Heterosexual Cognitive needs: No Hearing needs: No Vision needs: No Questionnaire PHQ-9 Over the last 2 weeks, how often have you been bothered by any of the following problems? 1. Little interest or pleasure in doing things: several days 2. Feeling down, depressed, or hopeless: nearly every day 3. Trouble falling or staying asleep, or sleeping too much: several days 4. Feeling tired or having little energy: several days 5. Poor appetite or overeating: several days 6. Feeling bad about yourself - or that you are a failure or have let yourself or your family down: not at all 7. Trouble concentrating on things, such as reading the newspaper or watching television: not at all 8. Moving or speaking so slowly that other people could have noticed. Or the opposite - being so fidgety or restless that you have been moving around a lot more than usual: not at all 9. Thoughts that you would be better off or of hurting yourself in some way: nearly every day Total score: 10 Depression Screening Interpretation: Positive Depression Screening Follow-up: Existing condition, In treatment and Community Mental Health Worker F/U Depression Screening Done: Yes 19919 - PHQ-9 Billing: Yes Source: Developed by Drs. Christopher Bryan, Alondra Torres, Janusz Orozco and colleagues, with an educational sara from [employer]. Thrive Questionnaire Date Thrive assessed: 03/14/23 HENRY-7 AMB Questionnaire HENRY-7 Date HENRY - 7 assessed: 07/02/23 Feeling nervous, anxious, or on edge: 3 = Nearly every day Not being able to stop or control worryin = Not at all Worrying too much about different things: 1 = Several days Trouble relaxin = Not at all Being so restless that it is hard to sit still: 0 = Not at all Becoming easily annoyed or irritable: 1 = Several days Feeling afraid as if something awful might happen: 0 = Not at all Total HENRY-7 score (0-4 normal; 5-9 mild; 10-14 moderate; 15-21 severe): 5 Source: Developed by Drs. Christopher Bryan, Alondra Torres, Janusz Orozco and colleagues, with an educational sara from [employer]. HENRY-7 Assessment Billing HENRY-7 Assessment Tool: HENRY-7 Assessment 75278 Review of Systems Const All systems reviewed & are unremarkable except as noted in HPI and below Eyes Reports no additional complaints, Denies change in vision and Denies other visual disturbances Card Denies chest pain at rest, Denies chest pain with activity, Denies edema, Denies irregular heart rhythm, Denies claudication, Denies dyspnea, Denies dyspnea on exertion, Denies orthopnea, Denies paroxysmal nocturnal dyspnea and Denies slow heart rate Resp Denies cough, Denies dyspnea and Denies dyspnea on exertion GI Denies abdominal pain, Denies change in bowel habits, Denies excessive flatus, Denies nausea and Denies vomiting Denies urinary incontinence, Denies urinary hesitancy and Denies urinary urgency Musc Denies abnormal gait, Denies atrophy, Denies deformity and Denies limited range of motion Skin/Breast Denies bleeding lesions, Denies changing lesions and Denies rash Neuro Denies abnormal gait, Denies behavioral changes and Denies lack of coordination Psych Denies behavioral changes Physical exam (Primary Care) Vital Signs: Last Vital Signs BP 110/80 07/02/23 12:41 BMI result Body Mass Index 32.7 Tobacco/Smoking Status: Tobacco use Status Tobacco use date assessed 05/02/23 07/02/23 12:49 Patient Tobacco Use Status Former Tobacco user 07/02/23 12:49 Tobacco use type Cigarette 07/02/23 12:49 e-Cigarette/Vaping Use Never Used 07/02/23 12:49 PHQ-9: PHQ-9 Score PHQ-9: Total score 10 07/02/23 14:58 Depression Screening Interpretation: Positive Depression Screening Follow-up: Existing condition, In treatment and Community Mental Health Worker F/U Thrive Assessment: Date of Thrive Assessment Date Thrive assessed 03/14/23 07/02/23 12:49 HENMT Head: Yes normal to inspection, Yes normocephalic and Yes atraumatic Ears: external ears normal Eyes General: appearance normal, both eyes and all related structures Eyelids: Yes eyelids normal Conjunctivae: conjunctivae normal Neck Neck: Yes normal visual inspection and Yes supple Resp Effort & Inspection: normal respiratory effort Auscultation: clear to auscultation bilaterally Cardio Jugular venous distension: no JVD Rate: regular rate Rhythm: regular rhythm Heart sounds: S1 normal heart sound present and S2 normal heart sound present GI Inspection: Yes normal to inspection Palpation (GI): Soft to palpation and nontender Auscultation: normal bowel sounds Skin General skin exam: no rashes or lesions noted Extrem General: Yes full ROM Office Procedures Flu Questionnaire Does the patient have a severe egg allergy?: No Immunizations flu vacc [id number] 6mos up(PF) 60 mcg(15 mcgx4)/0.5 mL IM syringe Performing Provider: Sana Randall MD [facility] Documented (not given) by: DONAVAN Ren on 07/02/23 13:09 Reason Not Given: Not Given Assessment and Plan Assessment & Plan (1) Mood disorder: Code(s): F39 - Unspecified mood [affective] disorder Plan: Follow-up with psychiatry. (2) Mild major depression: Code(s): F32.0 - Major depressive disorder, single episode, mild Plan: Follow-up with psychiatry. (3) COPD (chronic obstructive pulmonary disease): Comment: Patient has moderately severe obstructive airway disorder. It is well controlled with the current regimen. Her last pulmonary function test was at [facility], quite a few years ago. SHE IS BEING SCHEDULED TO HAVE AN TO DATE PULMONARY FUNCTION TEST, TO SEE IF SHE NEEDS THE REAR ADJUSTMENT IN HER MEDICAL REGIMEN. Code(s): J44.9 - Chronic obstructive pulmonary disease, unspecified Plan: Continue Symbicort. Use rescue inhaler as needed. (4) Hypothyroidism: Code(s): E03.9 - Hypothyroidism, unspecified Plan: Continue levothyroxine. Orders: Orders Influenza [id number] Immunization Today Z23 - Encounter for immunization Medications: Changed From olanzapine 5 mg PO BEDTIME 30 days 30 tabs 0RF To olanzapine 10 mg PO BEDTIME From topiramate 100 mg (4 x 25 mg) PO BID 30 days 240 tabs 0RF To topiramate 150 mg PO BID Coding Level of Care Code Est Pt Level 4 (69600) Diagnoses Mood disorder F39 Mild major depression F32.0 COPD (chronic obstructive pulmonary disease) J44.9 Hypothyroidism E03.9 Additional Codes HENRY-7 Assessment Billing - HENRY-7 Assessment Tool: HENRY-7 Assessment 49633 ([id number]) Time Spent (min) 25
== END 2023-07-02 15:53 | disposition home or self-care (01) ==
PROVIDERS: PCP Internal Medicine; Visit Provider Internal Medicine
DX: F39 Unspecified mood [affective] disorder (principal); F32.0 Major depressive disorder, single episode, mild; J44.9 Chronic obstructive pulmonary disease, unspecified; E03.9 Hypothyroidism, unspecified; Z23 Encounter for immunization
CPT/HCPCS: 96127; 99214

== ENCOUNTER 2023-07-25 14:24 | Outpatient (REF) | payer OTHER, SELFPAY ==
--- NOTE | ~2023-07-25 | US_ITS ---
EXAMINATION: US RETROPERITONEAL LIMITED (RENAL ONLY) CLINICAL INFORMATION: Calculus of kidney. COMPARISON: US abdomen complete with liver elastography 11/28/2022. Ultrasound abdomen limited 03/15/2021. CT abdomen and pelvis with contrast 03/15/2021. TECHNIQUE: Real-time imaging of the kidneys. Limited visualization due to bowel gas. FINDINGS: RIGHT KIDNEY: 9.4 x 4.0 x 4.3 cm (SAG x AP x TRV). No hydronephrosis. No renal calculi. Renal cortical thickness is normal. Limited visualization. LEFT KIDNEY: 10.2 x 5.4 x 5.4 cm (SAG x AP x TRV). No hydronephrosis. No renal calculi. Renal cortical thickness is normal. Limited visualization. Left renal lower pole 0.9 x 0.7 x 0.8 cm anechoic collection with mural echogenicity characteristic of a calcification is difficult to characterize as visualization is limited due to bowel gas. This lesion was not identified on prior exams. US/US renal BI IMPRESSION: Left renal lower pole 0.9 cm anechoic collection with mural echogenicity characteristic of a calcification is difficult to characterize as visualization is limited due to bowel gas. This lesion was not identified on prior exams. CT scan recommended for further evaluation. Differential considerations include a complex renal cyst versus focal caliectasis with renal calculus. CT scan employing renal mass protocol with images obtained prior to and following intravenous contrast administration recommended.
== END 2023-07-25 14:25 | disposition home or self-care (01) ==
LOC: HO.US 14:24
PROVIDERS: PCP Internal Medicine; Visit Provider Internal Medicine
DX: N20.0 Calculus of kidney (principal)
CPT/HCPCS: 76775

== ENCOUNTER 2023-07-31 15:32 | Inpatient (IN) | payer OTHER, SELFPAY ==
[2023-07-31 15:38] VITALS: BP 134/70; PULSE 86; O2SAT 95
[2023-07-31 16:08] VITALS: BP 104/69; PULSE 85; RESP 16; TEMP 36.4; O2SAT 95; BMI 33.0
--- NOTE | 2023-07-31 16:18 | ED.PSYCH ---
HPI - Psych General Chief Complaint: Psychiatric Symptoms Stated Complaint: SI W/ PLAN Time Seen by Provider: 07/31/23 15:52 Source: patient Mode of arrival: EMS Limitations: no limitations History of Present Illness HPI Narrative: Patient comes to the emergency room complaining of suicidal ideation. Patient states that her plans to cut her wrists. Patient states that she is chronically angry, has no reason to live. Patient states that she absolutely dislikes her son-in-law. This has been going on for 20+ years. Patient denies any recent confrontations with her daughter or her son-in-law. Patient states that she does not know why she is so angry, states that she wants help, does not want to feel like this. Patient states that she called her therapist who called the ambulance to picker packer the patient. Patient has history of suicide attempts. Patient was discharged on March 2023 after an opiate/acetaminophen overdose suicide attempt. Related Data Home Medications Medication Instructions Recorded Confirmed olanzapine 5 mg tablet 10 mg PO BEDTIME 07/02/23 07/02/23 topiramate 25 mg tablet 150 mg PO BID 07/02/23 07/02/23 Previous Rx's Medication Instructions Recorded albuterol sulfate 90 mcg/actuation 2 puff inhalation Q4-6H PRN for 03/26/23 aerosol inhaler wheezing 30 days #54 ea aspirin 81 mg tablet,delayed 81 mg PO DAILY 90 days #90 tabs 03/26/23 release budesonide 160 mcg-glycopyr 9 2 inh inhalation BID 30 days #1 03/26/23 mcg-formot 4.8 mcg/actuation HFA units inhaler (Breztri Aerosphere) cyanocobalamin (vitamin B-12) 1,000 mcg PO DAILY 30 days #30 tabs 03/26/23 1,000 mcg tablet hydroxyurea 500 mg capsule 500 mg PO DAILY 30 days #30 caps 03/26/23 ibuprofen 400 mg tablet 400 mg PO Q6H PRN Pain, 03/26/23 Moderate(Pain Scale 4-6) 30 days #60 tabs melatonin 10 mg tablet 20 mg (2 x 10 mg) PO BEDTIME PRN 03/26/23 sleep 90 days #180 tabs peg [id number] 1 1 drp ophthalmic (eye) Q4H PRN Dry 03/26/23 %-0.2 %-0.2 % eye drops Eyes 30 days #5 mL (Artificial Tears ([id number])) acetaminophen 325 mg tablet 650 mg (2 x 325 mg) PO Q6H PRN 05/02/23 pain #40 tabs hydroxyzine HCl 10 mg tablet 20 mg (2 x 10 mg) PO BID 30 days 05/04/23 #120 tabs erythromycin 5 mg/gram (0.5 %) eye 0.5 inch ophthalmic (eye) TID #1 g 06/11/23 ointment meloxicam 15 mg tablet 15 mg PO DAILY #14 tabs 06/11/23 levothyroxine 75 mcg tablet 75 mcg PO DAILY@0600 30 days #30 06/19/23 tabs atorvastatin 20 mg tablet 20 mg PO DAILY 90 days #90 tabs 07/23/23 omeprazole 40 mg capsule,delayed 40 mg PO DAILY@0630 90 days #90 07/23/23 release caps rivastigmine tartrate 3 mg capsule 3 mg PO BID 30 days #60 caps 07/23/23 Allergies Allergy/AdvReac Type Severity Reaction Status Date / Time grass pollen Allergy Mild unknown Verified 07/02/23 14:51 zoster vaccine live Allergy Mild HIVES Verified 07/02/23 14:51 [SHINGLES VACCINE] BARIUM CONTRAST Allergy Unknown DIFFICULTY Uncoded 07/02/23 14:51 BREATHING/FLUSHING Review of Systems Review of Systems: Constitutional : No Weight loss, No Fever, No Chills, No Night Sweats, No Fatigue, No Malaise ENT/Mouth : No Hearing loss, No Ear Pain, No Nasal Congestion, No Sinus Pain, No Hoarseness, No sore throat, No Rhinorrhea, No Swallowing Difficulty Eyes: No Eye Pain, No Swelling, No Redness, No Foreign Body, No Discharge, No Vision Changes Cardiovascular : No Chest Pain, No SOB, No Dyspnea on Exertion, No Orthopnea, No Edema, No Palpitations Respiratory : No Cough, No Sputum, No Wheezing, No Smoke Exposure, No Dyspnea Gastrointestinal : No Nausea, No Vomiting, No Diarrhea, No Constipation, No abdominal Pain, No Hematochezia, No Melena Genitourinary : no irregular bleeding, No Dysuria, No Urinary Frequency, No Hematuria, No Urinary Incontinence, No Urgency, No Flank Pain, No Urinary Flow Changes, No Hesitancy Musculoskeletal : No joint pain, No Myalgias, No Joint Swelling Skin : No Skin Lesions, No rash Neuro : No Weakness, No Numbness, No Paresthesias, No Loss of Consciousness, No Dizziness, No Headache Psych : Patient complaining of feeling angry all the time for no reason, complaining of suicidal ideation, wants to cut wrists. Denies homicidal ideation. Heme/Lymph: No Bruising, No Bleeding,No Lymphadenopathy Endocrine : No Polyuria, No Polydipsia, No Temperature Intolerance PMF Past Medical History Medical History JONATHAN (obstructive sleep apnea) Obesity (BMI 30-39.9) Personal history of nicotine dependence History of laryngeal cancer Dysphagia Renal stones Depression Hyperlipidemia Chronic diarrhea BMI 38.0-38.9,adult Essential thrombocytosis Hypovitaminosis D Eczema Dyslipidemia Hypothyroidism Anxiety Asthma COPD (chronic obstructive pulmonary disease) Hiatal hernia Surgical History History of surgery on left wrist History of hand surgery History of colonoscopy History of endoscopy History of repair of hiatal hernia Family History Family History Father Mental health disorder CAD (coronary artery disease) Mother S/P CABG x 3 Asthma Brother Substance use disorder Father Diabetes Maternal Grandmother Breast cancer Social History Social History Household Members: None Housing: Apartment Are you a primary primary care nurse practitioner to a significant other at home: No Do you presently have visiting nurse or other home services: No Alcohol intake: never Patient Tobacco Use Status: Former Tobacco user Quit Date: 5 yrs ago Tobacco use type: Cigarette Years Smoked: 45 Smoked in Last 30 Days: No e-Cigarette/Vaping Use: Never Used Second Hand Smoke Exposure: No Use of substances other than those prescribed or required for medical reasons: No service: No Current occupational status: retired Current occupation: right handed Sexual orientation: Straight/Heterosexual Cognitive needs: No Hearing needs: No Vision needs: No Physical Exam Vital Signs: Vital Signs: Last Vital Signs Temp 97.5 F 07/31/23 16:08 Pulse 85 07/31/23 16:08 Resp 16 07/31/23 16:08 BP 104/69 07/31/23 16:08 Pulse Ox 95 07/31/23 16:08 O2 Del Method Room Air 07/31/23 16:08 BMI result Body Mass Index 33.0 Const: Other: Appearance: Alert. Oriented X3. No acute distress. Eyes: Pupils equal, round and reactive to light. ENT: Pharynx normal. Neck: Normal inspection. Neck supple. No lymph nodes noted. No crepitus CVS: Normal heart rate and rhythm. Pulses normal. Normal S1 and S2 Respiratory: No respiratory distress. Breath sounds normal. No Wheezing. No rales Abdomen: Soft and nontender. No rigidity. No distention. Skin: Skin warm and dry. Normal skin color. Normal skin turgor. Extremities: No lower extremity edema. No Lacerations. No Rash Neuro: Oriented X 3. No motor deficit. No sensory deficit. Moving all extremities. No slurred speech. CN 2 through 12 grossly intact Psych: calm, cooperative, normal affect Course Course Course Narrative: All of patient's labs pending -patient is on a Section 12 -care team consult pending -physician observation started 16:25 Medical Decision Making Differential Diagnosis Differential Diagnoses: The differential diagnosis associated with the presentation includes (Anxiety, depression, suicidal ideation, substance abuse) Admission/Observation Consideration of admission/observation: Escalation of care including admission/observation considered (Patient on a Section 12, disposition pending, care consult pending) Discharge Plan Discharge Clinical Impression: Suicidal ideation Patient Disposition: Still a Patient Prescriptions: No Action hydroxyzine HCl 10 mg tablet 20 mg PO BID 30 Days Qty: 120 0RF levothyroxine 75 mcg tablet 75 mcg PO DAILY@0600 30 Days Qty: 30 0RF omeprazole 40 mg capsule,delayed release(DR/EC) 40 mg PO DAILY@0630 90 Days Qty: 90 1RF atorvastatin 20 mg tablet 20 mg PO DAILY 90 Days Qty: 90 1RF rivastigmine tartrate 3 mg capsule 3 mg PO BID 30 Days Qty: 60 2RF ibuprofen 400 mg Tablet 400 mg PO Q6H PRN (Reason: Pain, Moderate(Pain Scale 4-6)) 30 Days Qty: 60 0RF Artificial Tears(hk-[id number]) 1-0.2-0.2 % Drops 1 drp ophthalmic (eye) Q4H PRN (Reason: Dry Eyes) 30 Days Qty: 5 0RF hydroxyurea 500 mg capsule 500 mg PO DAILY 30 Days Qty: 30 0RF cyanocobalamin (vitamin B-12) 1,000 mcg Tablet 1,000 mcg PO DAILY 30 Days Qty: 30 0RF aspirin 81 mg tablet,delayed release (DR/EC) 81 mg PO DAILY 90 Days Qty: 90 1RF albuterol sulfate 90 mcg/actuation HFA aerosol inhaler 2 puff inhalation Q4-6H PRN (Reason: for wheezing) 30 Days Qty: 54 1RF melatonin 10 mg tablet 20 mg PO BEDTIME PRN (Reason: sleep) 90 Days Qty: 180 1RF Breztri Aerosphere 160-9-4.8 mcg/actuation HFA aerosol inhaler 2 inh inhalation BID 30 Days Qty: 1 0RF olanzapine 5 mg tablet 10 mg PO BEDTIME topiramate 25 mg tablet 150 mg PO BID acetaminophen 325 mg tablet 650 mg PO Q6H PRN (Reason: pain) Qty: 40 0RF erythromycin 5 mg/gram (0.5 %) ointment 0.5 inch ophthalmic (eye) TID Qty: 1 0RF meloxicam 15 mg tablet 15 mg PO DAILY Qty: 14 0RF Interventions: [place]-Suicide Risk Severity Scale Last Done: 07/31/23 16:10
[2023-07-31 16:30] LABS: Appearance Urine Clear; Bacteria Urine None Seen (None Seen); Color Urine Yellow; Glucose Urine UA Negative (Negative); Hyaline Casts Urine 0-2 /LPF (0-2); Leukocyte Esterase Urine Trace (Negative); Nitrite Urine Negative (Negative); PH 6.5 (5.0-9.0); Squamous Epithelial Cell Urine 0-2 /HPF (0-2); UMIC TRIGGER UACC YES; Urine Blood Negative (Negative); Urine Ketones Trace mg/dL (Negative); Urine Protein Negative (Neg-Trace); WBC Urine 0-5 /HPF (0-5)
--- NOTE | 2023-07-31 16:30 | ECG_ITS ---
Test Reason : check qtc Blood Pressure : / mmHG Vent. Rate : 058 BPM Atrial Rate : 058 BPM P-R Int : 148 ms QRS Dur : 076 ms QT Int : 420 ms P-R-T Axes : 058 029 068 degrees QTc Int : 412 ms Sinus bradycardia Otherwise normal ECG When compared with ECG of 14-MAR-2023 08:52, No significant change was found Referred By: Radha Sagastume Electronically Signed By:TIFFANY SHEEHAN
[2023-07-31 16:31] LABS: MANUAL DIFF FLAG NO
[2023-07-31 16:33] LABS: Basophils Percent Auto 0.3 % (0-2); Eosinophils Absolute Auto 0.2 X10*3/uL (0.0-0.4); Eosinophils Percent Auto 2.6 % (0-4); Hematocrit 38.4 % (37.0-47.0); Imm Gran Abs Auto 0.01 X10*3/uL (0.00-0.03); Imm Gran Pct Auto 0.2 % (0.0-0.4); Lymphocytes Absolute Auto 1.7 X10*3/uL (1.2-4.9); Lymphocytes Percent Auto 29.6 % (20-40); Mean Corpuscular HGB Conc 33.9 g/dl (31.0-35.0); Mean Corpuscular Hemoglobin 33.4 pg (27.0-33.0); Mean Corpuscular Volume 98.7 fL (80.0-98.0); Mean Platelet Volume 9.4 fL (9.4-12.3); Monocytes Absolute Auto 0.4 X10*3/uL (0.1-1.2); Monocytes Percent Auto 6.7 % (2-11); Neutrophils Absolute Auto 3.5 x10*3/uL (2.0-8.3); Neutrophils Percent Auto 60.6 % (45-73); Platelet Count 296 X10*3/uL (160-400); Red Blood Count 3.89 X10*6/uL (4.20-5.50); Red Cell Distribution Width 14.3 % (11.0-16.0); White Blood Count 5.8 X10*3/uL (4.8-10.8)
[2023-07-31 16:43] LABS: Amphetamine Screen Urine Not Detected (Not Detect); Barbiturates, Urine Not Detected (Not Detect); Benzodiazepines Screen Urine Not Detected (Not Detect); Cannabinoid Screen Urine POSITIVE (Not Detect); Cocaine Screen Urine Not Detected (Not Detect); Fentanyl, urine Not Detected (Not Detect); Opiate Screen Urine Not Detected (Not Detect); Phencyclidine Screen Urine Not Detected (Not Detect)
--- NOTE | 2023-07-31 16:50 | PC.NURSE ---
Pt comes from home, seen in community and is inpatient bedsearch. Reports SI with plan to cut wrist, states last attempt in March and attempted to OD on narcotic given after a procedure. States trigger is daughters boyfriend. Pt is calm/cooperative/polite. Labs and ekg completed.
[2023-07-31 16:53] LABS: COVID-19 Test Negative (Negative); IDNOW Serial# 08D9AD1C
[2023-07-31 16:54] LABS: Alanine Aminotransferase 10 U/L (0-31); Albumin Level 4.2 g/dL (3.5-5.0); Alkaline Phosphatase 116 U/L (39-117); Anion Gap 14 (12-20); Aspartate Amino Transferase 18 U/L (5-31); Bilirubin Direct 0.1 mg/dL (0.0-0.5); Bilirubin Total 0.3 mg/dL (0.0-1.0); Blood Urea Nitrogen 11 mg/dL (9-16); Calcium 9.7 mg/dL (8.4-10.2); Carbon Dioxide 23 mmol/L (22-29); Chloride 112 mmol/L (96-108); Creatinine Clr Calc Pharmacy 51.7; Estimated Glomerular Filt Rate 59; Ethanol < 10 mg/dL; Glucose Random 95 mg/dL (60-115); Potassium 3.9 mmol/L (3.3-5.1); Sodium 145 mmol/L (135-145); Total Protein 7.6 g/dL (6.5-8.0)
[2023-07-31 16:55] LABS: Acetaminophen LAB 3 mcg/mL (<30); Salicylate < 5.0 mg/dL (15-30)
--- NOTE | 2023-07-31 19:19 | PC.NURSE ---
assumed care of pt
[2023-07-31] MEDS: Acetaminophen 325 MG TABLET 650 MG PO (19:21)
--- NOTE | 2023-07-31 22:11 | PC.NURSE ---
nurse to nurse report given malou
--- NOTE | 2023-07-31 22:32 | PHA.MEDREC ---
Pharmacy Consult ? Medication Reconciliation Pharmacy has completed the medication reconciliation. Reviewed med rec done by nursing
[2023-08-01] MEDS: traZODone HCL 50 MG TABLET PO ×2 (00:29→01:32)
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
[2023-08-01] MEDS: Omeprazole 40 MG CAPSULE.DR PO (05:50)
[2023-08-01] MEDS: Levothyroxine Sodium 75 MCG TABLET PO (05:50)
[2023-08-01 08:32] VITALS: RESP 18
[2023-08-01] MEDS: hydrOXYzine HCL 10 MG TABLET 20 MG PO (09:18)
[2023-08-01] MEDS: Topiramate 25 MG TABLET 150 MG PO (09:18)
[2023-08-01] MEDS: Aspirin Enteric Coated 81 MG TABLET.DR PO (09:18)
[2023-08-01] MEDS: Hydroxyurea 500 MG CAPSULE PO (09:18)
[2023-08-01] MEDS: Atorvastatin Calcium 20 MG TABLET PO (09:19)
[2023-08-01] MEDS: LORazepam 1 MG TABLET PO (09:22)
[2023-08-01] MEDS: Rivastigmine Tartrate 1.5 MG CAPSULE 3 MG PO ×2 (09:23→22:01)
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
[2023-08-01] MEDS: Ziprasidone 20 MG CAPSULE PO (22:01)
[2023-08-01] MEDS: traZODone HCL 100 MG TABLET PO (22:01)
[2023-08-01] MEDS: lamoTRIgine 25 MG TABLET PO (22:01)
[2023-08-02 08:08] VITALS: BP 130/72; PULSE 102; RESP 18; TEMP 36.4; O2SAT 96
[2023-08-02] MEDS: Levothyroxine Sodium 75 MCG TABLET PO (08:21)
[2023-08-02] MEDS: traZODone HCL 25 MG HALFTAB 12.5 MG PO (08:22)
[2023-08-02] MEDS: Ziprasidone 20 MG CAPSULE PO ×2 (08:22→21:55)
[2023-08-02] MEDS: Aspirin Enteric Coated 81 MG TABLET.DR PO (08:22)
[2023-08-02] MEDS: Rivastigmine Tartrate 1.5 MG CAPSULE 3 MG PO ×2 (08:22→21:56)
[2023-08-02] MEDS: Hydroxyurea 500 MG CAPSULE PO (08:23)
[2023-08-02] MEDS: Omeprazole 40 MG CAPSULE.DR PO (08:23)
[2023-08-02] MEDS: Atorvastatin Calcium 20 MG TABLET PO (08:23)
[2023-08-02] MEDS: Topiramate 100 MG TABLET 150 MG PO (08:23)
[2023-08-02] MEDS: Milk of Magnesia 30 ML ORAL.SUSP PO (08:53)
[2023-08-02 09:15] LABS: Estimated Average Glucose 108 mg/dL; Hemoglobin A1c % 5.4 % (<6.0)
[2023-08-02 09:41] LABS: Free T4 (Free Thyroxine) 0.91 ng/dL (0.71-1.85); Thyroid Stimulating Hormone 3.88 uIU/mL (0.32-4.0)
[2023-08-02 09:55] LABS: Folate 5.2 ng/mL (> or = 4.0)
[2023-08-02 11:38] LABS: Cholesterol 214 mg/dL (<200); HDL Cholesterol 59 mg/dL (>40); LDL Cholesterol Calculated 139 mg/dL (<100); Magnesium 2.1 mg/dL (1.6-2.6); Triglycerides 83 mg/dL (<150)
[2023-08-02 13:39] VITALS: BMI 33.3
[2023-08-02 15:34] LABS: Vitamin B12 1246 pg/mL (200-900)
[2023-08-02 18:00] VITALS: BP 131/68; PULSE 80; TEMP 36.3; O2SAT 96
[2023-08-02] MEDS: Acetaminophen 325 MG TABLET 650 MG PO (18:38)
[2023-08-02] MEDS: lamoTRIgine 25 MG TABLET PO (21:56)
[2023-08-02] MEDS: traZODone HCL 100 MG TABLET PO (21:56)
[2023-08-03] MEDS: Omeprazole 40 MG CAPSULE.DR PO (07:04)
[2023-08-03] MEDS: Levothyroxine Sodium 75 MCG TABLET PO (07:04)
--- NOTE | 2023-08-03 07:50 | HO.PSYCHPN ---
Subjective Subjective Date of Service: 08/02/23 Reason For Visit: Mood dysregulation Subjective Notes: Conditional Voluntary Healthcare Proxy: No Guardianship: No Medical Problems Affecting Mental Status: No Interim History: I appreciate the staff I am feeling better already and they are the reason . They were so kind when I was so horrid . Hiral reports tolerance and efficacy with Geodon/Lamictal/Topiramate trials. She is interactive with peers and visable in milieu. She believes we have a positive beginning to her treatment. Meds reviewed. SE reviewed. She is very concerned about weight gain. She was tearful as she spoke of the demise of her and the weight he gained with psychotropic meds contributing to his passing, not wanting to repeat this. I wish for him I had the knowledge I have now when he was sick, I could have helped him more (cried). Denies current SE Medication Compliance: Yes Side effects from medications: No Attending Groups: Yes Review of Systems Acute medical concerns: No Medical Review of Systems: unchanged Review of Systems Review of Systems Yes all other systems are reviewed and are negative (denies) Mental Status Exam Mental Status Exam Patient Appearance: Fatigued and Appropriate Patient Orientation: Person, Place, Time and Situation Level of Consciousness: Alert Patient Behavior: Appropriate, Talkative, Cooperative, Distractible, Good Eye Contact and Crying Mood Description: Depressed Affect Description: Flat Patient Cognition Impaired: No Ability to Follow Directions: Good Speech Pattern: Spontaneous Speech Memory Description: Intact Hallucinations: None Delusions: Not Present Perceptual Disturbances: Depersonalization and Derealization Thought Process: Rumination Thought Content: positive for Perseveration, positive for Suicidal Ideation (denies) and positive for Homicidal Ideation (denies) Depressive Symptoms: Unhappiness, Thoughts of /Suicide (denies) and Low Self Esteem Judgement: Fair Diagnostics Vital Signs (24Hr): Vital Signs - 24 hr 08/02/23 08:08 08/02/23 18:00 Temperature 97.6 F 97.4 F Pulse Rate 102 H 80 Respiratory Rate 18 Blood Pressure 130/72 131/68 Pulse Oximetry 96 96 Oxygen Delivery Method Room Air Room Air BMI result Body Mass Index 33.3 Labs 07/31/23 16:27 07/31/23 16:27 Labs: Laboratory Results - last 48 hr 08/02/23 08:57 Estimat Average Glucose 108 Hemoglobin A1c % 5.4 Magnesium 2.1 Triglycerides 83 Cholesterol 214 H LDL Cholesterol, Calc 139 H HDL Cholesterol 59 Vitamin B12 1246 H Folate 5.2 TSH 3.88 Free T4 0.91 Medications Medications Current Medications Acetaminophen (Acetaminophen 325 Mg Tablet) 650 mg PO Q6H PRN PRN Reason: Headache/Pain Mild Scale (1-3) Last Admin: 08/02/23 18:38 Dose: 650 mg Al Hydroxide/Mg Hydroxide (Magnesium Hydrox/Alum Hydrox 30 Ml Oral.Susp) 30 ml PO Q6H PRN PRN Reason: Heartburn/Nausea Albuterol Sulfate (Albuterol Sulfate 90 Mcg 8 Gm Inhaler) 2 puff INHALE Q4H PRN PRN Reason: for wheezing Aspirin (Aspirin Enteric Coated 81 Mg Tablet.) 81 mg PO DAILY [facility] Last Admin: 08/02/23 08:22 Dose: 81 mg Atorvastatin Calcium (Atorvastatin Calcium 20 Mg Tablet) 20 mg PO DAILY [facility] Last Admin: 08/02/23 08:23 Dose: 20 mg Hydroxyurea (Hydroxyurea 500 Mg Capsule) 500 mg PO DAILY [facility] Last Admin: 08/02/23 08:23 Dose: 500 mg Lamotrigine (Lamotrigine 25 Mg Tablet) 25 mg PO BEDTIME [facility] Last Admin: 08/02/23 21:56 Dose: 25 mg Levothyroxine Sodium (Levothyroxine Sodium 75 Mcg Tablet) 75 mcg PO DAILY@0600 [facility] Last Admin: 08/03/23 07:04 Dose: 75 mcg Magnesium Hydroxide (Milk Of Magnesia 30 Ml Oral.Susp) 30 ml PO DAILY PRN PRN Reason: Constipation Last Admin: 08/02/23 08:53 Dose: 30 ml Non-Formulary Medication ([id number]-Dzsekkxq-Huiqjvucyz [Breztri Aerosphere]) 2 inhalation INHALE BID [facility] Olanzapine (Olanzapine 5 Mg Tablet) 5 mg PO TID PRN PRN Reason: agitation Omeprazole (Omeprazole 40 Mg Capsule.) 40 mg PO DAILY@0630 [facility] Last Admin: 08/03/23 07:04 Dose: 40 mg Rivastigmine Tartrate (Rivastigmine Tartrate 1.5 Mg Capsule) 3 mg PO BID [facility] Last Admin: 08/02/23 21:56 Dose: 3 mg Topiramate (Topiramate 100 Mg Tablet) 150 mg PO DAILY [facility] Last Admin: 08/02/23 08:23 Dose: 150 mg Trazodone HCl (Trazodone Hcl 25 Mg Halftab) 12.5 mg PO TID PRN PRN Reason: agitation Last Admin: 08/02/23 08:22 Dose: 12.5 mg Trazodone HCl (Trazodone Hcl 100 Mg Tablet) 100 mg PO BEDTIME PRN PRN Reason: Insomnia Last Admin: 08/02/23 21:56 Dose: 100 mg Ziprasidone (Ziprasidone 20 Mg Capsule) 20 mg PO BID [facility] Last Admin: 08/02/23 21:55 Dose: 20 mg Allergies Allergies Allergy/AdvReac Type Severity Reaction Status Date / Time grass pollen Allergy Mild unknown Verified 07/02/23 14:51 zoster vaccine live Allergy Mild HIVES Verified 07/02/23 14:51 [SHINGLES VACCINE] BARIUM CONTRAST Allergy Unknown DIFFICULTY Uncoded 07/02/23 14:51 BREATHING/FLUSHING Assessment & Plan Assessment & Plan (1) Bipolar disorder: Status: Acute Code(s): F31.9 - Bipolar disorder, unspecified (2) PTSD (post-traumatic stress disorder): Status: Acute Code(s): F43.10 - Post-traumatic stress disorder, unspecified Plan 67 yo female, reports SI HI with intent toward son in law in the context of rapid mood swings, anger and trauma history. Family history of bipolar disorder. Pt accepting of treatment with the condition that she will not be given medications with SE of weight gain. Plan: Collateral contact Diagnostics Geodon 20 mg bid Geodon 20 mg bid prn agitation Lamictal 25 mg HS Continue other medications. Stop scheduled Olanzapine due to weight gain. Continue prn Olanzapine. 08/02/23 Continue current regime and plan. Continue to assess efficacy and tolerance of changes. Patient educated on: medication risk/benefits and therapeutic strategies Informed Consent: understands Reason for continued inpatient stay Substantial Risk for: harm to self, harm to others and rapid decompensation Time Spent With Patient Time: Total time managing care of this patient today ____ minutes.
[2023-08-03 08:20] VITALS: BP 109/59; PULSE 73; RESP 16; TEMP 36.7; O2SAT 96
[2023-08-03] MEDS: Atorvastatin Calcium 20 MG TABLET PO (08:26)
[2023-08-03] MEDS: Topiramate 100 MG TABLET 150 MG PO (08:26)
[2023-08-03] MEDS: Ziprasidone 20 MG CAPSULE PO ×2 (08:26→21:29)
[2023-08-03] MEDS: Hydroxyurea 500 MG CAPSULE PO (08:26)
[2023-08-03] MEDS: Aspirin Enteric Coated 81 MG TABLET.DR PO (08:26)
[2023-08-03] MEDS: Rivastigmine Tartrate 1.5 MG CAPSULE 3 MG PO ×2 (08:26→21:30)
[2023-08-03] MEDS: traZODone HCL 25 MG HALFTAB 12.5 MG PO ×2 (08:34→19:24)
[2023-08-03] MEDS: OLANZapine 5 MG TABLET PO ×2 (08:40→19:24)
[2023-08-03] MEDS: Acetaminophen 325 MG TABLET 650 MG PO ×2 (15:25→21:31)
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
[2023-08-03 18:00] VITALS: BP 110/58; PULSE 68; TEMP 36.4; O2SAT 95
[2023-08-03] MEDS: traZODone HCL 100 MG TABLET PO (21:30)
[2023-08-03] MEDS: lamoTRIgine 25 MG TABLET PO (21:30)
[2023-08-04 06:00] VITALS: BP 124/75; PULSE 107; RESP 18; TEMP 36.6; O2SAT 97
[2023-08-04] MEDS: Omeprazole 40 MG CAPSULE.DR PO (06:25)
[2023-08-04] MEDS: Levothyroxine Sodium 75 MCG TABLET PO (06:25)
[2023-08-04] MEDS: OLANZapine 5 MG TABLET PO ×2 (07:32→21:49)
[2023-08-04] MEDS: traZODone HCL 25 MG HALFTAB 12.5 MG PO ×2 (07:32→21:44)
[2023-08-04] MEDS: Rivastigmine Tartrate 1.5 MG CAPSULE 3 MG PO ×2 (08:32→21:48)
[2023-08-04] MEDS: Topiramate 100 MG TABLET 150 MG PO (08:32)
[2023-08-04] MEDS: Hydroxyurea 500 MG CAPSULE PO (08:32)
[2023-08-04] MEDS: Ziprasidone 20 MG CAPSULE PO ×2 (08:33→21:49)
[2023-08-04] MEDS: Atorvastatin Calcium 20 MG TABLET PO (08:33)
[2023-08-04] MEDS: Aspirin Enteric Coated 81 MG TABLET.DR PO (08:33)
[2023-08-04] MEDS: Acetaminophen 325 MG TABLET 650 MG PO ×2 (08:47→21:47)
[2023-08-04 18:00] VITALS: BP 150/66; PULSE 71; RESP 20; TEMP 36.5; O2SAT 98
[2023-08-04] MEDS: lamoTRIgine 25 MG TABLET PO (21:48)
[2023-08-04] MEDS: traZODone HCL 100 MG TABLET PO (21:49)
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
[2023-08-05] MEDS: Levothyroxine Sodium 75 MCG TABLET PO (06:47)
[2023-08-05] MEDS: Omeprazole 40 MG CAPSULE.DR PO (07:11)
[2023-08-05] MEDS: OLANZapine 5 MG TABLET PO ×2 (07:11→17:37)
[2023-08-05] MEDS: traZODone HCL 25 MG HALFTAB 12.5 MG PO ×2 (07:11→17:37)
[2023-08-05 08:14] VITALS: BP 123/63; PULSE 93; RESP 18; TEMP 36.6; O2SAT 97
[2023-08-05] MEDS: Aspirin Enteric Coated 81 MG TABLET.DR PO (09:07)
[2023-08-05] MEDS: Atorvastatin Calcium 20 MG TABLET PO (09:07)
[2023-08-05] MEDS: Ziprasidone 20 MG CAPSULE PO ×2 (09:07→22:50)
[2023-08-05] MEDS: Topiramate 100 MG TABLET 150 MG PO (09:07)
[2023-08-05] MEDS: Hydroxyurea 500 MG CAPSULE PO (09:07)
[2023-08-05] MEDS: Rivastigmine Tartrate 1.5 MG CAPSULE 3 MG PO ×2 (09:08→22:50)
[2023-08-05 18:00] VITALS: BP 115/91; PULSE 84; RESP 18; TEMP 36.6; O2SAT 97
[2023-08-05] MEDS: traZODone HCL 100 MG TABLET PO (22:50)
[2023-08-05] MEDS: OXcarbazepine 300 MG TABLET PO (22:50)
[2023-08-05] MEDS: Acetaminophen 325 MG TABLET 650 MG PO (22:51)
[2023-08-05] MEDS: lamoTRIgine 25 MG TABLET PO (22:51)
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
[2023-08-06] MEDS: Levothyroxine Sodium 75 MCG TABLET PO (06:36)
[2023-08-06] MEDS: Omeprazole 40 MG CAPSULE.DR PO (06:36)
[2023-08-06 08:41] VITALS: BP 132/60; PULSE 63; RESP 18; TEMP 36.2; O2SAT 97
[2023-08-06] MEDS: OXcarbazepine 300 MG TABLET PO ×2 (09:00→22:35)
[2023-08-06] MEDS: Topiramate 100 MG TABLET 150 MG PO (09:00)
[2023-08-06] MEDS: Ziprasidone 20 MG CAPSULE PO (09:00)
[2023-08-06] MEDS: Rivastigmine Tartrate 1.5 MG CAPSULE 3 MG PO ×2 (09:00→22:35)
[2023-08-06] MEDS: Atorvastatin Calcium 20 MG TABLET PO (09:00)
[2023-08-06] MEDS: Aspirin Enteric Coated 81 MG TABLET.DR PO (09:00)
[2023-08-06] MEDS: Hydroxyurea 500 MG CAPSULE PO (09:00)
[2023-08-06] MEDS: traZODone HCL 25 MG HALFTAB 12.5 MG PO (09:02)
[2023-08-06] MEDS: Docusate Sodium 100 MG CAPSULE PO (10:27)
[2023-08-06 18:00] VITALS: BP 145/74; PULSE 91; TEMP 36.9; O2SAT 98
--- NOTE | 2023-08-06 22:08 | HO.PSYCHPN ---
Subjective Subjective Date of Service: 08/06/23 Reason For Visit: Mood dysregulation Interim History: Patient seen later in the day, she reports overall she's had a good day. She reports an instance of VH this morning upon waking she thought she saw a rectagular radio on the table in her room. She saw it for several seconds and then it was gone. This was the first time she's experienced VH. She said it passed and has not had any recurrences. In fact she says she hasn't noticed any AH today. She reports her mood as feeling better...that's good She report s irritability at a 5 out of 10 intensity. SHe had previously been at an 8 or 9. Not convinced it's the medication as we just started on this last night. She had 300 mg last night, and 300mg so far this morning. She denies any side effects, says she feels chill and is optimistic that it will be helpful. She enjoyed the [place] celebration on the milieu and was appreciative. She was somewhat intrusive but jovial on the unit today, she interrupted this scientific writer on a few occasions to share some jokes (some were inappropraite). Vsisble and sociable with peers. No icnidents today noted. Denies SI, HI, AH, VH this AM. UNclear if this was med AE, imagined or hallucination (like hypongogic hallucination?) Medication Compliance: Yes Side effects from medications: No Attending Groups: Yes Review of Systems Acute medical concerns: No Mental Status Exam Mental Status Exam Narrative: Alert. Oriented. In no acute distress. Groomed. Calm, intense. Intermittently Patient Appearance: Fatigued and Appropriate Patient Orientation: Person, Place, Time and Situation Level of Consciousness: Alert Patient Behavior: Appropriate, Talkative, Cooperative, Distractible, Good Eye Contact and Crying Mood Description: Depressed Affect Description: Flat Patient Cognition Impaired: No Ability to Follow Directions: Good Speech Pattern: Spontaneous Speech Memory Description: Intact Hallucinations: None Delusions: Not Present Thought Process: Rumination Thought Content: positive for Perseveration, some grandiose sentiments +aggressive ideation Depressive Symptoms: Unhappiness, Thoughts of /Suicide (denies) and Low Self Esteem Judgement: Fair Diagnostics Vital Signs (24Hr): Vital Signs - 24 hr 08/06/23 08:41 08/06/23 18:00 Temperature 97.2 F 98.4 F Pulse Rate 63 91 Respiratory Rate 18 Blood Pressure 132/60 145/74 H Pulse Oximetry 97 98 Oxygen Delivery Method Room Air Room Air BMI result Body Mass Index 33.3 Labs 07/31/23 16:27 07/31/23 16:27 Medications Medications Current Medications Acetaminophen (Acetaminophen 325 Mg Tablet) 650 mg PO Q6H PRN PRN Reason: Headache/Pain Mild Scale (1-3) Last Admin: 08/05/23 22:51 Dose: 650 mg Al Hydroxide/Mg Hydroxide (Magnesium Hydrox/Alum Hydrox 30 Ml Oral.Susp) 30 ml PO Q6H PRN PRN Reason: Heartburn/Nausea Albuterol Sulfate (Albuterol Sulfate 90 Mcg 8 Gm Inhaler) 2 puff INHALE Q4H PRN PRN Reason: for wheezing Aspirin (Aspirin Enteric Coated 81 Mg Tablet.) 81 mg PO DAILY [facility] Last Admin: 08/06/23 09:00 Dose: 81 mg Atorvastatin Calcium (Atorvastatin Calcium 20 Mg Tablet) 20 mg PO DAILY [facility] Last Admin: 08/06/23 09:00 Dose: 20 mg Docusate Sodium (Docusate Sodium 100 Mg Capsule) 100 mg PO BID PRN PRN Reason: Constipation Last Admin: 08/06/23 10:27 Dose: 100 mg Hydroxyurea (Hydroxyurea 500 Mg Capsule) 500 mg PO DAILY [facility] Last Admin: 08/06/23 09:00 Dose: 500 mg Lamotrigine (Lamotrigine 25 Mg Tablet) 25 mg PO BEDTIME [facility] Last Admin: 08/05/23 22:51 Dose: 25 mg Levothyroxine Sodium (Levothyroxine Sodium 75 Mcg Tablet) 75 mcg PO DAILY@0600 [facility] Last Admin: 08/06/23 06:36 Dose: 75 mcg Magnesium Hydroxide (Milk Of Magnesia 30 Ml Oral.Susp) 30 ml PO DAILY PRN PRN Reason: Constipation Last Admin: 08/02/23 08:53 Dose: 30 ml Non-Formulary Medication (Ghjofvnwue-Pohbfnzv-Wxngnvqish [Breztri Aerosphere]) 2 inhalation INHALE BID [facility] Olanzapine (Olanzapine 5 Mg Tablet) 5 mg PO TID PRN PRN Reason: agitation Last Admin: 08/05/23 17:37 Dose: 5 mg Omeprazole (Omeprazole 40 Mg Capsule.) 40 mg PO DAILY@0630 [facility] Last Admin: 08/06/23 06:36 Dose: 40 mg Oxcarbazepine (Oxcarbazepine 300 Mg Tablet) 300 mg PO BID [facility] Last Admin: 08/06/23 09:00 Dose: 300 mg Rivastigmine Tartrate (Rivastigmine Tartrate 1.5 Mg Capsule) 3 mg PO BID [facility] Last Admin: 08/06/23 09:00 Dose: 3 mg Topiramate (Topiramate 100 Mg Tablet) 150 mg PO DAILY [facility] Last Admin: 08/06/23 09:00 Dose: 150 mg Trazodone HCl (Trazodone Hcl 25 Mg Halftab) 12.5 mg PO TID PRN PRN Reason: agitation Last Admin: 08/06/23 09:02 Dose: 12.5 mg Trazodone HCl (Trazodone Hcl 100 Mg Tablet) 100 mg PO BEDTIME PRN PRN Reason: Insomnia Last Admin: 08/05/23 22:50 Dose: 100 mg Ziprasidone (Ziprasidone 20 Mg Capsule) 20 mg PO BID [facility] Last Admin: 08/06/23 09:00 Dose: 20 mg Allergies Allergies Allergy/AdvReac Type Severity Reaction Status Date / Time grass pollen Allergy Mild unknown Verified 07/02/23 14:51 zoster vaccine live Allergy Mild HIVES Verified 07/02/23 14:51 [SHINGLES VACCINE] BARIUM CONTRAST Allergy Unknown DIFFICULTY Uncoded 07/02/23 14:51 BREATHING/FLUSHING Assessment & Plan Assessment & Plan (1) Bipolar disorder: Status: Acute Code(s): F31.9 - Bipolar disorder, unspecified (2) PTSD (post-traumatic stress disorder): Status: Acute Code(s): F43.10 - Post-traumatic stress disorder, unspecified Plan 67 yo female, reports SI HI with intent toward son in law in the context of rapid mood swings, anger and trauma history. Family history of bipolar disorder. Pt accepting of treatment with the condition that she will not be given medications with SE of weight gain. Plan: Collateral contact Diagnostics Geodon 20 mg bid Geodon 20 mg bid prn agitation Lamictal 25 mg HS Continue other medications. Stop scheduled Olanzapine due to weight gain. Continue prn Olanzapine. 08/02/23 Continue current regime and plan. Continue to assess efficacy and tolerance of changes. 08/03/23 Continue current regime. She continues to tolerate the regime without adverse effects. 08/04/23 Continue current regime. She continues to tolerate the regime without adverse effects. 08/05/23 start OXC 300 mg tongiht 08/06/23 Continue oxcarbazepine 300 mg BID dosing Reason for continued inpatient stay Substantial Risk for: harm to self, harm to others, inability to function, rapid decompensation and med/psych decompensation Time Spent With Patient Time: Total time managing care of this patient today ____ minutes.
[2023-08-06] MEDS: traZODone HCL 100 MG TABLET PO (22:35)
[2023-08-06] MEDS: lamoTRIgine 25 MG TABLET PO (22:35)
[2023-08-06] MEDS: Acetaminophen 325 MG TABLET 650 MG PO (23:00)
[2023-08-07] MEDS: Omeprazole 40 MG CAPSULE.DR PO (06:30)
[2023-08-07] MEDS: Levothyroxine Sodium 75 MCG TABLET PO (06:30)
[2023-08-07 08:10] VITALS: BP 113/65; PULSE 96; RESP 18; TEMP 36.7; O2SAT 97
[2023-08-07] MEDS: Aspirin Enteric Coated 81 MG TABLET.DR PO (08:48)
[2023-08-07] MEDS: Topiramate 100 MG TABLET 150 MG PO (08:48)
[2023-08-07] MEDS: Atorvastatin Calcium 20 MG TABLET PO (08:48)
[2023-08-07] MEDS: Rivastigmine Tartrate 1.5 MG CAPSULE 3 MG PO ×2 (08:48→22:39)
[2023-08-07] MEDS: Ziprasidone 20 MG CAPSULE PO (08:48)
[2023-08-07] MEDS: Hydroxyurea 500 MG CAPSULE PO (08:48)
[2023-08-07] MEDS: OXcarbazepine 300 MG TABLET PO ×2 (08:49→22:42)
[2023-08-07] MEDS: Acetaminophen 325 MG TABLET 650 MG PO ×3 (09:05→22:41)
--- NOTE | 2023-08-07 17:19 | HO.PSYCHPN ---
Subjective Subjective Date of Service: 08/07/23 Reason For Visit: Mood dysregulation Subjective Notes: Conditional Voluntary Healthcare Proxy: No Guardianship: No Medical Problems Affecting Mental Status: No Interim History: Pt reports she experienced auditory/visual perceptual alteractions over the weekend and was told by weekend team it was Geodon. She asks that this be stopped and reports she wants no further antipsychotic trials. Reports seeing a TV, hearing her name being called, seeing a packet of sugar move. Team initiated Trileptal 300 mg bid which she is tolerating at this time. We discontinued Geodon per her request. Today she discussed her issues with her daughter. I blame my son in law, but my issues are really with my daughter. States daughter tracked me down over the weekend and called the unit-pt told her she did not want to engage with her. She cried when discussing her sadness over relationship with her daughter. States she is not comfortable crying in group. Talked of her grandchildren and having a stronger he with the older grandson because I was not at the of the second, I was caring for the older one. Believes this made a significant change in their relationship- I think I feels it and I know I feel it, but I love them both so very much. Weekend team initiated Colace for constipation. Medication Compliance: Intermittent Side effects from medications: Yes (believes Geodon caused psychotic sx) Attending Groups: Yes Review of Systems Acute medical concerns: No Medical Review of Systems: unchanged Review of Systems Review of Systems Yes all other systems are reviewed and are negative (denies) Mental Status Exam Mental Status Exam Patient Appearance: Appropriate Patient Orientation: Person, Place, Time and Situation Level of Consciousness: Alert Patient Behavior: Appropriate, Talkative, Cooperative and Good Eye Contact Mood Description: Depressed and Sad Affect Description: Anxious and Flat Patient Cognition Impaired: No Ability to Follow Directions: Good Speech Pattern: Spontaneous Speech Memory Description: Intact Hallucinations: None Delusions: Not Present Perceptual Disturbances: Depersonalization Thought Process: Rumination Thought Content: positive for Perseveration, positive for Suicidal Ideation (denies) and positive for Homicidal Ideation (denies) Depressive Symptoms: Thoughts of /Suicide (denies) Judgement: Fair Diagnostics Vital Signs (24Hr): Vital Signs - 24 hr 08/06/23 18:00 08/07/23 08:10 Temperature 98.4 F 98.1 F Pulse Rate 91 96 Respiratory Rate 18 Blood Pressure 145/74 H 113/65 Pulse Oximetry 98 97 Oxygen Delivery Method Room Air Room Air BMI result Body Mass Index 33.3 Labs 07/31/23 16:27 07/31/23 16:27 Medications Medications Current Medications Acetaminophen (Acetaminophen 325 Mg Tablet) 650 mg PO Q6H PRN PRN Reason: Headache/Pain Mild Scale (1-3) Last Admin: 08/07/23 16:28 Dose: 650 mg Al Hydroxide/Mg Hydroxide (Magnesium Hydrox/Alum Hydrox 30 Ml Oral.Susp) 30 ml PO Q6H PRN PRN Reason: Heartburn/Nausea Albuterol Sulfate (Albuterol Sulfate 90 Mcg 8 Gm Inhaler) 2 puff INHALE Q4H PRN PRN Reason: for wheezing Aspirin (Aspirin Enteric Coated 81 Mg Tablet.) 81 mg PO DAILY [facility] Last Admin: 08/07/23 08:48 Dose: 81 mg Atorvastatin Calcium (Atorvastatin Calcium 20 Mg Tablet) 20 mg PO DAILY [facility] Last Admin: 08/07/23 08:48 Dose: 20 mg Docusate Sodium (Docusate Sodium 100 Mg Capsule) 100 mg PO BID PRN PRN Reason: Constipation Last Admin: 08/06/23 10:27 Dose: 100 mg Hydroxyurea (Hydroxyurea 500 Mg Capsule) 500 mg PO DAILY [facility] Last Admin: 08/07/23 08:48 Dose: 500 mg Lamotrigine (Lamotrigine 25 Mg Tablet) 25 mg PO BEDTIME [facility] Last Admin: 08/06/23 22:35 Dose: 25 mg Levothyroxine Sodium (Levothyroxine Sodium 75 Mcg Tablet) 75 mcg PO DAILY@0600 [facility] Last Admin: 08/07/23 06:30 Dose: 75 mcg Magnesium Hydroxide (Milk Of Magnesia 30 Ml Oral.Susp) 30 ml PO DAILY PRN PRN Reason: Constipation Last Admin: 08/02/23 08:53 Dose: 30 ml Non-Formulary Medication ([id number]-[id number] [Breztri Aerosphere]) 2 inhalation INHALE BID [facility] Olanzapine (Olanzapine 5 Mg Tablet) 5 mg PO TID PRN PRN Reason: agitation Last Admin: 08/05/23 17:37 Dose: 5 mg Omeprazole (Omeprazole 40 Mg Capsule.) 40 mg PO DAILY@0630 [facility] Last Admin: 08/07/23 06:30 Dose: 40 mg Oxcarbazepine (Oxcarbazepine 300 Mg Tablet) 300 mg PO BID [facility] Last Admin: 08/07/23 08:49 Dose: 300 mg Rivastigmine Tartrate (Rivastigmine Tartrate 1.5 Mg Capsule) 3 mg PO BID [facility] Last Admin: 08/07/23 08:48 Dose: 3 mg Topiramate (Topiramate 100 Mg Tablet) 150 mg PO DAILY [facility] Last Admin: 08/07/23 08:48 Dose: 150 mg Trazodone HCl (Trazodone Hcl 25 Mg Halftab) 12.5 mg PO TID PRN PRN Reason: agitation Last Admin: 08/06/23 09:02 Dose: 12.5 mg Trazodone HCl (Trazodone Hcl 100 Mg Tablet) 100 mg PO BEDTIME PRN PRN Reason: Insomnia Last Admin: 08/06/23 22:35 Dose: 100 mg Allergies Allergies Allergy/AdvReac Type Severity Reaction Status Date / Time grass pollen Allergy Mild unknown Verified 07/02/23 14:51 zoster vaccine live Allergy Mild HIVES Verified 07/02/23 14:51 [SHINGLES VACCINE] BARIUM CONTRAST Allergy Unknown DIFFICULTY Uncoded 07/02/23 14:51 BREATHING/FLUSHING Assessment & Plan Assessment & Plan (1) Bipolar disorder: Status: Acute Code(s): F31.9 - Bipolar disorder, unspecified (2) PTSD (post-traumatic stress disorder): Status: Acute Code(s): F43.10 - Post-traumatic stress disorder, unspecified Plan 67 yo female, reports SI HI with intent toward son in law in the context of rapid mood swings, anger and trauma history. Family history of bipolar disorder. Pt accepting of treatment with the condition that she will not be given medications with SE of weight gain. Plan: Collateral contact Diagnostics Geodon 20 mg bid Geodon 20 mg bid prn agitation Lamictal 25 mg HS Continue other medications. Stop scheduled Olanzapine due to weight gain. Continue prn Olanzapine. 08/02/23 Continue current regime and plan. Continue to assess efficacy and tolerance of changes. 08/03/23 Continue current regime. She continues to tolerate the regime without adverse effects. 08/04/23 Continue current regime. She continues to tolerate the regime without adverse effects. 08/05/23 Start oxcarbazepine 300 mg today and increase to 300 mg BID dosing tomorrow 08/07/23 Discontinue Della Patient educated on: medication risk/benefits and therapeutic strategies Informed Consent: understands Reason for continued inpatient stay Substantial Risk for: rapid decompensation Time Spent With Patient Time: Total time managing care of this patient today ____ minutes.
[2023-08-07 22:20] VITALS: BP 136/62; PULSE 75; TEMP 36.4
[2023-08-07] MEDS: lamoTRIgine 25 MG TABLET PO (22:42)
[2023-08-07] MEDS: traZODone HCL 100 MG TABLET PO (22:42)
[2023-08-08] MEDS: Levothyroxine Sodium 75 MCG TABLET PO (06:30)
[2023-08-08] MEDS: Omeprazole 40 MG CAPSULE.DR PO (06:30)
[2023-08-08 08:15] VITALS: BP 137/97; PULSE 81; RESP 16; TEMP 36.6; O2SAT 98
[2023-08-08] MEDS: Hydroxyurea 500 MG CAPSULE PO (08:23)
[2023-08-08] MEDS: OXcarbazepine 300 MG TABLET PO ×2 (08:23→21:40)
[2023-08-08] MEDS: Topiramate 100 MG TABLET 150 MG PO (08:23)
[2023-08-08] MEDS: Rivastigmine Tartrate 1.5 MG CAPSULE 3 MG PO ×2 (08:23→21:39)
[2023-08-08] MEDS: Aspirin Enteric Coated 81 MG TABLET.DR PO (08:24)
[2023-08-08] MEDS: Atorvastatin Calcium 20 MG TABLET PO (13:52)
[2023-08-08] MEDS: Acetaminophen 325 MG TABLET 650 MG PO (16:20)
--- NOTE | 2023-08-08 16:41 | HO.PSYCHPN ---
Subjective Subjective Date of Service: 08/08/23 Reason For Visit: Mood dysregulation Subjective Notes: Conditional Voluntary Healthcare Proxy: No Guardianship: No Medical Problems Affecting Mental Status: No Interim History: Tolerating Trileptal. Active in milieu. I am trying, although it is hard. She continues to report increase in anxious and depressive symptoms related to current family psychosocial stressors. Medication Compliance: Yes Side effects from medications: No Attending Groups: Yes Review of Systems Acute medical concerns: No Medical Review of Systems: unchanged Review of Systems Review of Systems Yes all other systems are reviewed and are negative (denies) Mental Status Exam Mental Status Exam Patient Appearance: Appropriate Patient Orientation: Person, Place, Time and Situation Level of Consciousness: Alert Patient Behavior: Appropriate, Talkative, Cooperative and Good Eye Contact Mood Description: Depressed and Sad Affect Description: Anxious and Flat Patient Cognition Impaired: No Ability to Follow Directions: Good Speech Pattern: Spontaneous Speech Memory Description: Intact Hallucinations: None Delusions: Not Present Perceptual Disturbances: Depersonalization Thought Process: Rumination Thought Content: positive for Perseveration, positive for Suicidal Ideation (denies) and positive for Homicidal Ideation (denies) Depressive Symptoms: Thoughts of /Suicide (denies) Judgement: Fair Diagnostics Vital Signs (24Hr): Vital Signs - 24 hr 08/07/23 22:20 08/08/23 08:15 Temperature 97.6 F 97.9 F Pulse Rate 75 81 Respiratory Rate 16 Blood Pressure 136/62 137/97 H Pulse Oximetry 98 Oxygen Delivery Method Room Air BMI result Body Mass Index 33.3 Labs 07/31/23 16:27 07/31/23 16:27 Medications Medications Current Medications Acetaminophen (Acetaminophen 325 Mg Tablet) 650 mg PO Q6H PRN PRN Reason: Headache/Pain Mild Scale (1-3) Last Admin: 08/08/23 16:20 Dose: 650 mg Al Hydroxide/Mg Hydroxide (Magnesium Hydrox/Alum Hydrox 30 Ml Oral.Susp) 30 ml PO Q6H PRN PRN Reason: Heartburn/Nausea Albuterol Sulfate (Albuterol Sulfate 90 Mcg 8 Gm Inhaler) 2 puff INHALE Q4H PRN PRN Reason: for wheezing Aspirin (Aspirin Enteric Coated 81 Mg Tablet.) 81 mg PO DAILY [facility] Last Admin: 08/08/23 08:24 Dose: 81 mg Atorvastatin Calcium (Atorvastatin Calcium 20 Mg Tablet) 20 mg PO DAILY [facility] Last Admin: 08/08/23 13:52 Dose: 20 mg Docusate Sodium (Docusate Sodium 100 Mg Capsule) 100 mg PO BID PRN PRN Reason: Constipation Last Admin: 08/06/23 10:27 Dose: 100 mg Hydroxyurea (Hydroxyurea 500 Mg Capsule) 500 mg PO DAILY [facility] Last Admin: 08/08/23 08:23 Dose: 500 mg Lamotrigine (Lamotrigine 25 Mg Tablet) 25 mg PO BEDTIME [facility] Last Admin: 08/07/23 22:42 Dose: 25 mg Levothyroxine Sodium (Levothyroxine Sodium 75 Mcg Tablet) 75 mcg PO DAILY@0600 [facility] Last Admin: 08/08/23 06:30 Dose: 75 mcg Lidocaine (Lidocaine 4 % Patch Adh..Patch) 1 patch TRANSDERMA DAILY [facility]; Protocol Last Admin: 08/08/23 16:21 Dose: 1 patch Magnesium Hydroxide (Milk Of Magnesia 30 Ml Oral.Susp) 30 ml PO DAILY PRN PRN Reason: Constipation Last Admin: 08/02/23 08:53 Dose: 30 ml Non-Formulary Medication ([id number]-[id number] [Breztri Aerosphere]) 2 inhalation INHALE BID [facility] Olanzapine (Olanzapine 5 Mg Tablet) 5 mg PO TID PRN PRN Reason: agitation Last Admin: 08/05/23 17:37 Dose: 5 mg Omeprazole (Omeprazole 40 Mg Capsule.Dr) 40 mg PO DAILY@0630 [facility] Last Admin: 08/08/23 06:30 Dose: 40 mg Oxcarbazepine (Oxcarbazepine 300 Mg Tablet) 300 mg PO BID [facility] Last Admin: 08/08/23 08:23 Dose: 300 mg Rivastigmine Tartrate (Rivastigmine Tartrate 1.5 Mg Capsule) 3 mg PO BID [facility] Last Admin: 08/08/23 08:23 Dose: 3 mg Topiramate (Topiramate 100 Mg Tablet) 150 mg PO DAILY [facility] Last Admin: 08/08/23 08:23 Dose: 150 mg Trazodone HCl (Trazodone Hcl 25 Mg Halftab) 12.5 mg PO TID PRN PRN Reason: agitation Last Admin: 08/06/23 09:02 Dose: 12.5 mg Trazodone HCl (Trazodone Hcl 100 Mg Tablet) 100 mg PO BEDTIME PRN PRN Reason: Insomnia Last Admin: 08/07/23 22:42 Dose: 100 mg Allergies Allergies Allergy/AdvReac Type Severity Reaction Status Date / Time grass pollen Allergy Mild unknown Verified 07/02/23 14:51 zoster vaccine live Allergy Mild HIVES Verified 07/02/23 14:51 [SHINGLES VACCINE] BARIUM CONTRAST Allergy Unknown DIFFICULTY Uncoded 07/02/23 14:51 BREATHING/FLUSHING Assessment & Plan Assessment & Plan (1) Bipolar disorder: Status: Acute Code(s): F31.9 - Bipolar disorder, unspecified (2) PTSD (post-traumatic stress disorder): Status: Acute Code(s): F43.10 - Post-traumatic stress disorder, unspecified Plan 67 yo female, reports SI HI with intent toward son in law in the context of rapid mood swings, anger and trauma history. Family history of bipolar disorder. Pt accepting of treatment with the condition that she will not be given medications with SE of weight gain. Plan: Collateral contact Diagnostics Geodon 20 mg bid Geodon 20 mg bid prn agitation Lamictal 25 mg HS Continue other medications. Stop scheduled Olanzapine due to weight gain. Continue prn Olanzapine. 08/02/23 Continue current regime and plan. Continue to assess efficacy and tolerance of changes. 08/03/23 Continue current regime. She continues to tolerate the regime without adverse effects. 08/04/23 Continue current regime. She continues to tolerate the regime without adverse effects. 08/05/23 Start oxcarbazepine 300 mg today and increase to 300 mg BID dosing tomorrow 08/07/23 Discontinue Geodon 08/08/23 Continue current regime/plan Guardian/Caregiver educated on: medication risk/benefits and therapeutic strategies Informed Consent: understands Reason for continued inpatient stay Substantial Risk for: rapid decompensation Time Spent With Patient Time: Total time managing care of this patient today ____ minutes.
[2023-08-08 18:00] VITALS: BP 133/77; PULSE 78; TEMP 36.6; O2SAT 98
[2023-08-08] MEDS: lamoTRIgine 25 MG TABLET PO (21:40)
[2023-08-09] MEDS: Levothyroxine Sodium 75 MCG TABLET PO (06:13)
[2023-08-09] MEDS: Omeprazole 40 MG CAPSULE.DR PO (06:13)
[2023-08-09 08:19] VITALS: BP 136/67; PULSE 85; RESP 16; TEMP 36.8; O2SAT 98
[2023-08-09] MEDS: Atorvastatin Calcium 20 MG TABLET PO (08:42)
[2023-08-09] MEDS: Topiramate 100 MG TABLET 150 MG PO (08:42)
[2023-08-09] MEDS: Aspirin Enteric Coated 81 MG TABLET.DR PO (08:42)
[2023-08-09] MEDS: Hydroxyurea 500 MG CAPSULE PO (08:42)
[2023-08-09] MEDS: OXcarbazepine 300 MG TABLET PO (08:42)
[2023-08-09] MEDS: OLANZapine 5 MG TABLET PO (13:25)
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
[2023-08-09 18:00] VITALS: BP 109/61; PULSE 89; RESP 17; TEMP 36.7; O2SAT 96
[2023-08-09] MEDS: lamoTRIgine 25 MG TABLET PO (20:17)
[2023-08-10] MEDS: Topiramate 100 MG TABLET 150 MG PO (08:45)
[2023-08-10] MEDS: Atorvastatin Calcium 20 MG TABLET PO (08:45)
[2023-08-10] MEDS: Levothyroxine Sodium 75 MCG TABLET PO (08:45)
[2023-08-10] MEDS: Aspirin Enteric Coated 81 MG TABLET.DR PO (08:46)
[2023-08-10] MEDS: Hydroxyurea 500 MG CAPSULE PO (08:46)
[2023-08-10] MEDS: Albuterol Sulfate 90 MCG 8 GM INHALER 2 PUFF INHALE ×2 (08:50→18:23)
[2023-08-10 09:16] VITALS: BP 122/76; PULSE 71; TEMP 36.8; O2SAT 98
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
[2023-08-10 16:05] VITALS: BP 131/72; PULSE 78; RESP 16; TEMP 36.9
[2023-08-10] MEDS: Ibuprofen 400 MG TABLET PO (18:22)
[2023-08-10] MEDS: lamoTRIgine 25 MG TABLET PO (22:17)
[2023-08-10] MEDS: OLANZapine 5 MG TABLET PO (22:17)
[2023-08-11 08:00] VITALS: BP 152/70; PULSE 84; RESP 18; TEMP 36.3; O2SAT 99
[2023-08-11] MEDS: Aspirin Enteric Coated 81 MG TABLET.DR PO (10:03)
[2023-08-11] MEDS: Levothyroxine Sodium 75 MCG TABLET PO (10:03)
[2023-08-11] MEDS: Atorvastatin Calcium 20 MG TABLET PO (10:03)
[2023-08-11] MEDS: Topiramate 100 MG TABLET 150 MG PO (10:04)
[2023-08-11] MEDS: Hydroxyurea 500 MG CAPSULE PO (10:05)
[2023-08-11] MEDS: Ibuprofen 400 MG TABLET PO (10:55)
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
[2023-08-11 17:35] VITALS: BP 129/70; PULSE 81; TEMP 36.6; O2SAT 96
[2023-08-11] MEDS: lamoTRIgine 25 MG TABLET PO (22:44)
[2023-08-12] MEDS: Levothyroxine Sodium 75 MCG TABLET PO (06:17)
[2023-08-12 08:56] VITALS: BP 129/77; PULSE 81; RESP 16; TEMP 36.5; O2SAT 99
[2023-08-12] MEDS: Atorvastatin Calcium 20 MG TABLET PO (09:19)
[2023-08-12] MEDS: Hydroxyurea 500 MG CAPSULE PO (09:19)
[2023-08-12] MEDS: Aspirin Enteric Coated 81 MG TABLET.DR PO (09:19)
[2023-08-12] MEDS: Ibuprofen 400 MG TABLET PO (15:09)
[2023-08-12] MEDS: Acetaminophen 325 MG TABLET 650 MG PO (20:09)
[2023-08-12 21:20] VITALS: BP 154/78; PULSE 92; RESP 16; TEMP 36.5; O2SAT 97
[2023-08-13] MEDS: Levothyroxine Sodium 75 MCG TABLET PO (06:25)
[2023-08-13 08:21] VITALS: BP 112/77; PULSE 105; RESP 16; TEMP 36; O2SAT 95
[2023-08-13] MEDS: Aspirin Enteric Coated 81 MG TABLET.DR PO (08:35)
[2023-08-13] MEDS: Ibuprofen 400 MG TABLET PO ×2 (09:17→22:01)
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
[2023-08-13 15:45] VITALS: BP 125/70; PULSE 86; RESP 16; TEMP 36.9; O2SAT 98
[2023-08-13] MEDS: traZODone HCL 100 MG TABLET PO (21:57)
--- NOTE | 2023-08-14 01:12 | PC.NURSE ---
Patient's daughter called to make an appointment to see her mother and her mother's social studies teacher on M5. The daughter explained that she will also be bringing a bag of laundry from a laundry service her mother uses since the laundry was left on her mother's porch. Patient's daughter said This is going to be the last time I see her and I want to make sure she gets her clothes . Information passed on to next shift.
[2023-08-14] MEDS: Omeprazole 40 MG CAPSULE.DR PO (05:49)
[2023-08-14] MEDS: Levothyroxine Sodium 75 MCG TABLET PO (05:49)
[2023-08-14 08:43] VITALS: BP 117/57; PULSE 78; RESP 16; TEMP 36.7; O2SAT 97
[2023-08-14] MEDS: Ibuprofen 400 MG TABLET PO (09:11)
[2023-08-14] MEDS: Throat Lozenge, Medicated LOZENGE 1 LOZENGE MUCOUS MEM (09:11)
[2023-08-14] MEDS: Hydroxyurea 500 MG CAPSULE PO (09:11)
[2023-08-14] MEDS: Rivastigmine Tartrate 1.5 MG CAPSULE 3 MG PO ×2 (09:11→23:13)
[2023-08-14] MEDS: Docusate Sodium 100 MG CAPSULE PO (09:12)
[2023-08-14] MEDS: Aspirin Enteric Coated 81 MG TABLET.DR PO (09:12)
[2023-08-14] MEDS: Atorvastatin Calcium 20 MG TABLET PO (09:12)
[2023-08-14] MEDS: Lidocaine 4 % Patch ADH..PATCH 1 PATCH TRANSDERMA (09:17)
[2023-08-14] MEDS: Acetaminophen 325 MG TABLET 650 MG PO (13:33)
[2023-08-14 16:20] VITALS: BP 148/61; PULSE 84; RESP 16; TEMP 36.9; O2SAT 95
--- NOTE | 2023-08-14 16:36 | HO.PSYCHPN ---
Subjective Subjective Reason For Visit: Mood dysregulation Diagnostics Vital Signs (24Hr): Vital Signs - 24 hr 08/14/23 08:43 Temperature 98.1 F Pulse Rate 78 Respiratory Rate 16 Blood Pressure 117/57 L Pulse Oximetry 97 Oxygen Delivery Method Room Air BMI result Body Mass Index 33.3 Labs 07/31/23 16:27 07/31/23 16:27 Medications Medications Current Medications Acetaminophen (Acetaminophen 325 Mg Tablet) 650 mg PO Q6H PRN PRN Reason: Headache/Pain Mild Scale (1-3) Last Admin: 08/14/23 13:33 Dose: 650 mg Al Hydroxide/Mg Hydroxide (Magnesium Hydrox/Alum Hydrox 30 Ml Oral.Susp) 30 ml PO Q6H PRN PRN Reason: Heartburn/Nausea Albuterol Sulfate (Albuterol Sulfate 90 Mcg 8 Gm Inhaler) 2 puff INHALE Q4H PRN PRN Reason: for wheezing Last Admin: 08/10/23 18:23 Dose: 2 puff Aspirin (Aspirin Enteric Coated 81 Mg Tablet.Dr) 81 mg PO DAILY [facility] Last Admin: 08/14/23 09:12 Dose: 81 mg Atorvastatin Calcium (Atorvastatin Calcium 20 Mg Tablet) 20 mg PO DAILY [facility] Last Admin: 08/14/23 09:12 Dose: 20 mg Benzocaine (Throat Lozenge, Medicated Lozenge) 1 lozenge MUCOUS MEM Q2H PRN PRN Reason: Sore Throat Last Admin: 08/14/23 09:11 Dose: 1 lozenge Docusate Sodium (Docusate Sodium 100 Mg Capsule) 100 mg PO BID PRN PRN Reason: Constipation Last Admin: 08/14/23 09:12 Dose: 100 mg Fluticasone/Vilanterol (Fluticasone/Vilanterol 100/25 Blst.W.Dev) 1 puff INHALE RDAILY [facility] Last Admin: 08/14/23 09:10 Dose: 1 puff Haloperidol (Haloperidol 1 Mg Tablet) 1 mg PO BID PRN PRN Reason: anxiety,agitation Hydroxyurea (Hydroxyurea 500 Mg Capsule) 500 mg PO DAILY [facility] Last Admin: 08/14/23 09:11 Dose: 500 mg Ibuprofen (Ibuprofen 400 Mg Tablet) 400 mg PO Q6H PRN PRN Reason: Pain, Mild (Pain Scale 1-3) Last Admin: 08/14/23 09:11 Dose: 400 mg Lamotrigine (Lamotrigine 25 Mg Tablet) 25 mg PO BEDTIME [facility] Last Admin: 08/13/23 21:56 Dose: Not Given Levothyroxine Sodium (Levothyroxine Sodium 75 Mcg Tablet) 75 mcg PO DAILY@0600 [facility] Last Admin: 08/14/23 05:49 Dose: 75 mcg Lidocaine (Lidocaine 4 % Patch Adh..Patch) 1 patch TRANSDERMA DAILY [facility]; Protocol Last Admin: 08/14/23 09:17 Dose: 1 patch Magnesium Hydroxide (Milk Of Magnesia 30 Ml Oral.Susp) 30 ml PO DAILY PRN PRN Reason: Constipation Last Admin: 08/02/23 08:53 Dose: 30 ml Omeprazole (Omeprazole 40 Mg Capsule.Dr) 40 mg PO DAILY@0630 [facility] Last Admin: 08/14/23 05:49 Dose: 40 mg Oxcarbazepine (Oxcarbazepine 300 Mg Tablet) 600 mg PO BID [facility] Last Admin: 08/14/23 09:58 Dose: Not Given Rivastigmine Tartrate (Rivastigmine Tartrate 1.5 Mg Capsule) 3 mg PO BID [facility] Last Admin: 08/14/23 09:11 Dose: 3 mg Saliva Substitute (Dry Mouth [place] 60 Ml [place]) 1 spray MUCOUS MEM Q2H PRN PRN Reason: Dry Mouth Last Admin: 08/14/23 09:11 Dose: 1 spray Topiramate (Topiramate 100 Mg Tablet) 150 mg PO DAILY [facility] Last Admin: 08/14/23 09:58 Dose: Not Given Trazodone HCl (Trazodone Hcl 100 Mg Tablet) 100 mg PO BEDTIME PRN PRN Reason: Insomnia Last Admin: 08/13/23 21:57 Dose: 100 mg Allergies Allergies Allergy/AdvReac Type Severity Reaction Status Date / Time grass pollen Allergy Mild unknown Verified 07/02/23 14:51 zoster vaccine live Allergy Mild HIVES Verified 07/02/23 14:51 [SHINGLES VACCINE] BARIUM CONTRAST Allergy Unknown DIFFICULTY Uncoded 07/02/23 14:51 BREATHING/FLUSHING Assessment & Plan Assessment & Plan (1) Bipolar disorder: Status: Acute Code(s): F31.9 - Bipolar disorder, unspecified (2) PTSD (post-traumatic stress disorder): Status: Acute Code(s): F43.10 - Post-traumatic stress disorder, unspecified Plan 67 yo female, reports SI HI with intent toward son in law in the context of rapid mood swings, anger and trauma history. Family history of bipolar disorder. Pt accepting of treatment with the condition that she will not be given medications with SE of weight gain. Plan: Collateral contact Diagnostics Geodon 20 mg bid Geodon 20 mg bid prn agitation Lamictal 25 mg HS Continue other medications. Stop scheduled Olanzapine due to weight gain. Continue prn Olanzapine. 08/02/23 Continue current regime and plan. Continue to assess efficacy and tolerance of changes. 08/03/23 Continue current regime. She continues to tolerate the regime without adverse effects. 08/04/23 Continue current regime. She continues to tolerate the regime without adverse effects. 08/05/23 Start oxcarbazepine 300 mg today and increase to 300 mg BID dosing tomorrow 08/07/23 Discontinue Geodon 08/08/23 Continue current regime/plan 08/09/23 Haldol 2 mg bid trial Trileptal increase to 600 mg bid 08/10/23 Continue regime Pt to begin to list topics for a meeting with her daughter next week. 08/11/23 Continue tx. Time Spent With Patient Time: Total time managing care of this patient today ____ minutes.
[2023-08-14] MEDS: HaloperidoL 1 MG TABLET PO (16:40)
--- NOTE | 2023-08-14 18:45 | PC.NURSE ---
Patient was anxious and was offered Haldol 1 mg po as a prn, pt reported positive effect; she wanted the provider to be made aware.
[2023-08-14] MEDS: lamoTRIgine 25 MG TABLET PO (23:14)
[2023-08-14] MEDS: OXcarbazepine 300 MG TABLET 600 MG PO (23:14)
[2023-08-14] MEDS: traZODone HCL 100 MG TABLET PO (23:14)
[2023-08-15] MEDS: HaloperidoL 1 MG TABLET PO (01:26)
[2023-08-15] MEDS: Ibuprofen 400 MG TABLET PO (01:26)
[2023-08-15] MEDS: traZODone HCL 100 MG TABLET PO (01:27)
[2023-08-15 09:36] VITALS: BP 112/65; PULSE 101; RESP 16; TEMP 36.4; O2SAT 95
[2023-08-15] MEDS: Topiramate 100 MG TABLET 150 MG PO (09:39)
[2023-08-15] MEDS: Levothyroxine Sodium 75 MCG TABLET PO (09:39)
[2023-08-15] MEDS: OXcarbazepine 300 MG TABLET 600 MG PO (09:40)
[2023-08-15] MEDS: Throat Lozenge, Medicated LOZENGE 1 LOZENGE MUCOUS MEM (09:41)
[2023-08-15] MEDS: Omeprazole 40 MG CAPSULE.DR PO (09:41)
[2023-08-15] MEDS: Atorvastatin Calcium 20 MG TABLET PO (09:42)
[2023-08-15] MEDS: Aspirin Enteric Coated 81 MG TABLET.DR PO (09:43)
[2023-08-15] MEDS: Rivastigmine Tartrate 1.5 MG CAPSULE 3 MG PO (09:43)
[2023-08-15] MEDS: Hydroxyurea 500 MG CAPSULE PO (09:43)
[2023-08-15] MEDS: Lidocaine 4 % Patch ADH..PATCH 1 PATCH TRANSDERMA (10:25)
--- NOTE | 2023-08-15 16:44 | PM.PSYDC ---
DS: Providers Provider Date of Service: 08/15/23 Date of admission: 07/31/23 22:29 Date of discharge: 08/15/23 Primary care physician: Sana Randall MD Admitting clinician: Macy Henriquez Attending physician on admission: Cesar Garcia Attending physician on discharge: Cesar Garcia Discharging clinician: Macy Henriquez DS: Diagnosis Discharge Diagnosis (1) Bipolar disorder: Status: Acute (2) PTSD (post-traumatic stress disorder): Status: Acute DS: Medications Discharge Medications Home Medications: Home Medications Medication Instructions Recorded Confirmed aspirin 81 mg tablet,delayed 81 mg PO DAILY 07/31/23 07/31/23 release atorvastatin 20 mg tablet 20 mg PO DAILY 07/31/23 07/31/23 budesonide 160 mcg-glycopyr 9 2 inh inhalation BID 07/31/23 07/31/23 mcg-formot 4.8 mcg/actuation HFA inhaler (Breztri Aerosphere) levothyroxine 75 mcg tablet 75 mcg PO DAILY 07/31/23 07/31/23 omeprazole 40 mg capsule,delayed 40 mg PO DAILY 07/31/23 07/31/23 release Previous Rx's Medication Instructions Recorded albuterol sulfate 90 mcg/actuation 2 puff inhalation Q4-6H PRN for 03/26/23 aerosol inhaler wheezing 30 days #54 ea hydroxyurea 500 mg capsule 500 mg PO DAILY 30 days #30 caps 03/26/23 docusate sodium 100 mg capsule 100 mg PO BID PRN Constipation #60 08/15/23 caps fluticasone furoate 100 1 inh inhalation RDAILY #1 inhaler 08/15/23 mcg-vilanterol 25 mcg/dose inhalation powder (Breo Ellipta) haloperidol 1 mg tablet 1 mg PO BID PRN anxiety,agitation 08/15/23 #30 tabs hydroxyzine HCl 25 mg tablet 25 mg PO TID PRN anxiety #30 tabs 08/15/23 lamotrigine 25 mg tablet 25 mg PO BEDTIME #30 tabs 08/15/23 oxcarbazepine 300 mg tablet 600 mg (2 x 300 mg) PO BID #30 tabs 08/15/23 rivastigmine tartrate 3 mg capsule 3 mg PO BID #30 caps 01/10/24 rivastigmine tartrate 3 mg capsule 3 mg PO BID #60 caps 08/15/23 topiramate 50 mg tablet (Topamax) 150 mg (3 x 50 mg) PO DAILY #45 08/15/23 tabs trazodone 100 mg tablet 100 mg PO BEDTIME PRN Insomnia #15 08/15/23 tabs Mental Status Exam Mental Status Exam Patient Appearance: Appropriate Patient Orientation: Person, Place, Time and Situation Level of Consciousness: Alert Patient Behavior: Appropriate, Talkative, Cooperative and Good Eye Contact Mood Description: Constricted Affect Description: Constricted Patient Cognition Impaired: No Ability to Follow Directions: Good Speech Pattern: Spontaneous Speech Memory Description: Intact Hallucinations: None Delusions: Not Present Thought Process: Goal Oriented Thought Content: positive for Goal Oriented and positive for Perseveration Judgement: Good DS: Summary Hospital Course Hospital Course: Admission to adult psychiatry for exacerbation of bipolar disorder with SI, HI, labile anger and reported early sx of MCI/dementia. Pt identified stressors as loss of her , ongoing conflict with daughter and son in law and leaving her spiritism after being in the [employer] for forty years. 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 Medications were evaluated and adjusted. Pt is reluctant to take medications and is unsure she will continue these upon discharge. She cites her husbands poor experience with medications and side effects. Pt during admission, met with her daughter and they decided to terminate their current relationship for the time being to decrease stress for both. Pt will continue therapy and medication management with out patient providers. Status at Discharge Functional status at discharge: independent ambulation Overall status at discharge: patient is progressing back to baseline Time Spent with Patient Time attestation: Total time managing care of this patient today ____ minutes. Time spent: Greater than 30 minutes Discharge Plan Discharge Anticipated Discharge Date/Time: 08/15/23 12:00 Patient Disposition: Home, Self-Care Discharge Diagnosis: PTSD Bipolar Disorder Referrals: [facility] Intake: [facility] [Other] - 08/28/23 8:00 am (PHP is in the [facility] building in the back of the main hospital on campus. Follow the silver signs with blue writing to [facility]. This will bring you to parking lot C, you will see a red trailer attached to a brick building, follow the walkway next to the building and PHP is in this side door and to the left as you enter the building. You have been put on a cancellation list so they may call you to schedule a sooner intake appointment. ) Sana Gardner MD [Primary Care Provider] - 08/23/23 12:30 pm (in office) Discharge Medications: New fluticasone furoate-vilanterol [Breo Ellipta] 100-25 mcg/dose Blister With Device 1 inh inhalation RDAILY Qty: 1 0RF Continued albuterol sulfate 90 mcg/actuation HFA aerosol inhaler 2 puff inhalation Q4-6H PRN (Reason: for wheezing) 30 Days Qty: 54 1RF atorvastatin 20 mg tablet 20 mg PO DAILY omeprazole 40 mg capsule,delayed release(DR/EC) 40 mg PO DAILY aspirin 81 mg tablet,delayed release (DR/EC) 81 mg PO DAILY Discontinued hydroxyzine HCl 10 mg tablet 20 mg PO BID PRN (Reason: itch) rivastigmine tartrate 3 mg capsule 3 mg PO BID topiramate [Topamax] 50 mg Tablet 150 mg PO DAILY No Action Breztri Aerosphere 160-9-4.8 mcg/actuation HFA aerosol inhaler 2 inh inhalation BID 30 Days Qty: 5.9 1RF hydroxyurea 500 mg capsule 500 mg PO DAILY 30 Days Qty: 30 0RF lactulose 10 gram/15 mL solution 10 g PO BEDTIME PRN (Reason: constipation) 30 Days Qty: 237 0RF olanzapine 10 mg tablet 10 mg PO BEDTIME Qty: 30 0RF oxcarbazepine 300 mg/5 mL (60 mg/mL) suspension 600 mg PO BID Qty: 600 0RF olanzapine 5 mg tablet 5 mg PO BID PRN (Reason: anger, simeon, insomnia) 15 Days Qty: 30 0RF ondansetron 4 mg tablet,disintegrating 4 mg PO Q8H PRN (Reason: nausea and vomiting) Qty: 20 0RF rivastigmine tartrate 3 mg capsule 3 mg PO BID 30 Days Qty: 60 1RF levothyroxine [Synthroid] 88 mcg tablet 88 mcg PO DAILY 30 Days Qty: 30 6RF peg 3350-electrolytes [Golytely] 236-22.74-6.74 -5.86 gram recon soln 240 ml PO Q10M Qty: 4000 0RF Rx Instructions: as per split prep instructions, until fecal effluent is clear Discharge Orders: Discharge Order (Routine); Ordered 08/15/23 Ordered By: Macy Henriquez Diet: Advance to usual diet Activity on Discharge: As tolerated Stand Alone Forms: Patient Portal Discharge page, Community Support Care Plan Goals: Mood and Behavioral Stabilization Health Concerns: Mood and Behavioral Stabilization Plan of Treatment: Attend scheduled appointments, Kaelyn ESPINOW will call you with your schedule Take medications as directed Reach out to your established supports Call and or return as needed. Assessment: Scheduled discharge for pt. Pt interviewed prior to discharge. She is found to be fully oriented and without SI/HI. Pt has insight and demonstrates good judgment in terms of wanting to pursue treatment. Pt is not in imminent risk of harm to self or others and has a safety plan that includes presenting to the closest ER or calling 911 if feeling unsafe. Pt has been observed closely by nursing and unit staff throughout admission. Pt has not engaged in any behaviors that suggest dangerousness to self or others and has demonstrated appropriate behaviors and impulse control. Discharge Date/Time: 08/15/23 12:17
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
--- NOTE | 2023-08-20 09:57 | PM.EVENT ---
Documented by User: Macy Henriquez APRN 08/20/23 09:59 Event Note Date of Service: 08/20/23 Event Note: Message received via voicemail over the weekend from pt. She has decided to stop Trazodone and Trileptal and wanted the team to be informed. Time Spent With Patient Time: Total time managing care of this patient today ____ minutes. Documented by User: Cesar Garcia MD 08/20/23 10:28 Event Note Date of Service: 08/20/23
== END 2023-08-15 12:17 | disposition home or self-care (01) | DRG 753 ==
LOC: HO.ED 17:16 → HO.PM5 22:35
PROVIDERS: Admitting Provider Clinical Nurse Specialist Psychiatric/Mental Health, Adult; Emergency Provider Emergency Medicine; PCP Internal Medicine; Visit Provider Clinical Nurse Specialist Psychiatric/Mental Health, Adult
DX: F31.9 Bipolar disorder, unspecified (principal); R45.851 Suicidal ideations; E03.9 Hypothyroidism, unspecified; G47.33 Obstructive sleep apnea (adult) (pediatric); F43.10 Post-traumatic stress disorder, unspecified; Z20.822 Contact with and (suspected) exposure to COVID-19; Z87.891 Personal history of nicotine dependence; Z79.82 Long term (current) use of aspirin; Z79.51 Long term (current) use of inhaled steroids; Z79.890 Hormone replacement therapy; Z79.899 Other long term (current) drug therapy
CPT/HCPCS: 36415; 80048; 80061; 80076; 80143; 80179; 80307; 81001; 82607; 82746; 83036; 83735; 84439; 84443; 85025; 87635; 93005; 99285

== ENCOUNTER → 2023-07-31 16:30 | Outpatient (BNV) | payer OTHER, SELFPAY | PROVIDERS: Admitting Provider Clinical Nurse Specialist Psychiatric/Mental Health, Adult; Emergency Provider Emergency Medicine; PCP Internal Medicine; Visit Provider Internal Medicine | DX: R00.1 Bradycardia, unspecified (principal) | CPT/HCPCS: 93010 ==

== ENCOUNTER → 2023-07-31 22:29 | Outpatient (BNV) | payer OTHER, SELFPAY | PROVIDERS: Admitting Provider Clinical Nurse Specialist Psychiatric/Mental Health, Adult; Emergency Provider Emergency Medicine; PCP Internal Medicine; Visit Provider Clinical Nurse Specialist Psychiatric/Mental Health, Adult | DX: F31.63 Bipolar disorder, current episode mixed, severe, without psychotic features (principal); F43.11 Post-traumatic stress disorder, acute | CPT/HCPCS: 90792; 99231; 99232; 99238; 99499 ==

== ENCOUNTER 2023-08-19 13:17 | Emergency (ER) | payer OTHER, SELFPAY ==
[2023-08-19 13:55] VITALS: BP 155/100; PULSE 80
[2023-08-19 14:07] VITALS: BMI 33.9
--- NOTE | 2023-08-19 14:15 | PC.NURSE ---
pt alert and oriented x3, she reports 10/10 abd pain, n/v/d that started early this morning. arrived via ambulance from home, she denies fever, no exposure to anyone sick, lives alone. no other complaints at this time
[2023-08-19 15:00] VITALS: BP 151/59; PULSE 74; RESP 14; TEMP 37.1; O2SAT 100
[2023-08-19 15:24] VITALS: BP 155/80; PULSE 64; RESP 16; TEMP 36.1; O2SAT 98
--- NOTE | 2023-08-19 16:49 | ED_ITS ---
HPI - Nausea/Vomiting/Diarrhea General Chief complaint: Nausea/Vomiting/Diarrhea Stated complaint: N/V/D PER EMS Time Seen by Provider: 08/19/23 16:14 History of Present Illness HPI Narrative: 68 year old female with COPD, asthma presents with four days of poor PO intake and diarrhea and vomiting that started this morning. She describes the emesis as light yellow in color, without blood. Does not note blood in the stool. Denies known sick contacts. Denies shortness of breath, cough, or congestion. She notes chills and headache. She notes a history of gallbladder removal. Associated nausea: Yes Related Data Home Medications Medication Instructions Recorded Confirmed aspirin 81 mg tablet,delayed 81 mg PO DAILY 07/31/23 07/31/23 release atorvastatin 20 mg tablet 20 mg PO DAILY 07/31/23 07/31/23 budesonide 160 mcg-glycopyr 9 2 inh inhalation BID 07/31/23 07/31/23 mcg-formot 4.8 mcg/actuation HFA inhaler (Breztri Aerosphere) levothyroxine 75 mcg tablet 75 mcg PO DAILY 07/31/23 07/31/23 omeprazole 40 mg capsule,delayed 40 mg PO DAILY 07/31/23 07/31/23 release Previous Rx's Medication Instructions Recorded albuterol sulfate 90 mcg/actuation 2 puff inhalation Q4-6H PRN for 03/26/23 aerosol inhaler wheezing 30 days #54 ea hydroxyurea 500 mg capsule 500 mg PO DAILY 30 days #30 caps 03/26/23 docusate sodium 100 mg capsule 100 mg PO BID PRN Constipation #60 08/15/23 caps fluticasone furoate 100 1 inh inhalation RDAILY #1 inhaler 08/15/23 mcg-vilanterol 25 mcg/dose inhalation powder (Breo Ellipta) haloperidol 1 mg tablet 1 mg PO BID PRN anxiety,agitation 08/15/23 #30 tabs hydroxyzine HCl 25 mg tablet 25 mg PO TID PRN anxiety #30 tabs 08/15/23 lamotrigine 25 mg tablet 25 mg PO BEDTIME #30 tabs 08/15/23 oxcarbazepine 300 mg tablet 600 mg (2 x 300 mg) PO BID #30 tabs 08/15/23 rivastigmine tartrate 3 mg capsule 3 mg PO BID #30 caps 08/15/23 rivastigmine tartrate 3 mg capsule 3 mg PO BID #60 caps 08/15/23 topiramate 50 mg tablet (Topamax) 150 mg (3 x 50 mg) PO DAILY #45 08/15/23 tabs trazodone 100 mg tablet 100 mg PO BEDTIME PRN Insomnia #15 08/15/23 tabs ondansetron 4 mg disintegrating 4 mg PO Q8H PRN nausea and 08/19/23 tablet vomiting #20 tabs Allergies Allergy/AdvReac Type Severity Reaction Status Date / Time grass pollen Allergy Mild unknown Verified 07/02/23 14:51 zoster vaccine live Allergy Mild HIVES Verified 07/02/23 14:51 [SHINGLES VACCINE] BARIUM CONTRAST Allergy Unknown DIFFICULTY Uncoded 07/02/23 14:51 BREATHING/FLUSHING Review of Systems 2 Constitutional: Constitutional: Reports as per HPI, Reports chills, Reports fatigue, Reports headache(s) and Reports poor appetite ENT: Reports headache(s), Denies nasal discharge, Denies sinus pressure and Denies sore throat Cardiovascular: Cardiovascular: Denies dyspnea Respiratory: Respiratory: Denies chest congestion, Denies cough and Denies dyspnea Gastrointestinal: Gastrointestinal: Reports abdominal pain, Denies constipation, Reports diarrhea, Reports loose stools, Reports nausea, Reports vomiting and Denies hematemesis Genitourinary: Genitourinary: Reports no additional female genitourinary complaints Musculoskeletal: Musculoskeletal: Reports no additional musculoskeletal complaints Neurologic: Reports headache(s) Endocrine: Endocrine: Reports fatigue PMFSH Past Medical History Onset Date is defined in the Problem List Problems that require an onset date and time if occurred within 24 hrs of arrival to the ED Aortic Dissection and Rupture; Neurologic impairment; Cardiopulmonary Arrest; Endotracheal Intubation; Insertion or Replacement of Mechanical Circulatory Assist Device Medical History (Updated 08/19/23 @ 18:56 by Michael He) PTSD (post-traumatic stress disorder) Bipolar disorder JONATHAN (obstructive sleep apnea) Obesity (BMI 30-39.9) Personal history of nicotine dependence History of laryngeal cancer Dysphagia Renal stones Depression Hyperlipidemia Chronic diarrhea BMI 38.0-38.9,adult Essential thrombocytosis Hypovitaminosis D Eczema Dyslipidemia Hypothyroidism Anxiety Asthma COPD (chronic obstructive pulmonary disease) Hiatal hernia Surgical History History of surgery on left wrist History of hand surgery History of colonoscopy History of endoscopy History of repair of hiatal hernia Family History Family History Father Mental health disorder CAD (coronary artery disease) Mother S/P CABG x 3 Asthma Brother Substance use disorder Father Diabetes Maternal Grandmother Breast cancer Social History Social History Household Members: None Housing: Apartment Are you a primary personal care attendant to a significant other at home: No Do you presently have visiting nurse or other home services: No Alcohol intake: never Patient Tobacco Use Status: Former Tobacco user Quit Date: 5 yrs ago Tobacco use type: Cigarette Years Smoked: 45 e-Cigarette/Vaping Use: Never Used Second Hand Smoke Exposure: No Substance Use Type: Marijuana Advance Directives: No Advance Directives Information Provided: Yes service: No Current occupational status: retired Current occupation: right handed Sexual orientation: Straight/Heterosexual Cognitive needs: No Hearing needs: No Vision needs: No Physical Exam 2 Vital Signs: Vital Signs: Last Vital Signs Temp 97.0 F 08/19/23 15:24 Pulse 64 08/19/23 15:24 Resp 16 08/19/23 15:24 BP 155/80 H 08/19/23 15:24 Pulse Ox 98 08/19/23 15:24 O2 Del Method Room Air 08/19/23 15:24 BMI result Body Mass Index 33.9 Const: General: comfortable, no acute distress, alert and awake Nutritional Appearance: well nourished HEENT: Head: Yes normocephalic and Yes atraumatic Resp: Effort & Inspection: normal respiratory effort, able to speak in complete sentences, no audible wheezes and not labored Auscultation: clear to auscultation bilaterally Cardio: Rate: regular rate Rhythm: regular rhythm GI: Inspection: Yes normal to inspection, No abdominal wall ecchymosis and No distended Palpation (GI): Soft to palpation, not firm, Tenderness to palpation present (GI) (Patient has diffuse abdominal tenderness without guarding), no guarding, not rigid and No Rebound tenderness present Skin: General skin exam: no rashes or lesions noted and elasticity normal Neuro: Cognition (Neuro): normal cognition Course Reevaluation(s) Reevaluation #1: Patient's workup was reassuring, given her labs, vital signs and physical exam reassuring I do not see any emergent indication for imaging this time, the patient's symptoms are likely viral in origin. Will treat with Zofran and she may follow-up with her PCP Time: 18:55 Medications Administered Discontinued Medications Generic Name Dose Route Start Last Admin Trade Name Osmani PRN Reason Stop Dose Admin Acetaminophen 650 mg 08/19/23 16:47 08/19/23 17:31 Acetaminophen 325 Mg Tablet PO 08/19/23 16:48 650 mg ONCE ONE Administration Al Hydroxide/Mg Hydroxide 30 ml 08/19/23 16:47 08/19/23 17:31 Magnesium Hydrox/Alum Hydrox 30 Ml Oral.Susp PO 08/19/23 16:48 30 ml ONCE ONE Administration Lidocaine HCl 15 ml 08/19/23 16:47 08/19/23 17:31 Lidocaine Hcl Viscous 2 % 15 Ml Solution MUCOUS MEM 08/19/23 16:48 15 ml ONCE ONE Administration Ondansetron HCl 4 mg 08/19/23 16:47 08/19/23 17:31 Ondansetron Odt 4 Mg Tab.Rapdis TRANSLINGU 08/19/23 16:48 4 mg ONCE ONE Administration Medical Decision Making Medical Decision Making MDM Narrative: 68 year old female presents with four days of poor PO intake and one day of diarrhea and vomiting. Physical exam reveals reassuring abdominal exam. She does have mild tenderness but no distention, or guarding. Her pain and vomiting just started today, plan for basic labs, I have a high suspicion for viral etiology as she is complained of a headache as well. Will swab for COVID influenza. Will defer any potential imaging until results of labs. Patient be treated with a GI cocktail in the meantime Differential Diagnosis Differential Diagnoses: The differential diagnosis associated with the presentation includes Gastroenteritis Influenza Covid-19 Pancreatitis Viral syndrome Lab Data MDM Lab Attestation statement: I reviewed the patient's lab results. No leukocytosis or anemia. No significant electrolyte abnormalities. Bilirubin within normal limits, AST and ALT within normal limits, alk-phos is just above normal. 08/19/23 17:03 08/19/23 17:03 Labs: Lab Results 08/19/23 Range/Units 17:03 WBC 9.1 (4.8-10.8) X10*3/uL RBC 3.78 L (4.20-5.50) X10*6/uL Hgb 12.6 (12.0-16.0) g/dl Hct 38.5 (37.0-47.0) % MCV 101.9 H (80.0-98.0) fL MCH 33.3 H (27.0-33.0) pg MCHC 32.7 (31.0-35.0) g/dl RDW 13.9 (11.0-16.0) % Plt Count 315 (160-400) X10*3/uL MPV 9.1 L (9.4-12.3) fL Immature Gran % (Auto) 0.3 (0.0-0.4) % Neut % (Auto) 86.1 H (45-73) % Lymph % (Auto) 8.2 L (20-40) % Barber % (Auto) 4.9 (2-11) % Eos % (Auto) 0.2 (0-4) % Baso % (Auto) 0.3 (0-2) % Lymph # (Auto) 0.7 L (1.2-4.9) X10*3/uL Barber # (Auto) 0.4 (0.1-1.2) X10*3/uL Eos # (Auto) 0.0 (0.0-0.4) X10*3/uL Baso # (Auto) 0.0 (0.0-0.2) X10*3/uL Abs Immat Gran (auto) 0.03 (0.00-0.03) X10*3/uL Absolute Neuts (auto) 7.8 (2.0-8.3) x10*3/uL Absolute Nucleated RBC 0.000 (0.0-0.012) X10*3/uL Nucleated RBC % (auto) 0.0 (0.0-0.2) /100WBC Sodium 142 (135-145) mmol/L Potassium 4.1 (3.3-5.1) mmol/L Chloride 113 H (96-108) mmol/L Carbon Dioxide 23 (22-29) mmol/L Anion Gap 10 L (12-20) BUN 7 L (9-16) mg/dL Creatinine 0.94 (0.5-1.4) mg/dL Estim Creat Clear Calc 53.8 Estimated GFR 59 Random Glucose 111 (60-115) mg/dL Calcium 9.2 (8.4-10.2) mg/dL Total Bilirubin 0.3 (0.0-1.0) mg/dL AST 19 (5-31) U/L ALT 15 (0-31) U/L Alkaline Phosphatase 122 H (39-117) U/L Total Protein 7.6 (6.5-8.0) g/dL Albumin 4.0 (3.5-5.0) g/dL Lipase 13 (8-78) U/L COVID-19 (BRETT) Negative (Negative) COVID-19 Clin Com See Note Influenza Type A (SEAN) Negative (Negative) Influenza Type B (SEAN) Negative (Negative) Influenza A & B Note See Note Discharge Plan Discharge Clinical Impression: Vomiting Patient Disposition: Home, Self-Care Instructions: Acute Nausea and Vomiting (ED) Additional Instructions: Your workup in the ER was reassuring. Use Zofran needed for any further nausea or vomiting. Follow-up with your primary doctor Return for new or worsening symptoms Prescriptions: New ondansetron 4 mg tablet,disintegrating 4 mg PO Q8H PRN (Reason: nausea and vomiting) Qty: 20 0RF No Action rivastigmine tartrate 3 mg capsule 3 mg PO BID Qty: 60 0RF hydroxyurea 500 mg capsule 500 mg PO DAILY 30 Days Qty: 30 0RF albuterol sulfate 90 mcg/actuation HFA aerosol inhaler 2 puff inhalation Q4-6H PRN (Reason: for wheezing) 30 Days Qty: 54 1RF atorvastatin 20 mg tablet 20 mg PO DAILY omeprazole 40 mg capsule,delayed release(DR/EC) 40 mg PO DAILY aspirin 81 mg tablet,delayed release (DR/EC) 81 mg PO DAILY levothyroxine 75 mcg tablet 75 mcg PO DAILY Breztri Aerosphere 160-9-4.8 mcg/actuation HFA aerosol inhaler 2 inh inhalation BID haloperidol 1 mg Tablet 1 mg PO BID PRN (Reason: anxiety,agitation) Qty: 30 1RF oxcarbazepine 300 mg Tablet 600 mg PO BID Qty: 30 1RF lamotrigine 25 mg Tablet 25 mg PO BEDTIME Qty: 30 0RF trazodone 100 mg Tablet 100 mg PO BEDTIME PRN (Reason: Insomnia) Qty: 15 1RF docusate sodium 100 mg Capsule 100 mg PO BID PRN (Reason: Constipation) Qty: 60 0RF fluticasone furoate-vilanterol [Breo Ellipta] 100-25 mcg/dose Blister With Device 1 inh inhalation RDAILY Qty: 1 0RF topiramate [Topamax] 50 mg Tablet 150 mg PO DAILY Qty: 45 1RF rivastigmine tartrate 3 mg capsule 3 mg PO BID Qty: 30 1RF hydroxyzine HCl 25 mg tablet 25 mg PO TID PRN (Reason: anxiety) Qty: 30 1RF
[2023-08-19 17:08] LABS: MANUAL DIFF FLAG NO
[2023-08-19 17:10] LABS: Basophils Percent Auto 0.3 % (0-2); Eosinophils Percent Auto 0.2 % (0-4); Hematocrit 38.5 % (37.0-47.0); Hemoglobin 12.6 g/dl (12.0-16.0); Imm Gran Abs Auto 0.03 X10*3/uL (0.00-0.03); Imm Gran Pct Auto 0.3 % (0.0-0.4); Lymphocytes Absolute Auto 0.7 X10*3/uL (1.2-4.9); Lymphocytes Percent Auto 8.2 % (20-40); Mean Corpuscular HGB Conc 32.7 g/dl (31.0-35.0); Mean Corpuscular Hemoglobin 33.3 pg (27.0-33.0); Mean Corpuscular Volume 101.9 fL (80.0-98.0); Mean Platelet Volume 9.1 fL (9.4-12.3); Monocytes Absolute Auto 0.4 X10*3/uL (0.1-1.2); Monocytes Percent Auto 4.9 % (2-11); Neutrophils Absolute Auto 7.8 x10*3/uL (2.0-8.3); Neutrophils Percent Auto 86.1 % (45-73); Platelet Count 315 X10*3/uL (160-400); Red Blood Count 3.78 X10*6/uL (4.20-5.50); Red Cell Distribution Width 13.9 % (11.0-16.0); White Blood Count 9.1 X10*3/uL (4.8-10.8)
[2023-08-19 17:28] LABS: COVID-19 Test Negative (Negative); IDNOW Serial# 08D9AD1C
[2023-08-19 17:29] LABS: IDNOW Serial# 6674DD1D; Influenza A Negative (Negative); Influenza B2 Negative (Negative)
[2023-08-19 17:31] LABS: Alanine Aminotransferase 15 U/L (0-31); Alkaline Phosphatase 122 U/L (39-117); Anion Gap 10 (12-20); Aspartate Amino Transferase 19 U/L (5-31); Bilirubin Total 0.3 mg/dL (0.0-1.0); Blood Urea Nitrogen 7 mg/dL (9-16); Calcium 9.2 mg/dL (8.4-10.2); Carbon Dioxide 23 mmol/L (22-29); Chloride 113 mmol/L (96-108); Creatinine Clr Calc Pharmacy 53.8; Estimated Glomerular Filt Rate 59; Glucose Random 111 mg/dL (60-115); Lipase 13 U/L (8-78); Potassium 4.1 mmol/L (3.3-5.1); Sodium 142 mmol/L (135-145); Total Protein 7.6 g/dL (6.5-8.0)
[2023-08-19] MEDS: Magnesium Hydrox/Alum Hydrox 30 ML ORAL.SUSP PO (17:31)
[2023-08-19] MEDS: Lidocaine HCl Viscous 2 % 15 ML SOLUTION MUCOUS MEM (17:31)
[2023-08-19] MEDS: Acetaminophen 325 MG TABLET 650 MG PO (17:31)
[2023-08-19] MEDS: Ondansetron ODT 4 MG TAB.RAPDIS TRANSLINGU (17:31)
--- NOTE | 2023-08-19 19:26 | PC.NURSE ---
Pt A & o x 3, able to tolerate PO food and fluids. Ready for discharge.
== END 2023-08-19 19:31 | disposition home or self-care (01) ==
PROVIDERS: Physician Assistant; Emergency Provider Internal Medicine; PCP Internal Medicine
DX: R11.2 Nausea with vomiting, unspecified (principal); J44.9 Chronic obstructive pulmonary disease, unspecified; R51.9 Headache, unspecified; Z87.891 Personal history of nicotine dependence; Z79.899 Other long term (current) drug therapy; Z11.52 Encounter for screening for COVID-19
CPT/HCPCS: 80053; 83690; 85025; 87502; 87635; 99283; 99284

== ENCOUNTER 2023-08-19 19:40 | Emergency (ER) | payer OTHER, SELFPAY ==
[2023-08-19 19:42] VITALS: RESP 17; BMI 29.3
--- NOTE | 2023-08-19 20:04 | PC.NURSE ---
Pt came to triage door yelling, demanding to be seen. I was just discharged from here this is unacceptable, you don't provide rides for people . This RN requested patient check back in if she would like to be seen, patient checked in and then came to triage. Pt initially yelling at this RN, demanding for a ride home, pt educated that rides are not typically provided and that she is welcome to call for an uber or lyft. This RN attempted to help patient with uber/left without success, however patient did calm down and was no longer yelling. Pt states I am just going to ask someone in the waiting room to bring me home . Pt then left with another patient from the waiting room. RR even and unlabored, no apparent distress, ambulating with strong steady gait, alert and oriented x4
== END 2023-08-19 20:08 | disposition left against medical advice (07) ==
PROVIDERS: Emergency Provider Emergency Medicine; PCP Internal Medicine
DX: Z53.21 Procedure and treatment not carried out due to patient leaving prior to being seen by health care provider (principal)
CPT/HCPCS: 99281

== ENCOUNTER 2023-08-23 12:29 | Outpatient (AMB) | payer OTHER, MEDICAID, SELFPAY ==
[2023-08-23 12:33] VITALS: BP 118/62; BMI 31.4
--- NOTE | 2023-08-23 12:33 | MHC.PC.OV ---
Vital Signs 08/23/23 12:33 Height 5 ft Weight 161 lb BMI 31.4 BP 118/62 Blood Pressure Location Lt brachial Position Sitting Intake Visit Reasons: [facility] HDF/Mood disorder Intake Note: [facility] HDF mood disorder, [facility] 08/19 nausea, vomiting [employer] Required: No Accompanied by: Self / Same As Patient Allergies grass pollen Allergy (Mild, Verified 08/23/23 12:53) unknown zoster vaccine live [SHINGLES VACCINE] Allergy (Mild, Verified 08/23/23 12:53) HIVES BARIUM CONTRAST Allergy (Unknown, Uncoded 08/23/23 12:53) DIFFICULTY BREATHING/FLUSHING Medication List - Last Reconciled 08/23/23 by Sana Randall MD albuterol sulfate 90 mcg/actuation 2 puffs inhalation Q4-6H PRN 30 days aspirin 81 mg PO DAILY atorvastatin 20 mg PO DAILY nmfnwligct-xfevgfyz-xcbtfwkcke 160-9-4.8 mcg/actuation (Breztri Aerosphere) 2 inhalations inhalation BID 30 days docusate sodium 100 mg PO BID PRN fluticasone furoate-vilanterol 100-25 mcg/dose (Breo Ellipta) 1 inh inhalation RDAILY hydroxyurea 500 mg PO DAILY 30 days hydroxyzine HCl 25 mg PO TID PRN levothyroxine (Synthroid) 88 mcg PO DAILY omeprazole 40 mg PO DAILY ondansetron 4 mg PO Q8H PRN rivastigmine tartrate 3 mg PO BID topiramate (Topamax) 150 mg (3 x 50 mg) PO DAILY Tobacco use date assessed: 08/23/23 Fall risk assessment: No Falls in past year Last assessed Fall Risk: 08/23/23 Dental Screening Dental Screen Date: 08/23/23 Did you have a dental visit in the last 12 months?: No Did you have a dental problem in the last 6 months where you did not have access to dental care?: No Was dental information given to patient?: Patient has dentist HPI HPI Comments History of Present Illness Details This is a 77-year-old female with bipolar disorder, major depression, hypothyroidism, COPD and essential thrombocytosis that comes today as a hospital discharge follow-up with discharge date 08/19/2023 due to gastroenteritis consisting of nausea, vomiting and diarrhea. No significant abnormality was found. She is markedly improved but still has some diarrhea left. I advised a bland diet. Bipolar disorder and mild major depression has markedly improved with medications and this is follow by Psychiatry. Last TSH was normal. COPD stable with long-acting inhaler. Essential thrombocytosis is follow by Hematology and has been stable with hydroxyurea. No chest pain or shortness of breath. [facility] Medical History (Updated 08/23/23 @ 13:30 by Sana Randall MD) PTSD (post-traumatic stress disorder) Bipolar disorder JONATHAN (obstructive sleep apnea) Obesity (BMI 30-39.9) Personal history of nicotine dependence History of laryngeal cancer Dysphagia Renal stones Depression Hyperlipidemia Chronic diarrhea BMI 38.0-38.9,adult Essential thrombocytosis Hypovitaminosis D Eczema Dyslipidemia Hypothyroidism Anxiety Asthma COPD (chronic obstructive pulmonary disease) Hiatal hernia Surgical History History of surgery on left wrist History of hand surgery History of colonoscopy History of endoscopy History of repair of hiatal hernia Family History Father Mental health disorder CAD (coronary artery disease) Mother S/P CABG x 3 Asthma Brother Substance use disorder Father Diabetes Maternal Grandmother Breast cancer Social History Household Members: None Housing: Apartment Are you a primary rn complex care to a significant other at home: No Do you presently have visiting nurse or other home services: No Alcohol intake: never Patient Tobacco Use Status: Former Tobacco user Quit Date: 5 yrs ago Tobacco use type: Cigarette Years Smoked: 45 e-Cigarette/Vaping Use: Never Used Second Hand Smoke Exposure: No Substance Use Type: Marijuana service: No Current occupational status: retired Current occupation: right handed Sexual orientation: Straight/Heterosexual Cognitive needs: No Hearing needs: No Vision needs: No Questionnaire PHQ-9 Over the last 2 weeks, how often have you been bothered by any of the following problems? 1. Little interest or pleasure in doing things: several days 2. Feeling down, depressed, or hopeless: several days 3. Trouble falling or staying asleep, or sleeping too much: not at all 4. Feeling tired or having little energy: not at all 5. Poor appetite or overeating: nearly every day 6. Feeling bad about yourself - or that you are a failure or have let yourself or your family down: not at all 7. Trouble concentrating on things, such as reading the newspaper or watching television: not at all 8. Moving or speaking so slowly that other people could have noticed. Or the opposite - being so fidgety or restless that you have been moving around a lot more than usual: not at all 9. Thoughts that you would be better off or of hurting yourself in some way: not at all Total score: 5 Depression Screening Interpretation: Positive Depression Screening Follow-up: Existing condition, In treatment and Community Mental Health Worker F/U Depression Screening Done: Yes 06596 - PHQ-9 Billing: Yes Source: Developed by Drs. Christopher Bryan, Alondra Torres, Janusz Orozco and colleagues, with an educational sara from [employer]. Thrive Questionnaire Date Thrive assessed: 08/23/23 I am a: Patient What is your living situation today?: I have a steady place to live Within the past 12 months, did the food you bought not last and you didn't have the money to get more?: Never true Within the past 12 months, did you worry whether your food would run out before you got money to buy more?: Never true Do you have trouble paying for medicines?: No Do you have trouble getting transportation to medical appointments?: No Do you have trouble paying your heating and electricity bill?: No Do you have trouble taking care of your child, family member or friend?: No Do you have trouble with day-to-day activities such as bathing, preparing meals, shopping, managing finances, etc.?: No Are you currently unemployed and looking for a job?: No Are you interested in more education?: No Please select the resources that you would like help with: None Currently or been in a relationship where the following occur: no concerns reported AUDIT C Alcohol Use Questionnaire (AUDIT-C) 1. How often do you have a drink containing alcohol?: Never Total Score: 0 HENRY-7 AMB Questionnaire HENRY-7 Date HENRY - 7 assessed: 08/23/23 Feeling nervous, anxious, or on edge: 0 = Not at all Not being able to stop or control worryin = Not at all Worrying too much about different things: 0 = Not at all Trouble relaxin = Not at all Being so restless that it is hard to sit still: 0 = Not at all Becoming easily annoyed or irritable: 0 = Not at all Feeling afraid as if something awful might happen: 0 = Not at all Total HENRY-7 score (0-4 normal; 5-9 mild; 10-14 moderate; 15-21 severe): 0 Source: Developed by Drs. Christopher Bryan, Alondra Torres, Janusz Orozco and colleagues, with an educational sara from [employer]. HENRY-7 Assessment Billing HENRY-7 Assessment Tool: HENRY-7 Assessment 61827 Review of Systems Const All systems reviewed & are unremarkable except as noted in HPI and below Eyes Reports no additional complaints, Denies change in vision and Denies other visual disturbances Card Denies chest pain at rest, Denies chest pain with activity, Denies edema, Denies irregular heart rhythm, Denies claudication, Denies dyspnea, Denies dyspnea on exertion, Denies orthopnea, Denies paroxysmal nocturnal dyspnea and Denies slow heart rate Resp Denies cough, Denies dyspnea and Denies dyspnea on exertion GI Denies abdominal pain, Denies change in bowel habits, Denies excessive flatus, Denies nausea and Denies vomiting Denies urinary incontinence, Denies urinary hesitancy and Denies urinary urgency Musc Denies abnormal gait, Denies atrophy, Denies deformity and Denies limited range of motion Skin/Breast Denies bleeding lesions, Denies changing lesions and Denies rash Neuro Denies abnormal gait and Denies lack of coordination Physical exam (Primary Care) Vital Signs: Last Vital Signs BP 118/62 08/23/23 12:33 BMI result Body Mass Index 31.4 Tobacco/Smoking Status: Tobacco use Status Tobacco use date assessed 08/23/23 08/23/23 12:49 Patient Tobacco Use Status Former Tobacco user 08/23/23 12:35 Tobacco use type Cigarette 08/23/23 12:35 e-Cigarette/Vaping Use Never Used 08/23/23 12:35 PHQ-9: PHQ-9 Score PHQ-9: Total score 5 08/23/23 12:58 Depression Screening Interpretation: Positive Depression Screening Follow-up: Existing condition, In treatment and Community Mental Health Worker F/U Thrive Assessment: Date of Thrive Assessment Date Thrive assessed 08/23/23 08/23/23 12:49 Currently or been in a relationship where the following occur: no concerns reported Const Orientation/consciousness: patient oriented x3 Eyes General: appearance normal, both eyes and all related structures Eyelids: Yes eyelids normal Conjunctivae: conjunctivae normal Neck Neck: Yes normal visual inspection and Yes supple Resp Effort & Inspection: normal respiratory effort Auscultation: clear to auscultation bilaterally Cardio Jugular venous distension: no JVD Rate: regular rate Rhythm: regular rhythm Heart sounds: S1 normal heart sound present and S2 normal heart sound present Neuro General: patient oriented x3 and no focal motor deficits Extrem General: Yes full ROM Psych Appearance: grossly normal Assessment and Plan Assessment & Plan (1) Bipolar disorder: Code(s): F31.9 - Bipolar disorder, unspecified Plan: Follow-up with psychiatry. Continue hydroxyzine. (2) Mild major depression: Code(s): F32.0 - Major depressive disorder, single episode, mild Plan: Continue hydroxyzine. Follow-up with psychiatry. (3) COPD (chronic obstructive pulmonary disease): Comment: Patient has moderately severe obstructive airway disorder. It is well controlled with the current regimen. Her last pulmonary function test was at [facility], quite a few years ago. SHE IS BEING SCHEDULED TO HAVE AN TO DATE PULMONARY FUNCTION TEST, TO SEE IF SHE NEEDS THE REAR ADJUSTMENT IN HER MEDICAL REGIMEN. Code(s): J44.9 - Chronic obstructive pulmonary disease, unspecified Plan: Continue long-acting inhaler. Use rescue inhaler as needed. Follow-up with pulmonology. (4) Essential thrombocytosis: Comment: History of thrombocytosis noted and she is doing well on the current medicine Hydrea 500 mg daily Code(s): D47.3 - Essential (hemorrhagic) thrombocythemia Plan: Continue hydroxyurea. Follow-up with Hematology-Oncology. (5) Hospital discharge follow-up: Code(s): Z09 - Encounter for follow-up examination after completed treatment for conditions other than malignant neoplasm Plan: Discharge date 08/19/2023 due to Gastroenterology days. Last were done with no significant abnormality. Feels markedly improved despite still having diarrhea. (6) Gastroenteritis: Code(s): K52.9 - Noninfective gastroenteritis and colitis, unspecified Plan: Follow a bland diet. (7) Hypothyroidism: Code(s): E03.9 - Hypothyroidism, unspecified Plan: Continue levothyroxine. Medications: Changed From rivastigmine tartrate 3 mg PO BID 30 caps 1RF To rivastigmine tartrate 3 mg PO BID 30 days 60 caps 1RF Refilled topiramate (Topamax) 150 mg (3 x 50 mg) PO DAILY 45 tabs 1RF Coding Level of Care Code TCM Mod MDM <= 7 Days Diagnoses Bipolar disorder F31.9 Mild major depression F32.0 COPD (chronic obstructive pulmonary disease) J44.9 Essential thrombocytosis D47.3 Hospital discharge follow-up Z09 Gastroenteritis K52.9 Hypothyroidism E03.9 Additional Codes HENRY-7 Assessment Billing - HENRY-7 Assessment Tool: HENRY-7 Assessment 29580 ([id number]) Time Spent (min) 25
== END 2023-08-23 13:08 | disposition home or self-care (01) ==
PROVIDERS: PCP Internal Medicine; Visit Provider Internal Medicine
DX: F31.9 Bipolar disorder, unspecified (principal); J44.9 Chronic obstructive pulmonary disease, unspecified; D47.3 Essential (hemorrhagic) thrombocythemia; K52.9 Noninfective gastroenteritis and colitis, unspecified; E03.9 Hypothyroidism, unspecified
CPT/HCPCS: 99214

== ENCOUNTER → 2023-08-31 12:30 | Outpatient (BNV) | payer OTHER, SELFPAY | PROVIDERS: Visit Provider Psychiatry & Neurology Psychiatry | DX: F31.9 Bipolar disorder, unspecified (principal); F43.10 Post-traumatic stress disorder, unspecified; Z87.891 Personal history of nicotine dependence | CPT/HCPCS: 90792; 99213; 99214; 99499 ==

== ENCOUNTER 2023-09-04 14:03 | Outpatient (REF) | payer OTHER, SELFPAY ==
[2023-09-04 15:50] LABS: Blood Urea Nitrogen 11 mg/dL (9-16); Estimated Glomerular Filt Rate > 60
== END 2023-09-04 14:04 | disposition home or self-care (01) ==
LOC: HO.LAB 14:03
PROVIDERS: PCP Internal Medicine; Visit Provider Internal Medicine
DX: N28.89 Other specified disorders of kidney and ureter (principal)
CPT/HCPCS: 36415; 82565; 84520

== ENCOUNTER 2023-09-11 12:45 | Outpatient (RCR) | payer OTHER, SELFPAY ==
[2023-08-29 11:47] VITALS: BP 110/58; PULSE 56; TEMP 36.8
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
--- NOTE | 2023-08-30 17:33 | HO.PHP ---
Pt's case has been opened and reviewed in teams.
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
[2023-08-31 12:49] VITALS: TEMP 36.9
--- NOTE | 2023-08-31 21:53 | P.PNPSP_ITS ---
Subjective Subjective Date of Service: 08/31/23 Reason For Visit: bipolar,PTSD Interim History: Patient seen, had become very irate in meeting with [facility] staff member. When we met she was cheerful, giddy, but notably sweaty and labile. She admits she became acutely irritated and angry with the clinician and doesn't know why . She shares feeling perplexed by her own behavior and is worried that her anger is starting to come back. She recognizes that this is how she presents when she is manic and agrees that she needs to get on medication fast. 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 She plans to pick it up after the program today. She says she has continued to find herself giggling and distracted in groups. But overall had been in a good mood, too good though and has insight that this was not normal for her, but says she had not had not experienced any irritability or anger outbursts until today. She feels distressed about getting so angry and saying I dont knwo what's wrong with me . She admits she does not feel well and says she has been sweating since she started yelling at the clinician. She denies haven eaten anything today, she says she has not been having much of an appetite lately, however she says she has still been sleeping well like a baby and says she woke today rested and in a good mood. Aside from being sweaty and shaken up from the outburst earlier today, she denies any chest pain, SOB, cough, fever, chills, N/V/D or abdominal pain. She denies any headaches, vision changes or weakness or numbness. She was afebrile. She denies any alcohol or substance use. She is fully oriented to self, date, place and situation. She reports her mood is currently okay. I'm okay, I was in a good mood, but now I'm worried about getting manic again..I just got so angry so fast. I dont want to have to end up going back to the hospital . She denies any AVH, paranoia or concerning thoughts. She denies any hopelessness or SI. She admits feeling she was unable to control her anger in those moments, but says that this feeling quickly subsided and denies any aggressive ideation, intention or plan, or HI. Patient agrees with plan to start on olanzapine right away. She understands that she is quickly decompensating into simeon, and voices appreciation that this is likely happening because she discontinued taking some of her medications when discharged. (As she previously noted, she had been stable at time of discharge on Trileptal however this was not sent to her pharmacy following discharge, although she did not call [facility] to request this). Currently she relays understanding that if she doesn't start on treatment straight away she will likely need to be hospitalized. At this point, she will need to start on olanzapine to acutely manage burgeoning manic symptoms. She agrees to stay in this weekend and focus on getting rest and eating smaller meals more consistently, as I suspect she is feeling shaky due to inadequate po intake. She agrees this seems like a reasonable explanation. She says she didnt realize she wasn't eating enough since she was not feeling hungry. She denies any issues with accessing food or food insecurity. She says she has plenty of food at home and will be more mindful around food intake and hydration. I would also like her to stay in given that we are starting her back on olanzapine (she has been on this medication in the past). She should plan to rest and avoid stress and getting overstimulated in the next couple of days. She is agreeable to taking her lunch and then going straight over to pharmacy to pickling drum operator her medications and starting on them right away. She relays having insight into illness and relays understanding the need to comply with treatment at this time and relays feeling she is capable to follow through with the treatment plan. Medication Compliance: No Attending Groups: Yes Review of Systems Acute medical concerns: No VS stable today, afebrile Mental Status Exam Mental Status Exam Patient Appearance: Well Grooomed Patient Orientation: Person, Place and Time Level of Consciousness: Awake, Appropriate and Alert Patient Behavior: Cooperative, Restless, Belligerent and Impulsive Mood Description: Cheerful, Angry and Apprehensive Affect Description: Euphoric, Hostile and Labile Ability to Follow Directions: Good Speech Pattern: Clear, Spontaneous Speech, Animated and Loud (raspy voice, but no pressured speech) Hallucinations: None Delusions: Not Present Thought Process: Racing and Distracted Thought Content: positive for Circumstantial and positive for Tangential Abnormal Motor Activity Signs and Symptoms: Agitation Judgement: Fair Judgement and Insight: patient recognizes she is becoming manic and is agreeable to treatment Diagnostics Vital Signs (24Hr): Vital Signs - 24 hr 08/31/23 12:49 Temperature 98.5 F BMI result Body Mass Index 30.0 Assessment & Plan Assessment & Plan (1) Bipolar 1 disorder, manic, moderate: Status: Acute Code(s): F31.12 - Bipolar disorder, current episode manic without psychotic features, moderate (2) PTSD (post-traumatic stress disorder): Status: Acute Code(s): F43.10 - Post-traumatic stress disorder, unspecified Plan start olanzapine 10 mg this afternoon if not sedated or sleeping this evening, she can take olanzapine 10 mg tonight plan to continue olanzapine 10 mg BID over the weekend while starting back on oxcarbazepine 300 mg BID she is encouraged to utilize olanzapine 5 mg daily in afternoon for agitation if needed or 5 mg as needed for insomnia Reviewed labs from 08/19/23, reviewed last EKG 07/31/23 We reviewed safety plan Continue to monitor closely Patient educated on: diagnosis and medication risk/benefits Informed Consent: understands Reason for contiued partial hosp. stay Substantial Risk for: harm to others, rapid decompensation and med/psych decompensation Certification I certify that partial hospital treatment is medically necessary due to the symptoms and problems resulting from the patient's mental illness and the failure to treat the patient at the partial hospital level of care would likely result in the patient requiring inpatient psychiatric care which could not be pr evented at a less intensive level of care. Total time managing care of this patient today __30__ minutes. Discharge Plan Discharge Attending provider: Cleo Sahu Medications: New oxcarbazepine 600 mg tablet See Rx Instructions .ROUTE .COMPLEX Qty: 30 0RF Rx Instructions: start 1/2 tablet po BID for 6 days then increase to one tablet po BID olanzapine 10 mg tablet 10 mg PO BID Qty: 30 0RF No Action Breztri Aerosphere 160-9-4.8 mcg/actuation HFA aerosol inhaler 2 inh inhalation BID 30 Days Qty: 5.9 1RF hydroxyurea 500 mg capsule 500 mg PO DAILY 30 Days Qty: 30 0RF albuterol sulfate 90 mcg/actuation HFA aerosol inhaler 2 puff inhalation Q4-6H PRN (Reason: for wheezing) 30 Days Qty: 54 1RF atorvastatin 20 mg tablet 20 mg PO DAILY omeprazole 40 mg capsule,delayed release(DR/EC) 40 mg PO DAILY aspirin 81 mg tablet,delayed release (DR/EC) 81 mg PO DAILY docusate sodium 100 mg Capsule 100 mg PO BID PRN (Reason: Constipation) Qty: 60 0RF fluticasone furoate-vilanterol [Breo Ellipta] 100-25 mcg/dose Blister With Device 1 inh inhalation RDAILY Qty: 1 0RF hydroxyzine HCl 25 mg tablet 25 mg PO TID PRN (Reason: anxiety) Qty: 30 1RF ondansetron 4 mg tablet,disintegrating 4 mg PO Q8H PRN (Reason: nausea and vomiting) Qty: 20 0RF rivastigmine tartrate 3 mg capsule 3 mg PO BID 30 Days Qty: 60 1RF topiramate [Topamax] 50 mg tablet 150 mg PO DAILY Qty: 45 1RF levothyroxine [Synthroid] 88 mcg tablet 88 mcg PO DAILY 30 Days Qty: 30 6RF Stand Alone Forms: Patient Portal Discharge page
--- NOTE | 2023-09-03 19:29 | HO.PHPPROGNO ---
Subjective Subjective Date of Service: 09/03/23 Reason For Visit: bipolar,PTSD Interim History: Patient seen for follow-up today after presenting with evolving simeon toward the end of last week. She followed through on treatment plan accurately. She picked up the olanzapine and started Sunday as we had discussed. She slept well and in fact missed one evening dose of 10 mg given she had taken the initial 10 mg later in the day after the program. Otherwise she had an uneventflu weekend. She notes that as we had discussed, she stayed in and focused on rest and imrpving her food intake. She says she is feeling much better physically as well, and was surprised to learn that simeon could cause her to lose her appetite. Her stomach is no longer bothering her now that she is eating meals regularly. She has been sleeping 8-9 hours, very easily with the 10 mg of olanzapine. As per our plan, she was to take 1/2 tablet this AM since she would need to drive to the program, however she was unable to cut the tablets. She was unsure how to use the pill cutter but fortunately brought both the olanzapine tablets and pill cutter to the program. She was agreeable to having the clinician show her how to use it and will take 1/4 dose presently seeing as she took an additional Trileptal this AM at the program on account of being unable to cut and take the olanzapine, and was starting to notice feeling anxious and irritated around all the people. She says she felt better within the first hour or two. She presents calmer and more attentive and affectively less giddy and labile. She still recognizes that her mood is not at baseline, and is more aware of moments of irritability and emotionality but feels more in control after starting back on medicaiton this weekend. She denies any low mood, hopelessness or SI. Denies any aggressive ideaiton or HI. She will continue with treatment plan and follow up tomorrow. Mental Status Exam Mental Status Exam Narrative: Patient Appearance: Well Groomed Patient Orientation: Person, Place and Time Level of Consciousness: Awake, Appropriate and Alert Patient Behavior: Cooperative, Restless, less Impulsive, not notably agitated or argumentative Mood Description: Cheerful, Apprehensive, irritable, less labile Affect Description: more subdued, anxious, Labile Ability to Follow Directions: Good Speech Pattern: Clear, Spontaneous Speech, Animated and Loud (raspy voice, but no pressured speech) Hallucinations: None Delusions: Not Present Thought Process: Racing and Distracted Thought Content: positive for Circumstantial more linear, coherent vs fri Abnormal Motor Activity Signs and Symptoms: none Judgment and Insight: fair but adequate - patient recognizes she is hypomanic/manic and has been complying w treatment Diagnostics Vital Signs (24Hr): BMI result Body Mass Index 30.0 Assessment & Plan Assessment & Plan (1) Bipolar 1 disorder, manic, moderate: Status: Acute Code(s): F31.12 - Bipolar disorder, current episode manic without psychotic features, moderate (2) PTSD (post-traumatic stress disorder): Status: Acute Code(s): F43.10 - Post-traumatic stress disorder, unspecified Plan continue olanzapine 20 mg/day (will split 10 mg AM dose into 5 mg BID in AM and afternoon, and cont 10 mg qhs) continue oxcarbazepine 300 mg BID she is encouraged to utilize olanzapine 5 mg daily in afternoon for agitation if needed or 5 mg as needed for insomnia Reviewed labs from 08/19/23, reviewed last EKG 07/31/23 patient complying fully with treatment in outpatient (less restrictive) setting, and prioritizing safety and self care, so does not warrant IPLOC at this time We reviewed safety plan and will reassess tomorrow Continue to monitor closely Telehealth Location of provider rendering services: other (private office) Location of patient: other ([facility]) Patient Identification confirmed using: Name, : Yes Telehealth method: video Patient verbally consented to treatment: Yes Minutes spent on Phone/Video with Pt.: 30 Patient educated on: diagnosis and medication risk/benefits Informed Consent: understands Reason for contiued partial hosp. stay Substantial Risk for: harm to others (low-mod risk for impulsive aggression (will cont to monitor) pt able to contract for safety and demonstrating reasonable judgement and insight), inability to function, rapid decompensation and med/psych decompensation Certification I certify that partial hospital treatment is medically necessary due to the symptoms and problems resulting from the patient's mental illness and the failure to treat the patient at the partial hospital level of care would likely result in the patient requiring inpatient psychiatric care which could not be prevented at a less intensive level of care. Total time managing care of this patient today _30___ minutes. Discharge Plan Discharge Attending provider: Cleo Sahu Medications: New oxcarbazepine 600 mg tablet See Rx Instructions .ROUTE .COMPLEX Qty: 30 0RF Rx Instructions: start 1/2 tablet po BID for 6 days then increase to one tablet po BID olanzapine 5 mg tablet 5 mg PO BID 15 Days Qty: 30 0RF Continued albuterol sulfate 90 mcg/actuation HFA aerosol inhaler 2 puff inhalation Q4-6H PRN (Reason: for wheezing) 30 Days Qty: 54 1RF atorvastatin 20 mg tablet 20 mg PO DAILY omeprazole 40 mg capsule,delayed release(DR/EC) 40 mg PO DAILY aspirin 81 mg tablet,delayed release (DR/EC) 81 mg PO DAILY docusate sodium 100 mg Capsule 100 mg PO BID PRN (Reason: Constipation) Qty: 60 0RF fluticasone furoate-vilanterol [Breo Ellipta] 100-25 mcg/dose Blister With Device 1 inh inhalation RDAILY Qty: 1 0RF hydroxyzine HCl 25 mg tablet 25 mg PO TID PRN (Reason: anxiety) Qty: 30 1RF rivastigmine tartrate 3 mg capsule 3 mg PO BID 30 Days Qty: 60 1RF topiramate [Topamax] 50 mg tablet 150 mg PO DAILY Qty: 45 1RF Changed olanzapine 10 mg tablet 10 mg PO BEDTIME Qty: 30 0RF No Action Breztri Aerosphere 160-9-4.8 mcg/actuation HFA aerosol inhaler 2 inh inhalation BID 30 Days Qty: 5.9 1RF hydroxyurea 500 mg capsule 500 mg PO DAILY 30 Days Qty: 30 0RF lactulose 10 gram/15 mL solution 10 g PO BEDTIME PRN (Reason: constipation) 30 Days Qty: 237 0RF ondansetron 4 mg tablet,disintegrating 4 mg PO Q8H PRN (Reason: nausea and vomiting) Qty: 20 0RF levothyroxine [Synthroid] 88 mcg tablet 88 mcg PO DAILY 30 Days Qty: 30 6RF Stand Alone Forms: Patient Portal Discharge page
--- NOTE | 2023-09-04 22:48 | HO.PHPPROGNO ---
Subjective Subjective Date of Service: 09/04/23 Reason For Visit: bipolar,PTSD Interim History: Patient seen for follow-up. She is being closely monitored for emergence of manic symptoms (in context of being off meds). She was seen yesterday when we made further adjustments to her medications. She is following up and has been taking her medication as directed. She has been taking the 5 mg olanzapine dose in the AM. She recognizes it helps keep her calm, but sometimes she is getting frustrated in groups. I can get angry doctor . SHe relays that some of her frustration lies in the disconnect she feels since people here are sad but I'm so happy, so there's that disconnect that gets me so agitated . 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 She did not bring any additional prn medication with her today (specifically the olanzapine 5 mg tablets). She agrees to start bringing a couple of them with her to the program tomorrow because she agrees it would likely make her feel calmer to repeat the dose here. She feels her irritability is manageable, and most of the time she is in a very good mood. She feels she is able manage in group today and wants to stay for the remainder of the day. She agrees to excuse herself if she feels herself getting overstimulated or too irritable, angry or frustrated which she readily agrees to do. She denies any aggressive ideation or SI. Denies any alcohol or substance use. Medication Compliance: Yes Side effects from medications: No Attending Groups: Yes Review of Systems Acute medical concerns: No Mental Status Exam Mental Status Exam Narrative: Patient Appearance: Well Groomed Patient Orientation: Person, Place and Time Level of Consciousness: Awake, Appropriate and Alert Patient Behavior: Cooperative, Restless, less Impulsive, not notably agitated or argumentative Mood Description: Cheerful, Apprehensive, irritable, less labile Affect Description: more subdued, anxious, Labile Ability to Follow Directions: Good Speech Pattern: Clear, Spontaneous Speech, Animated and Loud (raspy voice, but no pressured speech) Hallucinations: None Delusions: Not Present Thought Process: Racing and Distracted Thought Content: positive for Circumstantial more linear, coherent Abnormal Motor Activity Signs and Symptoms: none Judgment and Insight: fair but adequate - patient recognizes she is hypomanic and has been complying w treatment Diagnostics Vital Signs (24Hr): BMI result Body Mass Index 30.0 Assessment & Plan Assessment & Plan (1) Bipolar 1 disorder, manic, moderate: Status: Acute Code(s): F31.12 - Bipolar disorder, current episode manic without psychotic features, moderate (2) PTSD (post-traumatic stress disorder): Status: Acute Code(s): F43.10 - Post-traumatic stress disorder, unspecified Plan increase oxcarbazepine to 600 mg tonight then continue oxcarbazepine 600 mg BID continue olanzapine 20 mg/d (split 5 mg/5 mg /10 mg) may take additional 5 mg olanzapine PRN for agitation, insomnia Patient educated on: diagnosis and medication risk/benefits Informed Consent: understands Certification I certify that partial hospital treatment is medically necessary due to the symptoms and problems resulting from the patient's mental illness and the failure to treat the patient at the partial hospital level of care would likely result in the patient requiring inpatient psychiatric care which could not be prevented at a less intensive level of care. Total time managing care of this patient today _30___ minutes. Discharge Plan Discharge Attending provider: Cleo Sahu Medications: New oxcarbazepine 600 mg tablet See Rx Instructions .ROUTE .COMPLEX Qty: 30 0RF Rx Instructions: start 1/2 tablet po BID for 6 days then increase to one tablet po BID olanzapine 5 mg tablet 5 mg PO BID 15 Days Qty: 30 0RF Continued albuterol sulfate 90 mcg/actuation HFA aerosol inhaler 2 puff inhalation Q4-6H PRN (Reason: for wheezing) 30 Days Qty: 54 1RF atorvastatin 20 mg tablet 20 mg PO DAILY omeprazole 40 mg capsule,delayed release(DR/EC) 40 mg PO DAILY aspirin 81 mg tablet,delayed release (DR/EC) 81 mg PO DAILY fluticasone furoate-vilanterol [Breo Ellipta] 100-25 mcg/dose Blister With Device 1 inh inhalation RDAILY Qty: 1 0RF rivastigmine tartrate 3 mg capsule 3 mg PO BID 30 Days Qty: 60 1RF Changed olanzapine 10 mg tablet 10 mg PO BEDTIME Qty: 30 0RF No Action Breztri Aerosphere 160-9-4.8 mcg/actuation HFA aerosol inhaler 2 inh inhalation BID 30 Days Qty: 5.9 1RF hydroxyurea 500 mg capsule 500 mg PO DAILY 30 Days Qty: 30 0RF lactulose 10 gram/15 mL solution 10 g PO BEDTIME PRN (Reason: constipation) 30 Days Qty: 237 0RF hydroxyzine HCl 25 mg tablet 25 mg PO TID PRN (Reason: Itching) ondansetron 4 mg tablet,disintegrating 4 mg PO Q8H PRN (Reason: nausea and vomiting) Qty: 20 0RF levothyroxine [Synthroid] 88 mcg tablet 88 mcg PO DAILY 30 Days Qty: 30 6RF Stand Alone Forms: Patient Portal Discharge page
--- NOTE | 2023-09-05 17:04 | HO.PHP ---
Yesterday at roughly 11:00am pt stated she felt she was not benefiting from PHP fully by attending [facility] groups. States she is here to focus on her mental health and feels she is not learning enough by wasting time in the [facility] groups. Pt feels she would benefit more from the psychoeducation groups, stated firmly she does not want to work on sobriety while at [facility]. Pt became emotional while expressing this. Pt states she is looking for outside support, specifically [facility] and will address he marijuana use there, chief underwriter will assist pt in locating [facility] mt[facility]. [employer] supported pt's request, PHP team has been updated.
--- NOTE | 2023-09-06 12:25 | PC.NURSE ---
Hiral received a phone call from short stay surgery at [facility] reminding her of her appointment today. She stated she forgot about the appointment and has to leave the program to attend the appointment as it is a consultation for possible spinal surgery. She plans on coming to the program tomorrow. [facility] staff is aware.
--- NOTE | 2023-09-06 12:27 | PC.NURSE ---
Hiral stated her morning Olanzapine dose is making her too tired in the morning thus has not taken it in three days. She did state she is taking the afternoon and bedtime dose. Reviewed information with Dr Sahu and the following changes were made. Patient to take 1/2 tab of her morning olanzapine 5 mg tab (2.5 mg total dose) starting tomorrow morning and continue with the afternoon and bedtime dose as directed. I reviewed this with Hiral who appeared to understand the instructions and she also repeated the instructions to me.
--- NOTE | 2023-09-07 23:56 | PM.EVENT ---
Event Note Date of Service: 09/08/23 Event Note: Spoke with patient to check in. She had had some sedation with the 5 mg doses of olanzapine (in the AM and afternoon) and was directed to take 2.5 mg of olanzapine in lieu of 5 mg doses of olanzapine, and continue on 10 mg at night. She reports feeling anxious when she arrives to the program in the morning. Once the 2.5 mg olanzapine kicks in she feels calmer, but is starting to notice it is making her more tired as well. She would like to hold off taking the afternoon dose because she fell asleep yesterday afternoon and then didnt woke up at midnight having missed her HS dose of olanzapine. We reviewed her week and she presents with improved symptoms, mood is calmer, more grounded, not notably giddy/expansive or irritable or labile. She continues to sleep well. Appetite has improved and ahe has been eating regularly. Energy is stable. She denies any hopelessness or SI, denies any aggressive ideation. She had held the oxcarbazepine for the past 2 days, thinking she was supposed to just continue with olanzapine, and also was concerned about sedation from the olanzapine, but agrees to continue back on oxcarbazepine at 300 mg BID and we will have her continue with olanzapine at 15 mg qHS only. She was encouraged to take 2.5 mg olanzapine as needed for anger, irritability, insomnia if needed. Will follow up on Sunday. Time Spent With Patient Time: Total time managing care of this patient today _15___ minutes.
--- NOTE | 2023-09-10 21:42 | P.PNPSP_ITS ---
Subjective Subjective Date of Service: 09/10/23 Reason For Visit: bipolar,PTSD Interim History: I'm feeling really tired . Patient has been compliant with medications. Mood is stable, no evidence of simeon. Taking 15 mg of olanzapine at night. Still feeling tired in the AM and did take any extra 2.5 mg olanzapine this AM, forgot AM dose is PRN now. Will plan to further decrease olanzapine to 10 mg tonight and titrate oxcarbazapine to 600 mg BID. She is anticipating discharge tomorrow. 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 Medication Compliance: Yes Side effects from medications: Yes Attending Groups: Yes Review of Systems Acute medical concerns: No Mental Status Exam Mental Status Exam Narrative: Patient Appearance: Well Groomed Patient Orientation: Person, Place and Time Level of Consciousness: Awake, Appropriate and Alert Patient Behavior: Cooperative, Restless, less Impulsive, not notably agitated or argumentative Mood Description: tired Affect Description: more subdued, less anxious, not Labile Ability to Follow Directions: Good Speech Pattern: Clear, Spontaneous Speech, Animated and Loud (raspy voice, but no pressured speech) Hallucinations: None Delusions: Not Present Thought Process: linear, coherent Thought Content: future-oriented, denies SI, HI Abnormal Motor Activity Signs and Symptoms: none Judgment and Insight: fair but adequate Diagnostics Vital Signs (24Hr): BMI result Body Mass Index 30.0 Assessment & Plan Assessment & Plan (1) Bipolar 1 disorder: Status: Acute Code(s): F31.9 - Bipolar disorder, unspecified (2) PTSD (post-traumatic stress disorder): Status: Acute Code(s): F43.10 - Post-traumatic stress disorder, unspecified (3) Personal history of nicotine dependence: Status: Acute Code(s): Z87.891 - Personal history of nicotine dependence Plan increase oxcarbazepine to 600 mg BID decrease olanzapine to 10 mg QHS may take additional 2.5- 5 mg olanzapine PRN for agitation, insomnia Patient educated on: diagnosis and medication risk/benefits Informed Consent: understands Patient educated on: diagnosis and medication risk/benefits Informed Consent: understands Reason for contiued partial hosp. stay Substantial Risk for: med/psych decompensation Certification I certify that partial hospital treatment is medically necessary due to the symptoms and problems resulting from the patient's mental illness and the failure to treat the patient at the partial hospital level of care would likely result in the patient requiring inpatient psychiatric care which could not be prevented at a less intensive level of care. Total time managing care of this patient today __30__ minutes. Discharge Plan Discharge Attending provider: Cleo Sahu Medications: New oxcarbazepine 300 mg/5 mL (60 mg/mL) suspension 600 mg PO BID Qty: 600 0RF Continued Breztri Aerosphere 160-9-4.8 mcg/actuation HFA aerosol inhaler 2 inh inhalation BID 30 Days Qty: 5.9 1RF hydroxyurea 500 mg capsule 500 mg PO DAILY 30 Days Qty: 30 0RF lactulose 10 gram/15 mL solution 10 g PO BEDTIME PRN (Reason: constipation) 30 Days Qty: 237 0RF albuterol sulfate 90 mcg/actuation HFA aerosol inhaler 2 puff inhalation Q4-6H PRN (Reason: for wheezing) 30 Days Qty: 54 1RF atorvastatin 20 mg tablet 20 mg PO DAILY omeprazole 40 mg capsule,delayed release(DR/EC) 40 mg PO DAILY aspirin 81 mg tablet,delayed release (DR/EC) 81 mg PO DAILY fluticasone furoate-vilanterol [Breo Ellipta] 100-25 mcg/dose Blister With Device 1 inh inhalation RDAILY Qty: 1 0RF ondansetron 4 mg tablet,disintegrating 4 mg PO Q8H PRN (Reason: nausea and vomiting) Qty: 20 0RF rivastigmine tartrate 3 mg capsule 3 mg PO BID 30 Days Qty: 60 1RF levothyroxine [Synthroid] 88 mcg tablet 88 mcg PO DAILY 30 Days Qty: 30 6RF Changed olanzapine 10 mg tablet 10 mg PO BEDTIME Qty: 30 0RF olanzapine 5 mg tablet 5 mg PO BID PRN (Reason: anger, simeon, insomnia) 15 Days Qty: 30 0RF Discontinued hydroxyzine HCl 25 mg tablet 25 mg PO TID PRN (Reason: Itching) No Action peg 3350-electrolytes [Golytely] 236-22.74-6.74 -5.86 gram recon soln 240 ml PO Q10M Qty: 4000 0RF Rx Instructions: as per split prep instructions, until fecal effluent is clear Stand Alone Forms: Patient Portal Discharge page Telehealth Telehealth Location of provider rendering services: other (private office) Location of patient: other ([facility]) Patient Identification confirmed using: Name, : Yes Telehealth method: video Patient verbally consented to treatment: Yes Minutes spent on Phone/Video with Pt.: 30
--- NOTE | 2023-09-11 20:40 | HO.PHPPROGNO ---
Subjective Subjective Date of Service: 09/11/23 Reason For Visit: bipolar,PTSD Interim History: Patient seen for follow-up, anticipating discharge at the end of program today.? Reports no acute issues or concerns. Medication compliant, medications well-tolerated. Denies any adverse effects.?She feels more alert with decrease in olanzapine to 10 mg qhs. She will continue at that dose and also can take an additional 2.5-5 mg PRN agitation, insomnia. We reviewed symptoms/signs of agitation/overactiviation/emerging hypomania. She is being connected to a psychiatrist, noting this is the first time she has ever had a psychiatrist. Previously her PCP managed her medicaitons. She also has an upcoming appointment with her PCP. Mood is stable. Reports good behavioral control. She reports irritability down to a 2 out of 10 in severity. Denies any recent anger outbursts.? Denies any hopelessness or SI. Denies thoughts of harming self or others at this time. Denies any aggressive ideation or HI. Denies any paranoia or AH or VH. Sleep, appetite, energy stable. She is sleeping ~7 hours. Medication Compliance: Yes Side effects from medications: No Attending Groups: Yes Review of Systems Acute medical concerns: No Mental Status Exam Mental Status Exam Narrative: Alert, oriented, in no acute distress. Calm, cooperative. Mood stable, affect appropriate. Speech normal. Thought process linear, coherent. Thought content related to stressors, denies any helplessness, hopelessness or SI.? No aggressive ideation or HI. No paranoia or delusional content elicited. No evidence of psychosis. Insight and judgment fair but adequate. Diagnostics Vital Signs (24Hr): BMI result Body Mass Index 30.0 Assessment & Plan Assessment & Plan (1) Bipolar 1 disorder: Status: Acute Code(s): F31.9 - Bipolar disorder, unspecified (2) PTSD (post-traumatic stress disorder): Status: Acute Code(s): F43.10 - Post-traumatic stress disorder, unspecified Plan Discharge from [facility] continue regular medications patient meets with psychiatrist for first appointment on 10/18 patient can contact this provider for any questions or concerns Also has an upcoming appointment with PCP Dr. Aaron Song and will update provider with medication changes will defer further medication management to outpatient provider Refills sent to pharmacy Patient educated on: diagnosis and medication risk/benefits Informed Consent: understands Reason for contiued partial hosp. stay Substantial Risk for: stable for discharge Certification I certify that partial hospital treatment is medically necessary due to the symptoms and problems resulting from the patient's mental illness and the failure to treat the patient at the partial hospital level of care would likely result in the patient requiring inpatient psychiatric care which could not be prevented at a less intensive level of care. Total time managing care of this patient today _30___ minutes. Discharge Plan Discharge Attending provider: Cleo Sahu Medications: New oxcarbazepine 300 mg/5 mL (60 mg/mL) suspension 600 mg PO BID Qty: 600 0RF Continued Breztri Aerosphere 160-9-4.8 mcg/actuation HFA aerosol inhaler 2 inh inhalation BID 30 Days Qty: 5.9 1RF hydroxyurea 500 mg capsule 500 mg PO DAILY 30 Days Qty: 30 0RF lactulose 10 gram/15 mL solution 10 g PO BEDTIME PRN (Reason: constipation) 30 Days Qty: 237 0RF albuterol sulfate 90 mcg/actuation HFA aerosol inhaler 2 puff inhalation Q4-6H PRN (Reason: for wheezing) 30 Days Qty: 54 1RF atorvastatin 20 mg tablet 20 mg PO DAILY omeprazole 40 mg capsule,delayed release(DR/EC) 40 mg PO DAILY aspirin 81 mg tablet,delayed release (DR/EC) 81 mg PO DAILY fluticasone furoate-vilanterol [Breo Ellipta] 100-25 mcg/dose Blister With Device 1 inh inhalation RDAILY Qty: 1 0RF ondansetron 4 mg tablet,disintegrating 4 mg PO Q8H PRN (Reason: nausea and vomiting) Qty: 20 0RF rivastigmine tartrate 3 mg capsule 3 mg PO BID 30 Days Qty: 60 1RF levothyroxine [Synthroid] 88 mcg tablet 88 mcg PO DAILY 30 Days Qty: 30 6RF Changed olanzapine 10 mg tablet 10 mg PO BEDTIME Qty: 30 0RF olanzapine 5 mg tablet 5 mg PO BID PRN (Reason: anger, simeon, insomnia) 15 Days Qty: 30 0RF Discontinued hydroxyzine HCl 25 mg tablet 25 mg PO TID PRN (Reason: Itching) No Action peg 3350-electrolytes [Golytely] 236-22.74-6.74 -5.86 gram recon soln 240 ml PO Q10M Qty: 4000 0RF Rx Instructions: as per split prep instructions, until fecal effluent is clear Stand Alone Forms: Patient Portal Discharge page
== END 2023-09-11 23:59 | disposition home or self-care (01) ==
LOC: HO.PHPA 12:45
PROVIDERS: Visit Provider Psychiatry & Neurology Psychiatry
DX: F31.12 Bipolar disorder, current episode manic without psychotic features, moderate (principal); F43.10 Post-traumatic stress disorder, unspecified; Z79.899 Other long term (current) drug therapy
CPT/HCPCS: 90791; 90853

== ENCOUNTER 2023-09-12 14:23 | Outpatient (AMB) | payer OTHER, SELFPAY ==
--- NOTE | 2023-09-12 14:25 | A.OFFVIS_ITS ---
Intake Intake Visit Reasons: meet Instructional Services Specialist Required: No Allergies zoster vaccine live [SHINGLES VACCINE] Allergy (Severe, Verified 09/06/23 12:42) HIVES, facial swelling grass pollen Allergy (Mild, Verified 09/06/23 12:42) Itching and runny nose BARIUM CONTRAST Allergy (Severe, Uncoded 09/06/23 12:42) DIFFICULTY BREATHING/FLUSHING PFS Medical History (Updated 09/12/23 @ 14:38 by Salas Estes MD, PhD) Wears dentures PTSD (post-traumatic stress disorder) Bipolar disorder JONATHAN (obstructive sleep apnea) Obesity (BMI 30-39.9) Personal history of nicotine dependence History of laryngeal cancer Dysphagia Renal stones Depression Hyperlipidemia Chronic diarrhea BMI 38.0-38.9,adult Essential thrombocytosis Hypovitaminosis D Eczema Dyslipidemia Hypothyroidism Anxiety Asthma COPD (chronic obstructive pulmonary disease) Hiatal hernia Surgical History (Updated 09/06/23 @ 12:40 by Abby Antonio, NADEEM) Hx of tonsillectomy History of surgery on left wrist History of hand surgery History of colonoscopy History of endoscopy History of repair of hiatal hernia Family History Father Mental health disorder CAD (coronary artery disease) Mother S/P CABG x 3 Asthma Brother Substance use disorder Father Diabetes Maternal Grandmother Breast cancer Social History (Updated 09/06/23 @ 13:09 by Abby Antonio, NADEEM) Household Members: None Housing: Apartment Are you a primary assurance services manager health care to a significant other at home: No Do you presently have visiting nurse or other home services: No (just finishing partial hospitalization 2 week program. last day 09/11/2023) Alcohol intake: never Patient Tobacco Use Status: Former Tobacco user Quit Date: 2018 Tobacco use type: Cigarette Years Smoked: 45 e-Cigarette/Vaping Use: Never Used Second Hand Smoke Exposure: No Substance Use Type: Marijuana service: No Current occupational status: retired Current occupation: right handed Sexual orientation: Straight/Heterosexual Cognitive needs: No Hearing needs: No Vision needs: No Assessment & Plan Assessment & Plan (1) Lumbar disc herniation with radiculopathy: Code(s): M51.16 - Intervertebral disc disorders with radiculopathy, lumbar region Plan Dear colleague, On 09/12/2023, I saw for preoperative visit Hiral Ignacio. She scheduled to undergo a right L3-4 microdiskectomy. The patient states that her leg pain is no longer present, which is great news. This also means that no surgical intervention is required. I removed her from our surgical schedule. Thank you for allowing me take care of your patient. Salas Estes MD, PhD Spine Fellowship Trained Neurosurgeon Director, [facility] Coding Level of Care Code Est Pt Level 2 (78215) Diagnoses Lumbar disc herniation with radiculopathy M51.16
== END 2023-09-12 14:38 | disposition home or self-care (01) ==
PROVIDERS: PCP Internal Medicine; Visit Provider Neurological Surgery
DX: M51.16 Intervertebral disc disorders with radiculopathy, lumbar region (principal)
CPT/HCPCS: 99212

== ENCOUNTER → 2023-09-12 14:23 | Outpatient (BNVA) | payer OTHER, SELFPAY | PROVIDERS: PCP Internal Medicine; Visit Provider Neurological Surgery | DX: M51.16 Intervertebral disc disorders with radiculopathy, lumbar region (principal) | CPT/HCPCS: 99212 ==

== ENCOUNTER 2023-09-14 14:45 | Outpatient (AMB) | payer OTHER, SELFPAY ==
--- NOTE | 2023-09-14 14:56 | MHC.OFFVIS ---
Intake Vital Signs 09/14/23 14:58 09/14/23 15:09 Height 5 ft 5 ft Weight 172 lb BMI 33.6 BP 114/58 L Blood Pressure Location Lt brachial Lt brachial Position Sitting Sitting Pulse 87 Intake Visit Reasons: Wants New DrBa /Diarrhea Intake Note: Patient follow up for Diarrhea, Dr. Chiang former patient. Patient cc: left abdominal with some bloating, between diarrhea and constipation, and swallowing problems with solid food and pills. Also patient needed a Colonoscopy/EGD. Auto Service Instructor Required: No Accompanied by: Self / Same As Patient Allergies zoster vaccine live [SHINGLES VACCINE] Allergy (Severe, Verified 09/14/23 14:56) HIVES, facial swelling grass pollen Allergy (Mild, Verified 09/14/23 14:56) Itching and runny nose BARIUM CONTRAST Allergy (Severe, Uncoded 09/06/23 12:42) DIFFICULTY BREATHING/FLUSHING HPI HPI Comments History of Present Illness Details 68 y.o F with PMH of COPD, obesity, anxiety who is here for follow up for change in bowel habits. Prev Dr Chiang's patient. Patient reports longstanding diarrhea which she describes is to being anywhere from soft to watery 2 to 3 times a day. Has some periods in between where she is regular bowel movements. No blood in stool. No unintentional weight loss. Also due for polyp surveillance. Last colo was 2018 ([facility], Dr Win) x 3 adenomas. Repeat recommended in 3 years. In addition, she also mentions difficulty swallowing large pills. Has history of radiation to the neck due to throat cancer in the past. Had dilation done by Dr. Chiang in 2021, but patient does not recall if her swallowing improved after that. Currently, reports that has sensation of food getting stuck, and large pills cause some discomfort on swallowing for the last few months. [facility] Medical History (Updated 09/14/23 @ 16:21 by Holly Brewster MD) Wears dentures PTSD (post-traumatic stress disorder) Bipolar disorder JONATHAN (obstructive sleep apnea) Obesity (BMI 30-39.9) Personal history of nicotine dependence History of laryngeal cancer Dysphagia Renal stones Depression Hyperlipidemia Chronic diarrhea BMI 38.0-38.9,adult Essential thrombocytosis Hypovitaminosis D Eczema Dyslipidemia Hypothyroidism Anxiety Asthma COPD (chronic obstructive pulmonary disease) Hiatal hernia Surgical History Hx of tonsillectomy History of surgery on left wrist History of hand surgery History of colonoscopy History of endoscopy History of repair of hiatal hernia Family History Father Mental health disorder CAD (coronary artery disease) Mother S/P CABG x 3 Asthma Brother Substance use disorder Father Diabetes Maternal Grandmother Breast cancer Social History Household Members: None Housing: Apartment Are you a primary field care advocate to a significant other at home: No Do you presently have visiting nurse or other home services: No (just finishing partial hospitalization 2 week program. last day 09/11/2023) Alcohol intake: never Patient Tobacco Use Status: Former Tobacco user Quit Date: 2018 Tobacco use type: Cigarette Years Smoked: 45 e-Cigarette/Vaping Use: Never Used Second Hand Smoke Exposure: No Substance Use Type: Marijuana service: No Current occupational status: retired Current occupation: right handed Sexual orientation: Straight/Heterosexual Cognitive needs: No Hearing needs: No Vision needs: No Review of Systems Const All systems reviewed & are unremarkable except as noted in HPI and below Physical Exam Vital Signs: Last Vital Signs Pulse 87 09/14/23 15:09 BP 114/58 L 09/14/23 15:09 BMI result Body Mass Index 33.6 Gen appear: NAD, well nourished HEENT: no icterus, no cervical lymphadenopathy Chest: clear to auscultation CVS: Regular S1/S2 Abd: soft, nontender, nondistended Ext: no peripheral edema Neuro: A/Ox3, noted to move all extremities spontaneously Assessment & Plan Assessment & Plan (1) Dysphagia: Code(s): R13.10 - Dysphagia, unspecified (2) History of laryngeal cancer: Comment: (s/p radiation therapy in her 40's) Code(s): Z85.21 - Personal history of malignant neoplasm of larynx (3) Chronic diarrhea: Comment: Controlled with Cholestyramine powder 4 g b.i.d. p.r.n. Code(s): K52.9 - Noninfective gastroenteritis and colitis, unspecified (4) Personal history of colonic polyps: Code(s): Z86.010 - Personal history of colonic polyps Plan We will set her for an upper endoscopy to evaluate for any radiation stricture, web, stenosis, with possible dilation. No celiac disease seen on small bowel biopsies from 2021. In addition, she will also be set up for a colonoscopy for polyp surveillance, as well as luminal evaluation for colitis. Plan: -EGD with dilation and colonoscopy as above -split PEG prep instructions reviewed with the patient -patient requests assistance with transport for the procedures Follow-up after procedures as needed Medications: New peg 3350-electrolytes 236-22.74-6.74 -5.86 gram (Golytely) as per split prep instructions, until fecal effluent is clear 240 mL PO Q10M 4,000 mL 0RF colonoscopy Coding Level of Care Code Est Pt Level 4 (54574) Diagnoses Dysphagia R13.10 History of laryngeal cancer Z85.21 Chronic diarrhea K52.9 Personal history of colonic polyps Z86.010
[2023-09-14 15:09] VITALS: BP 114/58; PULSE 87; BMI 33.6
== END 2023-09-14 16:25 | disposition home or self-care (01) ==
PROVIDERS: PCP Internal Medicine; Visit Provider Internal Medicine
DX: R13.10 Dysphagia, unspecified (principal); Z85.21 Personal history of malignant neoplasm of larynx; K52.9 Noninfective gastroenteritis and colitis, unspecified; Z86.010 Personal history of colon polyps
CPT/HCPCS: 99214

== ENCOUNTER → 2023-09-14 14:45 | Outpatient (BNVA) | payer OTHER, SELFPAY | PROVIDERS: PCP Internal Medicine; Visit Provider Internal Medicine | DX: K52.9 Noninfective gastroenteritis and colitis, unspecified (principal); R13.10 Dysphagia, unspecified; Z85.21 Personal history of malignant neoplasm of larynx; Z86.010 Personal history of colon polyps | CPT/HCPCS: 99212 ==

== ENCOUNTER 2023-10-02 15:15 | Outpatient (REF) | payer OTHER, SELFPAY ==
--- NOTE | ~2023-10-02 | CT_ITS ---
EXAMINATION: CT ABDOMEN WITHOUT AND WITH CONTRAST CLINICAL INFORMATION: Disease of kidney and ureter, left renal punctate calculus COMPARISON: CT scan of abdomen and pelvis on 03/15/2021 TECHNIQUE: Contiguous axial thin section helical images of the abdomen were performed before and after the administration of 85 mL of Omnipaque 350 intravenous contrast. The data set was reformatted in the coronal and sagittal planes and reviewed on an independent workstation. This CT examination was performed using dose optimization techniques as appropriate, variously including the following: *Automated exposure control *Adjustment of mA and/or kV according to patient size (this includes techniques or standardized protocols for targeted exams where dose is matched to indication/reason for exam; i.e. extremities or head) *Use of iterative reconstruction technique DLP: 562 mGy-cm FINDINGS: LUNG BASES: Bilateral lung bases are clear. LIVER: No focal lesion is seen in the liver. GALLBLADDER AND BILIARY TREE: Gallbladder is surgically absent with clips in the gallbladder fossa. Common bile duct is not dilated. SPLEEN: The spleen is normal in size without focal lesion. PANCREAS: The pancreas appears unremarkable. ADRENAL GLANDS: Adrenal glands are normal in size without focal lesion bilaterally. KIDNEYS: Bilateral kidneys are normal in size without focal lesion. Persistent left mid and inferior pole nonobstructive renal calculi 0.2 cm in diameter are seen. BOWELS: There is mild fecal distention of ascending and transverse colon. RETROPERITONEUM: No abnormally enlarged retroperitoneal lymph nodes, mass or hematoma could be seen. BLOOD VESSELS: Abdominal aorta is normal in size with extensive atherosclerotic calcifications and smoothly patent. ABDOMINAL WALL: Above the level of umbilicus at L4-L5 level, a left parasagittal small ventral hernia containing mesenteric fat is seen protruding through a gap in the rectus sheath measuring 0.5 cm in width, series 4 image #116. Small umbilical hernia containing mesenteric fat is seen. PERITONEUM: There was no ascites. There were no abdominal peritoneal inflammatory changes seen. No free peritoneal air was seen. No abnormally enlarged mesenteric lymph nodes are found. BONES: Mild posterior L5-S1 disc protrusion is seen. Multilevel advanced lower thoracic degenerative disc disease with vacuum disc phenomenon and marked loss of disc height is seen. No fracture or dislocation. No focal bone lesion diagnostic of metastatic disease could be seen in the lumbar region. CT/CT abdomen wo/w IV con IMPRESSION: 1. Unchanged tiny left mid and inferior nonobstructive renal calculi. 2. Interval performance of cholecystectomy. 3. Unchanged Small left parasagittal ventral and umbilical hernias containing mesenteric fat.
[2023-10-02] MEDS: iohexoL 350 MG/ML 100 ML INFUS..BTL IV (15:46)
== END 2023-10-02 15:16 | disposition home or self-care (01) ==
LOC: HO.CT 15:15
PROVIDERS: PCP Internal Medicine; Visit Provider Internal Medicine
DX: N28.89 Other specified disorders of kidney and ureter (principal)
CPT/HCPCS: 74170; Q9967

== ENCOUNTER 2023-10-11 13:53 | Outpatient (AMB) | payer OTHER, MEDICAID, SELFPAY ==
[2023-10-11 13:56] VITALS: BP 124/66; PULSE 86; O2SAT 97; BMI 34.0
--- NOTE | 2023-10-11 13:56 | A.OFFVIS_ITS ---
Intake Vital Signs 10/11/23 13:56 Height 5 ft Weight 174 lb BMI 34.0 BP 124/66 Blood Pressure Location Lt brachial Position Sitting Pulse 86 Pulse Source Doppler Pulse Oximetry (%) 97 Oxygen Delivery Method Room Air Intake Visit Reasons: COPD Allergies zoster vaccine live [SHINGLES VACCINE] Allergy (Severe, Verified 10/11/23 14:01) HIVES, facial swelling grass pollen Allergy (Mild, Verified 10/11/23 14:01) Itching and runny nose BARIUM CONTRAST Allergy (Severe, Uncoded 09/06/23 12:42) DIFFICULTY BREATHING/FLUSHING Medication List - Last Reconciled 10/11/23 by Earnest Chaparro MD albuterol sulfate 90 mcg/actuation 2 puffs inhalation Q4-6H PRN 30 days aspirin 81 mg PO DAILY atorvastatin 20 mg PO DAILY bisacodyl (Dulcolax (bisacodyl)) 20 mg (4 x 5 mg) PO ONCE 1 day eazwalisdu-jikgxyhu-ydnybeblbk 160-9-4.8 mcg/actuation (Breztri Aerosphere) 2 inhalations inhalation BID 30 days hydroxyurea 500 mg PO DAILY 30 days lactulose 10 grams (15 mL) PO BEDTIME PRN 30 days olanzapine 10 mg PO BEDTIME olanzapine 5 mg PO BID PRN 15 days omeprazole 40 mg PO DAILY ondansetron 4 mg PO Q8H PRN oxcarbazepine 600 mg (10 mL) PO BID peg 3350-electrolytes 236-22.74-6.74 -5.86 gram (Golytely) 240 mL PO Q10M rivastigmine tartrate 3 mg PO BID 30 days simethicone (Gas Relief (simethicone)) 125 mg PO ONCE Synthroid (levothyroxine) 88 mcg PO DAILY 30 days NS [facility] Medical History Wears dentures PTSD (post-traumatic stress disorder) Bipolar disorder JONATHAN (obstructive sleep apnea) Obesity (BMI 30-39.9) Personal history of nicotine dependence History of laryngeal cancer Dysphagia Renal stones Depression Hyperlipidemia Chronic diarrhea BMI 38.0-38.9,adult Essential thrombocytosis Hypovitaminosis D Eczema Dyslipidemia Hypothyroidism Anxiety Asthma COPD (chronic obstructive pulmonary disease) Hiatal hernia Surgical History Hx of tonsillectomy History of surgery on left wrist History of hand surgery History of colonoscopy History of endoscopy History of repair of hiatal hernia Family History Father Mental health disorder CAD (coronary artery disease) Mother S/P CABG x 3 Asthma Brother Substance use disorder Father Diabetes Maternal Grandmother Breast cancer Social History Household Members: None Housing: Apartment Are you a primary patient care representative to a significant other at home: No Do you presently have visiting nurse or other home services: No (just finishing partial hospitalization 2 week program. last day 09/11/2023) Alcohol intake: never Patient Tobacco Use Status: Former Tobacco user Quit Date: 2018 Tobacco use type: Cigarette Years Smoked: 45 e-Cigarette/Vaping Use: Never Used Second Hand Smoke Exposure: No Substance Use Type: Marijuana service: No Current occupational status: retired Current occupation: right handed Sexual orientation: Straight/Heterosexual Cognitive needs: No Hearing needs: No Vision needs: No Review of Systems Const All systems reviewed & are unremarkable except as noted in HPI and below Eyes Reports no additional complaints ENT Reports nasal congestion (Intermittent) Card Denies chest pain, Denies irregular heart rhythm, Denies leg edema and Reports dyspnea on exertion (Moderate) Resp Reports cough, Reports dyspnea on exertion (Moderate) and Denies wheezing (Mild intermittent) GI Reports no additional complaints Reports no additional complaints Musc Reports no additional complaints Skin/Breast Reports system reviewed and no additional complaints, except as documented Neuro Reports no additional complaints Psych Reports anxiety and Reports depression (Treated with med) Aller/Immun Denies wheezing (Mild intermittent) Physical Exam Vital Signs: Last Vital Signs Pulse 86 10/11/23 13:56 BP 124/66 10/11/23 13:56 Pulse Ox 97 10/11/23 13:56 Oxygen Delivery Method Room Air 10/11/23 13:56 BMI result Body Mass Index 34.0 Const General: comfortable, no acute distress, alert and awake Orientation/consciousness: patient oriented x3 HEENT Head: Yes normal to inspection General nose exam: No nasal polyps present and No nasal discharge present Face and sinus: Yes sinuses nontender Mouth: oropharynx abnormals (Narrow and crowded, Mallampati class 4) Throat: Yes posterior oropharynx normal Eyes General: appearance normal, both eyes and all related structures Neck Neck: Yes normal visual inspection, Yes no lymphadenopathy, Yes trachea midline, Yes no JVD and Yes other (Neck circumference 15 in) Thyroid: Thyroid normal Chest Chest palpation & inspection: normal inspection of the chest, normal palpation of entire chest wall and no tenderness Resp Other: Percussion note resonant, breath sounds are quite distant especially over the basilar areas. Expiratory phase prolonged. No wheezes rhonchi or crepitations are heard today. Cardio Palpation: normal PMI Rate: regular rate Rhythm: regular rhythm Heart sounds: no gallops and no murmurs GI Palpation (GI): Soft to palpation, nontender, No hepatosplenomegaly present, no masses and Other GI palpation findings present (Abdomen is obese and protuberant) Auscultation: normal bowel sounds Back/Spine/Pelvis Thoracic/Lumbar Spine: thoracic and lumbar spine normal to inspection Skin General skin exam: no rashes or lesions noted Neuro General: patient oriented x3 and no focal motor deficits Cranial nerves: Yes CN's II-XII intact bilaterally Extrem General: Yes normal to inspection, Yes no clubbing, cyanosis or edema and Yes no calf tenderness Psych Appearance: grossly normal and well kempt Speech and movement: Normal speech and movement present Assessment & Plan Assessment & Plan (1) Obesity (BMI 30-39.9): Comment: Patient remains moderately obese but she is losing weight gradually. Compared to her last visit she has put on some weight. Code(s): E66.9 - Obesity, unspecified Plan: I talked to her at length about weight control. Encouraged her to start walking, and cut down on the intake of carbohydrates. (2) JONATHAN (obstructive sleep apnea): Comment: PATIENT IS KNOWN CASE OF OBSTRUCTIVE SLEEP APNEA BUT AFTER LOSING SOME WEIGHT, SHE DECIDED TO DO WITHOUT THE CPAP. SHE SLEEPS IN LATERAL POSITION. CLAIMS THAT SHE IS SLEEPING WELL WITHOUT ANY INTERRUPTION. Code(s): G47.33 - Obstructive sleep apnea (adult) (pediatric) Plan: ONCE AGAIN ENCOURAGED TO KEEP ON LOSING WEIGHT. ALSO AGAIN INSTRUCTED THAT SHE SHOULD ALWAYS SLEEP IN LATERAL POSITION. (3) COPD (chronic obstructive pulmonary disease): Comment: Patient has moderately severe obstructive airway disorder. It is well controlled with the current regimen. Her last pulmonary function test was at [facility], quite a few years ago. PULMONARY FUNCTION TEST WAS ORDERED ON HER LAST VISIT BUT SOME HER OTHER IT HAS NOT BEEN DONE. ON HER NEXT VISIT WE WILL JUST DO AN OFFICE SPIROMETRY. Code(s): J44.9 - Chronic obstructive pulmonary disease, unspecified Plan: ADVISED TO CONTINUE USING BREZTRI 2 INHALATION B.I.D. AND ALBUTEROL HFA 2 PUFFS Q 4-6 HOURS P.R.N. (4) Personal history of nicotine dependence: Comment: (former smoker - onset 11yo, 1ppd x 51yrs, 50pyh, quit 2018) Code(s): Z87.891 - Personal history of nicotine dependence Plan: HAD GOOD DISCUSSION AND STRESSED THAT SHE SHOULD NOT GO BACK TO SMOKING . Coding Level of Care Code Est Pt Level 3 (01374) Diagnoses Obesity (BMI 30-39.9) E66.9 JONATHAN (obstructive sleep apnea) G47.33 COPD (chronic obstructive pulmonary disease) J44.9 Personal history of nicotine dependence Z87.891
== END 2023-10-11 14:10 | disposition home or self-care (01) ==
PROVIDERS: PCP Internal Medicine; Visit Provider Internal Medicine
DX: E66.9 Obesity, unspecified (principal); G47.33 Obstructive sleep apnea (adult) (pediatric); J44.9 Chronic obstructive pulmonary disease, unspecified; Z87.891 Personal history of nicotine dependence
CPT/HCPCS: 99213

== ENCOUNTER → 2023-10-11 13:53 | Outpatient (BNVA) | payer OTHER, SELFPAY | PROVIDERS: PCP Internal Medicine; Visit Provider Internal Medicine | DX: J44.9 Chronic obstructive pulmonary disease, unspecified (principal); G47.33 Obstructive sleep apnea (adult) (pediatric); E66.9 Obesity, unspecified; Z87.891 Personal history of nicotine dependence; Z68.34 Body mass index [BMI] 34.0-34.9, adult | CPT/HCPCS: 99212 ==

== ENCOUNTER 2023-10-22 14:05 | Outpatient (AMB) | payer OTHER, MEDICAID, SELFPAY ==
--- NOTE | 2023-10-22 14:06 | A.OFFVIS_ITS ---
Intake Intake Visit Reasons: wants to discuss EGD options Intake Note: Pt presents to the office today as a telehealth appt for discussion of EGD options. Pt states she is feeling well at this time. Allergies zoster vaccine live [SHINGLES VACCINE] Allergy (Severe, Verified 10/22/23 14:06) HIVES, facial swelling grass pollen Allergy (Mild, Verified 10/22/23 14:06) Itching and runny nose BARIUM CONTRAST Allergy (Severe, Uncoded 10/22/23 14:06) DIFFICULTY BREATHING/FLUSHING HPI HPI Comments History of Present Illness Details 68 y.o F with PMH of COPD, obesity, anxi ety who is here for follow up for change in bowel habits. Prev Dr Chiang's patient. 09/14/23: Patient reports longstanding diarrhea which she describes is to being anywhere from soft to watery 2 to 3 times a day. Has some periods in between where she is regular bowel movements. No blood in stool. No unintentional weight loss. Also due for polyp surveillance. Last colo was 2018 ([facility], Dr Win) x 3 adenomas. Repeat recommended in 3 years. In addition, she also mentions difficulty swallowing large pills. Has history of radiation to the neck due to throat cancer in the past. Had dilation done by Dr. Chiang in 2021, but patient does not recall if her swallowing improved after that. Currently, reports that has sensation of food getting stuck, and large pills cause some discomfort on swallowing for the last few months. 10/22/23: REquested televisit today for clarification re EGD. REports ongoing trouble swallowing izabella with large pills however she could not recall if intervention can be done at the same time as the EGD if an anatomical abnl is found. [facility] Medical History Wears dentures PTSD (post-traumatic stress disorder) Bipolar disorder JONATHAN (obstructive sleep apnea) Obesity (BMI 30-39.9) Personal history of nicotine dependence History of laryngeal cancer Dysphagia Renal stones Depression Hyperlipidemia Chronic diarrhea BMI 38.0-38.9,adult Essential thrombocytosis Hypovitaminosis D Eczema Dyslipidemia Hypothyroidism Anxiety Asthma COPD (chronic obstructive pulmonary disease) Hiatal hernia Surgical History Hx of tonsillectomy History of surgery on left wrist History of hand surgery History of colonoscopy History of endoscopy History of repair of hiatal hernia Family History Father Mental health disorder CAD (coronary artery disease) Mother S/P CABG x 3 Asthma Brother Substance use disorder Father Diabetes Maternal Grandmother Breast cancer Social History Household Members: None Housing: Apartment Are you a primary career advisor to a significant other at home: No Do you presently have visiting nurse or other home services: No (just finishing partial hospitalization 2 week program. last day 09/11/2023) Alcohol intake: never Patient Tobacco Use Status: Former Tobacco user Quit Date: 2018 Tobacco use type: Cigarette Years Smoked: 45 e-Cigarette/Vaping Use: Never Used Second Hand Smoke Exposure: No Substance Use Type: Marijuana service: No Current occupational status: retired Current occupation: right handed Sexual orientation: Straight/Heterosexual Cognitive needs: No Hearing needs: No Vision needs: No Review of Systems Const All systems reviewed & are unremarkable except as noted in HPI and below Physical Exam televideo NAD speaking in full sentences Assessment & Plan Assessment & Plan (1) Dysphagia: Code(s): R13.10 - Dysphagia, unspecified (2) History of laryngeal cancer: Comment: (s/p radiation therapy in her 40's) Code(s): Z85.21 - Personal history of malignant neoplasm of larynx (3) Chronic diarrhea: Comment: Controlled with Cholestyramine powder 4 g b.i.d. p.r.n. Code(s): K52.9 - Noninfective gastroenteritis and colitis, unspecified (4) Personal history of colonic polyps: Code(s): Z86.010 - Personal history of colonic polyps Plan Reviewed with the pt that indication for EGD remains dysphagia which is persistent and that depending on findings on the EGD may or may not be able to treat it endoscopically for e.g ring, web, stricture etc. She is agreeable to proceed with EGD along with her colo as previously discus sed. Procedures booked for next month. Follow up after endo Telehealth Telehealth Location of provider rendering services: practice address Location of patient: address on file Patient Identification confirmed using: Name, : Yes Telehealth method: video Patient verbally consented to treatment: Yes Patient verbally consented to billing insurance company: Yes Patient informed of any privacy concerns related to visit: Yes Minutes spent on Phone/Video with Pt.: 8 Coding Level of Care Code Tele Est Pt Level 3 (12318) Diagnoses Dysphagia R13.10 History of laryngeal cancer Z85.21 Chronic diarrhea K52.9 Personal history of colonic polyps Z86.010
== END 2023-10-22 14:53 | disposition home or self-care (01) ==
LOC: HO.HGI 14:05
PROVIDERS: PCP Internal Medicine; Visit Provider Internal Medicine
DX: R13.10 Dysphagia, unspecified (principal); Z85.21 Personal history of malignant neoplasm of larynx; K52.9 Noninfective gastroenteritis and colitis, unspecified; Z86.010 Personal history of colon polyps
CPT/HCPCS: 99213

== ENCOUNTER → 2023-10-22 14:05 | Outpatient (BNVA) | payer OTHER, MEDICAID, SELFPAY | PROVIDERS: PCP Internal Medicine; Visit Provider Internal Medicine ==

== ENCOUNTER 2023-10-23 14:20 | Outpatient (AMB) | payer OTHER, SELFPAY ==
--- NOTE | 2023-10-23 14:31 | A.OFFVIS_ITS ---
Intake Vital Signs 10/23/23 14:35 Height 5 ft Weight 171 lb BMI 33.4 BP 128/65 Blood Pressure Location Rt brachial Position Sitting Pulse 83 Intake Visit Reasons: Ventral hernia Intake Note: Patient referred by PCP Dr. Aaron Randall for ventral, umbilical hernias. Patient c/o: denies pain. Denies diarrhea, constipation. Abd CT: 10-02-23. 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 She has had this indeterminate time. She presents here for further evaluation. Patient is tolerating a diet. He is having regular bowel habits. Her CT scan demonstrated this hernia and also showed incidental finding of a left kidney stone which is asymptomatic. Chart was reviewed patient evaluated [facility] Medical History Wears dentures PTSD (post-traumatic stress disorder) Bipolar disorder JONATHAN (obstructive sleep apnea) Obesity (BMI 30-39.9) Personal history of nicotine dependence History of laryngeal cancer Dysphagia Renal stones Depression Hyperlipidemia Chronic diarrhea BMI 38.0-38.9,adult Essential thrombocytosis Hypovitaminosis D Eczema Dyslipidemia Hypothyroidism Anxiety Asthma COPD (chronic obstructive pulmonary disease) Hiatal hernia Surgical History Hx of tonsillectomy History of surgery on left wrist History of hand surgery History of colonoscopy History of endoscopy History of repair of hiatal hernia Family History Father Mental health disorder CAD (coronary artery disease) Mother S/P CABG x 3 Asthma Brother Substance use disorder Father Diabetes Maternal Grandmother Breast cancer Social History Household Members: None Housing: Apartment Are you a primary nonfarm animal caretaker to a significant other at home: No Do you presently have visiting nurse or other home services: No (just finishing partial hospitalization 2 week program. last day 09/11/2023) Alcohol intake: never Patient Tobacco Use Status: Former Tobacco user Quit Date: 2018 Tobacco use type: Cigarette Years Smoked: 45 e-Cigarette/Vaping Use: Never Used Second Hand Smoke Exposure: No Substance Use Type: Marijuana service: No Current occupational status: retired Current occupation: right handed Sexual orientation: Straight/Heterosexual Cognitive needs: No Hearing needs: No Vision needs: No Physical Exam Vital Signs: Last Vital Signs Pulse 83 10/23/23 14:35 BP 128/65 10/23/23 14:35 BMI result Body Mass Index 33.4 Chest Other: Chest breath sounds bilaterally, HS 1 in 2 GI Other: Patient was examined both supine and standing with Valsalva. Modestly corpulent abdomen. Incisional umbilical ventral hernia measuring approximately 3 cm with incarcerated omental contents. Abdomen otherwise benign. Groin exam negative. Assessment & Plan Assessment & Plan (1) Incarcerated ventral hernia: Code(s): K43.6 - Other and unspecified ventral hernia with obstruction, without gangrene Plan Risks, benefits, alternatives of open repair of incarcerated ventral/incisional hernia with mesh was reviewed with the patient and included but not limited to bleeding, infection, recurrence, numbness, pain, scarring, bowel injury and the patient wishes to proceed. All questions answered. Arrangements were made for this. Coding Level of Care Code New Pt Level 5 (98275) Diagnoses Incarcerated ventral hernia K43.6
[2023-10-23 14:35] VITALS: BP 128/65; PULSE 83; BMI 33.4
== END 2023-10-23 14:45 | disposition home or self-care (01) ==
PROVIDERS: PCP Internal Medicine; Referring Provider Internal Medicine; Visit Provider Surgery
DX: K43.6 Other and unspecified ventral hernia with obstruction, without gangrene (principal)
CPT/HCPCS: 99204; 99214

== ENCOUNTER → 2023-10-23 14:20 | Outpatient (BNVA) | payer OTHER, SELFPAY | PROVIDERS: PCP Internal Medicine; Referring Provider Internal Medicine; Visit Provider Surgery | DX: K43.6 Other and unspecified ventral hernia with obstruction, without gangrene (principal) | CPT/HCPCS: 99202 ==

== ENCOUNTER 2023-11-12 07:23 | Day surgery (SDC) | payer OTHER, SELFPAY ==
[2023-11-07 12:01] VITALS: BP 137/67; PULSE 88; RESP 16; O2SAT 97; BMI 33.6
--- NOTE | 2023-11-07 12:24 | HO.ANESPROP2 ---
Documented by User: Ambika Schwarz NP 11/08/23 13:15 HPI - Anesthesia Eval Consult details Narrative: 68yo F for Open Repair Incarcerated Incisional Ventral Hernia w/mesh, 11/12/23 No recent illness No CP/SOB with minimal activity [facility] [place] Pulmo: COPD, stable. Last office visit 09/2023 [facility] [place] PCP: Last office visit 08/2023 Hx throat cancer with surgery and radiation ~ 25 years ago. No longer f/u with ENT. Hoarse voice at [facility], pt states d/t recently taking pill. Essential thrombocytosis. Stable with hydroxyurea GERD. controlled with ppi COPD. Rare albuterol PMFSH Active Problems Active Problems: All Active Problems (Updated 10/11/23 @ 14:18 by Earnest Chaparro MD) Incarcerated ventral hernia (Acute) Ventral hernia (Acute) Personal history of colonic polyps (Acute) Lumbar disc herniation with radiculopathy (Acute) Bipolar 1 disorder (Acute) Bipolar 1 disorder, manic, moderate (Acute) Gastroenteritis (Acute) Left kidney mass (Acute) Lumbar disc herniation (Acute) Forgetfulness (Acute) Lumbar spinal stenosis (Acute) Headache (Acute) Hospital discharge follow-up (Acute) Mood disorder (Acute) Osteoarthritis of both hips (Acute) Physical exam (Acute) Lumbar spondylosis (Acute) Muscle spasm (Acute) Sacroiliac joint pain (Acute) Lumbosacral radiculitis (Acute) Urge urinary incontinence (Acute) Low back pain (Acute) Acute diarrhea (Acute) Sore throat (Acute) URI (upper respiratory infection) (Acute) Mild major depression (Acute) Chest pain (Acute) Arthritis of right hip (Acute) Bilateral hip pain (Acute) Arthritis of both hips (Acute) Right hip pain (Acute) Hip pain (Acute) Dysphagia (Acute) Altered bowel habits (Acute) Pain of back and lower extremity (Acute) JONATHAN on CPAP (Acute) PTSD (post-traumatic stress disorder) (Acute) Bipolar disorder (Acute) JONATHAN (obstructive sleep apnea) (Acute) Renal stones (Acute) Obesity (BMI 30-39.9) (Acute) Personal history of nicotine dependence (Acute) COPD (chronic obstructive pulmonary disease) (Acute) History of laryngeal cancer (Acute) Chronic diarrhea (Acute) Hypothyroidism (Acute) Dyslipidemia (Acute) Essential thrombocytosis (Chronic) Hypovitaminosis D (Acute) Anxiety (Acute) BMI 38.0-38.9,adult (Acute) Eczema (Acute) Past Medical History Medical History (Updated 11/07/23 @ 12:27 by Abby Antonio RN) Wears dentures PTSD (post-traumatic stress disorder) Bipolar disorder JONATHAN (obstructive sleep apnea) Obesity (BMI 30-39.9) Personal history of nicotine dependence History of laryngeal cancer Dysphagia Renal stones Depression Hyperlipidemia Chronic diarrhea BMI 38.0-38.9,adult Essential thrombocytosis Hypovitaminosis D Eczema Dyslipidemia Hypothyroidism Anxiety Asthma COPD (chronic obstructive pulmonary disease) Hiatal hernia Family History Family History Father Mental health disorder CAD (coronary artery disease) Mother S/P CABG x 3 Asthma Brother Substance use disorder Father Diabetes Maternal Grandmother Breast cancer Family history of problems with anesthesia: No Surgical History Surgical History (Updated 10/23/23 @ 14:47 by Ishmael Joy MD) Hx of tonsillectomy History of surgery on left wrist History of hand surgery History of colonoscopy History of endoscopy History of repair of hiatal hernia History of Problems with Anesthesia: No Social History Social History Household Members: None Housing: Apartment Are you a primary childcare center administrator to a significant other at home: No Do you presently have visiting nurse or other home services: No Alcohol intake: never Patient Tobacco Use Status: Former Tobacco user Quit Date: 2017 Tobacco use type: Cigarette Years Smoked: 45 e-Cigarette/Vaping Use: Never Used Second Hand Smoke Exposure: No Use of substances other than those prescribed or required for medical reasons: No Substance Use Type: Marijuana Have you been hit, kicked, punched, or otherwise hurt by someone within the past year? If so, by whom?: No Are you DNR?: No Advance Directives: No Advance Directives Information Provided: Yes Advance Directives on File: No Recently lost weight without trying: No Nutrition Risks: No Nutritional Risk service: No Current occupational status: retired Current occupation: right handed Sexual orientation: Straight/Heterosexual Cognitive needs: No Hearing needs: No Vision needs: No Meds Allergies Allergy/AdvReac Type Severity Reaction Status Date / Time zoster vaccine live Allergy Severe HIVES, Verified 11/07/23 12:15 [SHINGLES VACCINE] facial swelling grass pollen Allergy Mild Itching Verified 11/07/23 12:15 and runny nose BARIUM CONTRAST Allergy Severe DIFFICULTY Uncoded 11/07/23 12:15 BREATHING/FLUSHING Home Medications ?Medication ?Instructions ?Recorded ?Confirmed ?Last Taken ?Type aspirin 81 mg tablet,delayed 81 mg PO DAILY 07/31/23 11/07/23 11/12/23 History release atorvastatin 20 mg tablet 20 mg PO DAILY 07/31/23 11/07/23 11/12/23 History omeprazole 40 mg capsule,delayed 40 mg PO DAILY 07/31/23 11/07/23 11/12/23 History release aripiprazole 2 mg tablet 2 mg PO QAM 11/07/23 11/07/23 11/12/23 History bupropion HCl 150 mg 24 hr tablet, 150 mg PO QAM 11/07/23 11/07/23 11/12/23 History extended release Exam Height,Weight and Vital Signs: Height 5 ft Weight 78.018 kg Last Vital Signs Pulse 88 11/07/23 12:01 Resp 16 11/07/23 12:01 BP 137/67 11/07/23 12:01 Pulse Ox 97 11/07/23 12:01 O2 Del Method Room Air 11/07/23 12:01 Pertinent Lab Results Pertinent Lab Results: Laboratory Tests 08/19/23 08/19/23 09/04/23 17:03 17:03 14:23 WBC 9.1 Hgb 12.6 Hct 38.5 Plt Count 315 Sodium 142 Potassium 4.1 Chloride 113 H Carbon Dioxide 23 BUN 11 Creatinine 0.86 Narrative Narrative: EKG 07/2023 Vent. Rate : 058 BPM Atrial Rate : 058 BPM P-R Int : 148 ms QRS Dur : 076 ms QT Int : 420 ms P-R-T Axes : 058 029 068 degrees QTc Int : 412 ms Sinus bradycardia Otherwise normal ECG When compared with ECG of 14-MAR-2023 08:52, No significant change was found Airway Mallampati Class: III TM Dist: >3cm Neck ROM: Full Denture: Upper and Lower Heart: RRR Lungs: CTAB Assessment and Plan Assessment Anesthesia Assessment: Anesthesia Plan Discussed and PAT Visit Final Anesthetic Review Family History of Problems with Anesthesia: No History of Problems with Anesthesia: No Documented by User: Dallas Sanchez MD 11/12/23 08:27 [facility] Past Medical History Medical History (Updated 11/07/23 @ 12:27 by Abby Antonio RN) Wears dentures PTSD (post-traumatic stress disorder) Bipolar disorder JONATHAN (obstructive sleep apnea) Obesity (BMI 30-39.9) Personal history of nicotine dependence History of laryngeal cancer Dysphagia Renal stones Depression Hyperlipidemia Chronic diarrhea BMI 38.0-38.9,adult Essential thrombocytosis Hypovitaminosis D Eczema Dyslipidemia Hypothyroidism Anxiety Asthma COPD (chronic obstructive pulmonary disease) Hiatal hernia Family History Family History Father Mental health disorder CAD (coronary artery disease) Mother S/P CABG x 3 Asthma Brother Substance use disorder Father Diabetes Maternal Grandmother Breast cancer Surgical History Surgical History (Updated 10/23/23 @ 14:47 by Ishmael Joy MD) Hx of tonsillectomy History of surgery on left wrist History of hand surgery History of colonoscopy History of endoscopy History of repair of hiatal hernia Social History Social History Household Members: None Housing: Apartment Are you a primary childcare center administrator to a significant other at home: No Do you presently have visiting nurse or other home services: No Alcohol intake: never Patient Tobacco Use Status: Former Tobacco user Quit Date: 2017 Tobacco use type: Cigarette Years Smoked: 45 e-Cigarette/Vaping Use: Never Used Second Hand Smoke Exposure: No Use of substances other than those prescribed or required for medical reasons: No Substance Use Type: Marijuana Have you been hit, kicked, punched, or otherwise hurt by someone within the past year? If so, by whom?: No Are you DNR?: No Advance Directives: No Advance Directives Information Provided: Yes Advance Directives on File: No Recently lost weight without trying: No Nutrition Risks: No Nutritional Risk service: No Current occupational status: retired Current occupation: right handed Sexual orientation: Straight/Heterosexual Cognitive needs: No Hearing needs: No Vision needs: No Meds Allergies Allergy/AdvReac Type Severity Reaction Status Date / Time zoster vaccine live Allergy Severe HIVES, Verified 11/07/23 12:15 [SHINGLES VACCINE] facial swelling grass pollen Allergy Mild Itching Verified 11/07/23 12:15 and runny nose BARIUM CONTRAST Allergy Severe DIFFICULTY Uncoded 11/07/23 12:15 BREATHING/FLUSHING Home Medications ?Medication ?Instructions ?Recorded ?Confirmed ?Last Taken ?Type aspirin 81 mg tablet,delayed 81 mg PO DAILY 07/31/23 11/07/23 11/12/23 History release atorvastatin 20 mg tablet 20 mg PO DAILY 07/31/23 11/07/23 11/12/23 History omeprazole 40 mg capsule,delayed 40 mg PO DAILY 07/31/23 11/07/23 11/12/23 History release aripiprazole 2 mg tablet 2 mg PO QAM 11/07/23 11/07/23 11/12/23 History bupropion HCl 150 mg 24 hr tablet, 150 mg PO QAM 11/07/23 11/07/23 11/12/23 History extended release Assessment and Plan Assessment Anesthesia Assessment: Smoking Cess. Discussed and Chart Reviewed Final Anesthetic Review NPO: Yes ASA Class: III Final Preanesthetic Review: No Changes in Pt Med Stat, Meds/Allgs Chart Reviewed, Consent Obtained/Reviewed and Anes Risks/Benef Reviewed Patient Risk: Intermediate Procedure Risk: Intermediate Anesthetic Plan Anesthetic Plan: GA Disposition: Standard PACU
[2023-11-12] VITALS (9 sets, daily range): BP systolic 95–142; BP diastolic 40–71; PULSE 69–85; RESP 16–18; TEMP 36.3–36.4; O2SAT 94–98; BMI 34.4
--- NOTE | 2023-11-12 08:46 | MHC.SHP ---
Pre-Procedural Eval Section A - 24 Hr Update-Section A only Date of Service: 11/12/23 The patient is an INPATIENT: No Changes since office visit: No Cold of Flu in the past 2 weeks, No New Medical Problems, No Changes in Medication and No Patient answered all questions The patient has been examined within 24 hours of the surgical procedure. The History & Physical has been completed within 30 days and I have reviewed it.: Yes Section B - Complete if H&P > 30 days Chief Complaint: Other and unspecified ventral hernia with obstruct Allergies: Allergies Allergy/AdvReac Type Severity Reaction Status Date / Time zoster vaccine live Allergy Severe HIVES, Verified 11/07/23 12:15 [SHINGLES VACCINE] facial swelling grass pollen Allergy Mild Itching Verified 11/07/23 12:15 and runny nose BARIUM CONTRAST Allergy Severe DIFFICULTY Uncoded 11/07/23 12:15 BREATHING/FLUSHING Plan I have reviewed the history and physical and performed a pertinent physical examination on my patient. No changes have occurred unless specified. Time Spent With Patient Time: Total time managing care of this patient today ____ minutes.
--- NOTE | 2023-11-12 09:50 | P.OP_ITS ---
Operative Note Operative Note Date of Service: 11/12/23 Narrative: Preoperative diagnosis: [] Incarcerated supraumbilical ventral hernia Postop diagnosis: [] The same Procedure [] open repair incarcerated supraumbilical ventral hernia with Bard mesh Surgeon: [] [employer] Cutter: [] Randy Type of Anesthesia: [] LMA Indication for surgery: [] Approximately 3 cm incarcerated supraumbilical ventral hernia with omental contents Findings: [] Patient brought to the operating room, placed on operative table supine position, after an adequate level of general anesthesia was induced, the patient's abdomen was prepped and draped in usual sterile fashion. Using a transverse incision in the supra umbilical position over the hernia in question, this carried down through skin, subcutaneous tissue, were large hernia sac were circumferentially dissected down to fascia and opened. Incarcerated omental contents and sac were amputated using Bovie. Fascia margins were circumferentially cleared. A Bard mesh was placed in the hernia defect, and the superficial layer of the mesh was circumferentially sutured to the surrounding fascia using interrupted 0 Ethibond suture. At completion of procedure, mesh was in good position with no tension or gaps. Wound was irrigated, secured hemostasis. It was closed in the following manner; subcutaneous tissue was reapproximated using interrupted 3-0 Vicryl sutures. Skin was closed using interrupted inverted dermal 3-0 Vicryl sutures followed by Steri-Strips and sterile dressings. Wound was infiltrated with 0.5% Marcaine at completion. Sponge, needle, and instrument counts were reported correct. Patient tolerated the procedure well and emerged from anesthesia stable condition. EBL minimal
[2023-11-12] MEDS: fentaNYL citrate/PF 100 MCG/2 ML VIAL 25 MCG IVPUSH (10:56)
== END 2023-11-12 13:02 | disposition home or self-care (01) ==
PROVIDERS: PCP Internal Medicine; Visit Provider Surgery
PROC: (CPT 49594; principal; 2023-11-12 09:00)
DX: K43.6 Other and unspecified ventral hernia with obstruction, without gangrene (principal); N20.0 Calculus of kidney; J44.9 Chronic obstructive pulmonary disease, unspecified; D47.3 Essential (hemorrhagic) thrombocythemia; K21.9 Gastro-esophageal reflux disease without esophagitis; E66.9 Obesity, unspecified; Z68.33 Body mass index [BMI] 33.0-33.9, adult; G47.33 Obstructive sleep apnea (adult) (pediatric); F43.10 Post-traumatic stress disorder, unspecified; F31.9 Bipolar disorder, unspecified; E55.9 Vitamin D deficiency, unspecified; E78.5 Hyperlipidemia, unspecified; Z85.21 Personal history of malignant neoplasm of larynx; Z79.899 Other long term (current) drug therapy; Z88.7 Allergy status to serum and vaccine; Z91.041 Radiographic dye allergy status; Z87.891 Personal history of nicotine dependence; Z98.890 Other specified postprocedural states
CPT/HCPCS: 49594; 88302; C1781; J0131; J0665; J0690; J1100; J1170; J1885; J2405; J2704; J3010

== ENCOUNTER → 2023-11-12 07:23 | Outpatient (BNV) | payer OTHER, SELFPAY | PROVIDERS: PCP Internal Medicine; Visit Provider Surgery | DX: K43.6 Other and unspecified ventral hernia with obstruction, without gangrene (principal) | CPT/HCPCS: 49594 ==

== ENCOUNTER 2023-11-21 12:54 | Outpatient (AMB) | payer OTHER, SELFPAY ==
--- NOTE | 2023-11-21 13:03 | MHC.OFFVIS ---
Intake Intake Visit Reasons: S/P incisional ventral hernia w/mesh Intake Note: Patient here s/p incarcerated supraumbilical ventral hernia w/Bard mesh. Reports incisions healing well. Patient c/o: no longer taking rx pain meds. SX: 11-12-23. [employer] Worker Required: No Accompanied by: Self / Same As Patient Allergies zoster vaccine live [SHINGLES VACCINE] Allergy (Severe, Verified 11/21/23 13:04) HIVES, facial swelling grass pollen Allergy (Mild, Verified 11/21/23 13:04) Itching and runny nose BARIUM CONTRAST Allergy (Severe, Uncoded 11/21/23 13:04) DIFFICULTY BREATHING/FLUSHING HPI HPI Comments History of Present Illness Details Follow-up for ventral hernia repair. Patient has minimal incisional discomfort. She is increasing her activity level. She has tolerating a diet. Having regular bowel habits [facility] Medical History Wears dentures PTSD (post-traumatic stress disorder) Bipolar disorder JONATHAN (obstructive sleep apnea) Obesity (BMI 30-39.9) Personal history of nicotine dependence History of laryngeal cancer Dysphagia Renal stones Depression Hyperlipidemia Chronic diarrhea BMI 38.0-38.9,adult Essential thrombocytosis Hypovitaminosis D Eczema Dyslipidemia Hypothyroidism Anxiety Asthma COPD (chronic obstructive pulmonary disease) Hiatal hernia Surgical History Incarcerated ventral hernia (11/12/23) Hx of tonsillectomy History of surgery on left wrist History of hand surgery History of colonoscopy History of endoscopy History of repair of hiatal hernia Family History Father Mental health disorder CAD (coronary artery disease) Mother S/P CABG x 3 Asthma Brother Substance use disorder Father Diabetes Maternal Grandmother Breast cancer Social History Household Members: None Housing: Apartment Are you a primary post anesthesia care unit nurse to a significant other at home: No Do you presently have visiting nurse or other home services: No Alcohol intake: never Patient Tobacco Use Status: Former Tobacco user Quit Date: 2017 Tobacco use type: Cigarette Years Smoked: 45 e-Cigarette/Vaping Use: Never Used Second Hand Smoke Exposure: No Substance Use Type: Marijuana service: No Current occupational status: retired Current occupation: right handed Sexual orientation: Straight/Heterosexual Cognitive needs: No Hearing needs: No Vision needs: No Physical Exam GI Other: Abdomen is soft. Incision clean dry and intact healing well Assessment & Plan Assessment & Plan (1) Status post hernia repair: Code(s): Z98.890 - Other specified postprocedural states; Z87.19 - Personal history of other diseases of the digestive system (2) Incarcerated ventral hernia: Onset Date: 11/12/23 Comment: Incarcerated supraumbilical ventral hernia w/Bard mesh Dr. Ishmael Joy Code(s): K43.6 - Other and unspecified ventral hernia with obstruction, without gangrene Plan Patient has been given local instructions including avoiding strenuous activities next few weeks time and will follow-up otherwise p.r.n.. All questions answered. Coding Level of Care Code Global (28829) Diagnoses Status post hernia repair Z98.890; Z87.19 Incarcerated ventral hernia K43.6
== END 2023-11-21 13:18 | disposition home or self-care (01) ==
PROVIDERS: PCP Internal Medicine; Visit Provider Surgery
DX: Z98.890 Other specified postprocedural states (principal); Z87.19 Personal history of other diseases of the digestive system; K43.6 Other and unspecified ventral hernia with obstruction, without gangrene
CPT/HCPCS: 99212

== ENCOUNTER → 2023-11-21 12:54 | Outpatient (BNVA) | payer OTHER, SELFPAY | PROVIDERS: PCP Internal Medicine; Visit Provider Surgery | DX: Z87.19 Personal history of other diseases of the digestive system (principal); Z98.890 Other specified postprocedural states | CPT/HCPCS: 99212 ==

== ENCOUNTER 2023-12-21 12:21 | Outpatient (REF) | payer MEDICARE, SELFPAY ==
--- NOTE | ~2023-12-21 | MM_ITS ---
EXAMINATION: MM SCREENING DIGITAL BREAST TOMOSYNTHESIS, BILATERAL CLINICAL INFORMATION: Screening. Asymptomatic. COMPARISON: Mammography: This study is compared with prior exams dating back to 2021. TECHNIQUE: Digital breast tomosynthesis is performed in both the craniocaudal and mediolateral oblique views along with computer-aided detection (CAD). Synthesized 2D images are generated from the tomosynthesis. FINDINGS: The breasts are almost entirely fatty (ACR BI-RADS breast composition Category a). There are no significant masses, abnormal calcifications, or other abnormalities. MM/MM tomosynthesis screening BI IMPRESSION: No mammographic evidence of malignancy. ASSESSMENT: BI-RADS BI-RADS 1 - Negative RECOMMENDATION: Routine annual mammography screening. 1 year F/U This examination should not preclude the clinical evaluation of a suspicious palpable abnormality. This patient's information was entered into a reminder system with a target due date for their next mammogram.
== END 2023-12-21 12:22 | disposition home or self-care (01) ==
LOC: HO.MAMMO 12:21
PROVIDERS: PCP Internal Medicine; Visit Provider Internal Medicine
DX: Z12.31 Encounter for screening mammogram for malignant neoplasm of breast (principal)
CPT/HCPCS: 77063; 77067

== ENCOUNTER → 2023-12-21 12:30 | Outpatient (BNV) | payer MEDICARE, SELFPAY | PROVIDERS: PCP Internal Medicine; Visit Provider Radiology Diagnostic Radiology | DX: Z12.31 Encounter for screening mammogram for malignant neoplasm of breast (principal) | CPT/HCPCS: 77063; 77067 ==

== ENCOUNTER 2024-01-03 14:50 | Outpatient (AMB) | payer MEDICARE, SELFPAY ==
--- NOTE | 2024-01-03 14:55 | MHC.PC.OV ---
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 Accompanied by: Self / Same As Patient Allergies zoster vaccine live [SHINGLES VACCINE] Allergy (Severe, Verified 01/03/24 15:20) HIVES, facial swelling grass pollen Allergy (Mild, Verified 01/03/24 15:20) Itching and runny nose BARIUM CONTRAST Allergy (Severe, Uncoded 01/03/24 15:20) DIFFICULTY BREATHING/FLUSHING Medication List - Last Reconciled 01/04/24 by Sana Randall MD albuterol sulfate 90 mcg/actuation 2 puffs inhalation Q4-6H PRN 30 days aripiprazole 25 mg PO QAM aspirin 81 mg PO DAILY atorvastatin 20 mg PO DAILY 90 days bisacodyl (Dulcolax (bisacodyl)) 20 mg (4 x 5 mg) PO ONCE 1 day elhdxzdrut-ziwcfocs-xiewjxmvhj 160-9-4.8 mcg/actuation (Breztri Aerosphere) 2 inhalations inhalation BID 30 days bupropion HCl XL 150 mg PO QAM hydroxyurea 500 mg PO DAILY 30 days lactulose 10 grams (15 mL) PO BEDTIME PRN 30 days magnesium oxide 400 mg PO BEDTIME 90 days omeprazole 40 mg PO DAILY 90 days peg 3350-electrolytes 236-22.74-6.74 -5.86 gram (Golytely) 240 mL PO ONCE PRN 1 day quetiapine 25 mg PO DAILY semaglutide (weight loss) (Wegovy) 0.25 mg (0.5 mL) subcut QWEEK 4 weeks Synthroid (levothyroxine) 88 mcg PO DAILY 30 days NS Tobacco use date assessed: 08/23/23 Fall risk assessment: No Falls in past year Last assessed Fall Risk: 01/03/24 Dental Screening Dental Screen Date: 08/23/23 HPI HPI Comments History of Present Illness Details This is a 68-year-old female with bipolar disorder manic moderate, mild major depression, COPD, essential thrombocytosis, hypothyroidism and dyslipidemia comes today for follow-up on her conditions. Bipolar disorder and depression are follow by Psychiatry and has markedly improved with medications. COPD stable with long-acting inhaler and this is follow by pulmonology. Her essential thrombocytosis has been well control with hydroxyurea. TSH and lipid panel will be order to check her hypothyroidism and dyslipidemia. She is compliant with medications. Denies any chest pain or shortness on breath. She has obese with a BMI of 35 and has tried diet and exercise with no significant improvement. I will start her on Wegovy. [facility] Medical History (Updated 01/04/24 @ 09:41 by Sana Randall MD) Mood disorder Wears dentures PTSD (post-traumatic stress disorder) Bipolar disorder JONATHAN (obstructive sleep apnea) Obesity (BMI 30-39.9) Personal history of nicotine dependence History of laryngeal cancer Dysphagia Renal stones Depression Hyperlipidemia Chronic diarrhea BMI 38.0-38.9,adult Essential thrombocytosis Hypovitaminosis D Eczema Dyslipidemia Hypothyroidism Anxiety Asthma COPD (chronic obstructive pulmonary disease) Hiatal hernia Surgical History Incarcerated ventral hernia (11/12/23) Hx of tonsillectomy History of surgery on left wrist History of hand surgery History of colonoscopy History of endoscopy History of repair of hiatal hernia Family History Father Mental health disorder CAD (coronary artery disease) Mother S/P CABG x 3 Asthma Brother Substance use disorder Father Diabetes Maternal Grandmother Breast cancer Social History Household Members: None Housing: Apartment Are you a primary director of career services to a significant other at home: No Do you presently have visiting nurse or other home services: No Alcohol intake: never Patient Tobacco Use Status: Former Tobacco user Tobacco use type: Cigarette Years Smoked: 45 e-Cigarette/Vaping Use: Never Used Second Hand Smoke Exposure: No Substance Use Type: Marijuana service: No Current occupational status: retired Current occupation: right handed Sexual orientation: Straight/Heterosexual Cognitive needs: No Hearing needs: No Vision needs: No Questionnaire Thrive Questionnaire Date Thrive assessed: 08/23/23 HENRY-7 AMB Questionnaire HENRY-7 Date HENRY - 7 assessed: 08/23/23 Source: Developed by Drs. Christopher Bryan, Alondra Torres, Janusz Orozco and colleagues, with an educational sara from [employer]. Review of Systems Const All systems reviewed & are unremarkable except as noted in HPI and below Card Denies chest pain at rest, Denies chest pain with activity, Denies edema, Denies irregular heart rhythm, Denies claudication, Denies dyspnea, Denies dyspnea on exertion, Denies orthopnea, Denies paroxysmal nocturnal dyspnea and Denies slow heart rate Resp Denies cough, Denies dyspnea and Denies dyspnea on exertion Physical exam (Primary Care) Vital Signs: Last Vital Signs BP 130/80 01/03/24 14:56 BMI result Body Mass Index 35.0 BMI Assessment/Plan discussion: High BMI High, discussed plan: lifestyle, weight reduction, dietary and physical activity Tobacco/Smoking Status: Tobacco use Status Tobacco use date assessed 08/23/23 01/03/24 15:03 Patient Tobacco Use Status Former Tobacco user 01/03/24 15:03 Tobacco use type Cigarette 01/03/24 15:03 e-Cigarette/Vaping Use Never Used 01/03/24 15:03 Thrive Assessment: Date of Thrive Assessment Date Thrive assessed 08/23/23 01/03/24 15:03 Resp Effort & Inspection: normal respiratory effort Auscultation: clear to auscultation bilaterally Cardio Jugular venous distension: no JVD Rate: regular rate Rhythm: regular rhythm Heart sounds: S1 normal heart sound present and S2 normal heart sound present Extrem General: Yes full ROM Assessment and Plan Assessment & Plan (1) Bipolar 1 disorder, manic, moderate: Code(s): F31.12 - Bipolar disorder, current episode manic without psychotic features, moderate Plan: Continue Seroquel. Follow-up with psychiatry. (2) Mild major depression: Code(s): F32.0 - Major depressive disorder, single episode, mild Plan: Continue bupropion. Follow-up with psychiatry. (3) COPD (chronic obstructive pulmonary disease): Comment: Patient has moderately severe obstructive airway disorder. It is well controlled with the current regimen. Her last pulmonary function test was at [facility], quite a few years ago. PULMONARY FUNCTION TEST WAS ORDERED ON HER LAST VISIT BUT SOME HER OTHER IT HAS NOT BEEN DONE. ON HER NEXT VISIT WE WILL JUST DO AN OFFICE SPIROMETRY. Code(s): J44.9 - Chronic obstructive pulmonary disease, unspecified Qualifiers: COPD type: unspecified COPD Qualified Code(s): J44.9 - Chronic obstructive pulmonary disease, unspecified Plan: Continue long-acting inhaler. Use rescue inhaler as needed. Follow-up with pulmonology. (4) Essential thrombocytosis: Comment: History of thrombocytosis noted and she is doing well on the current medicine Hydrea 500 mg daily Code(s): D47.3 - Essential (hemorrhagic) thrombocythemia Plan: Continue hydroxyurea. (5) Hypothyroidism: Code(s): E03.9 - Hypothyroidism, unspecified Plan: Continue levothyroxine. (6) Dyslipidemia: Code(s): E78.5 - Hyperlipidemia, unspecified Plan: Continue statins. Orders: Orders Lipid Panel 01/03/24 E78.5 - Hyperlipidemia, unspecified Vitamin D 25-OH Total 01/03/24 E55.9 - Vitamin D deficiency, unspecified Thyroid Stimulating Hormone 01/03/24 E03.9 - Hypothyroidism, unspecified Comprehensive [place]. Panel Fast 01/03/24 F31.9 - Bipolar disorder, unspecified Medications: New semaglutide (weight loss) (Brittni) administer weeks 1 through 4 of therapy 0.25 mg (0.5 mL) subcut QWEEK 2 mL 0RF 4 weeks E66.9 - Obesity, unspecified magnesium oxide 400 mg PO BEDTIME 90 tabs 1RF 90 days Changed From atorvastatin 20 mg PO DAILY To atorvastatin 20 mg PO DAILY 90 tabs 1RF 90 days From omeprazole 40 mg PO DAILY To omeprazole 40 mg PO DAILY 90 caps 1RF 90 days Refilled hydroxyurea 500 mg PO DAILY 30 caps 6RF 30 days Synthroid (levothyroxine) 88 mcg PO DAILY 30 tabs 6RF 30 days NS E03.9 - Hypothyroidism, unspecified Coding Level of Care Code Est Pt Level 4 (76437) Complex EM visit Add On G2211 Diagnoses Bipolar 1 disorder, manic, moderate F31.12 Mild major depression F32.0 Chronic obstructive pulmonary disease, unspecified COPD type J44.9 COPD type: unspecified COPD Essential thrombocytosis D47.3 Hypothyroidism E03.9 Dyslipidemia E78.5 Time Spent (min) 25
[2024-01-03 14:56] VITALS: BP 130/80; BMI 35.0
== END 2024-01-03 15:36 | disposition home or self-care (01) ==
PROVIDERS: PCP Internal Medicine; Visit Provider Internal Medicine
DX: J44.9 Chronic obstructive pulmonary disease, unspecified (principal); D47.3 Essential (hemorrhagic) thrombocythemia; E03.9 Hypothyroidism, unspecified; F31.12 Bipolar disorder, current episode manic without psychotic features, moderate; E78.5 Hyperlipidemia, unspecified
CPT/HCPCS: 99214; G2211

== ENCOUNTER 2024-01-25 12:48 | Outpatient (REF) | payer MEDICARE, SELFPAY ==
--- NOTE | ~2024-01-25 | CT_ITS ---
EXAMINATION: CT LUNG SCREENING CLINICAL INFORMATION: Personal history of nicotine dependence. The patient has a 50 pack-year history of smoking, having quit 4 years ago. COMPARISON: Chest x-ray 10/13/2022. CT chest 04/28/2022. TECHNIQUE: Multidetector volumetric CT imaging of the chest is performed on a Siemens SOMATOM Definition scanner without contrast using low dose technique. Additional 2D coronal and sagittal reformatted images and axial 3D maximum intensity projection (MIP) images are generated on the CT workstation. This CT examination was performed using dose optimization techniques as appropriate, variously including the following: *Automated exposure control *Adjustment of mA and/or kV according to patient size (this includes techniques or standardized protocols for targeted exams where dose is matched to indication/reason for exam; i.e. extremities or head) *Use of iterative reconstruction technique TOTAL EXAM DLP: 44 mGy-cm. CTDIvol: 1.56 mGy. FINDINGS: PULMONARY NODULES: No suspicious pulmonary nodules. LUNGS: Lungs bilaterally symmetrically expanded. . Mild emphysematous changes are present. Mild bronchial wall thickening is seen without bronchiectasis. No effusion or pneumothorax. Central airways patent. MEDIASTINUM: No mediastinal, hilar or axillary adenopathy or free fluid collection. CORONARY ARTERY CALCIFICATION: Minimal THYROID GLAND: Unremarkable to the extent seen. CARDIOVASCULAR STRUCTURES: Aortic and heart size normal. No pericardial effusion. CHEST WALL/AXILLA: Unremarkable. UPPER ABDOMEN: Status post cholecystectomy. Included portions of the solid organs in the upper abdomen unremarkable on noncontrast imaging. OSSEOUS STRUCTURES: No suspicious focal findings. CT/CT lung screening IMPRESSION: 1. No evidence of pulmonary malignancy. 2. Mild emphysema. 3. Incidental findings (s category): No incidental findings. ASSESSMENT: 1. Lung-RADS Category 1: Negative. There are no nodules or there are definitely benign nodules. N/A RECOMMENDATION: Continued routine annual low-dose CT lung screening in 1 year is recommended. An order for CT CHEST LOW DOSE CANCER SCREENING ([id number]) can be placed.
== END 2024-01-25 12:49 | disposition home or self-care (01) ==
LOC: HO.CT 12:48
PROVIDERS: PCP Internal Medicine; Visit Provider Physician Assistant Medical
DX: Z12.2 Encounter for screening for malignant neoplasm of respiratory organs (principal); Z87.891 Personal history of nicotine dependence
CPT/HCPCS: 71271

== ENCOUNTER → 2024-02-28 13:50 | Outpatient (BNVA) | payer MEDICARE, SELFPAY | PROVIDERS: PCP Internal Medicine; Visit Provider Physician Assistant Surgical ==

== ENCOUNTER → 2024-04-04 12:50 | Outpatient (AMB) | payer MEDICARE, SELFPAY ==
--- NOTE | 2024-04-04 13:28 | A.OFFWM_ITS ---
Intake Intake Visit Reasons: (OV) BH Intake Allergies zoster vaccine live [SHINGLES VACCINE] Allergy (Severe, Verified 02/28/24 14:25) HIVES, facial swelling grass pollen Allergy (Mild, Verified 02/28/24 14:25) Itching and runny nose BARIUM CONTRAST Allergy (Severe, Uncoded 01/03/24 15:20) DIFFICULTY BREATHING/FLUSHING [facility] Medical History (Updated 04/08/24 @ 09:44 by Adriana Sagastume [facility]) Mood disorder Wears dentures PTSD (post-traumatic stress disorder) Bipolar disorder JONATHAN (obstructive sleep apnea) Obesity (BMI 30-39.9) Personal history of nicotine dependence History of laryngeal cancer Dysphagia Renal stones Depression Hyperlipidemia Chronic diarrhea BMI 38.0-38.9,adult Essential thrombocytosis Hypovitaminosis D Eczema Dyslipidemia Hypothyroidism Anxiety Asthma COPD (chronic obstructive pulmonary disease) Hiatal hernia Surgical History Incarcerated ventral hernia (11/12/23) Hx of tonsillectomy History of surgery on left wrist History of hand surgery History of colonoscopy History of endoscopy History of repair of hiatal hernia Family History Father Mental health disorder CAD (coronary artery disease) Mother S/P CABG x 3 Asthma Brother Substance use disorder Father Diabetes Maternal Grandmother Breast cancer Social History Household Members: None Housing: Apartment Are you a primary critical care physician to a significant other at home: No Do you presently have visiting nurse or other home services: No Alcohol intake: never Patient Tobacco Use Status: Former Tobacco user Tobacco use type: Cigarette Years Smoked: 45 e-Cigarette/Vaping Use: Never Used Second Hand Smoke Exposure: No Substance Use Type: Marijuana service: No Current occupational status: retired Current occupation: right handed Sexual orientation: Straight/Heterosexual Cognitive needs: No Hearing needs: No Vision needs: No Behavioral Health Assessment Weight Management Therapy Therapy Notes Details PT is a 68 y/o female who present to [facility]. PT was at this program in 2022, however she did not continue as she reported to be dealing with multiple stressors. On the other hand, patient was admitted inpatient in July/2023 with a suicidal attempt and apparent manic SX, so she was not eligible for bariatric surgery. Right now, the patient is interested in having surgery as she continues to struggle to loss weight on her own. This provider was unable to complete a full assessment as client was not given the BES and PHQ-9 and also, there was misunderstandings that required the provider to explain the process again and lead client to become upset. The client provided some brief information about her mental health since her last hospitalization and provider will need to request records, as well of a letter from prescriber, since patient takes Seroquel, Abilify and Bupropion and she is not sure of diagnosis or prognosis but admitted she had manic symptoms when hospitalized. PT believes she was diagnosed with PTSD, however symptom presentation doesn't appear consistent with that diagnosis. PT reports she is in a waiting list for counseling. Per observations, patient was alert and oriented, presented with labile mood, irritated and easily upset, also with pressured speech leading provider to inquire for same question multiple times in different ways. PT denies hallucinations or delusions and stated she is stable and functioning well. Presenting Concerns Referral Source Self-referred. Reason for referral Behavioral health assessment as part of process for weight- loss surgery. Precipitating Event PT is having a hard time losing weight despite doing exercise and diet changes. Food/Weight/Diet Expectations of change Unable to assess. History/Relationship with food Unable to assess. History/Relationship with weight Unable to assess. History/Relationship with dieting Unable to assess. Social History Family history and relationship . She has one daughter and 2 grandsons. Daughter lies close to her. 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 Zoroastrianism/Spirituality Raised as Episcopalian. Currently going though spiritual challenges. Cultural/Ethnic information , Parents are from [place], she was born in [place]. Client is bi-lingual. Legal Involvement and History Current or historical involvement with the legal system? None reported. Education Currently enrolled in educational program? No Interested in further educational program? No Educational Interests/Skills Helping others. 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 Employment Employment Status Retired Wants help to find employment? No Meaningful activities Reading, walking, outdoors. Financial Situation Financial assistance? Food [place] Service Service? No Assessment & Plan Assessment & Plan (1) Anxiety: Code(s): F41.9 - Anxiety disorder, unspecified (2) Mood disorder: Code(s): F39 - Unspecified mood [affective] disorder Plan PT will be seen again on 04/15/24 at 12 in person. PT not cleared today. She will need a letter from prescriber clarifying her medication list, prognosis and stating if there are concerns that would prevent client form bariatric surgery as the patient takes antipsychotics medication. This provider will also consult with the team about appropriateness if moving forward with her clearance. Coding Level of Care Code New Pt Psy Diag Eval (04622) Patient Type New Diagnoses Anxiety F41.9 Mood disorder F39 Time Spent (min) 60
== END ==
PROVIDERS: PCP Internal Medicine; Visit Provider Counselor Mental Health
DX: F41.9 Anxiety disorder, unspecified (principal); F39 Unspecified mood [affective] disorder
CPT/HCPCS: 90791

== ENCOUNTER → 2024-04-04 12:50 | Outpatient (BNVA) | payer MEDICARE, SELFPAY | PROVIDERS: PCP Internal Medicine; Visit Provider Counselor Mental Health ==

== ENCOUNTER 2024-04-11 08:02 | Outpatient (AMB) | payer MEDICARE, SELFPAY ==
--- NOTE | 2024-04-11 11:23 | MHC.OFFVISWM ---
Intake Visit Reasons: TV Re-Establish SWL BMI 33.4 Allergies zoster vaccine live [SHINGLES VACCINE] Allergy (Severe, Verified 04/11/24 11:24) HIVES, facial swelling grass pollen Allergy (Mild, Verified 04/11/24 11:24) Itching and runny nose BARIUM CONTRAST Allergy (Severe, Uncoded 04/11/24 11:24) DIFFICULTY BREATHING/FLUSHING Medication List - Last Reconciled 04/11/24 by Orlando Leon MD albuterol sulfate 90 mcg/actuation 2 puffs inhalation Q4-6H PRN 30 days aripiprazole 25 mg PO QAM aspirin 81 mg PO DAILY atorvastatin 20 mg PO DAILY 90 days unuwtvrrzo-pnprcnye-sagdlfkaxt 160-9-4.8 mcg/actuation (Breztri Aerosphere) 2 inhalations inhalation BID 30 days bupropion HCl XL 150 mg PO QAM cyclosporine 0.05% (Restasis MultiDose) 1 drp ophthalmic (eye) Q12H 30 days hydroxyurea 500 mg PO DAILY 30 days magnesium oxide 400 mg PO BEDTIME 90 days mecobalamin (vitamin B12) 1,000 mcg PO DAILY omeprazole 40 mg PO DAILY 90 days quetiapine 25 mg PO DAILY Synthroid (levothyroxine) 88 mcg PO DAILY 30 days NS HPI HPI TV Re-Establish SWL BMI 33.4: Details: Start time: 11.00am, End time: 11.52am ?I spent 47 minutes speaking with the patient on the phone plus an additional 5 minutes reviewing and updating records for a total of 52 minutes HPI Comments Details: Overall weight loss: 27.2lbs, or 13.3% TBWL Wakes up: 6am, Sleeps: 11pm Is doing 2 Orgain protein shakes (1 scoop in almond milk), 1/2 cup of fruit and dinner (7 forks of protein and 7 forks of salad or vegetables) Exercise: home videos [facility] Medical History (Updated 04/08/24 @ 09:44 by Adriana Sagastume [facility]) Mood disorder Wears dentures PTSD (post-traumatic stress disorder) Bipolar disorder JONATHAN (obstructive sleep apnea) Obesity (BMI 30-39.9) Personal history of nicotine dependence History of laryngeal cancer Dysphagia Renal stones Depression Hyperlipidemia Chronic diarrhea BMI 38.0-38.9,adult Essential thrombocytosis Hypovitaminosis D Eczema Dyslipidemia Hypothyroidism Anxiety Asthma COPD (chronic obstructive pulmonary disease) Hiatal hernia Surgical History Incarcerated ventral hernia (11/12/23) Hx of tonsillectomy History of surgery on left wrist History of hand surgery History of colonoscopy History of endoscopy History of repair of hiatal hernia Family History Father Mental health disorder CAD (coronary artery disease) Mother S/P CABG x 3 Asthma Brother Substance use disorder Father Diabetes Maternal Grandmother Breast cancer Social History Household Members: None Housing: Apartment Are you a primary care provider to a significant other at home: No Do you presently have visiting nurse or other home services: No Alcohol intake: never Patient Tobacco Use Status: Former Tobacco user Tobacco use type: Cigarette Years Smoked: 45 e-Cigarette/Vaping Use: Never Used Second Hand Smoke Exposure: No Substance Use Type: Marijuana service: No Current occupational status: retired Current occupation: right handed Sexual orientation: Straight/Heterosexual Cognitive needs: No Hearing needs: No Vision needs: No Telehealth Telehealth Telehealth Platform: Telephone Location of provider rendering services: practice address Location of patient: address on file Patient Identification confirmed using: Name, : Yes Telehealth method: voice only Patient verbally consented to treatment: Yes Patient verbally consented to billing insurance company: Yes Patient informed of any privacy concerns related to visit: Yes Minutes spent on Phone/Video with Pt.: 52 Assessment & Plan Assessment & Plan (1) Obesity (BMI 30-39.9): Comment: Patient remains moderately obese but she is losing weight gradually. Compared to her last visit she has put on some weight. Code(s): E66.9 - Obesity, unspecified Category: Medical Plan: 1. Plan for lap sleeve gastrectomy including upper GI endoscopy. All tests has been completed and reviewed and the patient is cleared for the surgery. ?If diaphragmatic or ventral hernias are present at time of surgery, these will be repaired laparoscopically as well. Risks and complications were discussed in detail including possible conversion to an open procedure, anastomotic leak, bleeding requiring transfusion, small bowel obstruction, , DVT and pulmonary embolism, cardiac, or pulmonary complications, as detention complications such as anastomotic ulcer, insufficient weight loss and vitamin deficiencies. I emphasized the importance of close follow-up, adherence to instructions and good communication. So far she has proven to be an excellent communicator and very compliant with all our directions accomplishing a great weight loss. I believe that she is an excellent candidate and she is ready. 2. The patient participated in a structured preoperative lifestyle intervention program supervised by a physician the 4 months preceding the surgical procedure. The lifestyle intervention included a structured nutritional plan with a specific daily protein intake goal, an exercise plan with a 2000 calorie burn weekly goal, weekly behavior modification guidance and completion of eight 1-hour online nutritional classes and passing successfully the corresponding quizzes. Adherence to preoperative care plan was demonstrated by completing an extensive preoperative work-up. Program participation was demonstrated by completing 4 visits with our medical team and by sharing weekly weight measurements weekly for 4 consecutive months via an approved body composition scale. Compliance to the lifestyle intervention was demonstrated by achieving a 20lbs weight-loss or 8.35% total body weight loss (TBWL). No medications were used to achieve this weight loss. In our published experience an over 7% preoperative TBWL, achieved by meeting the diet and exercise goals of our program improves surgical outcomes, reduces the potential for surgical complications, and predicts a statistically significant higher weight loss up to 6 years postoperatively. 3. Change nutritional plan to 2 Orgain shakes (HALF scoop each in 8oz almond milk) at 7-9am and 10-12pm, 2 protein bars at 1-3pm and 4-6pm, dinner at 7pm (7 forks each) and another Orgain shake (HALF scoop in 8oz almond milk) at 9-11pm 4. Start stationary bike 3 days per week for 300 calories and continue home videos the remaining days 5. Buy a new body composition scale and send me weight measurements weekly Orders: Orders Insulin Today E03.9 - Hypothyroidism, unspecified, E66.9 - Obesity, unspecified, E78.5 - Hyperlipidemia, unspecified Hemoglobin A1c Today E03.9 - Hypothyroidism, unspecified, E66.9 - Obesity, unspecified, E78.5 - Hyperlipidemia, unspecified Complete Blood Count Auto Diff Today E03.9 - Hypothyroidism, unspecified, E66.9 - Obesity, unspecified, E78.5 - Hyperlipidemia, unspecified Lipid Panel Today E03.9 - Hypothyroidism, unspecified, E66.9 - Obesity, unspecified, E78.5 - Hyperlipidemia, unspecified IRON PROFILE Today E03.9 - Hypothyroidism, unspecified, E66.9 - Obesity, unspecified, E78.5 - Hyperlipidemia, unspecified Vitamin B12 and Folate Today E03.9 - Hypothyroidism, unspecified, E66.9 - Obesity, unspecified, E78.5 - Hyperlipidemia, unspecified Zinc Today E03.9 - Hypothyroidism, unspecified, E66.9 - Obesity, unspecified, E78.5 - Hyperlipidemia, unspecified Vitamin B1 Today E03.9 - Hypothyroidism, unspecified, E66.9 - Obesity, unspecified, E78.5 - Hyperlipidemia, unspecified Vitamin D 25-OH Total Today E03.9 - Hypothyroidism, unspecified, E66.9 - Obesity, unspecified, E78.5 - Hyperlipidemia, unspecified Comprehensive Met. Panel Today E03.9 - Hypothyroidism, unspecified, E66.9 - Obesity, unspecified, E78.5 - Hyperlipidemia, unspecified C Reactive Protein Today E03.9 - Hypothyroidism, unspecified, E66.9 - Obesity, unspecified, E78.5 - Hyperlipidemia, unspecified Vitamin A Today E03.9 - Hypothyroidism, unspecified, E66.9 - Obesity, unspecified, E78.5 - Hyperlipidemia, unspecified TSH reflex Free T4 Today E03.9 - Hypothyroidism, unspecified, E66.9 - Obesity, unspecified, E78.5 - Hyperlipidemia, unspecified Ferritin Today E03.9 - Hypothyroidism, unspecified, E66.9 - Obesity, unspecified, E78.5 - Hyperlipidemia, unspecified ECG 12 lead EKG Today E03.9 - Hypothyroidism, unspecified, E66.9 - Obesity, unspecified, E78.5 - Hyperlipidemia, unspecified
== END 2024-04-11 11:53 | disposition home or self-care (01) ==
LOC: HO.HBS 08:02
PROVIDERS: PCP Internal Medicine; Visit Provider Surgery
DX: E66.9 Obesity, unspecified (principal); Z68.33 Body mass index [BMI] 33.0-33.9, adult
CPT/HCPCS: 99443

== ENCOUNTER → 2024-04-11 08:02 | Outpatient (BNVA) | payer MEDICARE, SELFPAY | PROVIDERS: PCP Internal Medicine; Visit Provider Surgery ==

== ENCOUNTER 2024-04-26 07:23 | Outpatient (REF) | payer MEDICARE, OTHER, SELFPAY ==
[2024-04-26 07:47] LABS: MANUAL DIFF FLAG NO
[2024-04-26 08:39] LABS: Basophils Percent Auto 0.4 % (0-2); Eosinophils Absolute Auto 0.1 X10*3/uL (0.0-0.4); Eosinophils Percent Auto 2.1 % (0-4); Hematocrit 38.9 % (37.0-47.0); Hemoglobin 12.7 g/dl (12.0-16.0); Imm Gran Abs Auto 0.02 X10*3/uL (0.00-0.03); Imm Gran Pct Auto 0.4 % (0.0-0.4); Lymphocytes Absolute Auto 1.6 X10*3/uL (1.2-4.9); Lymphocytes Percent Auto 33.2 % (20-40); Mean Corpuscular HGB Conc 32.6 g/dl (31.0-35.0); Mean Corpuscular Hemoglobin 33.1 pg (27.0-33.0); Mean Corpuscular Volume 101.3 fL (80.0-98.0); Mean Platelet Volume 9.5 fL (9.4-12.3); Monocytes Absolute Auto 0.3 X10*3/uL (0.1-1.2); Monocytes Percent Auto 6.7 % (2-11); Neutrophils Absolute Auto 2.7 x10*3/uL (2.0-8.3); Neutrophils Percent Auto 57.2 % (45-73); Platelet Count 332 X10*3/uL (160-400); Red Blood Count 3.84 X10*6/uL (4.20-5.50); Red Cell Distribution Width 13.5 % (11.0-16.0); White Blood Count 4.8 X10*3/uL (4.8-10.8)
[2024-04-26 08:55] LABS: Estimated Average Glucose 105 mg/dL; Hemoglobin A1c % 5.3 % (<6.0)
[2024-04-26 09:25] LABS: Alanine Aminotransferase 13 U/L (0-31); Alkaline Phosphatase 123 U/L (39-117); Anion Gap 11 (12-20); Aspartate Amino Transferase 17 U/L (5-31); Bilirubin Total 0.3 mg/dL (0.0-1.0); Blood Urea Nitrogen 18 mg/dL (9-16); Calcium 9.2 mg/dL (8.4-10.2); Carbon Dioxide 27 mmol/L (22-29); Chloride 109 mmol/L (96-108); Cholesterol 190 mg/dL (<200); Estimated Glomerular Filt Rate 60; Glucose Fasting 104 mg/dL (60-99); HDL Cholesterol 63 mg/dL (>40); LDL Cholesterol Calculated 115 mg/dL (<100); Sodium 143 mmol/L (135-145); Total Protein 7.2 g/dL (6.5-8.0); Triglycerides 61 mg/dL (<150)
[2024-04-26 09:27] LABS: Thyroid Stimulating Hormone 0.83 uIU/mL (0.32-4.0); Vitamin D 25-OH Total 39.6 ng/mL (>30)
[2024-04-26 09:28] LABS: Alanine Aminotransferase 13 U/L (0-31); Alkaline Phosphatase 121 U/L (39-117); Anion Gap 11 (12-20); Aspartate Amino Transferase 17 U/L (5-31); Bilirubin Total 0.3 mg/dL (0.0-1.0); Blood Urea Nitrogen 18 mg/dL (9-16); C Reactive Protein 0.18 mg/dL (< or = 0.50); Calcium 9.4 mg/dL (8.4-10.2); Carbon Dioxide 27 mmol/L (22-29); Chloride 108 mmol/L (96-108); Cholesterol 189 mg/dL (<200); Estimated Glomerular Filt Rate 59; Glucose Random 103 mg/dL (60-115); HDL Cholesterol 64 mg/dL (>40); Iron 57 mcg/dL (30-160); LDL Cholesterol Calculated 113 mg/dL (<100); Percent Iron Saturation 17 % (15-50); Potassium 4.1 mmol/L (3.3-5.1); Sodium 142 mmol/L (135-145); Total Iron Binding Capacity 330 mcg/dL (228-428); Total Protein 7.2 g/dL (6.5-8.0); Triglycerides 60 mg/dL (<150); Unsaturated Iron Binding 273 ug/dL
[2024-04-26 09:30] LABS: Ferritin 16 ng/mL (10-250); Insulin 9 uU/mL (2-29); TSH reflex Free T4 0.84 uIU/mL (0.32-4.0); Vitamin D 25-OH Total 37.5 ng/mL (>30)
[2024-04-26 09:45] LABS: Folate 3.4 ng/mL (> or = 4.0); Vitamin B12 836 pg/mL (200-900)
[2024-04-29 12:08] LABS: Zinc 57 mcg/dL (60-130)
[2024-04-30 21:13] LABS: Vitamin A 46 mcg/dL (38-98)
[2024-05-03 10:09] LABS: Vitamin B1 15 nmol/L (8-30)
== END 2024-04-26 07:24 | disposition home or self-care (01) ==
LOC: HO.LAB 07:23
PROVIDERS: PCP Internal Medicine; Visit Provider Surgery
DX: F31.9 Bipolar disorder, unspecified (principal); E03.9 Hypothyroidism, unspecified; E78.5 Hyperlipidemia, unspecified; E66.9 Obesity, unspecified; E55.9 Vitamin D deficiency, unspecified; Z13.1 Encounter for screening for diabetes mellitus
CPT/HCPCS: 36415; 80053; 80061; 82306; 82607; 82728; 82746; 83036; 83525; 83540; 84425; 84443; 84590; 84630; 85025; 86140

== ENCOUNTER → 2024-04-29 14:09 | Outpatient (REF) | payer MEDICARE, OTHER, SELFPAY ==
--- NOTE | 2024-04-29 14:14 | ECG_ITS ---
Test Reason : hypothyroidism Blood Pressure : / mmHG Vent. Rate : 078 BPM Atrial Rate : 078 BPM P-R Int : 136 ms QRS Dur : 080 ms QT Int : 382 ms P-R-T Axes : 043 027 060 degrees QTc Int : 435 ms Normal sinus rhythm Normal ECG When compared with ECG of 31-JUL-2023 16:33, No significant change was found Referred By: Orlando Leon Electronically Signed By:MARYELLEN MORTON
== END ==
LOC: HO.CARD 14:09
PROVIDERS: PCP Internal Medicine; Visit Provider Surgery
DX: E03.9 Hypothyroidism, unspecified (principal); E78.5 Hyperlipidemia, unspecified; E66.9 Obesity, unspecified
CPT/HCPCS: 93005

== ENCOUNTER 2024-05-29 15:26 | Outpatient (AMB) | payer MEDICARE, MEDICAID, SELFPAY ==
[2024-05-29 15:32] VITALS: BP 120/70; BMI 32.9
--- NOTE | 2024-05-29 15:32 | A.OFFPC_ITS ---
Vital Signs 05/29/24 15:32 Height 5 ft 1 in Weight 174 lb BMI 32.9 BP 120/70 Blood Pressure Location Lt brachial Position Sitting Intake Visit Reasons: annual Intake Note: Patient here for an Annual Physical Exam [employer]k1 Operator Required: No Accompanied by: Self / Same As Patient Allergies zoster vaccine live [SHINGLES VACCINE] Allergy (Severe, Verified 05/29/24 15:44) HIVES, facial swelling grass pollen Allergy (Mild, Verified 05/29/24 15:44) Itching and runny nose BARIUM CONTRAST Allergy (Severe, Uncoded 05/29/24 15:44) DIFFICULTY BREATHING/FLUSHING Medication List - Last Reconciled 05/29/24 by Sana Randall MD albuterol sulfate 90 mcg/actuation 2 puffs inhalation Q4-6H PRN 30 days aripiprazole 25 mg PO QAM aspirin 81 mg PO DAILY atorvastatin 20 mg PO DAILY 90 days nuqqygchdj-xdermzgu-xxcdwqmrmm 160-9-4.8 mcg/actuation (Breztri Aerosphere) 2 inhalations inhalation BID 30 days bupropion HCl XL 150 mg PO QAM cyclosporine 0.05% (Restasis MultiDose) 1 drp ophthalmic (eye) Q12H 30 days hydroxyurea 500 mg PO DAILY 30 days magnesium oxide 400 mg PO BEDTIME 90 days mecobalamin (vitamin B12) 1,000 mcg PO DAILY omeprazole 40 mg PO DAILY 90 days quetiapine 25 mg PO DAILY Synthroid (levothyroxine) 88 mcg PO DAILY 30 days NS vitamin R87-ottoa acid 500-400 mcg 1 tab PO DAILY zinc gluconate 30 mg PO DAILY 90 days Tobacco use date assessed: 08/23/23 Fall risk assessment: No Falls in past year Last assessed Fall Risk: 05/29/24 Dental Screening Dental Screen Date: 05/29/24 Did you have a dental visit in the last 12 months?: No Did you have a dental problem in the last 6 months where you did not have access to dental care?: No Was dental information given to patient?: Patient has dentist HPI HPI Comments History of Present Illness Details This is a 68-year-old female with bipolar disorder and COPD that comes for her physical exam. Bipolar disorder follow by Psychiatry. COPD stable with long-acting inhaler. Mammogram done 2023. DEXA scan will be ordered. No need for Pap smear due to age. Last colonoscopy was 2019 showing tubular adenoma and has Gastroenterology appointment this year. No chest pain or shortness on breath. She complains of insomnia and would like to restart hydroxyzine at bedtime. I will start her on hydroxyzine and she is aware she needs to talk to her psychiatrist about it. [facility] Medical History (Updated 05/29/24 @ 16:02 by Sana Randall MD) Mood disorder Wears dentures PTSD (post-traumatic stress disorder) Bipolar disorder JONATHAN (obstructive sleep apnea) Obesity (BMI 30-39.9) Personal history of nicotine dependence History of laryngeal cancer Dysphagia Renal stones Depression Hyperlipidemia Chronic diarrhea BMI 38.0-38.9,adult Essential thrombocytosis Hypovitaminosis D Eczema Dyslipidemia Hypothyroidism Anxiety Asthma COPD (chronic obstructive pulmonary disease) Hiatal hernia Surgical History Incarcerated ventral hernia (11/12/23) Hx of tonsillectomy History of surgery on left wrist History of hand surgery History of colonoscopy History of endoscopy History of repair of hiatal hernia Family History Father Mental health disorder CAD (coronary artery disease) Mother S/P CABG x 3 Asthma Brother Substance use disorder Father Diabetes Maternal Grandmother Breast cancer Social History Household Members: None Housing: Apartment Are you a primary gericare aide to a significant other at home: No Do you presently have visiting nurse or other home services: No Alcohol intake: never Patient Tobacco Use Status: Former Tobacco user Tobacco use type: Cigarette Years Smoked: 45 e-Cigarette/Vaping Use: Never Used Second Hand Smoke Exposure: No Substance Use Type: Marijuana service: No Current occupational status: retired Current occupation: right handed Sexual orientation: Straight/Heterosexual Cognitive needs: No Hearing needs: No Vision needs: No Questionnaire PHQ-9 Over the last 2 weeks, how often have you been bothered by any of the following problems? 1. Little interest or pleasure in doing things: not at all 2. Feeling down, depressed, or hopeless: not at all 3. Trouble falling or staying asleep, or sleeping too much: not at all 4. Feeling tired or having little energy: not at all 5. Poor appetite or overeating: not at all 6. Feeling bad about yourself - or that you are a failure or have let yourself or your family down: not at all 7. Trouble concentrating on things, such as reading the newspaper or watching television: not at all 8. Moving or speaking so slowly that other people could have noticed. Or the opposite - being so fidgety or restless that you have been moving around a lot more than usual: not at all 9. Thoughts that you would be better off or of hurting yourself in some way: not at all Total score: 0 Depression Screening Interpretation: Negative Depression Screening Done: Yes 62384 - PHQ-9 Billing: Yes Source: Developed by Drs. Christopher Bryan, Alondra Torres, Janusz Orozco and colleagues, with an educational sara from [employer]. Thrive Questionnaire Date Thrive assessed: 08/23/23 I am a: Patient What is your living situation today?: I have a steady place to live Within the past 12 months, did the food you bought not last and you didn't have the money to get more?: I choose not to answer this question Within the past 12 months, did you worry whether your food would run out before you got money to buy more?: I choose not to answer this question Do you have trouble paying for medicines?: No Do you have trouble getting transportation to medical appointments?: No Do you have trouble paying your heating and electricity bill?: No Do you have trouble taking care of your child, family member or friend?: No Do you have trouble with day-to-day activities such as bathing, preparing meals, shopping, managing finances, etc.?: No Are you currently unemployed and looking for a job?: No Are you interested in more education?: No Please select the resources that you would like help with: None Currently or been in a relationship where the following occur: No concerns reported THRIVE Score: 0 AUDIT C Alcohol Use Questionnaire (AUDIT-C) 1. How often do you have a drink containing alcohol?: Never Total Score: 0 Score Reviewed/Action Taken: No HENRY-7 AMB Questionnaire HENRY-7 Date HENRY - 7 assessed: 08/23/23 Feeling nervous, anxious, or on edge: 1 = Several days Not being able to stop or control worryin = Not at all Worrying too much about different things: 0 = Not at all Trouble relaxin = Not at all Being so restless that it is hard to sit still: 0 = Not at all Becoming easily annoyed or irritable: 0 = Not at all Feeling afraid as if something awful might happen: 0 = Not at all Total HENRY-7 score (0-4 normal; 5-9 mild; 10-14 moderate; 15-21 severe): 1 Source: Developed by Drs. Christopher Bryan, Alondra Torres, Janusz Orozco and colleagues, with an educational sara from [employer]. HENRY-7 Assessment Billing HENRY-7 Assessment Tool: HENRY-7 Assessment 56611 Review of Systems Const All systems reviewed & are unremarkable except as noted in HPI and below Card Denies chest pain at rest, Denies chest pain with activity, Denies edema, Denies irregular heart rhythm, Denies claudication, Denies dyspnea, Denies dyspnea on exertion, Denies orthopnea, Denies paroxysmal nocturnal dyspnea and Denies slow heart rate Resp Denies cough, Denies dyspnea and Denies dyspnea on exertion Denies urinary incontinence, Denies urinary hesitancy and Denies urinary urgency Musc Denies atrophy, Denies deformity and Denies limited range of motion Skin/Breast Denies bleeding lesions, Denies changing lesions and Denies rash Psych Reports abnormal sleep pattern Physical exam (Primary Care) Vital Signs: Last Vital Signs BP 120/70 05/29/24 15:32 BMI result Body Mass Index 32.9 BMI Assessment/Plan discussion: High BMI High, discussed plan: lifestyle, weight reduction, dietary and physical activity Tobacco/Smoking Status: Tobacco use Status Tobacco use date assessed 08/23/23 05/29/24 15:39 Patient Tobacco Use Status Former Tobacco user 05/29/24 15:39 Tobacco use type Cigarette 05/29/24 15:39 e-Cigarette/Vaping Use Never Used 05/29/24 15:39 PHQ-9: PHQ-9 Score PHQ-9: Total score 0 05/29/24 15:45 Depression Screening Interpretation: Negative Thrive Assessment: Date of Thrive Assessment Date Thrive assessed 08/23/23 05/29/24 15:39 Currently or been in a relationship where the following occur: No concerns reported HENMT Head: Yes normal to inspection, Yes normocephalic and Yes atraumatic Ears: external ears normal Eyes General: appearance normal, both eyes and all related structures Eyelids: Yes eyelids normal Conjunctivae: conjunctivae normal Neck Neck: Yes normal visual inspection and Yes supple Resp Effort & Inspection: normal respiratory effort Auscultation: clear to auscultation bilaterally Cardio Jugular venous distension: no JVD Rate: regular rate Rhythm: regular rhythm Heart sounds: S1 normal heart sound present and S2 normal heart sound present GI Inspection: Yes normal to inspection Palpation (GI): Soft to palpation and nontender Auscultation: normal bowel sounds Skin General skin exam: no rashes or lesions noted Neuro General: no focal motor deficits Extrem General: Yes full ROM Psych Appearance: grossly normal Coding Level of Care Code Est Pt Level 3 (38596) Est Pt Prev Care >65y(08936) Diagnoses Physical exam Z00.00 Bipolar 1 disorder F31.9 Chronic obstructive pulmonary disease, unspecified COPD type J44.9 COPD type: unspecified COPD Primary insomnia F51.01 Insomnia type: primary Additional Codes HENRY-7 Assessment Billing - HENRY-7 Assessment Tool: HENRY-7 Assessment 49840 ([id number]) Time Spent (min) 35 Assessment & Plan Assessment & Plan (1) Physical exam: Code(s): Z00.00 - Encounter for general adult medical examination without abnormal findings Category: Medical Plan: Repeat in a year. (2) Bipolar 1 disorder: Code(s): F31.9 - Bipolar disorder, unspecified Category: Medical Plan: Continue Abilify. (3) COPD (chronic obstructive pulmonary disease): Comment: Patient has moderately severe obstructive airway disorder. It is well controlled with the current regimen. Her last pulmonary function test was at [facility], quite a few years ago. PULMONARY FUNCTION TEST WAS ORDERED ON HER LAST VISIT BUT SOME HER OTHER IT HAS NOT BEEN DONE. ON HER NEXT VISIT WE WILL JUST DO AN OFFICE SPIROMETRY. Code(s): J44.9 - Chronic obstructive pulmonary disease, unspecified Category: Medical Qualifiers: COPD type: unspecified COPD Qualified Code(s): J44.9 - Chronic obstructive pulmonary disease, unspecified Plan: Continue long-acting inhaler. (4) Insomnia: Code(s): G47.00 - Insomnia, unspecified Category: Medical Qualifiers: Insomnia type: primary Qualified Code(s): F51.01 - Primary insomnia Plan: Restart hydroxyzine as needed. Follow-up with psychiatry. Orders: Orders XR DEXA axial skeleton Today Z78.0 - Asymptomatic menopausal state Medications: New hydroxyzine HCl 25 mg PO BEDTIME PRN 90 tabs 0RF insomnia 90 days Refilled omeprazole 40 mg PO DAILY 90 caps 1RF 90 days atorvastatin 20 mg PO DAILY 90 tabs 1RF 90 days
== END 2024-05-29 15:56 | disposition home or self-care (01) ==
PROVIDERS: PCP Internal Medicine; Visit Provider Internal Medicine
DX: Z00.00 Encounter for general adult medical examination without abnormal findings (principal); J44.9 Chronic obstructive pulmonary disease, unspecified; F31.9 Bipolar disorder, unspecified; F51.01 Primary insomnia

== ENCOUNTER → 2024-05-29 15:26 | Outpatient (BNVA) | payer MEDICARE, OTHER, SELFPAY | PROVIDERS: PCP Internal Medicine; Visit Provider Internal Medicine | DX: Z00.01 Encounter for general adult medical examination with abnormal findings (principal); F31.9 Bipolar disorder, unspecified; J44.9 Chronic obstructive pulmonary disease, unspecified; F51.01 Primary insomnia | CPT/HCPCS: 96127; 99212; 99397 ==

== ENCOUNTER 2024-06-03 14:30 | Outpatient (AMB) | payer MEDICARE, MEDICAID, SELFPAY ==
--- NOTE | 2024-06-03 14:44 | MHC.OFFVIS ---
Vital Signs 06/03/24 14:45 Height 5 ft 1 in Weight 174 lb BMI 32.9 BP 118/70 Blood Pressure Location Lt brachial Position Sitting Pulse 67 Pulse Source Pulse Oximeter Pulse Oximetry (%) 97 Oxygen Delivery Method Room Air Intake Visit Reasons: COPD Intake Note: pt is here for follow up and she states she is fine. Small Products Assembler Required: No Allergies zoster vaccine live [SHINGLES VACCINE] Allergy (Severe, Verified 06/03/24 15:04) HIVES, facial swelling grass pollen Allergy (Mild, Verified 06/03/24 15:04) Itching and runny nose BARIUM CONTRAST Allergy (Severe, Uncoded 06/03/24 15:04) DIFFICULTY BREATHING/FLUSHING Medication List - Last Reconciled 06/03/24 by Earnest Chaparro MD albuterol sulfate 90 mcg/actuation 2 puffs inhalation Q4-6H PRN 30 days aripiprazole 25 mg PO QAM aspirin 81 mg PO DAILY atorvastatin 20 mg PO DAILY 90 days zxnwbhvmrb-frfhpzkh-algyivzrio 160-9-4.8 mcg/actuation (Breztri Aerosphere) 2 inhalations inhalation BID 30 days bupropion HCl XL 150 mg PO QAM cyclosporine 0.05% (Restasis MultiDose) 1 drp ophthalmic (eye) Q12H 30 days hydroxyurea 500 mg PO DAILY 30 days hydroxyzine HCl 25 mg PO BEDTIME PRN 90 days magnesium oxide 400 mg PO BEDTIME 90 days mecobalamin (vitamin B12) 1,000 mcg PO DAILY omeprazole 40 mg PO DAILY 90 days quetiapine 25 mg PO DAILY Synthroid (levothyroxine) 88 mcg PO DAILY 30 days NS vitamin L67-atlln acid 500-400 mcg 1 tab PO DAILY zinc gluconate 30 mg PO DAILY 90 days Do you need a note to return to daycare/school/sports/work: No HPI HPI COPD: Details: Ms. Ignacio , 68 years old very pleasant female comes for follow-up for her COPD. She has been using her maintenance inhaler which is now Breztri 2 puffs daily in the morning and has done very well. She has had no need to use the rescue inhaler at all. She does get short of breath if she walks up hill or fast or climbs stairs, but not on her routine activity in the house. Denies any cough or wheezing. She sleeps well and has not needed to use the CPAP. She has past history of smoking for 45 pack years, but quit many years ago. [facility] Medical History Mood disorder Wears dentures PTSD (post-traumatic stress disorder) Bipolar disorder JONATHAN (obstructive sleep apnea) Obesity (BMI 30-39.9) Personal history of nicotine dependence History of laryngeal cancer Dysphagia Renal stones Depression Hyperlipidemia Chronic diarrhea BMI 38.0-38.9,adult Essential thrombocytosis Hypovitaminosis D Eczema Dyslipidemia Hypothyroidism Anxiety Asthma COPD (chronic obstructive pulmonary disease) Hiatal hernia Surgical History Incarcerated ventral hernia (11/12/23) Hx of tonsillectomy History of surgery on left wrist History of hand surgery History of colonoscopy History of endoscopy History of repair of hiatal hernia Family History Father Mental health disorder CAD (coronary artery disease) Mother S/P CABG x 3 Asthma Brother Substance use disorder Father Diabetes Maternal Grandmother Breast cancer Social History Household Members: None Housing: Apartment Are you a primary career professional to a significant other at home: No Do you presently have visiting nurse or other home services: No Alcohol intake: never Patient Tobacco Use Status: Former Tobacco user Tobacco use type: Cigarette Years Smoked: 45 e-Cigarette/Vaping Use: Never Used Second Hand Smoke Exposure: No Substance Use Type: Marijuana service: No Current occupational status: retired Current occupation: right handed Sexual orientation: Straight/Heterosexual Cognitive needs: No Hearing needs: No Vision needs: No Review of Systems Const All systems reviewed & are unremarkable except as noted in HPI and below Eyes Reports no additional complaints ENT Reports nasal congestion (Intermittent) Card Denies chest pain, Denies irregular heart rhythm, Denies leg edema and Reports dyspnea on exertion (Moderate) Resp Reports cough, Reports dyspnea on exertion (Moderate) and Denies wheezing (Mild intermittent) GI Reports no additional complaints Reports no additional complaints Musc Reports no additional complaints Skin/Breast Reports system reviewed and no additional complaints, except as documented Neuro Reports no additional complaints Psych Reports anxiety and Reports depression (Treated with med) Aller/Immun Denies wheezing (Mild intermittent) Physical Exam Vital Signs: Last Vital Signs Pulse 67 06/03/24 14:45 BP 118/70 06/03/24 14:45 Pulse Ox 97 06/03/24 14:45 Oxygen Delivery Method Room Air 06/03/24 14:45 BMI result Body Mass Index 32.9 Const General: comfortable, no acute distress, alert and awake Orientation/consciousness: patient oriented x3 HEENT Head: Yes normal to inspection General nose exam: No nasal polyps present and No nasal discharge present Face and sinus: Yes sinuses nontender Mouth: oropharynx abnormals (Narrow and crowded, Mallampati class 4) Throat: Yes posterior oropharynx normal Eyes General: appearance normal, both eyes and all related structures Neck Neck: Yes normal visual inspection, Yes no lymphadenopathy, Yes trachea midline, Yes no JVD and Yes other (Neck circumference 15 in) Thyroid: Thyroid normal Chest Chest palpation & inspection: normal inspection of the chest, normal palpation of entire chest wall and no tenderness Resp Other: Percussion note resonant, breath sounds are quite distant especially over the basilar areas. Expiratory phase prolonged. No wheezes rhonchi or crepitations are heard today. Cardio Palpation: normal PMI Rate: regular rate Rhythm: regular rhythm Heart sounds: no gallops and no murmurs GI Palpation (GI): Soft to palpation, nontender, No hepatosplenomegaly present, no masses and Other GI palpation findings present (Abdomen is obese and protuberant) Auscultation: normal bowel sounds Back/Spine/Pelvis Thoracic/Lumbar Spine: thoracic and lumbar spine normal to inspection Skin General skin exam: no rashes or lesions noted Neuro General: patient oriented x3 and no focal motor deficits Cranial nerves: Yes CN's II-XII intact bilaterally Extrem General: Yes normal to inspection, Yes no clubbing, cyanosis or edema and Yes no calf tenderness Psych Appearance: grossly normal and well kempt Speech and movement: Normal speech and movement present Results Reviewed Results Reviewed: SPIROMETRY PERFORMED IN THE OFFICE: FVC 111%. FEV1 92% FEV1/FVC= 64 FEF 25-75 50% C/W MILD TO MODERATE OBSTRUCTIVE AIRWAY DISORDER Assessment & Plan Assessment & Plan (1) COPD (chronic obstructive pulmonary disease): Comment: Patient has moderately severe obstructive airway disorder. It is well controlled with the current regimen. Her last pulmonary function test was at [facility], quite a few years ago. PER SPIROMETRY : SHOWS PATTERN OF MILD TO MODERATE OBSTRUCTIVE AIRWAY DISORDER. Code(s): J44.9 - Chronic obstructive pulmonary disease, unspecified Category: Medical Qualifiers: COPD type: unspecified COPD Qualified Code(s): J44.9 - Chronic obstructive pulmonary disease, unspecified Plan: CONTINUE TO USE BREZTRI 2 INHALATIONS DAILY. ALBUTEROL HFA 2 PUFFS Q 4-6 HOURS ONLY P.R.N. IF ANY ACUTE ATTACK OF WHEEZING (2) JONATHAN (obstructive sleep apnea): Comment: PATIENT DOES HAVE PAST HISTORY OF OBSTRUCTIVE SLEEP APNEA BUT AFTER LOSING SOME WEIGHT, SHE DECIDED TO DO WITHOUT THE CPAP. SHE SLEEPS IN LATERAL POSITION. CLAIMS THAT SHE IS SLEEPING WELL WITHOUT ANY INTERRUPTION. DENIES ANY DAYTIME SLEEPINESS. Code(s): G47.33 - Obstructive sleep apnea (adult) (pediatric) Category: Medical Plan: NO NEED OF USING ANY CPAP. ENCOURAGED TO KEEP ON LOSING SOME WEIGHT. Coding Level of Care Code Est Pt Level 3 (39372) Diagnoses Chronic obstructive pulmonary disease, unspecified COPD type J44.9 COPD type: unspecified COPD JONATHAN (obstructive sleep apnea) G47.33
[2024-06-03 14:45] VITALS: BP 118/70; PULSE 67; O2SAT 97; BMI 32.9
== END 2024-06-03 15:24 | disposition home or self-care (01) ==
LOC: HO.HPS 14:31
PROVIDERS: PCP Internal Medicine; Visit Provider Internal Medicine
DX: J44.9 Chronic obstructive pulmonary disease, unspecified (principal); G47.33 Obstructive sleep apnea (adult) (pediatric)
CPT/HCPCS: 99213

== ENCOUNTER → 2024-06-03 14:30 | Outpatient (BNVA) | payer MEDICARE, MEDICAID, SELFPAY | PROVIDERS: PCP Internal Medicine; Visit Provider Internal Medicine | DX: J44.9 Chronic obstructive pulmonary disease, unspecified (principal); G47.33 Obstructive sleep apnea (adult) (pediatric) | CPT/HCPCS: 99212 ==

== ENCOUNTER 2024-06-13 14:30 | Outpatient (AMB) | payer MEDICARE, SELFPAY ==
--- NOTE | 2024-06-13 14:52 | A.OFFVIS_ITS ---
Vital Signs 06/13/24 14:58 Height 5 ft 1 in Weight 171 lb 15.369 oz BMI 32.5 BP 109/65 Blood Pressure Location Lt brachial Position Sitting Pulse 72 Intake Visit Reasons: Discuss Prep Intake Note: Hiral presents in the office as a follow up to discuss prep. CC: She states that she is here to discuss procedure and prep - She is having the EGD w/ Dil with a colonoscopy. Certified Driver Examiner Required: No Allergies zoster vaccine live [SHINGLES VACCINE] Allergy (Severe, Verified 06/13/24 14:58) HIVES, facial swelling grass pollen Allergy (Mild, Verified 06/13/24 14:58) Itching and runny nose BARIUM CONTRAST Allergy (Severe, Uncoded 06/13/24 14:58) DIFFICULTY BREATHING/FLUSHING HPI Comments Details: 68 y.o F with PMH of COPD, obesity, anxiety who is here for follow up for change in bowel habits. Prev Dr Chiang's patient. 09/14/23: Patient reports longstanding diarrhea which she describes is to being anywhere from soft to watery 2 to 3 times a day. Has some periods in between where she is regular bowel movements. No blood in stool. No unintentional weight loss. Also due for polyp surveillance. Last colo was 2019 ([facility] Win) x 3 adenomas. Repeat recommended in 3 years. In addition, she also mentions difficulty swallowing large pills. Has history of radiation to the neck due to throat cancer in the past. Had dilation done by Dr. Chiang in 2021, but patient does not recall if her swallowing improved after that. Currently, reports that has sensation of food getting stuck, and large pills cause some discomfort on swallowing for the last few months. 10/22/23: REquested televisit today for clarification re EGD. REports ongoing trouble swallowing izabella with large pills however she could not recall if intervention can be done at the same time as the EGD if an anatomical abnl is found. 06/13/24: Pt here for follow up. Had canceled her procedures again last month. This is at least the 2nd time she has called to cancel procedures this year. Reports was not able to tolerate the PEG prep. Had taken this prep in 2019 but this time got very nauseous and bloated. REquests a different prep. [facility] Medical History Mood disorder Wears dentures PTSD (post-traumatic stress disorder) Bipolar disorder JONATHAN (obstructive sleep apnea) Obesity (BMI 30-39.9) Personal history of nicotine dependence History of laryngeal cancer Dysphagia Renal stones Depression Hyperlipidemia Chronic diarrhea BMI 38.0-38.9,adult Essential thrombocytosis Hypovitaminosis D Eczema Dyslipidemia Hypothyroidism Anxiety Asthma COPD (chronic obstructive pulmonary disease) Hiatal hernia Surgical History Incarcerated ventral hernia (11/12/23) Hx of tonsillectomy History of surgery on left wrist History of hand surgery History of colonoscopy History of endoscopy History of repair of hiatal hernia Family History Father Mental health disorder CAD (coronary artery disease) Mother S/P CABG x 3 Asthma Brother Substance use disorder Father Diabetes Maternal Grandmother Breast cancer Social History Household Members: None Housing: Apartment Are you a primary toddler caregiver to a significant other at home: No Do you presently have visiting nurse or other home services: No Alcohol intake: never Patient Tobacco Use Status: Former Tobacco user Tobacco use type: Cigarette Years Smoked: 45 e-Cigarette/Vaping Use: Never Used Second Hand Smoke Exposure: No Substance Use Type: Marijuana service: No Current occupational status: retired Current occupation: right handed Sexual orientation: Straight/Heterosexual Cognitive needs: No Hearing needs: No Vision needs: No Review of Systems Const All systems reviewed & are unremarkable except as noted in HPI and below Physical Exam Vital Signs: Last Vital Signs Pulse 72 06/13/24 14:58 BP 109/65 06/13/24 14:58 BMI result Body Mass Index 32.5 No apparent distress Nonicteric Abdomen soft, nondistended Alert and oriented x3, normal gait Assessment & Plan Assessment & Plan (1) Dysphagia: Code(s): R13.10 - Dysphagia, unspecified Category: Medical (2) History of laryngeal cancer: Comment: (s/p radiation therapy in her 40's) Code(s): Z85.21 - Personal history of malignant neoplasm of larynx Category: Medical (3) Chronic diarrhea: Comment: Controlled with Cholestyramine powder 4 g b.i.d. p.r.n. Code(s): K52.9 - Noninfective gastroenteritis and colitis, unspecified Category: Medical (4) Personal history of colonic polyps: Code(s): Z86.010 - Personal history of colon polyps Category: Medical Plan Reviewed different options for low volume prep. Sutabs not ideal due to ongoing pill dysphagia. SUprep discussed and pt agreeable to this. Instructions reviewed and handout provided. Diarrhea is now better and intermittent. However had x3 TA in 2019 so needs colo anyway. Plan: - Msg sent for EGD/colo - Suprep Rxed and instructions reviewed - Follow up after procedures Medications: New sodium,potassium,mag sulfates 17.5-3.13-1.6 gram (Suprep Bowel Prep Kit) DILUTE; drink full amount early evening before AND next morning at least 2 hr before procedure; follow w 960 mL water PO 354 mL 0RF Coding Level of Care Code Est Pt Level 3 (41124) Diagnoses Dysphagia R13.10 History of laryngeal cancer Z85.21 Chronic diarrhea K52.9 Personal history of colonic polyps Z86.010
[2024-06-13 14:58] VITALS: BP 109/65; PULSE 72; BMI 32.5
== END 2024-06-13 16:08 | disposition home or self-care (01) ==
PROVIDERS: PCP Internal Medicine; Visit Provider Internal Medicine
DX: R13.10 Dysphagia, unspecified (principal); Z85.21 Personal history of malignant neoplasm of larynx; K52.9 Noninfective gastroenteritis and colitis, unspecified; Z86.0100 Personal history of colon polyps, unspecified
CPT/HCPCS: 99213

== ENCOUNTER → 2024-06-13 14:30 | Outpatient (BNVA) | payer MEDICARE, OTHER, SELFPAY | PROVIDERS: PCP Internal Medicine; Visit Provider Internal Medicine | DX: K52.9 Noninfective gastroenteritis and colitis, unspecified (principal); R13.10 Dysphagia, unspecified; Z85.21 Personal history of malignant neoplasm of larynx; Z86.0100 Personal history of colon polyps, unspecified | CPT/HCPCS: 99212 ==

== ENCOUNTER 2024-07-17 14:24 | Outpatient (REF) | payer MEDICARE, SELFPAY ==
--- NOTE | ~2024-07-17 | MM_ITS ---
EXAMINATION: BONE DENSITOMETRY CLINICAL INDICATION: Asymptomatic menopausal state. COMPARISON: This is the patient's baseline examination. TECHNIQUE: Using a [employer] DXA System (software version: 13.1) manufactured by [employer], dual-energy x-ray absorptiometry was performed of the lumbar spine and left hip. The images are of good technical quality. Summary results are attached. FINDINGS: LEFT FEMUR, NECK: BMD 0.784 g/cm2, Z-score -0.4, T-score -1.8, osteopenia. LEFT FEMUR, TOTAL: BMD 0.803 g/cm2, Z-score -0.5, T-score -1.6, osteopenia. AP SPINE L1-L4: BMD 1.002 g/cm2, Z-score -0.3, T-score -1.5, osteopenia. IDENTIFIED RISK FACTORS: Early menopause, secondary osteoporosis (anorexia or bulimia), history of fracture (adult), osteoporosis. HISTORY OF FRACTURE: Other, wrist. MEDICATIONS: Calcium, vitamin D. MM/XR DEXA axial skeleton IMPRESSION: 1. DIAGNOSIS: Osteopenia based on the lowest T-score value of -1.8 in the femoral neck applying World Health Organization criteria. 2. 10-YEAR FRACTURE RISK PREDICTION, FRAX: Major osteoporotic fracture (clinical spine, forearm, hip or shoulder) 9.5%. Hip fracture 1.6%. 3. Treatment Recommendations: NOF guidelines recommend consideration for treatment in postmenopausal women and men age 50 and older presenting with the following: -A hip or vertebral (clinical or morphometric) fracture. -T-score less than or equal to -2.5 at the femoral neck or spine after appropriate evaluation to exclude secondary causes. -Low bone mass at the hip or spine and a 10-year fracture probability by FRAX of greater than or equal to 3% for hip fracture or greater than or equal to 20% for major osteoporotic fracture based on the [place] adapted WHO algorithm. 4. Other Recommendations: All treatment decisions require clinical judgment and consideration of individual patient factors, including patient preferences, comorbidities, previous drug use, risk factors not captured in the FRAX model (e.g. frailty, falls, vitamin D deficiency, increased bone turnover, interval significant decline in bone density) and possible under or overestimation of fracture risk by FRAX. Additional medical evaluation for secondary cause of low bone mineral density may be appropriate. FUTURE SCAN RECOMMENDATION: People with diagnosed cases of osteoporosis or at high risk for fracture should have regular bone mineral density tests. For patients eligible for Medicare, routine testing is allowed once every 2 years. The testing frequency can be increased to one year for patients who have rapidly progressing disease, those who are receiving or discontinuing medical therapy to restore bone mass, or have additional risk factors. Electronically signed by: Gab Yu MD 07/18/2024 01:52 PM ALBERTO ROWAN
== END 2024-07-17 14:25 | disposition home or self-care (01) ==
LOC: HO.MAMMO 14:24
PROVIDERS: PCP Internal Medicine; Visit Provider Internal Medicine
DX: Z13.820 Encounter for screening for osteoporosis (principal); Z78.0 Asymptomatic menopausal state; M85.89 Other specified disorders of bone density and structure, multiple sites
CPT/HCPCS: 77080

== ENCOUNTER 2024-09-24 08:02 | Outpatient (REF) | payer MEDICARE, SELFPAY ==
--- NOTE | ~2024-09-24 | XR_ITS ---
EXAMINATION: XR CHEST CLINICAL INFORMATION: R05.9 - Cough, unspecified COMPARISON: October 13, 2022 TECHNIQUE: 2 views of the chest were obtained. FINDINGS: No consolidation, pleural effusion or pneumothorax. No hyperinflation. Cardiomediastinal silhouette size is normal. Calcified plaque thoracic aortic arch. Multilevel thoracolumbar spondylosis. Osteopenia versus osteoporosis. Degenerative changes in the acromioclavicular joints. Patient's large body habitus. Vascular clips in the upper abdomen likely cholecystectomy procedure. XR/XR chest 2V IMPRESSION: No acute airspace disease. Stable chest. Electronically signed by: Zafar Almanzar MD 09/24/2024 09:09 AM EST
== END 2024-09-24 08:03 | disposition home or self-care (01) ==
LOC: HO.HMGCX 08:02
PROVIDERS: PCP Internal Medicine; Visit Provider Physician Assistant
DX: R05.1 Acute cough (principal)
CPT/HCPCS: 71046; 94640; 99212

== ENCOUNTER 2024-09-24 08:02 | Outpatient (AMB) | payer MEDICARE, SELFPAY ==
--- NOTE | 2024-09-24 08:09 | MHC.OFFWIV ---
Intake Vital Signs 09/24/24 08:13 Weight 179 lb BP 130/74 Blood Pressure Location Rt brachial Position Sitting Pulse 80 Pulse Source Pulse Oximeter Temp 98.0 F Temp Source Oral Pulse Oximetry (%) 97 Oxygen Delivery Method Room Air Intake Visit Reasons: EP-asthma, cough Intake Note: Patient here for SOB, cough and wheezing that has been present for over 1 week. Patient Tobacco Use Status: Former Tobacco user Allergies zoster vaccine live [SHINGLES VACCINE] Allergy (Severe, Verified 09/24/24 08:23) HIVES, facial swelling grass pollen Allergy (Mild, Verified 09/24/24 08:23) Itching and runny nose BARIUM CONTRAST Allergy (Severe, Uncoded 09/24/24 08:23) DIFFICULTY BREATHING/FLUSHING Do you need a note to return to daycare/school/sports/work: No HPI HPI Comments History of Present Illness Details She presents to office with asthma issue/cough She uses Albuterol inhaler at home without relief; also taking Breztri inhaler daily with same result She called PCP and patient was started on Prednisone prescribed by PCP Anil. She is supposed to take 20mg today--> taper down from (40 x 2, 30 x 2, 20 x2, 10 x2) Cough worse at night Some SOB associated No fevers or chills No nasal congestion, ear pain or ST No use of other OTC medicine for symptoms PFSH Medical History Mood disorder Wears dentures PTSD (post-traumatic stress disorder) Bipolar disorder JONATHAN (obstructive sleep apnea) Obesity (BMI 30-39.9) Personal history of nicotine dependence History of laryngeal cancer Dysphagia Renal stones Depression Hyperlipidemia Chronic diarrhea BMI 38.0-38.9,adult Essential thrombocytosis Hypovitaminosis D Eczema Dyslipidemia Hypothyroidism Anxiety Asthma COPD (chronic obstructive pulmonary disease) Hiatal hernia Surgical History Incarcerated ventral hernia (11/12/23) Hx of tonsillectomy History of surgery on left wrist History of hand surgery History of colonoscopy History of endoscopy History of repair of hiatal hernia Family History Father Mental health disorder CAD (coronary artery disease) Mother S/P CABG x 3 Asthma Brother Substance use disorder Father Diabetes Maternal Grandmother Breast cancer Social History Household Members: None Housing: Apartment Are you a primary career center advisor to a significant other at home: No Do you presently have visiting nurse or other home services: No Alcohol intake: never Patient Tobacco Use Status: Former Tobacco user Tobacco use type: Cigarette Years Smoked: 45 e-Cigarette/Vaping Use: Never Used Second Hand Smoke Exposure: No Substance Use Type: Marijuana service: No Current occupational status: retired Current occupation: right handed Sexual orientation: Straight/Heterosexual Cognitive needs: No Hearing needs: No Vision needs: No Review of Systems Const Denies body aches, Denies chills, Denies fatigue and Denies fever(s) Eyes Denies change in vision ENT Denies otalgia, Denies nasal congestion and Denies sore throat Card Denies chest pain, Denies syncope and Reports dyspnea Resp Denies change in phlegm color, Denies chest congestion, Reports cough, Denies hemoptysis, Denies pain with cough and Reports dyspnea Musc Denies myalgias Neuro Denies syncope Endo Denies fatigue Physical Exam Vital Signs: Last Vital Signs Temp 98.0 F 09/24/24 08:13 Pulse 80 09/24/24 08:13 BP 130/74 09/24/24 08:13 Pulse Ox 97 09/24/24 08:13 Oxygen Delivery Method Room Air 09/24/24 08:13 General: Non-toxic, NAD. Speaking full sentences. Skin: Warm dry throughout Eye: EOMI HENT: Airway patent. Uvula midline. No pharyngeal erythema or edema. No SEAT PACK INSPECTOR. Bilateral canals clear. TM non-erythematous, non-bulging. No TM perforation or hemotympanum noted. Respiratory: Decreased throughout but otherwise, CTA bilaterally. No wheezes, rales or rhonchi Cardiac: RRR. No murmur MSK: Full ROM extremities. Neurology: Alert. No aphasia or facial droop. Gait without abnormality Psych: Good mood and affect Office Procedures Nebulizer Treatment Nebulizer Treatment [id number]/MDI RX initial, or Nebulizer Subsequent Treatment Office Meds albuterol sulfate 2.5 mg/3 mL (0.083 %) solution for nebulization Performing Provider: Angela Soriano PA-C Performing Location: [facility] Administered by: Zenaida Lynn RN on 09/24/24 08:58 Dose Route Admin Location Dispensed Lot Number Expiration Date [employer] 2.5 mg inhalation 3 mL [id number] 03/06/25 4883-2667-40 MYLAN Assessment & Plan Assessment & Plan (1) Cough: Code(s): R05.9 - Cough, unspecified Qualifiers: Cough type: acute Qualified Code(s): R05.1 - Acute cough Plan: Patient seen and evaluated. Vitals stable Chest xray: I viewed as no infiltrate but did see congestion Will cover with Azithromycin for bacterial bronchitis Also pt advised to take 40mg Prednisone x 2 days, then 30 x1, 20 x1 and then 10 x1 In office nebulizer given; and re-evaluated Better aeration and pt feeling better Patient gave verbal understanding and had no additional questions or concerns at time of discharge All questions answered Orders: Orders XR chest 2V Today R05.9 - Cough, unspecified AMB Nebulizer Treatment Today R05.9 - Cough, unspecified Medications: New doxycycline hyclate 100 mg PO BID 14 caps 0RF prednisone 40mg po qd x 2 days, then 30mg po qd x 1 day, 20mg po qd x 1 day and then 10mg po qd x 1 days; see taper instructions 10 mg PO DIRECTED 14 tabs 0RF Coding Level of Care Code Est Pt Level 3 (09297) Diagnoses Acute cough R05.1 Cough type: acute CPT Codes Nebulizer Treatment - Nebulizer Treatment, initial or subsequent: [id number] RX initial, or Nebulizer Subsequent Treatment ([id number])
[2024-09-24 08:13] VITALS: BP 130/74; PULSE 80; TEMP 36.7; O2SAT 97
== END 2024-09-24 09:16 | disposition home or self-care (01) ==
PROVIDERS: PCP Internal Medicine; Visit Provider Physician Assistant
DX: R05.9 Cough, unspecified (principal); R05.1 Acute cough

== ENCOUNTER → 2024-09-24 08:43 | Outpatient (BNV) | payer MEDICARE, SELFPAY | PROVIDERS: PCP Internal Medicine; Visit Provider Radiology Diagnostic Radiology | DX: R05.9 Cough, unspecified (principal) | CPT/HCPCS: 71046 ==

== ENCOUNTER 2024-10-27 08:00 | Outpatient (AMB) | payer MEDICARE, SELFPAY ==
[2024-10-27 08:06] VITALS: BP 126/80; PULSE 80; O2SAT 96
--- NOTE | 2024-10-27 08:06 | AM.OFFWIN_ITS ---
Intake Vital Signs 3 10/27/24 08:06 Weight 204 lb BP 126/80 Blood Pressure Location Rt brachial Position Sitting Pulse 80 Pulse Source Pulse Oximeter Pulse Oximetry (%) 96 Oxygen Delivery Method Room Air Intake Visit Reasons: EP RT ring finger concerns Intake Note: Patient here for right ring finger dryness/rash that has been present for about 3 weeks. Patient Tobacco Use Status: Former Tobacco user Allergies zoster vaccine live [SHINGLES VACCINE] Allergy (Severe, Verified 10/27/24 08:09) HIVES, facial swelling grass pollen Allergy (Mild, Verified 10/27/24 08:09) Itching and runny nose BARIUM CONTRAST Allergy (Severe, Uncoded 10/27/24 08:09) DIFFICULTY BREATHING/FLUSHING Do you need a note to return to daycare/school/sports/work: No HPI HPI Comments 2 History of Present Illness0 Details 69 y/o female patient who presents to [facility] walk [facility] clinic with c/o rash on right index finger x 3 weeks. Reports that Rash is very itchy, dry and burning. She has been applying Rubbing Alcohol and Hydrogen Peroxide with no relief. She has noticed the Skin cracking up. H/o Eczema. [facility] Medical History Mood disorder Wears dentures PTSD (post-traumatic stress disorder) Bipolar disorder JONATHAN (obstructive sleep apnea) Obesity (BMI 30-39.9) Personal history of nicotine dependence History of laryngeal cancer Dysphagia Renal stones Depression Hyperlipidemia Chronic diarrhea BMI 38.0-38.9,adult Essential thrombocytosis Hypovitaminosis D Eczema Dyslipidemia Hypothyroidism Anxiety Asthma COPD (chronic obstructive pulmonary disease) Hiatal hernia Surgical History Incarcerated ventral hernia (11/12/23) Hx of tonsillectomy History of surgery on left wrist History of hand surgery History of colonoscopy History of endoscopy History of repair of hiatal hernia Family History Father Mental health disorder CAD (coronary artery disease) Mother S/P CABG x 3 Asthma Brother Substance use disorder Father Diabetes Maternal Grandmother Breast cancer Social History Household Members: None Housing: Apartment Are you a primary health care analyst to a significant other at home: No Do you presently have visiting nurse or other home services: No Alcohol intake: never Patient Tobacco Use Status: Former Tobacco user Tobacco use type: Cigarette Years Smoked: 45 e-Cigarette/Vaping Use: Never Used Second Hand Smoke Exposure: No Substance Use Type: Marijuana service: No Current occupational status: retired Current occupation: right handed Sexual orientation: Straight/Heterosexual Cognitive needs: No Hearing needs: No Vision needs: No Review of Systems Const All systems reviewed & are unremarkable except as noted in HPI and below Physical Exam Vital Signs: Last Vital Signs Pulse 80 10/27/24 08:06 BP 126/80 10/27/24 08:06 Pulse Ox 96 10/27/24 08:06 Oxygen Delivery Method Room Air 10/27/24 08:06 Const General: cooperative and no acute distress Nutritional Appearance: obese Orientation/consciousness: patient oriented x3 Skin General skin exam: dry skin and erythema Rashes: rashes noted (Dry and flaky, with crusty patche right index finger) Neuro General: patient oriented x3, gait normal and moves all extremities Extrem Hand/finger images: 2 1. Crusty, dry erythema patches Psych Speech and movement: Normal speech and movement present Assessment & Plan Assessment & Plan (1) Eczema: Code(s): L30.9 - Dermatitis, unspecified Qualifiers: Eczema type: flexural Qualified Code(s): L20.82 - Flexural eczema Plan: Ordered Triamcinolone cream Advised to moisturize Skin with Aquaphor or Eucecrine creams. F/U with PCP. Medications: New 2 white petrolatum 41% (Aquaphor Healing) 1 appl topical BID PRN 7 grams 0RF dry skin L20.82 - Flexural eczema triamcinolone acetonide 0.025% 1 appl topical BID 80 grams 1RF 14 days L20.82 - Flexural eczema Coding Level of Care Code Est Pt Level 4 (37333) Diagnoses Flexural eczema L20.82 Eczema type: flexural Time Spent (min) 20
== END 2024-10-27 08:55 | disposition home or self-care (01) ==
PROVIDERS: PCP Internal Medicine; Visit Provider Nurse Practitioner Family
DX: L20.82 Flexural eczema (principal)

== ENCOUNTER → 2024-10-27 08:00 | Outpatient (BNVA) | payer MEDICARE, SELFPAY | PROVIDERS: PCP Internal Medicine; Visit Provider Nurse Practitioner Family | DX: L20.82 Flexural eczema (principal) | CPT/HCPCS: 99212 ==

== ENCOUNTER 2024-11-27 15:34 | Outpatient (AMB) | payer MEDICARE, SELFPAY ==
--- NOTE | 2024-11-27 15:40 | MHC.PC.OV ---
Vital Signs 11/27/24 15:41 Height 5 ft 1 in Weight 204 lb BMI 38.5 BP 132/70 Blood Pressure Location Lt brachial Position Sitting Intake Visit Reasons: thyroid Intake Note: Patient here for a follow up Thyroid, c/o right side hip pain Box Toe Cementer Required: No Accompanied by: Self / Same As Patient Allergies zoster vaccine live [SHINGLES VACCINE] Allergy (Severe, Verified 11/27/24 15:59) HIVES, facial swelling grass pollen Allergy (Mild, Verified 11/27/24 15:59) Itching and runny nose BARIUM CONTRAST Allergy (Severe, Uncoded 11/27/24 15:59) DIFFICULTY BREATHING/FLUSHING Medication List - Last Reconciled 11/27/24 by Sana Randall MD albuterol sulfate 90 mcg/actuation 2 puffs inhalation Q4-6H PRN 30 days albuterol sulfate 2.5 mg (3 mL) inhalation Q6H PRN 30 days aspirin 81 mg PO DAILY atorvastatin 20 mg PO DAILY 90 days rsxogalaaj-jnxqzwmu-ioeuyjddzs 160-9-4.8 mcg/actuation (Breztri Aerosphere) 2 inhalations inhalation BID 30 days bupropion HCl XL 300 mg PO DAILY calcium carbonate (Calcium 500) 500 mg PO BID 90 days calcium carbonate-vitamin D3 500 mg-10 mcg (400 unit) (Oyster Shell Calcium-Vitamin D3) 1 tab PO BID 90 days cholecalciferol (vitamin D3) 25 mcg PO DAILY 90 days cyclosporine 0.05% (Restasis MultiDose) 1 drp ophthalmic (eye) Q12H 90 days diclofenac sodium 1% (Arthritis Pain (diclofenac)) 2 grams topical QID 30 days gabapentin 600 mg PO DAILY hydroxyurea 500 mg PO DAILY 90 days magnesium oxide 400 mg (2 x 200 mg magnesium) PO BEDTIME 90 days mecobalamin (vitamin B12) 1,000 mcg PO DAILY [nebulizer accesories As directed] nebulizer and compressor As directed omeprazole 40 mg PO DAILY 90 days quetiapine 25 mg PO DAILY sertraline mg PO DAILY Synthroid (levothyroxine) 88 mcg PO DAILY 30 days NS triamcinolone acetonide 0.025% 1 appl topical BID 14 days vitamin R18-wjzyl acid 500-400 mcg 1 tab PO DAILY white petrolatum 41% (Aquaphor Healing) 1 appl topical BID PRN zinc gluconate 30 mg PO DAILY 90 days Tobacco use date assessed: 11/27/24 Fall risk assessment: No Falls in past year Last assessed Fall Risk: 11/27/24 Dental Screening Dental Screen Date: 11/27/24 Did you have a dental visit in the last 12 months?: Yes Did you have a dental problem in the last 6 months where you did not have access to dental care?: No Was dental information given to patient?: Patient has dentist HPI HPI Comments History of Present Illness Details The patient is a 69-year-old female presenting with shortness of breath and has COPD would rule like another associate juvenile court judge medication issues, eczema management, and hip pain. She has been experiencing increased shortness of breath, possibly exacerbated by weight gain. Despite adherence to a regimen of medications including an albuterol inhaler for respiratory management, she reports its inefficacy at PRN and requests a daily dose instead. She has also encountered problems with eczema management post discontinuation of hydroxyzine due to a prior gabapentin directive. The failure of current topical treatment prompts the need for revised therapy. Additional concerns include pronounced right hip pain during nail clipping activities.The patient?s chronic medical profile includes osteopenia, hypertension, sleep apnea, hypothyroidism, hyperlipidemia, obesity, and reactive thrombocythemia. Management has involved complex pharmacotherapy. She is wary of assessments stressing weight, opting for measured improvements over forceful reminders, thus avoiding pulmonology follow-ups in favor of personalized adjustments in care. Also has bipolar disorder with some depression and anxiety and follows with psychiatry. [facility] Medical History (Updated 11/27/24 @ 16:12 by Sana Randall MD) Mood disorder Wears dentures PTSD (post-traumatic stress disorder) Bipolar disorder JONATHAN (obstructive sleep apnea) Obesity (BMI 30-39.9) Personal history of nicotine dependence History of laryngeal cancer Dysphagia Renal stones Depression Hyperlipidemia Chronic diarrhea BMI 38.0-38.9,adult Essential thrombocytosis Hypovitaminosis D Eczema Dyslipidemia Hypothyroidism Anxiety Asthma COPD (chronic obstructive pulmonary disease) Hiatal hernia Surgical History Incarcerated ventral hernia (11/12/23) Hx of tonsillectomy History of surgery on left wrist History of hand surgery History of colonoscopy History of endoscopy History of repair of hiatal hernia Family History Father Mental health disorder CAD (coronary artery disease) Mother S/P CABG x 3 Asthma Brother Substance use disorder Father Diabetes Maternal Grandmother Breast cancer Social History Household Members: None Housing: Apartment Are you a primary pediatric acute care unit nurse to a significant other at home: No Do you presently have visiting nurse or other home services: No Alcohol intake: never Patient Tobacco Use Status: Former Tobacco user Tobacco use type: Cigarette Years Smoked: 45 e-Cigarette/Vaping Use: Never Used Second Hand Smoke Exposure: No Substance Use Type: Marijuana service: No Current occupational status: retired Current occupation: right handed Sexual orientation: Straight/Heterosexual Cognitive needs: No Hearing needs: No Vision needs: No Questionnaire PHQ-9 Over the last 2 weeks, how often have you been bothered by any of the following problems? 1. Little interest or pleasure in doing things: not at all 2. Feeling down, depressed, or hopeless: not at all 3. Trouble falling or staying asleep, or sleeping too much: not at all 4. Feeling tired or having little energy: not at all 5. Poor appetite or overeating: not at all 6. Feeling bad about yourself - or that you are a failure or have let yourself or your family down: not at all 7. Trouble concentrating on things, such as reading the newspaper or watching television: not at all 8. Moving or speaking so slowly that other people could have noticed. Or the opposite - being so fidgety or restless that you have been moving around a lot more than usual: not at all 9. Thoughts that you would be better off or of hurting yourself in some way: not at all Total score: 0 Depression Screening Interpretation: Negative Depression Screening Done: Yes 14006 - PHQ-9 Billing: Yes Source: Developed by Drs. Christopher Bryan, Alondra Torres, Janusz Orozco and colleagues, with an educational sara from [employer]. Thrive Questionnaire Date Thrive assessed: 11/27/24 I am a: Patient What is your living situation today?: I have a steady place to live Within the past 12 months, did the food you bought not last and you didn't have the money to get more?: I choose not to answer this question Within the past 12 months, did you worry whether your food would run out before you got money to buy more?: I choose not to answer this question Do you have trouble paying for medicines?: No Do you have trouble getting transportation to medical appointments?: No Do you have trouble paying your heating and electricity bill?: No Do you have trouble taking care of your child, family member or friend?: No Do you have trouble with day-to-day activities such as bathing, preparing meals, shopping, managing finances, etc.?: No Are you currently unemployed and looking for a job?: No Are you interested in more education?: No Please select the resources that you would like help with: None Currently or been in a relationship where the following occur: No concerns reported THRIVE Score: 0 AUDIT C Alcohol Use Questionnaire (AUDIT-C) 1. How often do you have a drink containing alcohol?: Never Total Score: 0 HENRY-7 AMB Questionnaire HENRY-7 Date HENRY - 7 assessed: 11/27/24 Feeling nervous, anxious, or on edge: 1 = Several days Not being able to stop or control worryin = Not at all Worrying too much about different things: 0 = Not at all Trouble relaxin = Not at all Being so restless that it is hard to sit still: 0 = Not at all Becoming easily annoyed or irritable: 0 = Not at all Feeling afraid as if something awful might happen: 0 = Not at all Total HENRY-7 score (0-4 normal; 5-9 mild; 10-14 moderate; 15-21 severe): 1 Source: Developed by Drs. Christopher Bryan, Alondra Torres, Janusz Orozco and colleagues, with an educational sara from [employer]. HENRY-7 Assessment Billing HENRY-7 Assessment Tool: HENRY-7 Assessment 53282 Review of Systems Const All systems reviewed & are unremarkable except as noted in HPI and below Card Denies chest pain at rest, Denies chest pain with activity, Denies edema, Denies irregular heart rhythm, Denies claudication, Denies dyspnea, Denies dyspnea on exertion, Denies orthopnea, Denies paroxysmal nocturnal dyspnea and Denies slow heart rate Resp Denies cough, Denies dyspnea and Denies dyspnea on exertion Physical exam (Primary Care) Vital Signs: Last Vital Signs BP 132/70 11/27/24 15:41 BMI result Body Mass Index 38.5 BMI Assessment/Plan discussion: High BMI High, discussed plan: lifestyle, weight reduction, dietary and physical activity Tobacco/Smoking Status: Tobacco use Status Tobacco use date assessed 11/27/24 11/27/24 15:49 Patient Tobacco Use Status Former Tobacco user 11/27/24 15:49 Tobacco use type Cigarette 11/27/24 15:49 e-Cigarette/Vaping Use Never Used 11/27/24 15:49 PHQ-9: PHQ-9 Score PHQ-9: Total score 0 11/27/24 16:05 Depression Screening Interpretation: Negative Thrive Assessment: Date of Thrive Assessment Date Thrive assessed 11/27/24 11/27/24 15:49 Currently or been in a relationship where the following occur: No concerns reported Neck Neck: Yes normal visual inspection and Yes supple Resp Effort & Inspection: normal respiratory effort Auscultation: clear to auscultation bilaterally Cardio Jugular venous distension: no JVD Rate: regular rate Rhythm: regular rhythm Heart sounds: S1 normal heart sound present and S2 normal heart sound present Extrem General: Yes full ROM Coding Level of Care Code Est Pt Level 4 (31945) Complex EM visit Add On G2211 Diagnoses Right hip pain M25.551 Bipolar 1 disorder F31.9 Mild major depression F32.0 Chronic obstructive pulmonary disease, unspecified COPD type J44.9 COPD type: unspecified COPD Hypothyroidism E03.9 Essential thrombocytosis D47.3 Flexural eczema L20.82 Eczema type: flexural Additional Codes HENRY-7 Assessment Billing - HENRY-7 Assessment Tool: HENRY-7 Assessment 53370 ([id number]) PHQ-9 - 00328 - PHQ-9 Billing: Yes ([id number]) Time Spent (min) 23 Assessment & Plan Assessment & Plan (1) Right hip pain: Code(s): M25.551 - Pain in right hip Category: Medical (2) Bipolar 1 disorder: Code(s): F31.9 - Bipolar disorder, unspecified Category: Medical (3) Mild major depression: Code(s): F32.0 - Major depressive disorder, single episode, mild Category: Medical (4) COPD (chronic obstructive pulmonary disease): Comment: Patient has moderately severe obstructive airway disorder. It is well controlled with the current regimen. Her last pulmonary function test was at [facility], quite a few years ago. PER SPIROMETRY : SHOWS PATTERN OF MILD TO MODERATE OBSTRUCTIVE AIRWAY DISORDER. Code(s): J44.9 - Chronic obstructive pulmonary disease, unspecified Category: Medical Qualifiers: COPD type: unspecified COPD Qualified Code(s): J44.9 - Chronic obstructive pulmonary disease, unspecified (5) Hypothyroidism: Code(s): E03.9 - Hypothyroidism, unspecified Category: Medical (6) Essential thrombocytosis: Comment: History of thrombocytosis noted and she is doing well on the current medicine Hydrea 500 mg daily Code(s): D47.3 - Essential (hemorrhagic) thrombocythemia Category: Medical (7) Eczema: Code(s): L30.9 - Dermatitis, unspecified Category: Medical Qualifiers: Eczema type: flexural Qualified Code(s): L20.82 - Flexural eczema Plan I will adjust the patient?s asthma regimen to include a daily inhaler, replacing albuterol PRN, addressing her adverse reaction and inefficacy experiences. For eczema, a course of fluocinonide cream is recommended, coupled with protective measures for optimal application. An X-ray will be ordered for evaluating her hip pain, aligned with concurrent blood work focusing on her nutritional and chronic condition status. I emphasized working alongside the patient to develop a suitable plan given her concerns with prior pulmonology experiences, promoting comfort and continuous management of her hypothyroidism and osteopenia. Patient was informed and verbally consented to the use of an ambient scribe for clinic note documentation during this visit. During the discussion, I emphasized the need to modify her asthma management, transitioning from albuterol PRN to a more effective daily inhaler due to reports of inefficacy and adverse reactions. For eczema, I proposed fluocinonide cream as an alternative treatment after verifying her previous experiences. We agreed on obtaining an X-ray together with routine lab work to clarify her hip pain and update the overall view of her health status. We reviewed the risks and benefits of these adjustments and coordinated the care pathways to avoid overwhelming attention on weight, respecting her comfort. The patient will actively participate in identifying an appropriate associate juvenile court judge with assistance from her insurance should further consults be needed. Orders: Orders XR hip RT min 2V Today M25.551 - Pain in right hip Lipid Panel Today E78.5 - Hyperlipidemia, unspecified Vitamin B12 and Folate Today E53.8 - Deficiency of other specified B group vitamins Comprehensive [place]. Panel Fast Today M25.559 - Pain in unspecified hip Thyroid Stimulating Hormone Today E03.9 - Hypothyroidism, unspecified Complete Blood Count Auto Diff Today D64.9 - Anemia, unspecified Vitamin D 25-OH Total Today E55.9 - Vitamin D deficiency, unspecified IRON PROFILE Today D64.9 - Anemia, unspecified Medications: Refilled rjhqhwgspk-fcmhziwt-fahzaznnck 160-9-4.8 mcg/actuation (Breztri Aerosphere) 2 inhalations inhalation BID 5.9 grams 5RF COPD 30 days Patient Instructions: - Start using the prescribed daily inhaler for asthma management. - Apply fluocinonide cream to eczema areas and use gloves to enhance absorption. - Proceed with scheduled X-ray and blood work next week. - Follow medication changes and adjustments as discussed. - Contact your insurance to explore associate juvenile court judge options if needed. - Report any new or worsening symptoms as soon as possible.
[2024-11-27 15:41] VITALS: BP 132/70; BMI 38.5
== END 2024-11-27 16:14 | disposition home or self-care (01) ==
LOC: HO.HMCH 15:35
PROVIDERS: PCP Internal Medicine; Visit Provider Internal Medicine
DX: M25.551 Pain in right hip (principal); F31.9 Bipolar disorder, unspecified; J44.9 Chronic obstructive pulmonary disease, unspecified; E03.9 Hypothyroidism, unspecified; D47.3 Essential (hemorrhagic) thrombocythemia; L20.82 Flexural eczema

== ENCOUNTER → 2024-11-27 15:34 | Outpatient (BNVA) | payer MEDICARE, SELFPAY | PROVIDERS: PCP Internal Medicine; Visit Provider Internal Medicine | DX: J44.9 Chronic obstructive pulmonary disease, unspecified (principal); M25.551 Pain in right hip; I10 Essential (primary) hypertension; G47.30 Sleep apnea, unspecified; E03.9 Hypothyroidism, unspecified; E78.5 Hyperlipidemia, unspecified; E66.9 Obesity, unspecified; F31.9 Bipolar disorder, unspecified; D47.3 Essential (hemorrhagic) thrombocythemia; L20.82 Flexural eczema; E55.9 Vitamin D deficiency, unspecified; Z68.38 Body mass index [BMI] 38.0-38.9, adult | CPT/HCPCS: 96127; 99212 ==

== ENCOUNTER 2024-12-05 07:15 | Outpatient (REF) | payer MEDICARE, SELFPAY ==
--- NOTE | ~2024-12-05 | XR_ITS ---
CLINICAL HISTORY: M25.551 - Pain in right hip 2 view, pelvis and right hip Comparison: 05/04/2022 Findings: The bones are intact. No significant arthritic change. The soft tissues are unremarkable. IMPRESSION: No acute findings. This document has been electronically signed by: Kedar Pereira MD on 12/05/2024 07:59:54
[2024-12-05 07:41] LABS: MANUAL DIFF FLAG NO
[2024-12-05 07:55] LABS: Basophils Percent Auto 0.4 % (0-2); Eosinophils Absolute Auto 0.1 X10*3/uL (0.0-0.4); Eosinophils Percent Auto 2.3 % (0-4); Hematocrit 37.7 % (37.0-47.0); Hemoglobin 11.6 g/dl (12.0-16.0); Imm Gran Abs Auto 0.02 X10*3/uL (0.00-0.03); Imm Gran Pct Auto 0.4 % (0.0-0.4); Lymphocytes Absolute Auto 1.3 X10*3/uL (1.2-4.9); Lymphocytes Percent Auto 25.9 % (20-40); Mean Corpuscular HGB Conc 30.8 g/dl (31.0-35.0); Mean Corpuscular Hemoglobin 28.9 pg (27.0-33.0); Mean Corpuscular Volume 93.8 fL (80.0-98.0); Mean Platelet Volume 9.3 fL (9.4-12.3); Monocytes Absolute Auto 0.3 X10*3/uL (0.1-1.2); Neutrophils Absolute Auto 3.1 x10*3/uL (2.0-8.3); Platelet Count 347 X10*3/uL (160-400); Red Blood Count 4.02 X10*6/uL (4.20-5.50); Red Cell Distribution Width 15.8 % (11.0-16.0); White Blood Count 4.8 X10*3/uL (4.8-10.8)
[2024-12-05 08:40] LABS: Alanine Aminotransferase 33 U/L (0-31); Albumin Level 4.1 g/dL (3.5-5.0); Alkaline Phosphatase 144 U/L (39-117); Anion Gap 13 (12-20); Aspartate Amino Transferase 48 U/L (5-31); Bilirubin Total 0.4 mg/dL (0.0-1.0); Blood Urea Nitrogen 10 mg/dL (9-16); Calcium 9.1 mg/dL (8.4-10.2); Carbon Dioxide 26 mmol/L (22-29); Chloride 108 mmol/L (96-108); Cholesterol 220 mg/dL (<200); Estimated Glomerular Filt Rate 47; Glucose Fasting 93 mg/dL (60-99); HDL Cholesterol 77 mg/dL (>40); Iron 64 mcg/dL (30-160); LDL Cholesterol Calculated 128 mg/dL (<100); Percent Iron Saturation 16 % (15-50); Potassium 4.7 mmol/L (3.3-5.1); Sodium 142 mmol/L (135-145); Total Iron Binding Capacity 401 mcg/dL (228-428); Total Protein 7.4 g/dL (6.5-8.0); Triglycerides 77 mg/dL (<150); Unsaturated Iron Binding 337 ug/dL
[2024-12-05 08:58] LABS: Vitamin D 25-OH Total 35.6 ng/mL (>30)
[2024-12-05 09:02] LABS: Folate 3.4 ng/mL (> or = 4.0); Vitamin B12 1309 pg/mL (200-900)
== END 2024-12-05 07:16 | disposition home or self-care (01) ==
LOC: HO.XRAY 07:15
PROVIDERS: PCP Internal Medicine; Visit Provider Internal Medicine
DX: D64.9 Anemia, unspecified (principal); E53.8 Deficiency of other specified B group vitamins; E78.5 Hyperlipidemia, unspecified; E03.9 Hypothyroidism, unspecified; E55.9 Vitamin D deficiency, unspecified; M25.551 Pain in right hip
CPT/HCPCS: 36415; 73502; 80053; 80061; 82306; 82607; 82746; 83540; 84443; 85025

== ENCOUNTER → 2024-12-05 07:42 | Outpatient (BNV) | payer MEDICARE, SELFPAY | PROVIDERS: PCP Internal Medicine; Visit Provider Specialist | DX: M25.551 Pain in right hip (principal) | CPT/HCPCS: 73502 ==

== ENCOUNTER 2024-12-19 08:06 | Outpatient (AMB) | payer MEDICARE, SELFPAY ==
--- NOTE | 2024-12-19 08:31 | AM.OFFWIN_ITS ---
Intake Vital Signs 12/19/24 08:37 Weight 203 lb 2 oz BP 124/80 Blood Pressure Location Rt brachial Position Sitting Pulse 71 Pulse Source Pulse Oximeter Temp 98.3 F Temp Source Oral Pulse Oximetry (%) 96 Oxygen Delivery Method Room Air Intake Visit Reasons: EP Sweating, ab pain, freq bathroom use Intake Note: Patient here for sweating, abdominal pain, diarrhea that started sunday. Patient Tobacco Use Status: Former Tobacco user Allergies zoster vaccine live [SHINGLES VACCINE] Allergy (Severe, Verified 12/19/24 08:38) HIVES, facial swelling grass pollen Allergy (Mild, Verified 12/19/24 08:38) Itching and runny nose BARIUM CONTRAST Allergy (Severe, Uncoded 12/19/24 08:38) DIFFICULTY BREATHING/FLUSHING HPI HPI Comments History of Present Illness Details This is a 69-year-old female with a past medical history bipolar disorder, obstructive sleep apnea, COPD not currently oxygen dependent, cholecystectomy, hypothyroidism and hyperlipidemia presenting for evaluation of abdominal pain and diarrhea. Patient states on Sunday she was extremely constipated, called her physician who recommended a laxative as well as milk of magnesia. Patient states for the past 3 days she has had greater than 5 episodes of diarrhea daily coupled with nausea. Patient denies having any fevers, chills, dysuria, urinary frequency, dark or bloody stools. Patient has not taken any medication for treatment of her diarrhea. [facility] Medical History Mood disorder Wears dentures PTSD (post-traumatic stress disorder) Bipolar disorder JONATHAN (obstructive sleep apnea) Obesity (BMI 30-39.9) Personal history of nicotine dependence History of laryngeal cancer Dysphagia Renal stones Depression Hyperlipidemia Chronic diarrhea BMI 38.0-38.9,adult Essential thrombocytosis Hypovitaminosis D Eczema Dyslipidemia Hypothyroidism Anxiety Asthma COPD (chronic obstructive pulmonary disease) Hiatal hernia Surgical History Incarcerated ventral hernia (11/12/23) Hx of tonsillectomy History of surgery on left wrist History of hand surgery History of colonoscopy History of endoscopy History of repair of hiatal hernia Family History Father Mental health disorder CAD (coronary artery disease) Mother S/P CABG x 3 Asthma Brother Substance use disorder Father Diabetes Maternal Grandmother Breast cancer Social History Household Members: None Housing: Apartment Are you a primary residential care facility manager to a significant other at home: No Do you presently have visiting nurse or other home services: No Alcohol intake: never Patient Tobacco Use Status: Former Tobacco user Tobacco use type: Cigarette Years Smoked: 45 e-Cigarette/Vaping Use: Never Used Second Hand Smoke Exposure: No Substance Use Type: Marijuana service: No Current occupational status: retired Current occupation: right handed Sexual orientation: Straight/Heterosexual Cognitive needs: No Hearing needs: No Vision needs: No Review of Systems Const All systems reviewed & are unremarkable except as noted in HPI and below Reports no additional complaints Eyes Reports no additional complaints ENT Reports no additional complaints Card Reports no additional complaints Resp Reports no additional complaints GI Denies bloating, Reports change in bowel habits, Reports tenesmus, Denies GI cramping, Denies excessive flatus, Denies dyspepsia, Denies heartburn, Reports diarrhea, Reports nausea and Denies vomiting Reports no additional complaints, Denies dysuria, Denies urinary incontinence and Denies vaginal pruritus Musc Reports no additional complaints Skin/Breast Reports system reviewed and no additional complaints, except as documented Neuro Reports no additional complaints Psych Reports no additional complaints Endo Reports no additional complaints Twan/Lymph Reports no additional complaints Aller/Immun Reports no additional complaints Physical Exam Vital Signs: Last Vital Signs Temp 98.3 F 12/19/24 08:37 Pulse 71 12/19/24 08:37 BP 124/80 12/19/24 08:37 Pulse Ox 96 12/19/24 08:37 Oxygen Delivery Method Room Air 12/19/24 08:37 Const General: cooperative, comfortable, no acute distress, well developed, alert, awake and Physically active Nutritional Appearance: well nourished Orientation/consciousness: patient oriented x3 Limitations: no limitations HEENT Mouth: moist mucous membranes Cardio Rate: regular rate Rhythm: regular rhythm GI Palpation (GI): Soft to palpation, nontender, no guarding and not rigid Auscultation: normal bowel sounds General: Yes bladder normal to palpation and Yes no CVA tenderness Bimanual exam- vagina & uterus: bladder normal to palpation Back/Spine/Pelvis Back: no CVA tenderness Skin General skin exam: no rashes or lesions noted Neuro General: patient oriented x3 Psych Appearance: grossly normal Mental Status: mental status grossly normal Insight: Good insight present (Psych) Judgement: Good judgement present (Psych) Assessment & Plan Assessment & Plan (1) Diarrhea: Comment: Patient is well-appearing with moist mucous membranes. Code(s): R19.7 - Diarrhea, unspecified Qualifiers: Diarrhea type: unspecified type Qualified Code(s): R19.7 - Diarrhea, unspecified Plan: Imodium 2 tabs today, 1 tablet this evening if symptoms persist. Patient is encouraged to stay well hydrated with clear fluids. (2) Nausea: Comment: Patient denies any vomiting. Code(s): R11.0 - Nausea Plan: Zofran q.8 hours p.r.n. nausea. #10 Medications: New ondansetron 4 mg PO Q8H PRN 10 tabs 0RF nausea and vomiting Coding Level of Care Code Est Pt Level 3 (39766) Diagnoses Diarrhea, unspecified type R19.7 Diarrhea type: unspecified type Nausea R11.0 Time Spent (min) 20
[2024-12-19 08:37] VITALS: BP 124/80; PULSE 71; TEMP 36.8; O2SAT 96
== END 2024-12-19 09:16 | disposition home or self-care (01) ==
PROVIDERS: PCP Internal Medicine; Visit Provider Physician Assistant
DX: R19.7 Diarrhea, unspecified (principal); R11.0 Nausea

== ENCOUNTER → 2024-12-19 08:06 | Outpatient (BNVA) | payer MEDICARE, SELFPAY | PROVIDERS: PCP Internal Medicine; Visit Provider Physician Assistant | DX: R19.7 Diarrhea, unspecified (principal); R11.0 Nausea | CPT/HCPCS: 99212 ==

== ENCOUNTER 2024-12-24 14:29 | Outpatient (AMB) | payer MEDICARE, SELFPAY ==
[2024-12-24 14:35] VITALS: BP 130/60; PULSE 80; O2SAT 97; BMI 39.2
--- NOTE | 2024-12-24 14:35 | MHC.OFFVIS ---
Vital Signs 12/24/24 14:35 Height 5 ft 1 in Weight 207 lb 3.752 oz BMI 39.2 BP 130/60 Blood Pressure Location Lt brachial Position Sitting Pulse 80 Pulse Source Pulse Oximeter Pulse Oximetry (%) 97 Oxygen Delivery Method Room Air Intake Visit Reasons: Obstructive sleep apnea Intake Note: pt is here for follow up and states she was in urgent care last month, pt received a nebulizer by pcp. she is using Breztri and feels like she is not getting relief, she does still use nebulizer but does get shaky with use of albuterol. 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 Required: No Allergies zoster vaccine live [SHINGLES VACCINE] Allergy (Severe, Verified 12/24/24 14:58) HIVES, facial swelling grass pollen Allergy (Mild, Verified 12/24/24 14:58) Itching and runny nose BARIUM CONTRAST Allergy (Severe, Uncoded 12/24/24 14:58) DIFFICULTY BREATHING/FLUSHING Medication List - Last Reconciled 12/24/24 by Earnest Chaparro MD albuterol sulfate 90 mcg/actuation 2 puffs inhalation Q4-6H PRN 30 days albuterol sulfate 2.5 mg (3 mL) inhalation Q6H PRN 30 days aspirin 81 mg PO DAILY atorvastatin 20 mg PO DAILY 90 days uyrdvvxdzh-pvqpfphs-bpcpiellci 160-9-4.8 mcg/actuation (Breztri Aerosphere) 2 inhalations inhalation BID 30 days bupropion HCl XL 300 mg PO DAILY calcium carbonate (Calcium 500) 500 mg PO BID 90 days cholecalciferol (vitamin D3) 25 mcg PO DAILY 90 days cyclosporine 0.05% (Restasis MultiDose) 1 drp ophthalmic (eye) Q12H 90 days fluoxetine mg PO gabapentin 600 mg PO DAILY hydroxyurea 500 mg PO DAILY 90 days lactulose 20 grams PO TID PRN magnesium oxide 400 mg (2 x 200 mg magnesium) PO BEDTIME 90 days mecobalamin (vitamin B12) 1,000 mcg PO DAILY naltrexone 50 mg PO DAILY [nebulizer accesories As directed] nebulizer and compressor As directed omeprazole 40 mg PO DAILY 90 days ondansetron 4 mg PO Q8H PRN Synthroid (levothyroxine) 100 mcg PO DAILY 90 days NS triamcinolone acetonide 0.025% 1 appl topical BID 14 days white petrolatum 41% (Aquaphor Healing) 1 appl topical BID PRN zinc gluconate 30 mg PO DAILY 90 days Do you need a note to return to daycare/school/sports/work: No HPI HPI Obstructive sleep apnea: Details: THIS 69 YEARS OLD FEMALE, COMES AFTER 6 MONTHS FOR ROUTINE FOLLOW-UP. SHE IS GROSSLY OBESE BUT DOES NOT WANT TO TALK ABOUT HER WEIGHT. SHE HAS DIAGNOSIS OF OBSTRUCTIVE SLEEP APNEA BUT DOES NOT WANT TO USE CPAP IT MAKES HER SUFFOCATED. CURRENTLY USING GABAPENTIN 600 MG AT NIGHT WHICH HELPS HER TO SLEEP. SHE HAS ADVANCED COPD WELL RESTRICTIVE LUNG DISEASE. HAS BEEN ON BREZTRI 2 PUFFS DAILY, BUT CLAIMS THAT EVEN WITH THAT SHE IS STILL GETTING SHORT OF BREATH ON WALKING. ALSO HAS BOUTS OF COUGH BUT NO EXPECTORATION. LATELY SHE HAS BEEN PRESCRIBED ALBUTEROL SOLUTION TO USE IN THE NEBULIZER NEEDED BUT SHE SAY IS THIS MAKES HER SHAKY, ( ALBUTEROL EFFECT) WANTS TO TRY SOMETHING DIFFERENT. [facility] Medical History Mood disorder Wears dentures PTSD (post-traumatic stress disorder) Bipolar disorder JONATHAN (obstructive sleep apnea) Obesity (BMI 30-39.9) Personal history of nicotine dependence History of laryngeal cancer Dysphagia Renal stones Depression Hyperlipidemia Chronic diarrhea BMI 38.0-38.9,adult Essential thrombocytosis Hypovitaminosis D Eczema Dyslipidemia Hypothyroidism Anxiety Asthma COPD (chronic obstructive pulmonary disease) Hiatal hernia Surgical History Incarcerated ventral hernia (11/12/23) Hx of tonsillectomy History of surgery on left wrist History of hand surgery History of colonoscopy History of endoscopy History of repair of hiatal hernia Family History Father Mental health disorder CAD (coronary artery disease) Mother S/P CABG x 3 Asthma Brother Substance use disorder Father Diabetes Maternal Grandmother Breast cancer Social History Household Members: None Housing: Apartment Are you a primary home health care case manager to a significant other at home: No Do you presently have visiting nurse or other home services: No Alcohol intake: never Patient Tobacco Use Status: Former Tobacco user Tobacco use type: Cigarette Years Smoked: 45 e-Cigarette/Vaping Use: Never Used Second Hand Smoke Exposure: No Substance Use Type: Marijuana service: No Current occupational status: retired Current occupation: right handed Sexual orientation: Straight/Heterosexual Cognitive needs: No Hearing needs: No Vision needs: No Review of Systems Const All systems reviewed & are unremarkable except as noted in HPI and below Eyes Reports no additional complaints ENT Reports nasal congestion (Intermittent) Card Denies chest pain, Denies irregular heart rhythm, Denies leg edema and Reports dyspnea on exertion (Moderate) Resp Reports cough, Reports dyspnea on exertion (Moderate) and Denies wheezing (Mild intermittent) GI Reports no additional complaints Reports no additional complaints Musc Reports no additional complaints Skin/Breast Reports system reviewed and no additional complaints, except as documented Neuro Reports no additional complaints Psych Reports anxiety and Reports depression (Treated with med) Aller/Immun Denies wheezing (Mild intermittent) Physical Exam Vital Signs: Last Vital Signs Pulse 80 12/24/24 14:35 BP 130/60 12/24/24 14:35 Pulse Ox 97 12/24/24 14:35 Oxygen Delivery Method Room Air 12/24/24 14:35 BMI result Body Mass Index 39.2 Const General: comfortable, no acute distress, alert and awake Orientation/consciousness: patient oriented x3 HEENT Head: Yes normal to inspection General nose exam: No nasal polyps present and No nasal discharge present Face and sinus: Yes sinuses nontender Mouth: oropharynx abnormals (Narrow and crowded, Mallampati class 4) Throat: Yes posterior oropharynx normal Eyes General: appearance normal, both eyes and all related structures Neck Neck: Yes normal visual inspection, Yes no lymphadenopathy, Yes trachea midline, Yes no JVD and Yes other (Neck circumference 15 in) Thyroid: Thyroid normal Chest Chest palpation & inspection: normal inspection of the chest, normal palpation of entire chest wall and no tenderness Resp Other: Percussion note resonant, breath sounds are quite distant especially over the basilar areas. Expiratory phase prolonged. No wheezes rhonchi or crepitations are heard today. Cardio Palpation: normal PMI Rate: regular rate Rhythm: regular rhythm Heart sounds: no gallops and no murmurs GI Palpation (GI): Soft to palpation, nontender, No hepatosplenomegaly present, no masses and Other GI palpation findings present (Abdomen is obese and protuberant) Auscultation: normal bowel sounds Back/Spine/Pelvis Thoracic/Lumbar Spine: thoracic and lumbar spine normal to inspection Skin General skin exam: no rashes or lesions noted Neuro General: patient oriented x3 and no focal motor deficits Cranial nerves: Yes CN's II-XII intact bilaterally Extrem General: Yes normal to inspection, Yes no clubbing, cyanosis or edema and Yes no calf tenderness Psych Appearance: grossly normal and well kempt Speech and movement: Normal speech and movement present Assessment & Plan Assessment & Plan (1) Obesity (BMI 30-39.9): Comment: Patient remains grossly obese . Does not want to talk about weight ( she is sensitive about this topic ) Code(s): E66.9 - Obesity, unspecified Category: Medical Plan: I DID TOLD HER INDIRECTLY THAT SHE NEEDS TO LOSE WEIGHT. (2) JONATHAN (obstructive sleep apnea): Comment: PATIENT DOES HAVE PAST HISTORY OF OBSTRUCTIVE SLEEP APNEA BUT AFTER LOSING SOME WEIGHT, SHE DECIDED TO DO WITHOUT THE CPAP. SHE SLEEPS IN LATERAL POSITION. CLAIMS THAT SHE IS SLEEPING WELL WITHOUT ANY INTERRUPTION, CURRENTLY SHE IS USING GABAPENTIN 6 MG AT BEDTIME. AND CLAIMS THAT SHE CAN SLEEP BETTER Code(s): G47.33 - Obstructive sleep apnea (adult) (pediatric) Category: Medical Plan: INSTRUCTED TO TRY TO SLEEP MOSTLY IN LATERAL POSITION . (3) Personal history of nicotine dependence: Comment: (former smoker - onset 11yo, 1ppd x 51yrs, 50pyh, quit 2018) Code(s): Z87.891 - Personal history of nicotine dependence Category: Medical Plan: COMMENDED FOR NOT GOING BACK TO SMOKING . (4) COPD (chronic obstructive pulmonary disease): Comment: Patient has moderately severe obstructive airway disorder. It is controlled with the current regimen but she complains of getting more short of breath and more frequent bouts of cough. Her last pulmonary function test was at [facility], quite a few years ago. SPIROMETRY SHOWED PATTERN OF MILD TO MODERATE OBSTRUCTIVE AIRWAY DISORDER. Code(s): J44.9 - Chronic obstructive pulmonary disease, unspecified Category: Medical Qualifiers: COPD type: unspecified COPD Qualified Code(s): J44.9 - Chronic obstructive pulmonary disease, unspecified Plan: Continue using Breztri 2 puffs daily. Will add Combivent Respimat to use 1 inhalation Q 6 hours p.r.n. for increased shortness of breath. I think this would better than using albuterol solution in the nebulizer. Medications: New ipratropium-albuterol 20-100 mcg/actuation (Combivent Respimat) 1 puff inhalation Q6H 30 days 4 grams 2RF Coding Level of Care Code Est Pt Level 3 (01017) Diagnoses Obesity (BMI 30-39.9) E66.9 JONATHAN (obstructive sleep apnea) G47.33 Personal history of nicotine dependence Z87.891 Chronic obstructive pulmonary disease, unspecified COPD type J44.9 COPD type: unspecified COPD
== END 2024-12-24 14:59 | disposition home or self-care (01) ==
LOC: HO.HPS 14:30
PROVIDERS: PCP Internal Medicine; Visit Provider Internal Medicine
DX: E66.9 Obesity, unspecified (principal); G47.33 Obstructive sleep apnea (adult) (pediatric); Z87.891 Personal history of nicotine dependence; J44.9 Chronic obstructive pulmonary disease, unspecified
CPT/HCPCS: 99213

== ENCOUNTER → 2024-12-24 14:29 | Outpatient (BNVA) | payer MEDICARE, SELFPAY | PROVIDERS: PCP Internal Medicine; Visit Provider Internal Medicine | DX: G47.33 Obstructive sleep apnea (adult) (pediatric) (principal); J44.9 Chronic obstructive pulmonary disease, unspecified; E66.9 Obesity, unspecified; Z87.891 Personal history of nicotine dependence; Z68.39 Body mass index [BMI] 39.0-39.9, adult | CPT/HCPCS: 99212 ==

== ENCOUNTER 2024-12-31 14:53 | Outpatient (REF) | payer MEDICARE, SELFPAY ==
[2024-12-31 17:57] LABS: Thyroid Stimulating Hormone 13.79 uIU/mL (0.32-4.0)
== END 2024-12-31 14:54 | disposition home or self-care (01) ==
LOC: HO.LAB 14:53
PROVIDERS: PCP Internal Medicine; Visit Provider Internal Medicine
DX: E03.9 Hypothyroidism, unspecified (principal)
CPT/HCPCS: 36415; 84443

== ENCOUNTER 2025-02-02 13:38 | Outpatient (REF) | payer MEDICARE, SELFPAY | END 2025-02-02 13:39 | disposition home or self-care (01) | LOC: HO.MAMMO 13:38 | PROVIDERS: Visit Provider Internal Medicine | DX: Z12.31 Encounter for screening mammogram for malignant neoplasm of breast (principal) | CPT/HCPCS: 77063; 77067 ==

== ENCOUNTER → 2025-02-02 13:45 | Outpatient (BNV) | payer MEDICARE, SELFPAY | PROVIDERS: Visit Provider Internal Medicine | DX: Z12.31 Encounter for screening mammogram for malignant neoplasm of breast (principal) | CPT/HCPCS: 77063; 77067 ==

== ENCOUNTER 2025-04-20 07:57 | Outpatient (AMB) | payer MEDICARE, MEDICAID, SELFPAY ==
--- OUTSIDE RECORDS SUMMARY | 2025-04-20 08:00 | XMS_ITS ---
Author Name [facility] Organization Unknown Care Team Organization Name Specialty Phone Email Start Date End Da te [facility] Termed, PROVIDER Primary Care 06/13/202203/06
--- OUTSIDE RECORDS SUMMARY | 2025-04-20 08:00 | XMS_ITS | Clinical Summary ---
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 Name Role Phone Mahendra Salamanca MD Primary Care Provider Allergies Active Allergy Reactions Criticality Noted Date Comments Barium Sulfate Rash Low 10/27/2020 Peanut Itching 10/27/2020 Adjuvant As01b (Pf)Vial 1 Of 2 Hives 10/27 Hydrocodone-Acetaminophen Sweating Low 10/27/2020 Medications albuterol (PROAIR HFA) 90 mcg/actuation inhaler ProAir HFA 90 mcg/actuation aerosol inhaler Active aspirin 81 MG EC tablet aspirin 81 mg tablet,delayed release Active betamethasone dipropionate 0.05 % cream betamethasone dipropionate 0.05 % topical cream Active cetirizine (ZYRTEC) 10 MG tablet cetirizine 10 mg tablet Active cholecalciferol (VITAMIN D3) 2,000 unit tablet cholecalciferol (vitamin D3) 50 mcg (2,000 unit) tablet Activ e cyclobenzaprine (FLEXERIL) 5 MG tablet cyclobenzaprine 5 mg tablet Take 1 tablet 3 times a day by oral route for 5 days. Active diphenhydrAMINE (BENADRYL) 25 mg capsule Benadryl 25 mg capsule Active triamcinolone acetonide 0.1 % cream triamcinolone acetonide 0.1 % topical cream Active hydroxyurea (HYDREA) 500 mg capsule Take by mouth daily. Active hydrOXYzine HCL (ATARAX) 10 MG tablet Take 10 mg by mouth 3 (three) times a day as needed for itching. Active levothyroxine (SYNTHROID, LEVOTHROID) 75 MCG tablet Take 75 mcg by mouth every morning. Active atorvastatin (LIPITOR) 20 MG tablet Take 20 mg by mouth daily. Active busPIRone (BUSPAR) 5 MG tablet Take 5 mg by mouth 3 (three) times a day. Active escitalopram oxalate (LEXAPRO) 20 MG tablet Take 20 mg by mouth daily. Active fluticasone propionate (FLONASE) 50 mcg/actuation nasal spray 1 spray by Nasal route daily. Active lidocaine 5 % ointment Apply topically as needed. Active cycloSPORINE (RESTASIS) 0.05 % suspension Place 1 drop into each eye 2 (two) times a day. Active Active Problems Problem Noted Date Diagnosed Date Atopic dermatitis 11/23/2020 Vaccine reaction 11/23/2020 Social History Tobacco Use Types Packs/Day Years Used Date Smoking Tobacco: Former Cigarettes Smokeless Tobacco: Never Comments:quit 3yrs ago Education Answer Date Recorded Are you interested in more education? Not on nury e 12/10/2022 Are you concerned about learning? Not on file 12/10/2022 No 12/10/2022 No 12/10/2022 Digital Access Answer Date Recorded No 12/31/2022 No 12/31/2022 Reliable internet access at home? Not on file 12/31/2022 Device with a working camera? Not on file Comments Unknown Sex and Gender Information Value Date Recorded Sex Assigned at Female 10/14/2020 11:10 AM EST Legal Sex Female 6:36 PM EST Gender Identity Female 10/14/2020 11:10 AM EST Sexual Orientation Bisexual 11/20/2020 12 :56 PM EDT Sexual Orientation Straight 11/20/2020 12 :56 PM EDT Last Filed Vital Signs Vital Sign Reading Time Taken Comments Blood Pressure 119/68 11/23/2020 1:30 PM EDT Pulse 85 11/23/2020 1:30 PM EDT Temperature - - Respiratory Rate - - Oxygen Saturation 97% 11/23/2020 1:30 PM EDT Inhaled Oxygen Concentration - - Weight 98.9 kg (218 lb) 11/23/2020 1:30 PM EDT Height 156.2 cm (5' 1.5 ) 11/23/2020 1:30 PM EDT Body Mass Index 40.52 11/23/2020 1:30 PM EDT Plan of Treatment Health Maintenance Due Date Last Done Comments LIPID PANEL 1953 TSH LEVEL 1953 DEPRESSION SCREENING 1965 SMOKING Hx and SMOKELESS TOBACCO SCREENING 1966 HEPATITIS C SCREENING 1971 MAMMOGRAM 1993 COLOGUARD 1998 COLONOSCOPY 1998 COLORECTAL CANCER SCREENING 1998 FIT TEST 1998 FOBT 1998 SIGMOIDOSCOPY 1998 VIRTUAL COLONOSCOPY 1998 OSTEOPOROSIS SCREENING INITIAL (ONE-TIME) 2018 PNEUMOCOCCAL VACCINES (50+ years) (3 of 3 - PCV20 or PCV21) 12/06/2021 12/06/2016, 03/09/2015 COVID-19 VACCINE (2 - season) 2024 11/28/2020 INFLUENZA VACCINE (#1) 2025 0, 05/06/2019, 04/12/2018, Additional history exists RSV VACCINE (1 - 1-dose 75+ series) 2028 Adult Td,Tdap Booster 11/14/2030 11/14/2020 , 05/15/2017, 03/09/2015 MENINGOCOCCAL VACCINES (B) Aged Out 04/25/2018 N o longer eligible based on patient's age to complete this topic HEPATITIS A VACCINES Aged Out No long er eligible based on patient's age to complete this topic HIB VACCINES Aged Out No longer eligi ble based on patient's age to complete this topic MENINGOCOCCAL VACCINES (ACWY) Aged Out No longer eligible based on patient's age to complete this topic Medical Devices Not on file Insurance MEDICARE PART A & B [employer] SUPPLEMENT MEDICARE PART A & B [employer] MED[employer] SUPPLEMENT MEDICARE PART A & B [employer] MED[employer] SUPPLEMENT MEDICARE PART A & B [employer] MED[employer] SUPPLEMENT MEDICARE PART A & B [facility] MEDEX SUPPLEMENT MEDICARE PART A & B [employer] MED[employer] SUPPLEMENT MEDICARE PART A & B [employer] MED[employer] SUPPLEMENT MEDICARE PART A & B [employer] MED[employer] SUPPLEMENT MEDICARE PART A & B [employer] MEDEX SUPPLEMENT Care Teams Brush Material 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 It is not the complete legal health record.[facility]
--- NOTE | 2025-04-20 08:02 | AM.OFFWIN_ITS ---
Intake Vital Signs 04/20/25 08:03 Height 5 ft 1 in Weight 195 lb BMI 36.8 BP 156/80 H Blood Pressure Location Lt brachial Position Sitting Respiration 16 Pulse 120 H Pulse Source Pulse Oximeter Temp 98.4 F Temp Source Oral Pulse Oximetry (%) 95 Oxygen Delivery Method Room Air Intake Visit Reasons: EP Severe headache Patient Tobacco Use Status: Former Tobacco user Anesthesia Assistant Required: No Accompanied by: Self / Same As Patient Allergies zoster vaccine live (SHINGLES VACCINE) Allergy (Severe, Verified 04/20/25 08:06) HIVES, facial swelling grass pollen Allergy (Mild, Verified 04/20/25 08:06) Itching and runny nose BARIUM CONTRAST Allergy (Severe, Uncoded 12/31/24 15:06) DIFFICULTY BREATHING/FLUSHING HPI HPI Comments History of Present Illness Details 69 y/o Female patient who presents to [facility] walk in clinic with c/o Severe Headaches radiating to her Neck for 1.5 weeks. Reports that headaches are on/off but very severe associated with Nausea but no vomiting. Reports that the pain is sharp and worse with Bending down. She has not been taking anything for pain relief until last night where she took 1000 mg of Acetaminophen with no relief. Denies Vision changes. Denies light or sound sensitivity. He Blood Pressure is Elevated this morning - does not have h/o HTN. [facility] Medical History (Updated 04/20/25 @ 08:23 by Jennifer Burton NP) Severe headache Mood disorder Wears dentures PTSD (post-traumatic stress disorder) Bipolar disorder JONATHAN (obstructive sleep apnea) Obesity (BMI 30-39.9) Personal history of nicotine dependence History of laryngeal cancer Dysphagia Renal stones Depression Hyperlipidemia Chronic diarrhea BMI 38.0-38.9,adult Essential thrombocytosis Hypovitaminosis D Eczema Dyslipidemia Hypothyroidism Anxiety Asthma COPD (chronic obstructive pulmonary disease) Hiatal hernia Surgical History Incarcerated ventral hernia (11/12/23) Hx of tonsillectomy History of surgery on left wrist History of hand surgery History of colonoscopy History of endoscopy History of repair of hiatal hernia Family History Father Mental health disorder CAD (coronary artery disease) Mother S/P CABG x 3 Asthma Brother Substance use disorder Father Diabetes Maternal Grandmother Breast cancer Social History Household Members: None Housing: Apartment Are you a primary medicare specialist to a significant other at home: No Do you presently have visiting nurse or other home services: No Alcohol intake: never Patient Tobacco Use Status: Former Tobacco user Tobacco use type: Cigarette Years Smoked: 45 e-Cigarette/Vaping Use: Never Used Second Hand Smoke Exposure: No Substance Use Type: Marijuana service: No Current occupational status: retired Current occupation: right handed Sexual orientation: Straight/Heterosexual Cognitive needs: No Hearing needs: No Vision needs: No Review of Systems Const All systems reviewed & are unremarkable except as noted in HPI and below Physical Exam Vital Signs: Last Vital Signs Temp 98.4 F 04/20/25 08:03 Pulse 120 H 04/20/25 08:03 Resp 16 04/20/25 08:03 BP 156/80 H 04/20/25 08:03 Pulse Ox 95 04/20/25 08:03 Oxygen Delivery Method Room Air 04/20/25 08:03 BMI result Body Mass Index 36.8 Const General: no acute distress; No comfortable Nutritional Appearance: obese Orientation/consciousness: patient oriented x3 HEENT Head: Yes normocephalic General nose exam: Normal external nose present Face and sinus: Yes normal facial exam Resp Effort & Inspection: normal respiratory effort Auscultation: clear to auscultation bilaterally Cardio Heart sounds: S1 normal heart sound present and S2 normal heart sound present Neuro General: patient oriented x3, gait normal and moves all extremities Motor exam (neuro): 5/5 motor strength present throughout Psych Speech and movement: Normal speech and movement present Assessment & Plan Assessment & Plan (1) Severe headache: Code(s): R51.9 - Headache, unspecified Plan: Advised to go to ED due to the presenting symptoms Pt agreed to go to [facility] ED. Coding Level of Care Code Est Pt Level 4 (48537) Diagnoses Severe headache R51.9 Time Spent (min) 20
[2025-04-20 08:03] VITALS: BP 156/80; PULSE 120; RESP 16; TEMP 36.9; O2SAT 95; BMI 36.8
== END 2025-04-20 08:52 | disposition home or self-care (01) ==
PROVIDERS: PCP Internal Medicine; Visit Provider Nurse Practitioner Family
DX: R51.9 Headache, unspecified (principal)

== ENCOUNTER 2025-04-20 08:29 | Emergency (ER) | payer MEDICARE, SELFPAY ==
--- NOTE | 2025-04-20 | ECG_ITS ---
Test Reason : TACHY Blood Pressure : */* mmHG Vent. Rate : 99 BPM Atrial Rate : 99 BPM P-R Int : 128 ms QRS Dur : 74 ms QT Int : 366 ms P-R-T Axes : 33 19 59 degrees QTcB Int : 469 ms Normal sinus rhythm Nonspecific ST abnormality Borderline ECG When compared with ECG of 29-Apr-2024 14:13, No significant change was found Referred By: Generic ED Physician Electronically Signed By: TIFFANY SHEEHAN
--- NOTE | ~2025-04-20 | CT_ITS ---
EXAMINATION: CT CERVICAL SPINE WITHOUT CONTRAST CLINICAL INFORMATION: Headache, neck pain, history of CA. COMPARISON: CT cervical spine 04/22/2020. TECHNIQUE: Spiral CT imaging of the cervical spine performed in axial plane without contrast. Multiplanar reformatted images were constructed from the axial data set. This CT examination was performed using dose optimization techniques as appropriate, variously including the following: *Automated exposure control *Adjustment of mA and/or kV according to patient size (this includes techniques or standardized protocols for targeted exams where dose is matched to indication/reason for exam; i.e. extremities or head) *Use of iterative reconstruction technique FINDINGS: CORONAL ALIGNMENT: -Minimal levoconvex scoliosis. SAGITTAL ALIGNMENT: -Normal lordosis. No evidence of traumatic subluxation. C1-C2 AND CRANIOCERVICAL JUNCTION: -Intact and normally aligned. Mild to moderate degenerative arthrosis in the atlantoaxial joint. VERTEBRAL BODIES AND FACETS: -No fracture, traumatic malalignment, or suspicious bone lesion. No compression deformity. -Facets are normally aligned with mild multilevel facet degeneration. DISCS: -Mild to moderate degenerative disc changes diffusely, most significant at C4-5 and C5-6. CENTRAL CANAL: -No evidence of high-grade central canal narrowing or large disc herniation allowing for modality limitations. PREVERTEBRAL AND PARAVERTEBRAL SOFT TISSUES: -There is no prevertebral soft tissue swelling or edema. -The thyroid is diminutive in appearance. -There is no mass or abnormal lymphadenopathy within the neck. -Moderate carotid calcification bilaterally. LUNG APICES: -No pneumothorax. Mild paraseptal emphysematous changes. CT/CT cervical spine wo IV con IMPRESSION: 1. No CT evidence of acute cervical spine fracture or injury. No suspicious bone lesions evident. 2. Mild to moderate multilevel spondylosis without evidence of significant central canal narrowing. Electronically signed by: Alfie Bowling MD 04/20/2025 11:28 AM EDT
--- NOTE | ~2025-04-20 | XR_ITS ---
EXAMINATION: XR CHEST CLINICAL INFORMATION: COUGH COMPARISON: September 24, 2024 TECHNIQUE: 2 views of the chest were obtained. FINDINGS: [Right reticular pattern. Bilateral apical lung scarring. No hyperinflation. No consolidation, pleural effusion or pneumothorax. Cardiomediastinal silhouette size is normal. Multilevel thoracic and upper lumbar spondylosis. Osteopenia versus osteoporosis. Patient's large body habitus/obesity. XR/XR chest 2V IMPRESSION: Chronic interstitial lung disease. Superimposed acute small airway inflammatory process cannot be excluded.. Electronically signed by: Zafar Almanzar MD 04/20/2025 09:47 AM EDT
--- NOTE | ~2025-04-20 | CT_ITS ---
EXAMINATION: CT ANGIOGRAM BRAIN, HEAD CLINICAL INFORMATION: Headache, history of throat CA. COMPARISON: Noncontrast head CT dated earlier same day. TECHNIQUE: Test bolus sequences followed by intravenous administration 100 mL of Omnipaque 350 intravenous contrast. Helical imaging was performed in the axial plane from the skull base to the vertex. Delayed postcontrast imaging of the head was also performed. The data was processed at the pathology technologist workstation for generation of MIP sequences. Three-dimensional volume rendered reformatted images were also generated at an offline 3-D workstation. The degree of stenosis determined by NASCET criteria. This CT examination was performed using dose optimization techniques as appropriate, variously including the following: *Automated exposure control *Adjustment of mA and/or kV according to patient size (this includes techniques or standardized protocols for targeted exams where dose is matched to indication/reason for exam; i.e. extremities or head) *Use of iterative reconstruction technique Findings: CTA OF THE BRAIN: -INTRACRANIAL INTERNAL CAROTID ARTERIES: Mild calcific atherosclerotic disease of the intracranial internal carotid arteries without occlusion or flow-limiting stenosis. -RIGHT ANTERIOR CEREBRAL ARTERY: Normal A1 segment. Normal arborization of the distal segments. -LEFT ANTERIOR CEREBRAL ARTERY: Normal A1 segment. Normal arborization of the distal segments. -ANTERIOR COMMUNICATING ARTERY: Normal. -RIGHT MIDDLE CEREBRAL ARTERY: Normal M1 segment of the MCA without focal stenosis or occlusion. Normal bifurcation. 2 mm junctional dilatation of the anterior temporal branch (series 6, image 112). Normal arborization of the distal segments. -LEFT MIDDLE CEREBRAL ARTERY: Normal M1 segment of the MCA without focal stenosis or occlusion. Normal bifurcation. Normal arborization of the distal segments. -RIGHT VERTEBRAL ARTERY V4: Normal in course and caliber. Normal PICA branch. -LEFT VERTEBRAL ARTERY V4: Normal in course and caliber. Normal PICA branch. -BASILAR ARTERY: Normal without focal stenosis or occlusion. Normal appearance of the proximal superior cerebellar arteries. Normal basilar tip. -RIGHT POSTERIOR CEREBRAL ARTERY: Normal P1 segment. Normal opacification of the distal BULLDOZER OPERATOR segments. -LEFT POSTERIOR CEREBRAL ARTERY: Normal P1 segment. Normal opacification of the distal BULLDOZER OPERATOR segments. -POSTERIOR COMMUNICATING ARTERIES: Small but present bilaterally. Normal opacification of the superior sagittal, straight, transverse, and sigmoid sinuses. No venous thrombosis. No space-occupying hemorrhage or definite evolving infarct. CT/CT angio head IMPRESSION: 1. No evidence of significant stenosis, occlusion, dissection, or aneurysm of the major intracranial arterial vasculature. 2. The major cortical and dural venous sinuses are patent. 3. No space-occupying hemorrhage or definite evolving infarct Electronically signed by: Alfie Bowling MD 04/20/2025 04:04 PM EDT
--- NOTE | ~2025-04-20 | CT_ITS ---
EXAMINATION: CT HEAD WITHOUT IV CONTRAST HISTORY: headache, hx of throat ca. TECHNIQUE: Unenhanced helical CT of the head was performed per standard departmental protocol. Coronal and sagittal reformats of the head were also evaluated. One or more of the following techniques was used for dose reduction: Automated exposure control, adjustment of the mA and/or kV according to patient size, use of iterative reconstruction technique. DLP: 69 mGy-cm COMPARISON: Comparison is made with the prior examination dated 03/20/2023. FINDINGS: BRAIN: There is mild prominence of the ventricular system and cortical sulci, consistent with atrophy. Scattered periventricular and subcortical white matter hypodensities are noted which are nonspecific, but often seen in the setting of small vessel ischemic disease. There is no mass effect or midline shift. No intra- or extra-axial fluid collections are identified. SINUSES: The visualized paranasal sinuses are clear. The mastoid air cells and middle ear cavities are well pneumatized. ORBITS: The visualized orbits are unremarkable. BONES/SOFT TISSUES: The extracranial soft tissues are unremarkable. The calvarium is intact. No suspicious lytic or sclerotic lesions. CT/CT head/brain wo IV con IMPRESSION: No acute intracranial abnormality. Electronically signed by: Christopher Adams MD 04/20/2025 11:24 AM EDT
[2025-04-20 08:38] VITALS: BP 121/87; PULSE 106; RESP 20; TEMP 36.7; O2SAT 97; BMI 36.8
--- NOTE | 2025-04-20 08:58 | MHC.EDTECH ---
Patient brought into triage area,EKG taken per order and signed by provider,labs drawn and sent to lab.
[2025-04-20 09:02] LABS: MANUAL DIFF FLAG NO
[2025-04-20 09:03] LABS: Hematocrit 36.6 % (37.0-47.0); Hemoglobin 11.6 g/dl (12.0-16.0); Imm Gran Abs Auto 0.03 X10*3/uL (0.00-0.03); Imm Gran Pct Auto 0.5 % (0.0-0.4); Lymphocytes Absolute Auto 1.3 X10*3/uL (1.2-4.9); Mean Corpuscular HGB Conc 31.7 g/dl (31.0-35.0); Mean Corpuscular Hemoglobin 28.4 pg (27.0-33.0); Mean Corpuscular Volume 89.5 fL (80.0-98.0); NRBC Abs Auto 0.000 X10*3/uL (0.0-0.012); NRBC Pct Auto 0.0 /100WBC (0.0-0.2); Platelet Count 363 X10*3/uL (160-400); Red Blood Count 4.09 X10*6/uL (4.20-5.50); White Blood Count 6.5 X10*3/uL (4.8-10.8)
[2025-04-20 09:11] VITALS: BP 115/95; PULSE 100; RESP 16; TEMP 36.4; O2SAT 97
--- NOTE | 2025-04-20 09:16 | PC.NURSE ---
69 F presents to ED with 1.5 weeks of head pain in front and back of head, R cheek, neck, and ears, 9/10. Pt sts she has some nausea that comes and goes, denies any CP. RR even and unlabored. Pt sts some SOB at baseline d/t COPD. A+OX4, calm, cooperative, ambulatory. Pt denies any balance issues, dizziness, recent falls, or use of ambulatory devices.
[2025-04-20 09:22] LABS: Alanine Aminotransferase 15 U/L (0-31); Albumin Level 4.2 g/dL (3.5-5.0); Alkaline Phosphatase 152 U/L (39-117); Anion Gap 13 (12-20); Aspartate Amino Transferase 26 U/L (5-31); Blood Urea Nitrogen 10 mg/dL (9-16); Calcium 9.2 mg/dL (8.4-10.2); Carbon Dioxide 24 mmol/L (22-29); Chloride 110 mmol/L (96-108); Creatinine Clr Calc Pharmacy 55.5; Estimated Glomerular Filt Rate 59; Potassium 4.3 mmol/L (3.3-5.1); Sodium 143 mmol/L (135-145); Total Protein 7.5 g/dL (6.5-8.0)
--- NOTE | 2025-04-20 09:26 | ED_ITS ---
HPI - Headache General Chief Complaint: Headache Stated Complaint: high bp, severe headaches Time Seen by Provider: 04/20/25 09:26 Source: patient and RN notes reviewed Mode of arrival: ambulatory Limitations: no limitations History of Present Illness ED Provider: Roula Franco PA-C HPI Narrative: This is a 69-year-old female, with a past medical history of COPD, PTSD, bipolar disorder, throat cancer status post radiation in remission - not undergoing any current treatment, and asthma, who presents emergency department with concerns of severe headache for the last 1-1/2 weeks. Patient reports that initially she had headaches intermittently, describing it as a sharp pressure, typically on already side of her head. She states that over the last week she has had worsening headaches, now constant. She states that the pain worsens with leaning forward. You also endorses some sweats and congestion. She also reports some intermittent palpitations and chest pressure. She denies any chest pressure or palpitations at this time. Endorsing nausea, no vomiting. She states that she took Tylenol yesterday which provided her with minimal relief. She denies any fevers, chills, cough, shortness for breath, abdominal pain, vomiting, diarrhea, constipation, or urinary symptoms. She is not on any anticoagulation. No recent head injury or head strike. No other complaints or concerns at this time. MD elicited complaint: headache Exacerbating factors: none Relieving factors: nothing Associated symptoms: nausea Treatments prior to arrival: none Related Data Home Medications ?Medication ?Instructions ?Recorded ?Confirmed aspirin 81 mg tablet,delayed 81 mg PO DAILY 07/31/23 0 11/27/24 release mecobalamin (vitamin B12) 1,000 1,000 mcg PO DAILY 11/27/24 mcg chewable tablet bupropion HCl 300 mg 24 hr tablet, 300 mg PO DAILY 11/27/24 extended release gabapentin 600 mg tablet 600 mg PO DAILY 11/27/24 lactulose 10 gram/15 mL oral 20 g PO TID PRN 12/24/24 solution naltrexone 50 mg tablet 50 mg PO DAILY 12/24/24 fluoxetine 20 mg tablet 40 mg PO ONCE 12/31/24 Previous Rx's ?Medication ?Instructions ?Recorded atorvastatin 20 mg tablet 20 mg PO DAILY 90 days #90 t abs 05/29/24 cyclosporine 0.05 % eye drops 1 drp ophthalmic (eye) Q 12H 90 07/18/24 (Restasis MultiDose) days #16.5 mL albuterol sulfate 90 mcg/actuation 2 puff inhalation Q 4-6H PRN for 07/21/24 aerosol inhaler wheezing 30 days #54 ea albuterol sulfate 2.5 mg/3 mL 2.5 mg (3 mL) inhalation Q6H PRN 09/26/24 (0.083 %) solution for nebulization bronchospasm 30 da ys #360 mL nebulizer accesories #1 ea 10/01/24 nebulizer and compressor #1 ea 10/17/24 magnesium oxide 400 mg (2 x 200 mg magnesium ) PO 10/22/24 BEDTIME 90 days #180 tabs triamcinolone acetonide 0.025 % 1 appl topical BID 14 days #80 10/27/24 topical ointment grams white petrolatum 41 % topical 1 appl topical BID PRN d ry skin #7 10/27/24 ointment (Aquaphor Healing) grams budesonide 160 mcg-glycopyr 9 2 inh inhalation BID SUPERVISOR TUBING D 30 days 11/27/24 mcg-formot 4.8 mcg/actuation HFA #5.9 grams inhaler (Breztri Aerosphere) zinc gluconate 30 mg tablet 30 mg PO DAILY 90 days #90 tabs 12/11/24 ondansetron 4 mg disintegrating 4 mg PO Q8H PRN nausea and 12/19/24 tablet vomiting #10 tabs ipratropium 20 mcg-albuterol 100 1 puff inhalation Q6H 30 days #4 12/24/24 mcg/actuation mist for inhalation grams (Combivent Respimat) bisacodyl 5 mg tablet 10 mg (2 x 5 mg) PO DAILY 90 days 12/31/24 #180 tabs psyllium husk 0.52 gram capsule 1.04 g (2 x 0.52 gram) PO DAILY 12/31/24 #60 caps Synthroid 112 mcg tablet 112 mcg PO DAILY 90 days #90 tabs 04/04/25 (levothyroxine) calcium carbonate (Calcium 500) 500 mg PO BID 90 days #180 tabs 04/10/25 cholecalciferol (vitamin D3) 25 25 mcg PO DAILY 90 day s #90 caps 04/10/25 mcg (1,000 unit) capsule hydroxyurea 500 mg capsule 500 mg PO DAILY 90 days #90 caps 04/10/25 omeprazole 40 mg capsule,delayed 40 mg PO DAILY 90 day s #90 caps 04/10/25 release kkuvaqynda-upsildksdgkie-aelzrsnj 1 cap PO Q6H PRN hea dache #14 caps 04/20/25 50 mg-300 mg-40 mg capsule (Fioricet) prochlorperazine maleate 10 mg 10 mg PO Q6H PRN headac he, nausea 04/20/25 tablet (Compazine) #14 tabs Allergies Allergy/AdvReac Type Severity Reaction Status Date / Time zoster vaccine live Allergy Severe HIVES, Verified 04/20/25 08:41 (SHINGLES VACCINE) facial swelling grass pollen Allergy Mild Itching Verified 04/20/25 08:41 and runny nose BARIUM CONTRAST Allergy Severe DIFFICULTY Uncoded 04/20/25 08:41 BREATHING/FLUSHING Review of Systems 2 Review of Systems: Constitutional : No Fever, No Chills ENT/Mouth : No sore throat, No Rhinorrhea Eyes: No Eye Pain, No Swelling, No Redness Cardiovascular : No Chest Pain, No SOB Respiratory : No Cough, No Sputum Gastrointestinal : No Nausea, No Vomiting, No Diarrhea, No abdominal Pain Genitourinary : No Dysuria, No Hematuria Musculoskeletal : No joint pain, No Myalgias, No Joint Swelling Skin : No Skin Lesions Neuro : No Weakness, No Numbness, No Headache All other systems reviewed and are negative Yes all other systems are reviewed and are negative Constitutional: Constitutional: Reports as per [facility] Past Medical History Attestation statement: The following information was validated with the patient. Medical History Severe headache Mood disorder Wears dentures PTSD (post-traumatic stress disorder) Bipolar disorder JONATHAN (obstructive sleep apnea) Obesity (BMI 30-39.9) Personal history of nicotine dependence History of laryngeal cancer Dysphagia Renal stones Depression Hyperlipidemia Chronic diarrhea BMI 38.0-38.9,adult Essential thrombocytosis Hypovitaminosis D Eczema Dyslipidemia Hypothyroidism Anxiety Asthma COPD (chronic obstructive pulmonary disease) Hiatal hernia Surgical History Incarcerated ventral hernia (11/12/23) Hx of tonsillectomy History of surgery on left wrist History of hand surgery History of colonoscopy History of endoscopy History of repair of hiatal hernia Family History Family History Father Mental health disorder CAD (coronary artery disease) Mother S/P CABG x 3 Asthma Brother Substance use disorder Father Diabetes Maternal Grandmother Breast cancer Social History Social History Household Members: None Housing: Apartment Are you a primary healthcare economics consultant to a significant other at home: No Do you presently have visiting nurse or other home services: No Alcohol intake: never Patient Tobacco Use Status: Former Tobacco user Tobacco use type: Cigarette Years Smoked: 45 e-Cigarette/Vaping Use: Never Used Second Hand Smoke Exposure: No Substance Use Type: Marijuana service: No Current occupational status: retired Current occupation: right handed Sexual orientation: Straight/Heterosexual Cognitive needs: No Hearing needs: No Vision needs: No Physical Exam 2 Vital Signs: Vital Signs: Last Vital Signs Temp 0 F L 04/20/25 16:46 Pulse 88 04/20/25 16:46 Resp 18 04/20/25 16:46 BP 153/87 H 04/20/25 16:46 Pulse Ox 98 04/20/25 16:46 O2 Del Method Room Air 04/20/25 16:46 BMI result Body Mass Index 36.8 Const: General: cooperative, comfortable and no acute distress O rientation/consciousness: patient oriented x3 Limitations: no limitations HEENT: Head: Yes normal to inspection, Yes normocephalic and Yes atraumatic Ears: hearing grossly normal bilaterally General nose exam: Normal external nose present Face and sinus: Yes normal facial exam Mouth: Normal oral and palatal mucosa present, oropharynx normal and moist mucous membranes Throat: Yes posterior oropharynx normal Eyes: General: appearance normal, both eyes and all related structures E yelids: Yes eyelids normal Conjunctivae: conjunctivae normal Sclerae: s clerae normal Pupils: Equal, round and reactive pupils present EOM: EOMs intact bilaterally Neck: Other: Full ROM, no nuchal rigidity. No meningeal signs Neck: Yes normal visual inspection, Yes full ROM and Yes no lymphadenopathy Lymphatic: no lymphadenopathy noted Chest: Chest palpation & inspection: normal inspection of the chest Resp: Effort & Inspection: normal respiratory effort and able to speak in complete sentences Auscultation: clear to auscultation bilaterally, no crackles, no rales, no rhonchi and no wheezes Cardio: Rate: regular rate Rhythm: regular rhythm Heart sounds: S1 normal heart sound present and S2 normal heart sound present GI: Inspection: Yes normal to inspection Skin: General skin exam: no rashes or lesions noted Trauma: no lacerations or abrasions Wounds: no wounds Neuro: General: patient oriented x3 and moves all extremities Cranial nerves: Yes CN's II-XII intact bilaterally, Yes Equal, round and reactive pupils present and Yes Ability to bilaterally elevate shoulders present Cognition (Neuro): normal cognition Motor exam (neuro): 5/5 motor strength present throughout and Pronator motor function not present Coordination: f hrctl-qy-hdgf test normal and zriw-gk-wozh test normal Romberg Test: Negative Pupils: Normal pupillary reactivity/response: bilateral Extrem: General: Yes normal to inspection Right upper extremity: normal to inspection Left upper extremity: normal to inspection Right lower extremity: normal to inspection Left lower extremity: normal to inspection NIH Stroke Scale Internal: Initial- Upon Arrival Level of Consciousness: Alert Level of Consciousness Questions: Answers both questions correctly Level of Consciousness Commands: Performs both tasks correctly Best Gaze: Normal Visual: No visual loss Facial Palsy: Normal Motor Arm (Right): No drift Motor Arm (Left): No drift Motor Leg (Right): No drift Motor Leg (Left): No drift Limb Ataxia: Absent Sensory: Normal Best Language: No aphasia Dysarthia: Normal Extinction and Inattention: No abnormality Score: 0 Course Course Course Narrative: Attending note, Dr. Monterroso: I was asked by the physician front office assistant to evaluate this patient. The patient is a 69-year-old woman who had presented for evaluation of a headache that has been bothering her for about 10 days. The physician front office assistant was concerned because she felt that the patient had become abruptly hostile towards her. The physician front office assistant asked me to evaluate the patient. When I went to introduce myself to the patient (whom I had never before encountered) she was instantly hostile to me and told me she wanted nothing to do with me. When I asked her why that was the case she told me that she had earlierwalked by me in the [place] of the emergency department and that she had smiled at me pleasantly and that I had not made any pleasant reciprocal gesture to her. I explained that I had no recollection of encountering her in the [place] and that it was very possible I had many things on my mind at the time that we might have encountered each other and I further explained that I did not think that was a reasonable explanation for refusing to see me. After this the patient became somewhat more calm and allowed me to speak to her. She told me that her headache had begun about 10 days ago when she has been outside in her yard tending to her yard and that the headache had started when she had stood up. It was fairly abrupt in onset. She told me that the headache has been waxing and waning since then and that it had gotten worse today and so she came to the emergency department. She was worried that she might have some kind of a blood clot in her brain. She did not feel that the physician front office assistant have sufficiently addressed that possibility. Clinically I thought the patient did not appear obviously ill in any way. Her mental status was normal. Her neurological exam was intact. I felt she had supple neck. I explained we could obtain a CT angiogram to make sure that there were no blood clots or aneurysms in her head. She agreed to this plan. When I proposed giving her additional medication for her headache she at 1st refused but ultimately accepted a dose of ketorolac IV as well as IV fluids. The CT angiogram of the head was negative. When I went to see her with the negative results she said that her headache was vastly improved following the ketorolac and that she felt much better and was much happier now. My suspicion for a subarachnoid hemorrhage in his the patient is low and I did not feel that there was an indication for spinal tap on this patient. She seemed to feel better and will be discharged with the instructions to follow up with her primary care doctor to discuss these headaches further. She should return if worse. Medications Administered Discontinued Medications Generic Name Dose Route Start Last Admin Trade Name Freq PRN Reason Stop Dose Admin Acetaminophen 1,000 mg in 100 mls @ 400 mls/hr 04/20/25 10:10 04/20/25 11:40 Ofirmev IV 04/20/25 10:24 Infused ONCE ONE Infusion Sodium Chloride 1,000 mls @ 999 mls/hr 04/20/25 10:11 04/20/25 11:40 Ns IV 04/20/25 11:11 Infused .Q1H1M ONE Infusion Sodium Chloride 1,000 mls @ 999 mls/hr 04/20/25 14:30 04/20/25 16:12 Ns IV 04/20/25 15:30 Infused .Q1H1M SOLO Infusion Iohexol 100 ml 04/20/25 15:20 04/20/25 15:21 Iohexol 350 Mg/Ml 100 Ml Infus..Btl IV 04/20/25 15:21 70 ml ONCE ONE Administration Ketorolac Tromethamine 10 mg 04/20/25 14:26 04/20/25 14:45 Ketorolac Tromethamine 15 Mg/Ml Vial IVPUSH 04/20/25 14:27 10 mg ONCE ONE Administration Medical Decision Making Medical Decision Making [facility] Narrative: This is a 69-year-old female who presents emergency department with concerns of headache and neck pain for the last week and a half. On arrival, patient is alert and oriented x 4. She is neurologically intact, no focal deficits appreciated on exam. Labs were obtained prior to my evaluation, she does have a normocytic anemia with an H&H of 11.6/36.6, similar to previous, chemistry revealing no significant electrolyte derangement. Chest x-ray was performed revealing chronic interstitial lung disease. EKG with no STEMI noted. She has no chest pain. Patient with tenderness palpation along the frontal maxillary sinuses. She does have a history of cancer, will obtain CT head and neck to rule out any malignancy related causes however this does appear to be a case of acute sinusitis. Added on troponin, as well as viral swabs to rule out any viral etiology. We will also medicate with IV Tylenol, and IV fluids. We will continue to closely monitor. 1:44 PM 04/20/2025 (Roula Franco PA-C): Labs returned, she has no leukocytosis, hemoglobin and hematocrit 11.6/36.6, chemistry revealing no significant electrolyte derangement. Troponin less than 2.7, negative COVID and flu. CT of the neck shows jinm-sq-cythyyjk spondylosis without any significant central canal narrowing. Patient also has some carotid calcifications noted. EKG normal sinus rhythm with no acute findings present. I went to go inform patient of all of her test results however patient very frustrated in regards to overall workup as we were unable to find any sort of reason for her headache. I discussed with patient that she may have a sinus infection as she has tenderness along her frontal sinuses, worsening with bending forward and congestion, and offered to start her on antibiotics. I also discussed this case with my attending physician, Dr. Monterroso, who will go and assess patient to see if there is any additional workup indicated at this time. I also offered patient to be medicated with stronger pain medication as initially she only wanted Tylenol, however patient reported that she only wants to have her IV removed by the nurse. Attending physician, Dr. Monterroso at bedside reassessing patient. ESR CRP added. Differential Diagnosis Differential Diagnoses: The differential diagnosis associated with the presentation includes Electrolyte derangement, acute sinusitis, migraine, URI, COVID, flu Lab Data [facility] Lab Attestation statement: I reviewed the patient's lab results. See MDM and course 04/20/25 08:58 04/20/25 08:58 Labs: Lab Results 04/20/25 04/20/25 Range/Units 08:58 11:46 WBC 6.5 (4.8-10.8) X10*3/uL RBC 4.09 L (4.20-5.50) X10*6/uL Hgb 11.6 L (12.0-16.0) g/dl Hct 36.6 L (37.0-47.0) % MCV 89.5 (80.0-98.0) fL MCH 28.4 (27.0-33.0) pg MCHC 31.7 (31.0-35.0) g/dl RDW 16.8 H (11.0-16.0) % Plt Count 363 (160-400) X10*3/uL MPV 9.3 L (9.4-12.3) fL Immature Gran % (Auto) 0.5 H (0.0-0.4) % Neut % (Auto) 71.9 (45-73) % Lymph % (Auto) 20.5 (20-40) % Charlton % (Auto) 4.3 (2-11) % Eos % (Auto) 2.5 (0-4) % Baso % (Auto) 0.3 (0-2) % Lymph # (Auto) 1.3 (1.2-4.9) X10*3/uL Charlton # (Auto) 0.3 (0.1-1.2) X10*3/uL Eos # (Auto) 0.2 (0.0-0.4) X10*3/uL Baso # (Auto) 0.0 (0.0-0.2) X10*3/uL Abs Immat Gran (auto) 0.03 (0.00-0.03) X10*3/uL Absolute Neuts (auto) 4.7 (2.0-8.3) x10*3/uL Absolute Nucleated RBC 0.000 (0.0-0.012) X10*3/uL Nucleated RBC % (auto) 0.0 (0.0-0.2) /100WBC ESR 28 H (0-20) MM/HR Sodium 143 (135-145) mmol/L Potassium 4.3 (3.3-5.1) mmol/L Chloride 110 H (96-108) mmol/L Carbon Dioxide 24 (22-29) mmol/L Anion Gap 13 (12-20) BUN 10 (9-16) mg/dL Creatinine 0.94 (0.5-1.4) mg/dL Estim Creat Clear Calc 55.5 Estimated GFR 59 Random Glucose 120 H (60-115) mg/dL Calcium 9.2 (8.4-10.2) mg/dL Total Bilirubin 0.3 (0.0-1.0) mg/dL AST 26 (5-31) U/L ALT 15 (0-31) U/L Alkaline Phosphatase 152 H (39-117) U/L Troponin I High Sens < 2.7 (<3.5-17.0) ng/L C-Reactive Protein 0.96 H (< or = 0.50) mg/dL Total Protein 7.5 (6.5-8.0) g/dL Albumin 4.2 (3.5-5.0) g/dL COVID-19 (BRETT) Negative (Negative) COVID-19 Clin Com See Note Influenza Type A (SEAN) Negative (Negative) Influenza Type B (SEAN) Negative (Negative) Influenza A & B Note See Note Radiology Impression Discussion of test interpretation with radiology: I have reviewed the radiologist's reading. External Record Review External record reviewed: Inpatient record, Office record, Outpatient record, Prior outpatient labs, Prior outpatient radiology, Primary care record and Outside ED record Discharge Plan Discharge Clinical Impression: Headache Patient Disposition: Home, Self-Care Additional Instructions: Your testing in the emergency room today seems very reassuring. I do not think there is a dangerous process at work related to your headache. I have sent a prescription for a medication called Fioricet that you may try to use if you have a recurrence of your headache. Perhaps this medication will help. Also, if you have any nausea associated with your headache, you may try the prescribed prochlorperazine. Prochlorperazine has a nausea medication which can also be helpful for headaches. More importantly please plan on making a follow up appointment with your regular doctor to discuss this episode further. If at any point you are significantly worse please return to the emergency department. Prescriptions: New prochlorperazine maleate [Compazine] 10 mg tablet 10 mg PO Q6H PRN (Reason: headache, nausea) Qty: 14 0RF pdplnentsp-ymvnfkfunbsmf-spob [Fioricet] 50-300-40 mg capsule 1 cap PO Q6H PRN (Reason: headache) Qty: 14 0RF No Action Restasis MultiDose 0.05 % drops 1 drp ophthalmic (eye) Q12H 90 Days Qty: 16.5 2RF albuterol sulfate 90 mcg/actuation HFA aerosol inhaler 2 puff inhalation Q4-6H PRN (Reason: for wheezing) 30 Days Qty: 54 4RF albuterol sulfate 2.5 mg /3 mL (0.083 %) solution for nebulization 2.5 mg inhalation Q6H PRN (Reason: bronchospasm) 30 Days Qty: 360 1RF (DME) nebulizer accesories See Rx Instructions .Route .MEDSUPPLY Qty: 1 0RF Rx Instructions: As directed (DME) nebulizer and compressor Device See Rx Instructions .Route Qty: 1 0RF Rx Instructions: As directed magnesium oxide 200 mg magnesium tablet,chewable 400 mg PO BEDTIME 90 Days Qty: 180 1RF zinc gluconate 30 mg tablet 30 mg PO DAILY 90 Days Qty: 90 0RF levothyroxine [Synthroid] 112 mcg tablet 112 mcg PO DAILY 90 Days Qty: 90 0RF calcium carbonate [Calcium 500] 500 mg calcium (1,250 mg) tablet,chewable 500 mg PO BID 90 Days Qty: 180 1RF cholecalciferol (vitamin D3) 25 mcg (1,000 unit) capsule 25 mcg PO DAILY 90 Days Qty: 90 1RF hydroxyurea 500 mg capsule 500 mg PO DAILY 90 Days Qty: 90 2RF omeprazole 40 mg capsule,delayed release(DR/EC) 40 mg PO DAILY 90 Days Qty: 90 1RF aspirin 81 mg tablet,delayed release (DR/EC) 81 mg PO DAILY atorvastatin 20 mg tablet 20 mg PO DAILY 90 Days Qty: 90 1RF bupropion HCl 300 mg tablet extended release 24 hr 300 mg PO DAILY gabapentin 600 mg tablet 600 mg PO DAILY Breztri Aerosphere 160-9-4.8 mcg/actuation HFA aerosol inhaler 2 inh inhalation BID 30 Days Qty: 5.9 5RF triamcinolone acetonide 0.025 % ointment 1 appl topical BID 14 Days Qty: 80 1RF Aquaphor Healing 41 % ointment 1 appl topical BID PRN (Reason: dry skin) Qty: 7 0RF lactulose 10 gram/15 mL solution 20 g PO TID PRN naltrexone 50 mg tablet 50 mg PO DAILY Combivent Respimat 20-100 mcg/actuation mist 1 puff inhalation Q6H 30 Days Qty: 4 2RF fluoxetine 20 mg tablet 40 mg PO ONCE ondansetron 4 mg tablet,disintegrating 4 mg PO Q8H PRN (Reason: nausea and vomiting) Qty: 10 0RF mecobalamin (vitamin B12) 1,000 mcg tablet,chewable 1,000 mcg PO DAILY bisacodyl 5 mg tablet 10 mg PO DAILY 90 Days Qty: 180 0RF psyllium husk 0.52 gram capsule 1.04 g PO DAILY Qty: 60 5RF Referrals: Sana Gardner MD [Primary Care Provider, Internal Medicine] Interventions: ED Discharge Assessment Last Done: 04/20/25 16:46 Discharge Date/Time: 04/20/25 16:47 Print Language: Citizen Of [place]
[2025-04-20 10:00] VITALS: BP 133/70; PULSE 97; RESP 16; TEMP 36.8; O2SAT 100
[2025-04-20 10:42] LABS: Troponin-I High Sensitivity < 2.7 ng/L (<3.5-17.0)
[2025-04-20 11:42] VITALS: BP 129/69; BP 146/90; PULSE 90
[2025-04-20 11:44] VITALS: BP 157/61; PULSE 83
[2025-04-20 12:12] LABS: IDNOW Serial# 55D5AD1C; Influenza B2 Negative (Negative)
[2025-04-20 12:15] LABS: COVID-19 Test Negative (Negative); IDNOW Serial# 58CA691E
[2025-04-20] MEDS: iohexoL 350 MG/ML 100 ML INFUS..BTL IV (15:21)
[2025-04-20 16:46] VITALS: BP 153/87; PULSE 88; RESP 18; TEMP -17.7; TEMP 0; O2SAT 98
== END 2025-04-20 16:47 | disposition home or self-care (01) ==
PROVIDERS: Emergency Medicine; Physician Assistant Medical; Emergency Provider Emergency Medicine; PCP Internal Medicine
DX: R51.9 Headache, unspecified (principal); J44.9 Chronic obstructive pulmonary disease, unspecified; J45.909 Unspecified asthma, uncomplicated
CPT/HCPCS: 36415; 70450; 70496; 71046; 72125; 80053; 84484; 85025; 85652; 86140; 87502; 87635; 93005; 96361; 96365; 96375; 99212; 99285; J0131; J1885; Q9967

== ENCOUNTER → 2025-04-20 08:51 | Outpatient (BNV) | payer MEDICARE, SELFPAY | PROVIDERS: Emergency Provider Emergency Medicine; PCP Internal Medicine; Visit Provider Internal Medicine | DX: R00.0 Tachycardia, unspecified (principal) | CPT/HCPCS: 93010 ==

== ENCOUNTER → 2025-04-20 09:35 | Outpatient (BNV) | payer MEDICARE, SELFPAY | PROVIDERS: Emergency Provider Emergency Medicine; PCP Internal Medicine; Visit Provider Radiology Diagnostic Radiology | DX: R51.9 Headache, unspecified (principal); Z85.21 Personal history of malignant neoplasm of larynx; M47.812 Spondylosis without myelopathy or radiculopathy, cervical region; R05.9 Cough, unspecified | CPT/HCPCS: 70450; 70496; 71046; 72125 ==

== ENCOUNTER 2025-06-02 14:55 | Outpatient (AMB) | payer MEDICARE, SELFPAY ==
[2025-06-02 14:58] VITALS: BP 140/82; PULSE 86; O2SAT 95; BMI 35.9
--- NOTE | 2025-06-02 14:58 | A.OFFPC_ITS ---
Vital Signs 06/02/25 14:58 Height 5 ft 1 in Weight 190 lb BMI 35.9 BP 140/82 H Blood Pressure Location Lt brachial Position Sitting Pulse 86 Pulse Source Pulse Oximeter Pulse Oximetry (%) 95 Oxygen Delivery Method Room Air Intake Visit Reasons: thyroid State Historical Society Director Required: No Accompanied by: Self / Same As Patient Allergies zoster vaccine live (SHINGLES VACCINE) Allergy (Severe, Verified 06/02/25 15:12) HIVES, facial swelling grass pollen Allergy (Mild, Verified 06/02/25 15:12) Itching and runny nose BARIUM CONTRAST Allergy (Severe, Uncoded 06/02/25 15:12) DIFFICULTY BREATHING/FLUSHING Medication List - Last Reconciled 06/02/25 by Sana Randall MD albuterol sulfate 90 mcg/actuation 2 puffs inhalation Q4-6H PRN 30 days albuterol sulfate 2.5 mg (3 mL) inhalation Q6H PRN 30 days aspirin 81 mg PO DAILY atorvastatin 20 mg PO DAILY 90 days bisacodyl 10 mg (2 x 5 mg) PO DAILY 90 days mpwcciitpg-jrmsdsbi-mautkwvrtk 160-9-4.8 mcg/actuation (Breztri Aerosphere) 2 inhalations inhalation BID 30 days bupropion HCl XL 300 mg PO DAILY dvfjabqnxw-qknbgbtnhnmyg-typi 50-300-40 mg (Fioricet) 1 cap PO Q6H PRN calcium carbonate (Calcium 500) 500 mg PO BID 90 days cholecalciferol (vitamin D3) 25 mcg PO DAILY 90 days cyclosporine 0.05% (Restasis MultiDose) 1 drp ophthalmic (eye) Q12H 90 days fluoxetine 40 mg PO ONCE gabapentin 600 mg PO DAILY hydroxyurea 500 mg PO DAILY 90 days ibuprofen 800 mg PO Q8H 30 days ipratropium-albuterol 20-100 mcg/actuation (Combivent Respimat) 1 puff inhala tion Q6H 30 days lactulose 20 grams PO TID PRN magnesium oxide 400 mg (2 x 200 mg magnesium) PO BEDTIME 90 days mecobalamin (vitamin B12) 1,000 mcg PO DAILY naltrexone 50 mg PO DAILY [nebulizer accesories As directed] nebulizer and compressor As directed omeprazole 40 mg PO DAILY 90 days ondansetron 4 mg PO Q8H PRN prednisone 10 mg PO DIRECTED 8 days prochlorperazine maleate (Compazine) 10 mg PO Q6H PRN psyllium husk 1.04 grams (2 x 0.52 gram) PO DAILY Synthroid (levothyroxine) 112 mcg PO DAILY 90 days NS tirzepatide (weight loss) (Zepbound) 2.5 mg (0.5 mL) subcut QWEEK 4 weeks triamcinolone acetonide 0.025% 1 appl topical BID 14 days white petrolatum 41% (Aquaphor Healing) 1 appl topical BID PRN zinc gluconate 30 mg PO DAILY 90 days Tobacco use date assessed: 06/02/25 Fall risk assessment: No Falls in past year Last assessed Fall Risk: 06/02/25 Dental Screening Dental Screen Date: 06/02/25 Did you have a dental visit in the last 12 months?: Yes Did you have a dental problem in the last 6 months where you did not have access to dental care?: No Was dental information given to patient?: Patient has dentist HPI HPI Comments History of Present Illness Details The patient is a 69-year-old female presenting for management of her chronic medical conditions, medication refills, and new concerns. Her blood pressure was noted to be high at a recent cardiac rehab visit, and today's reading was borderline elevated at 140/82 mmHg. Also has COPD and essential thrombocytosis that has been stable. She reports new or worsening tremors in both hands which have been present for about 1.5-2 weeks, making fine motor tasks difficult. The patient suspects the tremors may be related to starting lamotrigine and also reports feeling nervous. Regarding her medications, the patient reports she has not taken her atorvastatin for approximately one month as she had run out. Her Synthroid dose was adjusted to 112 mcg in December due to suboptimal thyroid control. She reports difficulty swallowing her large calcium tablets and now uses a pill cutter. She has been using an agea-zxj-rolvipk laxative, possibly bisacodyl, for constipation instead of the prescribed lactulose. Her other chronic medications include a rescue inhaler, baby aspirin, bupropion, Fioricet as needed, fluoxetine, gabapentin, omeprazole, and hydroxyurea, the latter of which is managed by her insurance representative. The patient's psychiatrist is well-controlled with her medications. She has bipolar disorder follow by Psychiatry. For preventative care, the patient declines a bone scan, stating she read that it is not recommended for individuals over 70. She has already received her flu shot for the season. [facility] Medical History (Updated 06/02/25 @ 15:22 by Sana Randall MD) Severe headache Mood disorder Wears dentures PTSD (post-traumatic stress disorder) Bipolar disorder JONATHAN (obstructive sleep apnea) Obesity (BMI 30-39.9) Personal history of nicotine dependence History of laryngeal cancer Dysphagia Renal stones Depression Hyperlipidemia Chronic diarrhea BMI 38.0-38.9,adult Essential thrombocytosis Hypovitaminosis D Eczema Dyslipidemia Hypothyroidism Anxiety Asthma COPD (chronic obstructive pulmonary disease) Hiatal hernia Surgical History Incarcerated ventral hernia (11/12/23) Hx of tonsillectomy History of surgery on left wrist History of hand surgery History of colonoscopy History of endoscopy History of repair of hiatal hernia Family History Father Mental health disorder CAD (coronary artery disease) Mother S/P CABG x 3 Asthma Brother Substance use disorder Father Diabetes Maternal Grandmother Breast cancer Social History Household Members: None Housing: Apartment Are you a primary childcare administrator to a significant other at home: No Do you presently have visiting nurse or other home services: No Alcohol intake: never Patient Tobacco Use Status: Former Tobacco user Tobacco use type: Cigarette Years Smoked: 45 e-Cigarette/Vaping Use: Never Used Second Hand Smoke Exposure: No Substance Use Type: Marijuana service: No Current occupational status: retired Current occupation: right handed Sexual orientation: Straight/Heterosexual Cognitive needs: No Hearing needs: No Vision needs: No Questionnaire Thrive Questionnaire Date Thrive assessed: 11/27/24 AUDIT C Alcohol Use Questionnaire (AUDIT-C) 1. How often do you have a drink containing alcohol?: Never 3. How often do you have six or more drinks on one occasion?: Never Total Score: 0 Score Reviewed/Action Taken: No HENRY-7 AMB Questionnaire HENRY-7 Date HENRY - 7 assessed: 11/27/24 Source: Developed by Drs. Christopher Bryan, Alondra Torres, Janusz Orozco and colleagues, with an educational sara from [employer]. Review of Systems Const All systems reviewed & are unremarkable except as noted in HPI and below Card Denies chest pain at rest, Denies chest pain with activity, Denies edema, Denies irregular heart rhythm, Denies claudication, Denies dyspnea, Denies dyspnea on exertion, Denies orthopnea, Denies paroxysmal nocturnal dyspnea and Denies slow heart rate Resp Denies cough, Denies dyspnea and Denies dyspnea on exertion GI Denies abdominal pain, Denies change in bowel habits, Denies excessive flatus, Denies nausea and Denies vomiting Denies urinary incontinence, Denies urinary hesitancy and Denies urinary urgency Neuro Denies behavioral changes and Denies lack of coordination Psych Denies behavioral changes Endo Denies cold intolerance Physical exam (Primary Care) Vital Signs: Last Vital Signs Pulse 86 06/02/25 14:58 BP 140/82 H 06/02/25 14:58 Pulse Ox 95 06/02/25 14:58 Oxygen Delivery Method Room Air 06/02/25 14:58 BMI result Body Mass Index 35.9 Tobacco/Smoking Status: Tobacco use Status Tobacco use date assessed 06/02/25 06/02/25 15:04 Patient Tobacco Use Status Former Tobacco user 06/02/25 15:04 Tobacco use type Cigarette 06/02/25 15:04 e-Cigarette/Vaping Use Never Used 06/02/25 15:04 Thrive Assessment: Date of Thrive Assessment Date Thrive assessed 11/27/24 06/02/25 15:04 Resp Effort & Inspection: normal respiratory effort Auscultation: clear to auscultation bilaterally Cardio Jugular venous distension: no JVD Rate: regular rate Rhythm: regular rhythm Heart sounds: S1 normal heart sound present and S2 normal heart sound present Extrem General: Yes full ROM Coding Level of Care Code Est Pt Level 4 (92141) Complex EM visit Add On G2211 Diagnoses Bipolar 1 disorder F31.9 Hypothyroidism E03.9 Essential thrombocytosis D47.3 Dyslipidemia E78.5 Chronic obstructive pulmonary disease, unspecified COPD type J44.9 COPD type: unspecified COPD Time Spent (min) 23 Assessment & Plan Assessment & Plan (1) Bipolar 1 disorder: Code(s): F31.9 - Bipolar disorder, unspecified Category: Medical (2) Hypothyroidism: Code(s): E03.9 - Hypothyroidism, unspecified Category: Medical (3) Essential thrombocytosis: Comment: History of thrombocytosis noted and she is doing well on the current medicine Hydrea 500 mg daily Code(s): D47.3 - Essential (hemorrhagic) thrombocythemia Category: Medical (4) Dyslipidemia: Code(s): E78.5 - Hyperlipidemia, unspecified Category: Medical (5) COPD (chronic obstructive pulmonary disease): Comment: Patient has moderately severe obstructive airway disorder. It is controlled with the current regimen but she complains of getting more short of breath and more frequent bouts of cough. Her last pulmonary function test was at [facility], quite a few years ago. SPIROMETRY SHOWED PATTERN OF MILD TO MODERATE OBSTRUCTIVE AIRWAY DISORDER. Code(s): J44.9 - Chronic obstructive pulmonary disease, unspecified Category: Medical Qualifiers: COPD type: unspecified COPD Qualified Code(s): J44.9 - Chronic obstructive pulmonary disease, unspecified Plan Plan 1. Hypertension The patient's blood pressure was borderline elevated at 140/82 mmHg, and she was advised by her cardiac rehab provider to address it. Will initiate treatment with lisinopril 5 mg once daily in the morning. A follow-up appointment is scheduled in three weeks to recheck blood pressure. 2. Tremor The patient presents with new and worsening bilateral hand tremors, possibly as a side effect of recently initiated lamotrigine. The patient has been advised to hold lamotrigine and discuss the symptom with her psychiatrist at her upcoming appointment on June 08. If the tremor does not resolve, she is to call for further evaluation. Blood work, including a CBC, has been ordered to investigate other potential causes. 3. Hyperlipidemia The patient has been non-adherent with atorvastatin for about a month. A fasting lipid panel will be checked to re-evaluate cholesterol levels and assess if the medication dose can be decreased. A prescription for atorvastatin will be sent, but the patient is instructed to complete the blood work before restarting the medication. 4. Hypothyroidism The patient is on Synthroid 112 mcg with a dose adjustment made in December. Thyroid function tests are ordered today to monitor her thyroid status. 5. Dry eyes A referral to ophthalmology will be placed for management of her dry eyes and a prescription for Restasis, as this cannot be prescribed in a primary care setting. Orders: Orders Lipid Panel Today E78.5 - Hyperlipidemia, unspecified IRON PROFILE Today D64.9 - Anemia, unspecified Complete Blood Count Auto Diff Today D64.9 - Anemia, unspecified Vitamin D 25-OH Total Today E55.9 - Vitamin D deficiency, unspecified Vitamin B12 and Folate Today E53.8 - Deficiency of other specified B group vitamins Thyroid Stimulating Hormone Today E03.9 - Hypothyroidism, unspecified Referrals Ophthalmology Referral H04.123 - Dry eye syndrome of bilateral lacrimal glands Medications: New lisinopril 5 mg PO DAILY 90 tabs 1RF 90 days Refilled atorvastatin 20 mg PO DAILY 90 tabs 1RF 90 days Discontinued tirzepatide (weight loss) (Zepbound) for 4 weeks Discontinued Reason: Insurance Denied 2.5 mg (0.5 mL) subcut QWEEK 4 weeks 2 mL 0RF E66.9 - Obesity, unspecified
--- OUTSIDE RECORDS SUMMARY | 2025-06-02 19:20 | XMS_ITS | Clinical Summary ---
Author Organization [facility] Address [address] [place] [id number] Phone Care Team Providers Care Inbound Sales Consultant Name Role Phone Mahendra Salamanca MD Primary [...] - PCV20 or PCV21) 12/06/2021 12/06/2016, 03/09/2015 INFLUENZA VACCINE (#1) 2025 , 05/06/2019, 04/12/2018, Additional history exists COVID-19 VACCINE (2 - 2024- season) 2025 11/28/2020 RSV VACCINE (1 - 1-dose 75+ series) [...] file Insurance MEDICARE PART A & B [employer] MEDEX SUPPLEMENT MEDICARE PART A & B [employer] MEDEX SUPPLEMENT MEDICARE PART A & B [employer] MEDEX SUPPLEMENT MEDICARE PART A & B [employer] MEDEX SUPPLEMENT MEDICARE PART A & B [facility] MEDEX SUPPLEMENT MEDICARE PART A & B [employer] MEDEX SUPPLEMENT MEDICARE PART A & B [employer] MEDEX SUPPLEMENT MEDICARE PART A & B [employer] MEDEX SUPPLEMENT MEDICARE PART A & B [employer] MEDEX SUPPLEMENT Care Teams Inbound Sales Consultant Relationship Specialty Start Date End Date Mahendra Salamanca MD PCP - General Internal Medicine 10/14/20 Additional Source Comments The information contained in this document represents components of the legal health record. It is not the complete legal health record.[facility]
== END 2025-06-02 15:28 | disposition home or self-care (01) ==
LOC: HO.HMCH 14:56
PROVIDERS: PCP Internal Medicine; Visit Provider Internal Medicine
DX: D47.3 Essential (hemorrhagic) thrombocythemia (principal); F31.9 Bipolar disorder, unspecified; J44.9 Chronic obstructive pulmonary disease, unspecified; E03.9 Hypothyroidism, unspecified; E78.5 Hyperlipidemia, unspecified

== ENCOUNTER → 2025-06-02 14:55 | Outpatient (BNVA) | payer MEDICARE, SELFPAY | PROVIDERS: PCP Internal Medicine; Visit Provider Internal Medicine | DX: D47.3 Essential (hemorrhagic) thrombocythemia (principal); F31.9 Bipolar disorder, unspecified; E03.9 Hypothyroidism, unspecified; E78.5 Hyperlipidemia, unspecified; J44.9 Chronic obstructive pulmonary disease, unspecified; H04.123 Dry eye syndrome of bilateral lacrimal glands; Z79.899 Other long term (current) drug therapy | CPT/HCPCS: 99212 ==

== ENCOUNTER 2025-06-09 07:02 | Outpatient (REF) | payer MEDICARE, SELFPAY ==
--- OUTSIDE RECORDS SUMMARY | 2025-06-09 07:05 | XMS_ITS | Clinical Summary ---
Author Organization [facility] Address [address] [place] [phone] Phone Care Team Providers Care Restaurant Shift Leader Name Role Phone Mahendra Salamanca MD Primary [...] file Insurance MEDICARE PART A & B [employer] MED[employer] SUPPLEMENT MEDICARE PART A & B [employer] MED[employer] SUPPLEMENT MEDICARE PART A & B [employer] MED[employer] SUPPLEMENT MEDICARE PART A & B [employer] MEDEX SUPPLEMENT MEDICARE PART A & B [facility] MEDEX SUPPLEMENT MEDICARE PART A & B [employer] MED[employer] SUPPLEMENT MEDICARE PART A & B [employer] MED[employer] SUPPLEMENT MEDICARE PART A & B [employer] MED[employer] SUPPLEMENT MEDICARE PART A & B [employer] MEDEX SUPPLEMENT Care Teams Restaurant Shift Leader Relationship Specialty Start Date End Date Mahendra Salamanca MD PCP - General Internal Medicine 10/14/20 Additional Source Comments The information contained in this document represents components of the legal health record. It is not the complete legal health record.[facility]
[2025-06-09 07:22] LABS: MANUAL DIFF FLAG NO
[2025-06-09 07:58] LABS: Hematocrit 37.9 % (37.0-47.0); Hemoglobin 12.1 g/dl (12.0-16.0); Imm Gran Abs Auto 0.02 X10*3/uL (0.00-0.03); Imm Gran Pct Auto 0.4 % (0.0-0.4); Lymphocytes Absolute Auto 1.2 X10*3/uL (1.2-4.9); Mean Corpuscular HGB Conc 31.9 g/dl (31.0-35.0); Mean Corpuscular Hemoglobin 28.3 pg (27.0-33.0); Mean Corpuscular Volume 88.6 fL (80.0-98.0); NRBC Abs Auto 0.000 X10*3/uL (0.0-0.012); NRBC Pct Auto 0.0 /100WBC (0.0-0.2); Platelet Count 365 X10*3/uL (160-400); Red Blood Count 4.28 X10*6/uL (4.20-5.50); White Blood Count 5.6 X10*3/uL (4.8-10.8)
[2025-06-09 08:26] LABS: Alanine Aminotransferase 14 U/L (0-31); Albumin Level 4.2 g/dL (3.5-5.0); Alkaline Phosphatase 139 U/L (39-117); Aspartate Amino Transferase 23 U/L (5-31); Cholesterol 173 mg/dL (<200); HDL Cholesterol 56 mg/dL (>40); Iron 54 mcg/dL (30-160); Percent Iron Saturation 15 % (15-50); Total Iron Binding Capacity 367 mcg/dL (228-428); Total Protein 7.4 g/dL (6.5-8.0); Triglycerides 66 mg/dL (<150); Unsaturated Iron Binding 313 ug/dL
[2025-06-09 08:44] LABS: Thyroid Stimulating Hormone 0.87 uIU/mL (0.32-4.0)
[2025-06-09 08:46] LABS: HBS Num1 21.21 mIU/mL (0-7.99); HBc Num1 9.45 S/CO (0.00-0.79); HBsAGNum1 0.38 S/CO (0.00-0.99); Hepatitis A Antibody IgM 0.19 Index (0-0.79); Hepatitis B Surface Antigen Negative (Negative); ~HepC Num1 0.14 S/CO (0.00-0.79); ~Hepatitis A Antibody IgM Nonreactive (Nonreactive); ~Hepatitis B Surface Antibody REACTIVE (Nonreactive); ~Hepatitis C Antibody Nonreactive (Nonreactive)
[2025-06-09 08:55] LABS: Folate 7.5 ng/mL (> or = 4.0); Vitamin B12 369 pg/mL (200-900)
[2025-06-09 11:29] LABS: HBc Num2 9.59 S/CO; HBc Num3 9.59 S/CO
== END 2025-06-09 07:03 | disposition home or self-care (01) ==
LOC: HO.LAB 07:02
PROVIDERS: PCP Internal Medicine; Visit Provider Internal Medicine
DX: R74.01 Elevation of levels of liver transaminase levels (principal); E53.8 Deficiency of other specified B group vitamins; D64.9 Anemia, unspecified; E78.5 Hyperlipidemia, unspecified; E03.9 Hypothyroidism, unspecified; E55.9 Vitamin D deficiency, unspecified
CPT/HCPCS: 36415; 80061; 80076; 82306; 82607; 82746; 83540; 84443; 85025; 86704; 86706; 86709; 86803; 87340

== ENCOUNTER → 2025-06-25 15:10 | Outpatient (BNVA) | payer MEDICARE, SELFPAY | PROVIDERS: PCP Internal Medicine | DX: R07.0 Pain in throat (principal); Z85.21 Personal history of malignant neoplasm of larynx; I10 Essential (primary) hypertension | CPT/HCPCS: 87880; 99211; 99212 ==

== ENCOUNTER 2025-06-25 15:27 | Outpatient (AMB) | payer MEDICARE, SELFPAY ==
[2025-06-25 15:38] VITALS: BP 112/78; PULSE 89; TEMP 36.8; O2SAT 98; BMI 35.0
--- NOTE | 2025-06-25 15:38 | AM.OFFWIN_ITS ---
Intake Vital Signs 06/25/25 15:38 Height 5 ft 1 in Weight 185 lb BMI 35.0 BP 112/78 Blood Pressure Location Lt brachial Position Sitting Pulse 89 Pulse Source Pulse Oximeter Temp 98.2 F Temp Source Oral Pulse Oximetry (%) 98 Oxygen Delivery Method Room Air Intake Visit Reasons: EP sore throat and pain in right side of throat Intake Note: pt presents with right sided throat pain for a little over a month- pt reports h/o throat cancer, was treated with radiation. Patient Tobacco Use Status: Former Tobacco user Allergies zoster vaccine live (SHINGLES VACCINE) Allergy (Severe, Verified 06/25/25 15:47) HIVES, facial swelling grass pollen Allergy (Mild, Verified 06/25/25 15:47) Itching and runny nose BARIUM CONTRAST Allergy (Severe, Uncoded 06/25/25 15:47) DIFFICULTY BREATHING/FLUSHING Do you need a note to return to daycare/school/sports/work: No HPI HPI Comments History of Present Illness Details History of Present Illness - The patient is a 69 year old individua l presenting with throat pain and concerns related to a history of throat cancer. - She has been having a pain on the righ t side of the throat. - She describes that pain as a constant burning pain and it has been painful to swallow. - Throat pain has been persistent, requi ring the use of ibuprofen for management. - She has been putting a heating pad on the neck for the pain. - The patient has a history of throat ca ncer diagnosed approximately eight years ago, treated with radiation therapy. - She is worried her cancer has come johnson k despite not smoking. - The patient reports weight loss attrib uted to difficulty eating, as eating is often found to be repulsive. - There is no history of surgery for the throat cancer, and the patient is a former smoker. - She denies cold symptoms, fever, chill s, reflux, wt loss, CP, or SOB. Physical Exam General: Cooperative, healthy appearing, comfortable, no acute distress and well developed Orientation: Patient oriented x3 Limitations: No limitations Mouth and Throat: Uvula is midline. Oropharynx is erythematous with no exudates. Neck: Normal visual inspection and Yes full ROM. No lymphadenopathy noted. No masses noted. Thyroid is normal to palpation. Respiratory: Normal respiratory effort and able to speak in complete sentences. Clear to auscultation bilaterally Cardiovascular: Regular rate and rhythm. Normal S1 and S2 Skin: No rashes or lesions noted Patient was informed and verbally consented to the use of an ambient scribe for clinic note documentation during this visit. [facility] Medical History Severe headache Mood disorder Wears dentures PTSD (post-traumatic stress disorder) Bipolar disorder JONATHAN (obstructive sleep apnea) Obesity (BMI 30-39.9) Personal history of nicotine dependence History of laryngeal cancer Dysphagia Renal stones Depression Hyperlipidemia Chronic diarrhea BMI 38.0-38.9,adult Essential thrombocytosis Hypovitaminosis D Eczema Dyslipidemia Hypothyroidism Anxiety Asthma COPD (chronic obstructive pulmonary disease) Hiatal hernia Surgical History Incarcerated ventral hernia (11/12/23) Hx of tonsillectomy History of surgery on left wrist History of hand surgery History of colonoscopy History of endoscopy History of repair of hiatal hernia Family History Father Mental health disorder CAD (coronary artery disease) Mother S/P CABG x 3 Asthma Brother Substance use disorder Father Diabetes Maternal Grandmother Breast cancer Social History Household Members: None Housing: Apartment Are you a primary career placement services counselor to a significant other at home: No Do you presently have visiting nurse or other home services: No Alcohol intake: never Patient Tobacco Use Status: Former Tobacco user Tobacco use type: Cigarette Years Smoked: 45 e-Cigarette/Vaping Use: Never Used Second Hand Smoke Exposure: No Substance Use Type: Marijuana service: No Current occupational status: retired Current occupation: right handed Sexual orientation: Straight/Heterosexual Cognitive needs: No Hearing needs: No Vision needs: No Review of Systems Const All systems reviewed & are unremarkable except as noted in HPI and below Physical Exam Vital Signs: Last Vital Signs Temp 98.2 F 06/25/25 15:38 Pulse 89 06/25/25 15:38 BP 112/78 06/25/25 15:38 Pulse Ox 98 06/25/25 15:38 Oxygen Delivery Method Room Air 06/25/25 15:38 BMI result Body Mass Index 35.0 Results AMB Rapid Strep AMB Rapid Strep Negative Last Edit by Bernice Mao CMA on 06/25/25 16:3 9 Assessment & Plan Assessment & Plan (1) Throat pain: Code(s): R07.0 - Pain in throat Plan Most likely viral vs strep vs post nasal drip vs ?throat cancer rapid was negative in the office plan - A throat swab is recommended to rule out bacterial infection such as streptococcal pharyngitis. - Imaging or endoscopy may be necessary to further evaluate the cause of the throat pain. - Follow-up with oncology is advised to monitor for recurrence given the history of throat cancer. - diet as tolerated - follow up with PCP for a referral Orders: Orders AMB Rapid Strep Screen Today R07.0 - Pain in throat Coding Level of Care Code Est Pt Level 3 (90934) Diagnoses Throat pain R07.0
== END 2025-06-25 16:44 | disposition home or self-care (01) ==
PROVIDERS: PCP Internal Medicine; Visit Provider Physician Assistant Medical
DX: R07.0 Pain in throat (principal)